=== PATIENT | male | born 1945 | race Hispanic/Latino ===

== ENCOUNTER 2017-04-15 14:02 | Inpatient (IN) | payer MEDICARE, BC, MEDICAID ==
--- NOTE | 2017-04-15 14:10 | C.PDOC ---
History Of Present Illness 71 y/o male brought to ED via EMS due to cardiac and respiratory arrest [employer]. As per EMS patient at Hemodialysis was noted unresponsive and was given CPR by HD personnel for 7 mins. When EMS arrived patient was found apneic, asystole and gurgling sound noted around trachea site. Trachea balloon reinflated by EMS without difference but subsequent improved ventilation. EMS gave patient CPR and Epinephrine x1. At ED patient has NSR and remains unresponsive. Unknown how much Hemodialysis was completed. HPI limited due to patient's clinical condition. LIMITED DUE TO CLIN COND HX PER EMS +CARDIAC/RESP ARREST [employer]. PT @ HD, NOTED TO BECOME UNRESPONSE. CPR BY HD PERSONNEL X 7 MINS, PT FOUND APNEIC +ASYSTOLE. NOTED TO HEAR GURGLING AROUND TRACH SITE. TRACH BALLOON REINFLATED BY EMS W/O DIFF, SUBSEQUENT IMPROVED VENT. +CPR BY EMS S/P EPI X 1. NOW NSR. PT REMAINS UNRESPONSIVE SINCE. UNK HOW MUCH HD COMPLETED ROS UTO EXAM MOD DIST HEENT LUNGS CTA B/L W VENT THROUGH TRACH. CV RRR ABD NEG EXT +L IO. ATRAUM NEURO UNRESPONSIVE NO SPONT MVMT Time Seen by Provider: 04/15/17 14:06 History Per: Patient Reason For Code Blue: Respiratory Arrest Circumstances: Brought To ED By EMS Medications Given Prior To MD Arrival: Yes: Epinephrine Past Medical History Reviewed: Historical Data, Nursing Documentation, Vital Signs Vital Signs: Last Vital Signs Temp 96.5 F L 04/15/17 14:49 Pulse 69 04/15/17 16:05 Resp 12 04/15/17 16:05 BP 117/30 L 04/15/17 16:05 Pulse Ox 100 04/15/17 16:05 Family History: States: No Known Family Hx Review Of Systems Review Of Systems: ROS cannot be obtained secondary to pt's inabilty to answer questions. Physical Exam - Physical Exam Appears: In Acute Distress Skin: Normal Color, Warm Head: Atraumatic, Normacephalic Eye(s): bilateral: Normal Inspection Ear(s): Bilateral: Normal Cardiovascular: Rhythm Regular Respiratory: Other (CTA Bilateral w/vent through Trachea) Gastrointestinal/Abdominal: Soft, No Tenderness, No Guarding, No Rebound Extremity: Normal ROM Extremity: Bilateral: Atraumatic Neurological/Psych: No Response To Commands, Other (No S\pontaneous Movement) ED Course And Treatment - Laboratory Results Result Diagrams: 04/15/17 14:24 04/15/17 14:24 ECG Interpretation: Abnormal Interpretation Of ECG: Sinu Rhythm 1st degree AV block with occasional premature ventricular complexes. Left axis deviation. RBBB. Left ventricular hypertrophy with repolarization abnormality Rate From EC (bpm) - Radiology CXR: Interpreted by Me CXR Interpretation: Yes: Other (INFIL VS CHF) Progress - Re-Evaluation Re-evaluation Note: 04/15/17 14:43 PT DESAT TO 88% ON 50%. NOW 95% ON 100%. EXAM UNCH 04/15/17 15:44 D/W DR ARCHULETA MED SHEET METAL JOURNEYMAN WILL ADMIT 04/15/17 16:18 DR CHAIDEZ ACCEPTS FOR ICU - Data Reviewed Data Reviewed: Lab, Diagnostic imaging, EKG, Old records - Critical Care Citical Care: Excluding Proc Time Critical Care Time: 90 minutes - Continuity of Care Discussed patient case with:: On-call PMD-pt unassigned Disposition Counseled Patient/Family Regarding: Studies Performed, Diagnosis - Disposition Disposition: HOSPITALIZED Disposition Time: 15:58 Condition: SERIOUS - POA Present On Arrival: Poor Glycemic Control - Clinical Impression Clinical Impression: Respiratory arrest, Cardiac arrest, Pneumonia, ESRD (end stage renal disease) Decision To Admit - Pt Status Changed To: Hospital Disposition Of: Inpatient - Admit Certification Admit to Inpatient:: After my assessment, the patient will require hospitalization for at least two midnights. This is because of the severity of symptoms shown, intensity of services needed, and/or the medical risk in this patient being treated as an outpatient. - InPatient: Physician Admission Certification:: SEE NOTE - . Bed Request Type: ICU Admitting Physician: Dale Archuleta Patient Diagnosis: Respiratory arrest, Cardiac arrest, Pneumonia, ESRD (end stage renal disease)
[2017-04-15 14:39] LABS: BASO # 0.2 K/uL (0.0-0.2); BASO % 0.6 % (0.0-2.0); EOS # 0.1 K/uL (0.0-0.7); EOS % 0.2 % (0.0-4.0); HEMATOCRIT 25.5 % (35.0-51.0); LYMPH # 2.2 K/uL (1.0-4.3); LYMPH % 6.8 % (20.0-40.0); MEAN CELL VOLUME 93.5 fL (80.0-94.0); MEAN CORPUSCULAR HEMOGLOBIN 29.3 pg (27.0-31.0); MEAN CORPUSCULAR HGB CONC 31.3 g/dL (33.0-37.0); MEAN PLATELET VOLUME 7.2 fL (7.2-11.7); MONO % 6.4 % (0.0-10.0); PLATELET COUNT 547 K/uL (130-400); RED CELL DISTRIBUTION WIDTH 15.5 % (11.5-14.5)
[2017-04-15 14:40] LABS: INR 1.2
[2017-04-15 14:44] LABS: WHITE BLOOD COUNT 31.8 K/uL (4.8-10.8)
[2017-04-15 14:51] LABS: POTASSIUM 3.5 mmol/L (3.6-5.2)
[2017-04-15 15:08] LABS: TROPONIN I 0.043 ng/mL (0.00-0.120)
[2017-04-15 15:18] LABS: NEUTROPHIL 87 % (50-75); TOTAL CELLS COUNTED 100
[2017-04-15] MEDS ORDERED: cefTRIAXone IV 1 gm in Dextros 50 ML IV STA (15:37)
[2017-04-15] MEDS ORDERED: Azithromycin 500 MG in Sodium Chloride 0.9% 250 ML IV STA (15:37)
[2017-04-15 15:44] LABS: ABG ALLEN TEST POS; ABG MECHANICAL RATE 12; ATERIAL BLOOD GAS PEEP 5; DRAW SITE RBA
--- NOTE | 2017-04-15 15:53 | RAD ---
HISTORY: SP CARDIAC ARREST. TRACH COMPARISON: None available. TECHNIQUE: Chest, one view. FINDINGS: Tracheostomy tube. Left-sided central venous catheter extends expected location of the cavoatrial junction. LUNGS: Interstitial prominence may reflect infection or edema, [id number]. Small left pleural effusion. Bibasilar atelectasis. No definite pneumothorax. Please note that chest x-ray has limited sensitivity for the detection of pulmonary masses. CARDIOVASCULAR: Borderline cardiomegaly. OSSEOUS STRUCTURES: Osseous demineralization. Degenerative changes. VISUALIZED UPPER ABDOMEN: Unremarkable. OTHER FINDINGS: None. IMPRESSION: Tracheostomy tube. Left-sided central venous catheter extends expected location of the cavoatrial junction. Interstitial prominence may reflect infection or edema, [id number]-right. Small left pleural effusion. Bibasilar atelectasis. Borderline cardiomegaly.
[2017-04-15] MEDS ORDERED: Azithromycin 500mg/250ML NS 500 MG/250 ML BAG IVPB ONE (15:59)
[2017-04-15] MEDS ORDERED: cefTRIAXone IV 1 gm in Dextros 50 ML IVPB ONE (15:59)
--- NOTE | 2017-04-15 16:10 | CT ---
PROCEDURE: CT HEAD WITHOUT CONTRAST. HISTORY: R/O Bleed COMPARISON: None available. TECHNIQUE: Axial computed tomography images were obtained through the head/brain without intravenous contrast. Radiation dose: Total exam DLP = 1122.61 mGy-cm. This CT exam was performed using one or more of the following dose reduction techniques: Automated exposure control, adjustment of the mA and/or kV according to patient size, and/or use of iterative reconstruction technique. FINDINGS: HEMORRHAGE: No intracranial hemorrhage. BRAIN: Diffuse atrophy with prominence of the ventricles and sulci noted. No mass effect or edema. Bilateral basal ganglia calcifications. Extensive dense intracranial atherosclerotic calcifications. Evidence of right cerebellar encephalomalacia. Scattered periventricular and subcortical white matter hypodensities, which are nonspecific, but often seen with chronic microvascular ischemic disease. Please note that MRI with diffusion imaging is more sensitive in the detection of acute ischemic event. VENTRICLES: No hydrocephalus. CALVARIUM: Unremarkable. PARANASAL SINUSES: Unremarkable as visualized. No significant inflammatory changes. MASTOID AIR CELLS: Opacification/fluid throughout bilateral visualized mastoid air cells. OTHER FINDINGS: Vascular calcifications involving bilateral orbits. IMPRESSION: Evidence of right cerebellar encephalomalacia. Nonspecific white matter changes. Please note that MRI with diffusion imaging is more sensitive in the detection of acute ischemic event. Opacification/fluid throughout bilateral visualized mastoid air cells. Correlate clinically for mastoiditis. Dense intracranial vascular calcifications. Additionally, vascular calcifications are noted involving bilateral orbits.
--- NOTE | 2017-04-15 16:53 | CP.PCM.CON ---
<Mendel Cedeno - Last Filed: 04/15/17 19:22> History of Present Illness - History of Present Illness History of Present Illness: Critical Care Consultation Note Dr. Bunch CC: Cardiac Arrest At Dialysis HPI: This is a 71 year old male patient with a PMH significant for ESRD presenting for critical care evaluation following cardiac arrest while at hemodialysis. The patient was receiving HD and was noted to be unresponsive by the nursing staff of the unit. BLS was initiated by the HD staff. EMS was called and the patient was found to be apneic and asystolic. EMS continued and began ACLS for 7 minutes with 1amp epinephrine being given. The patient was transferred to the ED with NSR. The patient remained unresponsive. History is difficult to obtain. Patient is a [place] [facility] resident who has previously had a tracheostomy. While at the [place] [facility], the patient was noted to have bleeding from his right AV fistula. The patient was admitted, and the fistula was ligated. During that admission, the patient had a cardiac arrest. The patient was coded for an unknown about of time, but sustained an anoxic brain injury. FOllowing that event, the patient was noted to be baseline unresponsive to verbal stimuli. PMH: ESRD Social: Unknown Surgical: Unknown Family: Unknown Allergy: Nuts, sulfonamides, tetanus toxoid Review of Systems - Review of Systems Systems not reviewed;Unavailable: Acuity of Condition Past Patient History - Past Social History Smoking Status: Smoker Currrent Status Unknown - PSYCHIATRIC Hx Substance Use: No Meds Allergies/Adverse Reactions: Allergies Allergy/AdvReac Type Severity Reaction Status Date / Time nut - unspecified Allergy Verified 04/15/17 15:52 Sulfa (Sulfonamide Allergy Verified 04/15/17 15:52 Antibiotics) tetanus toxoid, adsorbed Allergy Verified 04/15/17 15:52 Physical Exam - Constitutional Appears: Chronically Ill - Head Exam Head Exam: NORMOCEPHALIC - ENT Exam ENT Exam: Mucous Membranes Moist - Neck Exam Neck exam: Negative for: Lymphadenopathy - Respiratory Exam Respiratory Exam: Rhonchi, NORMAL BREATHING PATTERN. absent: Respiratory Distress - Cardiovascular Exam Cardiovascular Exam: REGULAR RHYTHM. absent: Tachycardia - GI/Abdominal Exam GI & Abdominal Exam: Normal Bowel Sounds, Soft - Extremities Exam Extremities exam: Positive for: normal inspection. Negative for: pedal edema Additional comments: left leg IO line Left single lumen PICC line (+) Muscle wasting - Skin Skin Exam: Dry, Pallor, Warm Results - Vital Signs Recent Vital Signs: Last Vital Signs Temp 96.5 F L 04/15/17 14:49 Pulse 77 04/15/17 16:31 Resp 18 04/15/17 16:31 BP 120/48 L 04/15/17 16:31 Pulse Ox 100 04/15/17 16:31 - Labs Result Diagrams: 04/15/17 14:24 04/15/17 14:24 Assessment & Plan (1) Anoxic brain injury Status: Acute (2) Cardiac arrest Status: Acute (3) ESRD (end stage renal disease) Status: Acute - Assessment and Plan (Free Text) Plan: Patient status: -critical -Admission to ICU Neuro: -Non responsive to verbal stimuli at baseline -will assess for code freeze possibility -04/15/17 CT Head- Evidence of right cerebellar encephalomalacia. Nonspecific white matter changes. Please note that MRI with diffusion imaging is more sensitive in the detection of acute ischemic event. Opacification/fluid throughout bilateral visualized mastoid air cells. Correlate clinically for mastoiditis. Dense intracranial vascular calcifications. Additionally, vascular calcifications are noted involving bilateral orbits Cardiovascular: -s/p BLS for unknown amount of time -s/p ACLS for 7 minutes -ROSC s/p BLS and ACLS + 1amp epinephrine -Will obtain central line access -EKG -Fan Blade Aligner -Serial Troponins and EKG -04/15/17 Right Femoral Central Line placed Pulmonary: -Trach -PRVC -04/15/17 CXR- Tracheostomy tube. Left-sided central venous catheter extends expected location of the cavoatrial junction. Interstitial prominence may reflect infection or edema, [id number]-ygez-right. Small left pleural effusion. Bibasilar atelectasis. Borderline cardiomegaly. Gastrointestinal: -NPO Hematology: -No acute issues Endocrine: -No acute issues Renal: -ESRD- unknown completion status of HD today -IVF Musculoskeletal: -No acute issues Genitourinary: -No acute issues Infectious disease: -Vancomycin 1g x 1 -Zosyn 3.375g Q6 -logan culture -procalcitonin GI prophylaxis: Protonix 40mg IV daily DVT prophylaxis: Heparin 5000u SC q12 Case discussed with Dr. Alivia Cedeno PGY1 - Date & Time Date: 04/15/17 Time: 16:54 Proc: Central Venous Access - Time Performed Time Performed: 19:20 - Time Out Time Out: Side verified, Site verified, Patient ID confirmed, Sterile procedures obs. - Procedure Procedure: Central Line placement: Right Technique:: Femoral vein - Consent obtained Consent obtained: Emergent consent implied - Performed by Performed by: Attending Physician - Indications Indication(s):: Mult.intravenous meds, Rapid fluid infusion Tube type:: Triple lumen Tube size Uzbek:: 7 - Local Anesthetic Local Anesthetic: Lidocaine: 1% - Number of Attempts Attempts: 1 - Depth of Skin Depth at skin cm:: 2 - Line sutured in place Line sutured in place:: Yes - Post-procedural O2 Sat % Post-procedural O2 sat %:: 100 - Complications Complications: None - Patient tolerated procedure Patient Tolerated Procedure:: Well <Benjamin Bunch - Last Filed: 04/15/17 19:26> Meds - Medications Medications: Current Medications Piperacillin Sod/Tazobactam Sod (Zosyn 3.375 Gm Iv Premix) 3.375 gm in 50 mls @ 100 mls/hr IVPB Q6H JUVE Sodium Chloride (Sodium Chloride 0.9%) 1,000 mls @ 1,000 mls/hr IV .Q1H ONE Stop: 04/15/17 17:59 Sodium Chloride (Sodium Chloride 0.9%) 1,000 mls @ 100 mls/hr IV .Q10H JUVE Vancomycin/Sodium Chloride (Vancocin) 1 gm in 200 mls @ 133 mls/hr IVPB STAT STA Stop: 04/15/17 18:29 Results - Vital Signs Recent Vital Signs: Last Vital Signs Temp 96.8 F L 04/15/17 17:13 Pulse 78 04/15/17 17:38 Resp 18 04/15/17 17:38 BP 138/36 L 04/15/17 17:38 Pulse Ox 99 04/15/17 17:38 - Labs Result Diagrams: 04/15/17 14:24 04/15/17 14:24 Labs: Laboratory Results - last 24 hr 04/15/17 17:49 pO2 27 L VBG pH 7.33 VBG pCO2 54 VBG HCO3 24.7 VBG Total CO2 30.2 H VBG O2 Sat (Calc) 58.6 VBG Base Excess 1.5 VBG Potassium 3.4 L Sodium 136.0 Chloride 103.0 Glucose 272 H Lactate 2.6 H Venous Blood Potassium 3.4 L Attending/Attestation - Attestation I have personally seen and examined this patient.: Yes I have fully participated in the care of the patient.: Yes I have reviewed all pertinent clinical information: Yes Notes (Text): 04/15/17 17:54 I have seen and examined the patient. Medical records, lab studies, and imaging were reviewed by me and a management plan was formulated on multidisciplinary rounds with resident Dr. Cedeno. I agree with their above documented assessment and plan. Will start therapeutic hypothermia protocol s/p cardiac arrest. Will place central line for access. Patient is critically ill, with poor prognosis given extended CPR >10 minutes. Critical Care Time 35 minutes. Multi-disciplinary rounds were performed with house staff, nursing, speech therapy, respiratory therapy, pharmacy and nutrition with integrated input from the primary team/attending and other consulting services. The documented time is cumulative and includes review of patient data/exams/labs/chart review and examination of the patient on rounds and throughout the day; time is exclusive of any procedures or teaching time.
[2017-04-15] MEDS ORDERED: Vancomycin 1 gm/NS 200 ml 1 GM/200 ML BAG IVPB STA (16:59)
[2017-04-15] MEDS ORDERED: Sodium Chloride 0.9% 1,000 ML IV ONE (17:00)
[2017-04-15] MEDS ORDERED: Piperacillin/Tazobact 3.375 gm 100 ML IVPB ONE (17:22)
[2017-04-15 17:52] LABS: VENOUS BLOOD GAS BASE EXCESS 1.5 mmol/L (0.0-2.0); VENOUS BLOOD GAS PCO2 54 mmHg (40-60); VENOUS BLOOD PH 7.33 (7.32-7.43)
[2017-04-15] MEDS: Sodium Chloride 0.9% 1,000 ML IV SCH (18:09)
[2017-04-15] MEDS: Piperacill/Tazo 3.375gm in Dex 3.375 GM/50 ML BAG IVPB SCH ×2 (18:12→23:00)
--- NOTE | 2017-04-15 19:29 | PCM.PROC ---
Procedures Attestation:: I certify that I have explained the specified Operation(s) or Procedure(s), risks, benefits and reasonable alternatives to the Patient and/or other person responsible. The opportunity was given to ask questions and all questions answered - Central Line Placement Right Femoral Aseptic technique was employed throughout the procedure: Hand Hygiene done prior to procedure, Full sterile barriers (mask, hair cover, sterile gown, sterile gloves), Full body sterile drape, Chloraprep Antiseptic: 2 minute prep for Femoral CVP Time Out Performed: Yes Pt. Placed on Pulse Ox Monitor: Yes Central Line Prep: Chlorhexidine-Alcohol Combination Local Anesthesia Used: Lidocaine 1% Ultrasound Used for Placement: Yes Central Line Lumen Inserted: triple Central Line Length: 20 cm Post Procedure: Sutured in Place, Good Blood Return, All Ports Aspirated, Flushed, Capped, Sterile Dressing Applied Secured by: Suture Post procedure dressing: Clear vapor permeable, Chlorhexidine disc (Biopatch) Post Procedure X-Ray: No Patient Tolerated Procedure: No Complications Immediate Complications: None Additional Comments: Procedure was performed with Dr. Wiseman and medical authorization specialist. I supervised and participated in this procedure.
[2017-04-15 22:29] LABS: HEMATOCRIT 28.1 % (35.0-51.0); MEAN CORPUSCULAR HEMOGLOBIN 29.1 pg (27.0-31.0); MEAN PLATELET VOLUME 6.9 fL (7.2-11.7); RED CELL DISTRIBUTION WIDTH 14.7 % (11.5-14.5); WHITE BLOOD COUNT 29.8 K/uL (4.8-10.8)
[2017-04-15 22:31] LABS: MEAN CELL VOLUME 90.8 fL (80.0-94.0)
[2017-04-15 22:33] LABS: POTASSIUM 3.8 mmol/L (3.6-5.2)
[2017-04-15 22:36] LABS: CALCIUM 8.6 mg/dl (8.6-10.4)
[2017-04-15 22:37] LABS: MAGNESIUM 2.3 mg/dL (1.6-2.3)
[2017-04-15] MEDS ORDERED: Enalaprilat 2.5 MG/2 ML IV ONE (22:42)
[2017-04-15 22:46] LABS: INR 1.2
[2017-04-15] MEDS: (Novolin R) Insulin Human Regular 100 units/ml vial SC SCH (23:06)
[2017-04-16] MEDS: Sodium Chloride 0.9% 1,000 ML IV SCH ×2 (03:00→05:00)
[2017-04-16 04:24] LABS: BASO % 0.2 % (0.0-2.0); HEMATOCRIT 27.9 % (35.0-51.0); LYMPH # 0.8 K/uL (1.0-4.3); LYMPH % 2.7 % (20.0-40.0); MEAN CELL VOLUME 90.2 fL (80.0-94.0); MEAN CORPUSCULAR HEMOGLOBIN 29.3 pg (27.0-31.0); MEAN CORPUSCULAR HGB CONC 32.4 g/dL (33.0-37.0); MEAN PLATELET VOLUME 7.1 fL (7.2-11.7); MONO # 0.8 K/uL (0.0-0.8); MONO % 2.7 % (0.0-10.0); PLATELET COUNT 396 K/uL (130-400); RED CELL DISTRIBUTION WIDTH 14.7 % (11.5-14.5); WHITE BLOOD COUNT 28.2 K/uL (4.8-10.8)
[2017-04-16 04:31] LABS: POTASSIUM 3.5 mmol/L (3.6-5.2)
[2017-04-16 04:32] LABS: INR 1.2
[2017-04-16 04:33] LABS: BILIRUBIN,TOTAL 0.5 mg/dL (0.2-1.3)
[2017-04-16 04:34] LABS: ALB/GLOB RATIO 0.6 (1.0-2.1); CALCIUM 8.4 mg/dl (8.6-10.4); PHOSPHOROUS 3.9 mg/dL (2.5-4.5); TOTAL PROTEIN 6.3 g/dL (6.3-8.3)
[2017-04-16] MEDS: (Novolin R) Insulin Human Regular 100 units/ml vial SC SCH ×3 (05:00→18:00)
[2017-04-16] MEDS: Piperacill/Tazo 3.375gm in Dex 3.375 GM/50 ML BAG IVPB SCH (05:00)
[2017-04-16 05:11] LABS: NEUTROPHIL 92 % (50-75); TOTAL CELLS COUNTED 100
[2017-04-16 05:38] LABS: ABG ALLEN TEST POS; ABG MECHANICAL RATE 12; ATERIAL BLOOD GAS PEEP 5; DRAW SITE LR
[2017-04-16] MEDS ORDERED: Enalaprilat 2.5 MG/2 ML IV ONE ×2 (06:19→06:30)
--- NOTE | 2017-04-16 06:32 | CP.CCUPN ---
<Wilian,Mendel - Last Filed: 04/16/17 12:59> CCU Subjective - Physician Review Subjective (Free Text): 04/16/17 06:30 Patient seen and examined at the bedside. No acute distress. No acute events overnight. Nursing staff reports no issues. The patient remains intubated. No sedation currently. The patient remains minimally responsive to noxious stimuli only. Code freeze active. Today on rounds, the patient's potassium was replaced. The patient's dose of zosyn was also decreased to 2.25g q6. The patients IVF were DC. The patient will be under code freeze until 20:15 tonight. Critical Care Time Spent (in minutes): 90 CCU Objective - Vital Signs / Intake & Output Vital Signs (Last 4 hours): Vital Signs Temp Pulse Resp BP Pulse Ox 04/16/17 05:30 62 17 100 04/16/17 05:09 72 30 H 176/91 H 100 04/16/17 05:00 33.8 F L 69 35 H 149/91 H 100 04/16/17 04:30 70 34 H 100 04/16/17 04:08 70 17 149/91 H 100 04/16/17 04:00 33.2 F L 64 21 139/91 H 99 04/16/17 03:30 61 14 100 04/16/17 03:08 56 L 25 H 139/91 H 100 04/16/17 03:00 32.6 F L 54 L 18 156/91 H 100 Intake and Output (Last 8hrs): Intake & Output 04/15/17 04/15/17 04/16/17 14:59 22:59 06:59 Intake Total 300 700 Output Total 0 0 Balance 300 700 Intake: Intake, IV Amount 300 700 Right Proximal Port 300 700 Femoral Output: Urine 0 0 Urethral (Willis) 0 0 Other: # Bowel Movements 0 - Physical Exam Head: Positive for: Normocephalic. Negative for: Contusion Extroacular Muscles: Positive for: Gaze Palsy (up-gaze) Mouth: Positive for: Moist Mucous Membranes Nose (External): Positive for: Atraumatic Neck: Positive for: Other (trach). Negative for: JVD, Lymphadenopathy Respiratory/Chest: Positive for: Good Air Exchange, Decreased Breath Sounds (B/L ), Rhonchi. Negative for: Clear to Auscultation, Respiratory Distress, Accessory Muscle Use, Rales Cardiovascular: Positive for: Regular Rate and Rhythm, Normal S1, S2, Peripheal Pulses Present. Negative for: Murmurs Abdomen: Positive for: Normal Bowel Sounds. Negative for: Distention Upper Extremity: Positive for: Normal Inspection, NORMAL PULSES, Other (L PICC) . Negative for: Cyanosis, Edema Lower Extremity: Positive for: Normal Inspection, NORMAL PULSES, Other (R Fem TLC). Negative for: Edema Neurological: Negative for: GCS=15 Skin: Positive for: Warm, Dry, Pale. Negative for: Rashes, Normal Color - Medications Active Medications: Active Medications Generic Name Dose Route Start Last Admin Trade Name Freq PRN Reason Stop Dose Admin Enalaprilat 1.25 mg 04/16/17 06:30 Vasotec IV 04/16/17 06:31 ONCE ONE Piperacillin Sod/Tazobactam Sod 3.375 gm in 50 mls @ 100 mls/hr 04/15/17 17: 00 04/16/17 05:00 Zosyn 3.375 Gm Iv Premix IVPB 100 mls/hr Q6H JUVE Administration Sodium Chloride 1,000 mls @ 100 mls/hr 04/15/17 17:00 04/16/17 05:00 Sodium Chloride 0.9% IV 100 mls/hr .Q10H JUVE Administration Potassium Chloride 20 meq in 100 mls @ 50 mls/hr 04/16/17 06:19 Potassium Chloride 20 Meq/100 Ml IVPB 04/16/17 08:18 ONCE ONE Insulin Human Regular 0 unit 04/15/17 22:45 04/15/17 23:06 Novolin R SC 2 unit Q6H JUVE Administration Protocol Pantoprazole Sodium 40 mg 04/16/17 10:00 Protonix Inj IVP DAILY JUVE - Patient Studies Lab Studies: Lab Studies 04/16/17 04/16/17 04/16/17 Range/Units 05:26 04:21 04:21 WBC 28.2 H (4.8-10.8) K/uL RBC 3.09 L (4.40-5.90) Mil/uL Hgb 9.0 L (12.0-18.0) g/dL Hct 27.9 L (35.0-51.0) % MCV 90.2 (80.0-94.0) fL MCH 29.3 (27.0-31.0) pg MCHC 32.4 L (33.0-37.0) g/dL RDW 14.7 H (11.5-14.5) % Plt Count 396 (130-400) K/uL MPV 7.1 L (7.2-11.7) fL Neut % (Auto) 94.4 H (50.0-75.0) % Lymph % (Auto) 2.7 L (20.0-40.0) % [place] % (Auto) 2.7 (0.0-10.0) % Eos % (Auto) 0.0 (0.0-4.0) % Baso % (Auto) 0.2 (0.0-2.0) % Neut # 26.6 H (1.8-7.0) K/uL Lymph # 0.8 L (1.0-4.3) K/uL [place] # 0.8 (0.0-0.8) K/uL Eos # 0.0 (0.0-0.7) K/uL Baso # 0.0 (0.0-0.2) K/uL Neutrophils % (Manual) 92 H (50-75) % Band Neutrophils % 2 (0-2) % Lymphocytes % (Manual) 3 L (20-40) % Monocytes % (Manual) 3 (0-10) % Platelet Estimate Normal (NORMAL) Poikilocytosis (manual Slight Anisocytosis (manual) Moderate PT 13.5 H (9.7-12.2) SECONDS INR 1.2 APTT 35 H (21-34) SECONDS Puncture Site Lr pCO2 32 L (35-45) mm/Hg pO2 136 H (30-55) mm/Hg HCO3 25.7 (21-28) mmol/L ABG pH 7.48 H (7.35-7.45) ABG Total CO2 24.8 (22-28) mmol/L ABG O2 Saturation 99.7 H (95-98) % ABG Base Excess 0.9 (-2.0-3.0) mmol/L Edin Test Pos ABG Potassium 3.4 L (3.6-5.2) mmol/L VBG pH (7.32-7.43) VBG pCO2 (40-60) mmHg VBG HCO3 mmol/L VBG Total CO2 (22-28) mmol/L VBG O2 Sat (Calc) (40-65) % VBG Base Excess (0.0-2.0) mmol/L VBG Potassium (3.6-5.2) mmol/L A-a O2 Difference 181.0 mm/Hg Respiratory Index 1.3 Sodium 139.0 (132-148) mmol/l Chloride 106.0 (98-107) mmol/L Glucose 205 H (75-110) mg/dl Lactate 1.4 (0.7-2.1) mmol/L Mechanical Rate 12 FiO2 50.0 % Tidal Volume 500 PEEP 5 Potassium (3.6-5.2) mmol/L Carbon Dioxide (22-30) mmol/L Anion Gap (10-20) BUN (9-20) mg/dL Creatinine (0.8-1.5) MG/DL Est GFR ( Amer) Est GFR (Non-Af Amer) POC Glucose (mg/dL) (65-110) mg/dL Random Glucose (75-110) mg/dL Calcium (8.6-10.4) mg/dl Phosphorus (2.5-4.5) mg/dL Magnesium (1.6-2.3) mg/dL Total Bilirubin (0.2-1.3) mg/dL AST (17-59) U/L ALT (21-72) U/L Alkaline Phosphatase (38-126) U/L Total Creatine Kinase (55-170) U/L CK-MB (Mass) (0.0-3.38) ng/mL Troponin I, Quant (0.00-0.120) ng/mL Total Protein (6.3-8.3) g/dL Albumin (3.5-5.0) g/dL Globulin (2.2-3.9) gm/dL Albumin/Globulin Ratio (1.0-2.1) Procalcitonin (0.19-0.49) NG/ML Arterial Blood Potassium 3.4 L (3.6-5.2) mmol/L Venous Blood Potassium (3.6-5.2) mmol/L 04/16/17 04/16/17 04/15/17 Range/Units 04:21 04:17 23:59 WBC (4.8-10.8) K/uL RBC (4.40-5.90) Mil/uL Hgb (12.0-18.0) g/dL Hct (35.0-51.0) % MCV (80.0-94.0) fL MCH (27.0-31.0) pg MCHC (33.0-37.0) g/dL RDW (11.5-14.5) % Plt Count (130-400) K/uL MPV (7.2-11.7) fL Neut % (Auto) (50.0-75.0) % Lymph % (Auto) (20.0-40.0) % [place] % (Auto) (0.0-10.0) % Eos % (Auto) (0.0-4.0) % Baso % (Auto) (0.0-2.0) % Neut # (1.8-7.0) K/uL Lymph # (1.0-4.3) K/uL [place] # (0.0-0.8) K/uL Eos # (0.0-0.7) K/uL Baso # (0.0-0.2) K/uL Neutrophils % (Manual) (50-75) % Band Neutrophils % (0-2) % Lymphocytes % (Manual) (20-40) % Monocytes % (Manual) (0-10) % Platelet Estimate (NORMAL) Poikilocytosis (manual Anisocytosis (manual) PT (9.7-12.2) SECONDS INR APTT (21-34) SECONDS Puncture Site pCO2 (35-45) mm/Hg pO2 (30-55) mm/Hg HCO3 (21-28) mmol/L ABG pH (7.35-7.45) ABG Total CO2 (22-28) mmol/L ABG O2 Saturation (95-98) % ABG Base Excess (-2.0-3.0) mmol/L Edin Test ABG Potassium (3.6-5.2) mmol/L VBG pH (7.32-7.43) VBG pCO2 (40-60) mmHg VBG HCO3 mmol/L VBG Total CO2 (22-28) mmol/L VBG O2 Sat (Calc) (40-65) % VBG Base Excess (0.0-2.0) mmol/L VBG Potassium (3.6-5.2) mmol/L A-a O2 Difference mm/Hg Respiratory Index Sodium 136 (132-148) mmol/l Chloride 98 (98-107) mmol/L Glucose (75-110) mg/dl Lactate (0.7-2.1) mmol/L Mechanical Rate FiO2 % Tidal Volume PEEP Potassium 3.5 L (3.6-5.2) mmol/L Carbon Dioxide 23 (22-30) mmol/L Anion Gap 19 (10-20) BUN 52 H (9-20) mg/dL Creatinine 2.1 H (0.8-1.5) MG/DL Est GFR ( Amer) 38 Est GFR (Non-Af Amer) 31 POC Glucose (mg/dL) 253 H 272 H (65-110) mg/dL Random Glucose 222 H (75-110) mg/dL Calcium 8.4 L (8.6-10.4) mg/dl Phosphorus 3.9 (2.5-4.5) mg/dL Magnesium 2.0 (1.6-2.3) mg/dL Total Bilirubin 0.5 (0.2-1.3) mg/dL AST 26 (17-59) U/L ALT 35 (21-72) U/L Alkaline Phosphatase 282 H (38-126) U/L Total Creatine Kinase 44 L (55-170) U/L CK-MB (Mass) 6.90 H (0.0-3.38) ng/mL Troponin I, Quant 0.0440 (0.00-0.120) ng/mL Total Protein 6.3 (6.3-8.3) g/dL Albumin 2.3 L (3.5-5.0) g/dL Globulin 4.0 H (2.2-3.9) gm/dL Albumin/Globulin Ratio 0.6 L (1.0-2.1) Procalcitonin (0.19-0.49) NG/ML Arterial Blood Potassium (3.6-5.2) mmol/L Venous Blood Potassium (3.6-5.2) mmol/L 04/15/17 04/15/17 04/15/17 Range/Units 22:52 22:21 22:21 WBC 29.8 H (4.8-10.8) K/uL RBC 3.09 L (4.40-5.90) Mil/uL Hgb 9.0 L (12.0-18.0) g/dL Hct 28.1 L (35.0-51.0) % MCV 90.8 D (80.0-94.0) fL MCH 29.1 (27.0-31.0) pg MCHC 32.0 L (33.0-37.0) g/dL RDW 14.7 H (11.5-14.5) % Plt Count 435 H D (130-400) K/uL MPV 6.9 L (7.2-11.7) fL Neut % (Auto) (50.0-75.0) % Lymph % (Auto) (20.0-40.0) % [place] % (Auto) (0.0-10.0) % Eos % (Auto) (0.0-4.0) % Baso % (Auto) (0.0-2.0) % Neut # (1.8-7.0) K/uL Lymph # (1.0-4.3) K/uL [place] # (0.0-0.8) K/uL Eos # (0.0-0.7) K/uL Baso # (0.0-0.2) K/uL Neutrophils % (Manual) (50-75) % Band Neutrophils % (0-2) % Lymphocytes % (Manual) (20-40) % Monocytes % (Manual) (0-10) % Platelet Estimate (NORMAL) Poikilocytosis (manual Anisocytosis (manual) PT 13.0 H (9.7-12.2) SECONDS INR 1.2 APTT 35 H D (21-34) SECONDS Puncture Site pCO2 (35-45) mm/Hg pO2 (30-55) mm/Hg HCO3 (21-28) mmol/L ABG pH (7.35-7.45) ABG Total CO2 (22-28) mmol/L ABG O2 Saturation (95-98) % ABG Base Excess (-2.0-3.0) mmol/L Edin Test ABG Potassium (3.6-5.2) mmol/L VBG pH (7.32-7.43) VBG pCO2 (40-60) mmHg VBG HCO3 mmol/L VBG Total CO2 (22-28) mmol/L VBG O2 Sat (Calc) (40-65) % VBG Base Excess (0.0-2.0) mmol/L VBG Potassium (3.6-5.2) mmol/L A-a O2 Difference mm/Hg Respiratory Index Sodium (132-148) mmol/l Chloride (98-107) mmol/L Glucose (75-110) mg/dl Lactate (0.7-2.1) mmol/L Mechanical Rate FiO2 % Tidal Volume PEEP Potassium (3.6-5.2) mmol/L Carbon Dioxide (22-30) mmol/L Anion Gap (10-20) BUN (9-20) mg/dL Creatinine (0.8-1.5) MG/DL Est GFR ( Amer) Est GFR (Non-Af Amer) POC Glucose (mg/dL) 247 H (65-110) mg/dL Random Glucose (75-110) mg/dL Calcium (8.6-10.4) mg/dl Phosphorus (2.5-4.5) mg/dL Magnesium (1.6-2.3) mg/dL Total Bilirubin (0.2-1.3) mg/dL AST (17-59) U/L ALT (21-72) U/L Alkaline Phosphatase (38-126) U/L Total Creatine Kinase (55-170) U/L CK-MB (Mass) (0.0-3.38) ng/mL Troponin I, Quant (0.00-0.120) ng/mL Total Protein (6.3-8.3) g/dL Albumin (3.5-5.0) g/dL Globulin (2.2-3.9) gm/dL Albumin/Globulin Ratio (1.0-2.1) Procalcitonin (0.19-0.49) NG/ML Arterial Blood Potassium (3.6-5.2) mmol/L Venous Blood Potassium (3.6-5.2) mmol/L 04/15/17 04/15/17 04/15/17 Range/Units 22:21 17:49 17:36 WBC (4.8-10.8) K/uL RBC (4.40-5.90) Mil/uL Hgb (12.0-18.0) g/dL Hct (35.0-51.0) % MCV (80.0-94.0) fL MCH (27.0-31.0) pg MCHC (33.0-37.0) g/dL RDW (11.5-14.5) % Plt Count (130-400) K/uL MPV (7.2-11.7) fL Neut % (Auto) (50.0-75.0) % Lymph % (Auto) (20.0-40.0) % [place] % (Auto) (0.0-10.0) % Eos % (Auto) (0.0-4.0) % Baso % (Auto) (0.0-2.0) % Neut # (1.8-7.0) K/uL Lymph # (1.0-4.3) K/uL [place] # (0.0-0.8) K/uL Eos # (0.0-0.7) K/uL Baso # (0.0-0.2) K/uL Neutrophils % (Manual) (50-75) % Band Neutrophils % (0-2) % Lymphocytes % (Manual) (20-40) % Monocytes % (Manual) (0-10) % Platelet Estimate (NORMAL) Poikilocytosis (manual Anisocytosis (manual) PT (9.7-12.2) SECONDS INR APTT (21-34) SECONDS Puncture Site pCO2 (35-45) mm/Hg pO2 27 L (30-55) mm/Hg HCO3 (21-28) mmol/L ABG pH (7.35-7.45) ABG Total CO2 (22-28) mmol/L ABG O2 Saturation (95-98) % ABG Base Excess (-2.0-3.0) mmol/L Edin Test ABG Potassium (3.6-5.2) mmol/L VBG pH 7.33 (7.32-7.43) VBG pCO2 54 (40-60) mmHg VBG HCO3 24.7 mmol/L VBG Total CO2 30.2 H (22-28) mmol/L VBG O2 Sat (Calc) 58.6 (40-65) % VBG Base Excess 1.5 (0.0-2.0) mmol/L VBG Potassium 3.4 L (3.6-5.2) mmol/L A-a O2 Difference mm/Hg Respiratory Index Sodium 135 136.0 (132-148) mmol/l Chloride 97 L 103.0 (98-107) mmol/L Glucose 272 H (75-110) mg/dl Lactate 2.6 H (0.7-2.1) mmol/L Mechanical Rate FiO2 % Tidal Volume PEEP Potassium 3.8 (3.6-5.2) mmol/L Carbon Dioxide 23 (22-30) mmol/L Anion Gap 19 (10-20) BUN 48 H (9-20) mg/dL Creatinine 2.1 H (0.8-1.5) MG/DL Est GFR ( Amer) 38 Est GFR (Non-Af Amer) 31 POC Glucose (mg/dL) (65-110) mg/dL Random Glucose 269 H (75-110) mg/dL Calcium 8.6 (8.6-10.4) mg/dl Phosphorus (2.5-4.5) mg/dL Magnesium 2.3 (1.6-2.3) mg/dL Total Bilirubin (0.2-1.3) mg/dL AST (17-59) U/L ALT (21-72) U/L Alkaline Phosphatase (38-126) U/L Total Creatine Kinase 46 L (55-170) U/L CK-MB (Mass) 6.66 H (0.0-3.38) ng/mL Troponin I, Quant 0.0620 (0.00-0.120) ng/mL Total Protein (6.3-8.3) g/dL Albumin (3.5-5.0) g/dL Globulin (2.2-3.9) gm/dL Albumin/Globulin Ratio (1.0-2.1) Procalcitonin 1.63 H (0.19-0.49) NG/ML Arterial Blood Potassium (3.6-5.2) mmol/L Venous Blood Potassium 3.4 L (3.6-5.2) mmol/L Laboratory Results - last 24 hr 04/15/17 04/15/17 04/15/17 17:36 17:49 22:21 WBC RBC Hgb Hct MCV MCH MCHC RDW Plt Count MPV Neut % (Auto) Lymph % (Auto) [place] % (Auto) Eos % (Auto) Baso % (Auto) Neut # Lymph # [place] # Eos # Baso # Neutrophils % (Manual) Band Neutrophils % Lymphocytes % (Manual) Monocytes % (Manual) Platelet Estimate Poikilocytosis (manual Anisocytosis (manual) PT INR APTT Puncture Site pCO2 pO2 27 L HCO3 ABG pH ABG Total CO2 ABG O2 Saturation ABG Base Excess Edin Test ABG Potassium VBG pH 7.33 VBG pCO2 54 VBG HCO3 24.7 VBG Total CO2 30.2 H VBG O2 Sat (Calc) 58.6 VBG Base Excess 1.5 VBG Potassium 3.4 L A-a O2 Difference Respiratory Index Sodium 136.0 135 Chloride 103.0 97 L Glucose 272 H Lactate 2.6 H Mechanical Rate FiO2 Tidal Volume PEEP Potassium 3.8 Carbon Dioxide 23 Anion Gap 19 BUN 48 H Creatinine 2.1 H Est GFR ( Amer) 38 Est GFR (Non-Af Amer) 31 POC Glucose (mg/dL) Random Glucose 269 H Calcium 8.6 Phosphorus Magnesium 2.3 Total Bilirubin AST ALT Alkaline Phosphatase Total Creatine Kinase 46 L CK-MB (Mass) 6.66 H Troponin I, Quant 0.0620 Total Protein Albumin Globulin Albumin/Globulin Ratio Procalcitonin 1.63 H Arterial Blood Potassium Venous Blood Potassium 3.4 L 04/15/17 04/15/17 04/15/17 22:21 22:21 22:52 WBC 29.8 H RBC 3.09 L Hgb 9.0 L Hct 28.1 L MCV 90.8 D MCH 29.1 MCHC 32.0 L RDW 14.7 H Plt Count 435 H D MPV 6.9 L Neut % (Auto) Lymph % (Auto) [place] % (Auto) Eos % (Auto) Baso % (Auto) Neut # Lymph # [place] # Eos # Baso # Neutrophils % (Manual) Band Neutrophils % Lymphocytes % (Manual) Monocytes % (Manual) Platelet Estimate Poikilocytosis (manual Anisocytosis (manual) PT 13.0 H INR 1.2 APTT 35 H D Puncture Site pCO2 pO2 HCO3 ABG pH ABG Total CO2 ABG O2 Saturation ABG Base Excess Edin Test ABG Potassium VBG pH VBG pCO2 VBG HCO3 VBG Total CO2 VBG O2 Sat (Calc) VBG Base Excess VBG Potassium A-a O2 Difference Respiratory Index Sodium Chloride Glucose Lactate Mechanical Rate FiO2 Tidal Volume PEEP Potassium Carbon Dioxide Anion Gap BUN Creatinine Est GFR ( Amer) Est GFR (Non-Af Amer) POC Glucose (mg/dL) 247 H Random Glucose Calcium Phosphorus Magnesium Total Bilirubin AST ALT Alkaline Phosphatase Total Creatine Kinase CK-MB (Mass) Troponin I, Quant Total Protein Albumin Globulin Albumin/Globulin Ratio Procalcitonin Arterial Blood Potassium Venous Blood Potassium 04/15/17 04/16/17 04/16/17 23:59 04:17 04:21 WBC RBC Hgb Hct MCV MCH MCHC RDW Plt Count MPV Neut % (Auto) Lymph % (Auto) [place] % (Auto) Eos % (Auto) Baso % (Auto) Neut # Lymph # [place] # Eos # Baso # Neutrophils % (Manual) Band Neutrophils % Lymphocytes % (Manual) Monocytes % (Manual) Platelet Estimate Poikilocytosis (manual Anisocytosis (manual) PT INR APTT Puncture Site pCO2 pO2 HCO3 ABG pH ABG Total CO2 ABG O2 Saturation ABG Base Excess Edin Test ABG Potassium VBG pH VBG pCO2 VBG HCO3 VBG Total CO2 VBG O2 Sat (Calc) VBG Base Excess VBG Potassium A-a O2 Difference Respiratory Index Sodium 136 Chloride 98 Glucose Lactate Mechanical Rate FiO2 Tidal Volume PEEP Potassium 3.5 L Carbon Dioxide 23 Anion Gap 19 BUN 52 H Creatinine 2.1 H Est GFR ( Amer) 38 Est GFR (Non-Af Amer) 31 POC Glucose (mg/dL) 272 H 253 H Random Glucose 222 H Calcium 8.4 L Phosphorus 3.9 Magnesium 2.0 Total Bilirubin 0.5 AST 26 ALT 35 Alkaline Phosphatase 282 H Total Creatine Kinase 44 L CK-MB (Mass) 6.90 H Troponin I, Quant 0.0440 Total Protein 6.3 Albumin 2.3 L Globulin 4.0 H Albumin/Globulin Ratio 0.6 L Procalcitonin Arterial Blood Potassium Venous Blood Potassium 04/16/17 04/16/17 04/16/17 04:21 04:21 05:26 WBC 28.2 H RBC 3.09 L Hgb 9.0 L Hct 27.9 L MCV 90.2 MCH 29.3 MCHC 32.4 L RDW 14.7 H Plt Count 396 MPV 7.1 L Neut % (Auto) 94.4 H Lymph % (Auto) 2.7 L [place] % (Auto) 2.7 Eos % (Auto) 0.0 Baso % (Auto) 0.2 Neut # 26.6 H Lymph # 0.8 L [place] # 0.8 Eos # 0.0 Baso # 0.0 Neutrophils % (Manual) 92 H Band Neutrophils % 2 Lymphocytes % (Manual) 3 L Monocytes % (Manual) 3 Platelet Estimate Normal Poikilocytosis (manual Slight Anisocytosis (manual) Moderate PT 13.5 H INR 1.2 APTT 35 H Puncture Site Lr pCO2 32 L pO2 136 H HCO3 25.7 ABG pH 7.48 H ABG Total CO2 24.8 ABG O2 Saturation 99.7 H ABG Base Excess 0.9 Edin Test Pos ABG Potassium 3.4 L VBG pH VBG pCO2 VBG HCO3 VBG Total CO2 VBG O2 Sat (Calc) VBG Base Excess VBG Potassium A-a O2 Difference 181.0 Respiratory Index 1.3 Sodium 139.0 Chloride 106.0 Glucose 205 H Lactate 1.4 Mechanical Rate 12 FiO2 50.0 Tidal Volume 500 PEEP 5 Potassium Carbon Dioxide Anion Gap BUN Creatinine Est GFR ( Amer) Est GFR (Non-Af Amer) POC Glucose (mg/dL) Random Glucose Calcium Phosphorus Magnesium Total Bilirubin AST ALT Alkaline Phosphatase Total Creatine Kinase CK-MB (Mass) Troponin I, Quant Total Protein Albumin Globulin Albumin/Globulin Ratio Procalcitonin Arterial Blood Potassium 3.4 L Venous Blood Potassium EKG/Cardiology Studies: Cardiology / EKG Studies 04/15/17 22:00 EKG [ELECTROCARDIOGRAM] Routine Comment: Mode Of Transportation: Reason For Exam: s/p cardiac arrest 04/16/17 06:00 EKG [ELECTROCARDIOGRAM] Routine Comment: Mode Of Transportation: Reason For Exam: s/p cardiac arrest Fingerstick Blood Sugar Results: 247 Review of Systems - Review of Systems Systems not reviewed;Unavailable: Intubated Critical Care Progress Note - Ventilator Checklist Head of Bed 30 Degrees: Yes Daily Sedation Vacation: Yes Daily Assessment of Readiness to Wean: Yes PUD Prophalyxis: Yes DVT Prophylaxis: Yes - Vent Settings MODE:: PRVC TIDAL VOLUME:: 500 RESP RATE:: 12 FIO2:: 50 PEEP:: 5 - Extremities/Vascular Does the Patient have a Central Venous Catheter?: Yes Insertion Site: L Single Lume PICC Does the Patient need a Central Venous Catheter?: Yes Does the Patient have a Willis Catheter?: Yes Does the Patient need a Willis Catheter?: Yes Catheter Insertion Criteria: Patient requires prolonged immobilization - Prophylaxis GI Prophylaxis GI: PPI - Prophylaxis DVT Prophylaxis DVT: Heparin SQ Assessment/Plan (1) Anoxic brain injury Current Visit: Yes Status: Acute (2) Cardiac arrest Current Visit: Yes Status: Acute (3) ESRD (end stage renal disease) Current Visit: Yes Status: Acute - Assessment and Plan (Free Text) Plan: Patient status: -critical, code Freeze -[place] II- 30 Neuro: -Non responsive to verbal stimuli at baseline, responds minimally to noxious stimuli -code freeze -04/15/17 CT Head- Evidence of right cerebellar encephalomalacia. Nonspecific white matter changes. Please note that MRI with diffusion imaging is more sensitive in the detection of acute ischemic event. Opacification/fluid throughout bilateral visualized mastoid air cells. Correlate clinically for mastoiditis. Dense intracranial vascular calcifications. Additionally, vascular calcifications are noted involving bilateral orbits Cardiovascular: -Hemodynamically stable -HTN- enalapril x 1 used overnight -Troponins negative x3 -04/15/17 Right Femoral Central Line placed Pulmonary: -Trach -PRVC (500 / 12 / 50% / 5) -Imaging -04/16/17 CXR- -04/15/17 CXR- Tracheostomy tube. Left-sided central venous catheter extends expected location of the cavoatrial junction. Interstitial prominence may reflect infection or edema, [id number]. Small left pleural effusion. Bibasilar atelectasis. Borderline cardiomegaly. _ABG -04/16/17- CO2 32 / O2 136 / HCO3 25.7 / pH 7.48 -04/15/17- CO2 46 / O2 160 / HCO3 24.0 / pH 7.34 Gastrointestinal: -NPO Hematology: -No acute issues Endocrine: -No acute issues Renal: -Respiratory Alkalosis- will adjust ventilator settings -ESRD -DC IVF Musculoskeletal: -No acute issues Genitourinary: -Continue Willis Infectious disease: -Zosyn 2.25g Q6 -logan culture -procalcitonin GI prophylaxis: Protonix 40mg IV daily DVT prophylaxis: Heparin 5000u SC q12 Case discussed with Dr[address] Jaime Cedeno PGY1 - Date & Time Date: 04/16/17 Time: 06:36 <Manuel Sandoval - Last Filed: 04/20/17 17:43> CCU Objective - Vital Signs / Intake & Output Intake and Output (Last 8hrs): Intake & Output 04/20/17 04/20/17 04/20/17 06:59 14:59 22:59 Intake Total 370 430 Output Total 0 0 Balance 370 430 Weight 132 lb Intake: Intake, IV Amount 50 150 Left PICC 50 150 Tube Feeding 320 280 Output: Urine 0 0 Urethral ([facility]) 0 0 - Medications Active Medications: Active Medications Generic Name Dose Route Start Last Admin Trade Name Freq PRN Reason Stop Dose Admin Ferrous Sulfate 300 mg 04/19/17 11:45 04/20/17 17:17 Feosol Liq PEG 300 mg BID JUVE Administration Heparin Sodium (Porcine) 5,000 units 04/16/17 10:00 04/20/17 09:51 Heparin SC 5,000 units Q12 JUVE Administration Piperacillin Sod/Tazobactam Sod 2.25 gm in 50 mls @ 100 mls/hr 04/17/17 06:00 04/20/17 15:31 Zosyn 2.25 Gm Iv Premix IVPB 100 mls/hr Q8H JUVE Administration Gentamicin Sulfate 80 mg/ 102 mls @ 100 mls/hr 04/21/17 09:00 Sodium Chloride IVPB MWF JUVE Insulin Human Regular 0 unit 04/16/17 12:00 04/20/17 12:25 Novolin R SC 1 unit Q6H JUVE Administration Protocol Levetiracetam 500 mg 04/19/17 10:00 04/20/17 17:17 Keppra PO 500 mg BID JUVE Administration Nystatin 1 applic 04/17/17 10:00 04/20/17 17:17 Nystop Topical Powder TOP 1 applic BID JUVE Administration Pantoprazole Sodium 40 mg 04/19/17 11:00 04/20/17 09:52 Protonix Susp PEG 40 mg DAILY JUVE Administration - Patient Studies Lab Studies: Microbiology Studies 04/17/17 19:00 Blood Culture - Final Blood-During Dialysis Pseudomonas Aeruginosa Gram Stain - Final 04/17/17 19:00 Blood Culture - Final Blood-During Dialysis Pseudomonas Aeruginosa Gram Stain - Final Lab Studies 04/20/17 04/20/17 04/20/17 Range/Units 11:54 06:29 06:29 WBC (4.8-10.8) K/uL RBC (4.40-5.90) Mil/uL Hgb (12.0-18.0) g/dL Hct (35.0-51.0) % MCV (80.0-94.0) fL MCH (27.0-31.0) pg MCHC (33.0-37.0) g/dL RDW (11.5-14.5) % Plt Count (130-400) K/uL MPV (7.2-11.7) fL Neut % (Auto) (50.0-75.0) % Lymph % (Auto) (20.0-40.0) % [place] % (Auto) (0.0-10.0) % Eos % (Auto) (0.0-4.0) % Baso % (Auto) (0.0-2.0) % Neut # (1.8-7.0) K/uL Lymph # (1.0-4.3) K/uL [place] # (0.0-0.8) K/uL Eos # (0.0-0.7) K/uL Baso # (0.0-0.2) K/uL Neutrophils % (Manual) (50-75) % Lymphocytes % (Manual) (20-40) % Monocytes % (Manual) (0-10) % Platelet Estimate (NORMAL) Hypochromasia (manual) Anisocytosis (manual) PT 11.2 (9.7-12.2) SECONDS INR 1.0 APTT 36 H (21-34) SECONDS pO2 (30-55) mm/Hg VBG pH (7.32-7.43) VBG pCO2 (40-60) mmHg VBG HCO3 mmol/L VBG Total CO2 (22-28) mmol/L VBG O2 Sat (Calc) (40-65) % VBG Base Excess (0.0-2.0) mmol/L VBG Potassium (3.6-5.2) mmol/L Sodium 134 (132-148) mmol/l Chloride 99 (98-107) mmol/L Glucose (75-110) mg/dl Lactate (0.7-2.1) mmol/L FiO2 % PEEP Potassium 3.5 L (3.6-5.2) mmol/L Carbon Dioxide 22 (22-30) mmol/L Anion Gap 17 (10-20) BUN 62 H (9-20) mg/dL Creatinine 2.7 H (0.8-1.5) MG/DL Est GFR ( Amer) 28 Est GFR (Non-Af Amer) 24 POC Glucose (mg/dL) 196 H (65-110) mg/dL Random Glucose 230 H (75-110) mg/dL Calcium 8.3 L (8.6-10.4) mg/dl Phosphorus 2.9 (2.5-4.5) mg/dL Magnesium 2.1 (1.6-2.3) mg/dL Total Bilirubin 0.4 (0.2-1.3) mg/dL AST 21 (17-59) U/L ALT 22 (21-72) U/L Alkaline Phosphatase 288 H D (38-126) U/L Total Protein 5.2 L (6.3-8.3) g/dL Albumin 2.2 L (3.5-5.0) g/dL Globulin 3.0 (2.2-3.9) gm/dL Albumin/Globulin Ratio 0.7 L (1.0-2.1) Venous Blood Potassium (3.6-5.2) mmol/L C. difficile Ag & Toxin (NEGATIVE) 04/20/17 04/20/17 04/20/17 Range/Units 06:29 06:06 05:17 WBC 14.0 H (4.8-10.8) K/uL RBC 2.74 L (4.40-5.90) Mil/uL Hgb 8.4 L (12.0-18.0) g/dL Hct 24.9 L (35.0-51.0) % MCV 90.8 (80.0-94.0) fL MCH 30.6 (27.0-31.0) pg MCHC 33.7 (33.0-37.0) g/dL RDW 15.2 H (11.5-14.5) % Plt Count 386 (130-400) K/uL MPV 7.2 (7.2-11.7) fL Neut % (Auto) 85.6 H (50.0-75.0) % Lymph % (Auto) 7.7 L (20.0-40.0) % [place] % (Auto) 6.0 (0.0-10.0) % Eos % (Auto) 0.5 (0.0-4.0) % Baso % (Auto) 0.2 (0.0-2.0) % Neut # 12.0 H (1.8-7.0) K/uL Lymph # 1.1 (1.0-4.3) K/uL [place] # 0.8 (0.0-0.8) K/uL Eos # 0.1 (0.0-0.7) K/uL Baso # 0.0 (0.0-0.2) K/uL Neutrophils % (Manual) 90 H (50-75) % Lymphocytes % (Manual) 5 L (20-40) % Monocytes % (Manual) 5 (0-10) % Platelet Estimate Normal (NORMAL) Hypochromasia (manual) Slight Anisocytosis (manual) Slight PT (9.7-12.2) SECONDS INR APTT (21-34) SECONDS pO2 37 (30-55) mm/Hg VBG pH 7.43 (7.32-7.43) VBG pCO2 38 L (40-60) mmHg VBG HCO3 25.0 mmol/L VBG Total CO2 26.4 (22-28) mmol/L VBG O2 Sat (Calc) 83.5 H (40-65) % VBG Base Excess 1.0 (0.0-2.0) mmol/L VBG Potassium 3.6 (3.6-5.2) mmol/L Sodium 138.0 (132-148) mmol/l Chloride 107.0 (98-107) mmol/L Glucose 252 H (75-110) mg/dl Lactate 1.3 (0.7-2.1) mmol/L FiO2 50.0 % PEEP 6 Potassium (3.6-5.2) mmol/L Carbon Dioxide (22-30) mmol/L Anion Gap (10-20) BUN (9-20) mg/dL Creatinine (0.8-1.5) MG/DL Est GFR ( Amer) Est GFR (Non-Af Amer) POC Glucose (mg/dL) 283 H (65-110) mg/dL Random Glucose (75-110) mg/dL Calcium (8.6-10.4) mg/dl Phosphorus (2.5-4.5) mg/dL Magnesium (1.6-2.3) mg/dL Total Bilirubin (0.2-1.3) mg/dL AST (17-59) U/L ALT (21-72) U/L Alkaline Phosphatase (38-126) U/L Total Protein (6.3-8.3) g/dL Albumin (3.5-5.0) g/dL Globulin (2.2-3.9) gm/dL Albumin/Globulin Ratio (1.0-2.1) Venous Blood Potassium 3.6 (3.6-5.2) mmol/L C. difficile Ag & Toxin (NEGATIVE) 04/19/17 04/19/17 04/19/17 Range/Units Unknown 23:41 18:36 WBC (4.8-10.8) K/uL RBC (4.40-5.90) Mil/uL Hgb (12.0-18.0) g/dL Hct (35.0-51.0) % MCV (80.0-94.0) fL MCH (27.0-31.0) pg MCHC (33.0-37.0) g/dL RDW (11.5-14.5) % Plt Count (130-400) K/uL MPV (7.2-11.7) fL Neut % (Auto) (50.0-75.0) % Lymph % (Auto) (20.0-40.0) % [place] % (Auto) (0.0-10.0) % Eos % (Auto) (0.0-4.0) % Baso % (Auto) (0.0-2.0) % Neut # (1.8-7.0) K/uL Lymph # (1.0-4.3) K/uL [place] # (0.0-0.8) K/uL Eos # (0.0-0.7) K/uL Baso # (0.0-0.2) K/uL Neutrophils % (Manual) (50-75) % Lymphocytes % (Manual) (20-40) % Monocytes % (Manual) (0-10) % Platelet Estimate (NORMAL) Hypochromasia (manual) Anisocytosis (manual) PT (9.7-12.2) SECONDS INR APTT (21-34) SECONDS pO2 (30-55) mm/Hg VBG pH (7.32-7.43) VBG pCO2 (40-60) mmHg VBG HCO3 mmol/L VBG Total CO2 (22-28) mmol/L VBG O2 Sat (Calc) (40-65) % VBG Base Excess (0.0-2.0) mmol/L VBG Potassium (3.6-5.2) mmol/L Sodium (132-148) mmol/l Chloride (98-107) mmol/L Glucose (75-110) mg/dl Lactate (0.7-2.1) mmol/L FiO2 % PEEP Potassium (3.6-5.2) mmol/L Carbon Dioxide (22-30) mmol/L Anion Gap (10-20) BUN (9-20) mg/dL Creatinine (0.8-1.5) MG/DL Est GFR ( Amer) Est GFR (Non-Af Amer) POC Glucose (mg/dL) 279 H 233 H (65-110) mg/dL Random Glucose (75-110) mg/dL Calcium (8.6-10.4) mg/dl Phosphorus (2.5-4.5) mg/dL Magnesium (1.6-2.3) mg/dL Total Bilirubin (0.2-1.3) mg/dL AST (17-59) U/L ALT (21-72) U/L Alkaline Phosphatase (38-126) U/L Total Protein (6.3-8.3) g/dL Albumin (3.5-5.0) g/dL Globulin (2.2-3.9) gm/dL Albumin/Globulin Ratio (1.0-2.1) Venous Blood Potassium (3.6-5.2) mmol/L C. difficile Ag & Toxin Negative (NEGATIVE) Laboratory Results - last 24 hr 04/19/17 04/19/17 04/19/17 18:36 23:41 Unknown WBC RBC Hgb Hct MCV MCH MCHC RDW Plt Count MPV Neut % (Auto) Lymph % (Auto) [place] % (Auto) Eos % (Auto) Baso % (Auto) Neut # Lymph # [place] # Eos # Baso # Neutrophils % (Manual) Lymphocytes % (Manual) Monocytes % (Manual) Platelet Estimate Hypochromasia (manual) Anisocytosis (manual) PT INR APTT pO2 VBG pH VBG pCO2 VBG HCO3 VBG Total CO2 VBG O2 Sat (Calc) VBG Base Excess VBG Potassium Sodium Chloride Glucose Lactate FiO2 PEEP Potassium Carbon Dioxide Anion Gap BUN Creatinine Est GFR ( Amer) Est GFR (Non-Af Amer) POC Glucose (mg/dL) 233 H 279 H Random Glucose Calcium Phosphorus Magnesium Total Bilirubin AST ALT Alkaline Phosphatase Total Protein Albumin Globulin Albumin/Globulin Ratio Venous Blood Potassium C. difficile Ag & Toxin Negative 04/20/17 04/20/17 04/20/17 05:17 06:06 06:29 WBC 14.0 H RBC 2.74 L Hgb 8.4 L Hct 24.9 L MCV 90.8 MCH 30.6 MCHC 33.7 RDW 15.2 H Plt Count 386 MPV 7.2 Neut % (Auto) 85.6 H Lymph % (Auto) 7.7 L [place] % (Auto) 6.0 Eos % (Auto) 0.5 Baso % (Auto) 0.2 Neut # 12.0 H Lymph # 1.1 [place] # 0.8 Eos # 0.1 Baso # 0.0 Neutrophils % (Manual) 90 H Lymphocytes % (Manual) 5 L Monocytes % (Manual) 5 Platelet Estimate Normal Hypochromasia (manual) Slight Anisocytosis (manual) Slight PT INR APTT pO2 37 VBG pH 7.43 VBG pCO2 38 L VBG HCO3 25.0 VBG Total CO2 26.4 VBG O2 Sat (Calc) 83.5 H VBG Base Excess 1.0 VBG Potassium 3.6 Sodium 138.0 Chloride 107.0 Glucose 252 H Lactate 1.3 FiO2 50.0 PEEP 6 Potassium Carbon Dioxide Anion Gap BUN Creatinine Est GFR ( Amer) Est GFR (Non-Af Amer) POC Glucose (mg/dL) 283 H Random Glucose Calcium Phosphorus Magnesium Total Bilirubin AST ALT Alkaline Phosphatase Total Protein Albumin Globulin Albumin/Globulin Ratio Venous Blood Potassium 3.6 C. difficile Ag & Toxin 04/20/17 04/20/17 04/20/17 06:29 06:29 11:54 WBC RBC Hgb Hct MCV MCH MCHC RDW Plt Count MPV Neut % (Auto) Lymph % (Auto) [place] % (Auto) Eos % (Auto) Baso % (Auto) Neut # Lymph # [place] # Eos # Baso # Neutrophils % (Manual) Lymphocytes % (Manual) Monocytes % (Manual) Platelet Estimate Hypochromasia (manual) Anisocytosis (manual) PT 11.2 INR 1.0 APTT 36 H pO2 VBG pH VBG pCO2 VBG HCO3 VBG Total CO2 VBG O2 Sat (Calc) VBG Base Excess VBG Potassium Sodium 134 Chloride 99 Glucose Lactate FiO2 PEEP Potassium 3.5 L Carbon Dioxide 22 Anion Gap 17 BUN 62 H Creatinine 2.7 H Est GFR ( Amer) 28 Est GFR (Non-Af Amer) 24 POC Glucose (mg/dL) 196 H Random Glucose 230 H Calcium 8.3 L Phosphorus 2.9 Magnesium 2.1 Total Bilirubin 0.4 AST 21 ALT 22 Alkaline Phosphatase 288 H D Total Protein 5.2 L Albumin 2.2 L Globulin 3.0 Albumin/Globulin Ratio 0.7 L Venous Blood Potassium C. difficile Ag & Toxin EKG/Cardiology Studies: Cardiology / EKG Studies 04/20/17 17:29 EKG [ELECTROCARDIOGRAM] Stat Comment: Mode Of Transportation: Reason For Exam: bradycardia Attending/Attestation - Attestation I have personally seen and examined this patient.: Yes I have fully participated in the care of the patient.: Yes I have reviewed all pertinent clinical information: Yes Notes (Text): 04/20/17 17:43 Today: Sunday, April 16, 2017 The Patient was seen and examined at the bedside, Medical records reviewed, all clinical/lab/hemodynamic/radiographic data were reviewed and management issues were discussed and formulated, Pain issues, skin care, head of the bed elevation, GI/DVT prophylaxis, glycemic control were addressed. I discussed the plan of care with the resident and agree with the above history and physical and assessment/plans as transcribed in Dr. Cedeno note
[2017-04-16] MEDS: Piperacill/Tazo 2.25gm in Dex 2.25 GM/50 ML BAG IVPB SCH ×4 (08:41→21:44)
[2017-04-16 11:29] LABS: BASO # 0.1 K/uL (0.0-0.2); BASO % 0.5 % (0.0-2.0); HEMATOCRIT 28.7 % (35.0-51.0); LYMPH # 0.8 K/uL (1.0-4.3); LYMPH % 3.2 % (20.0-40.0); MEAN CORPUSCULAR HEMOGLOBIN 29.6 pg (27.0-31.0); MEAN CORPUSCULAR HGB CONC 32.9 g/dL (33.0-37.0); MEAN PLATELET VOLUME 7.1 fL (7.2-11.7); MONO # 1.1 K/uL (0.0-0.8); MONO % 4.5 % (0.0-10.0); PLATELET COUNT 391 K/uL (130-400); RED CELL DISTRIBUTION WIDTH 14.9 % (11.5-14.5); WHITE BLOOD COUNT 25.4 K/uL (4.8-10.8)
[2017-04-16 11:39] LABS: INR 1.2
[2017-04-16 11:46] LABS: POTASSIUM 4.2 mmol/L (3.6-5.2)
[2017-04-16 11:48] LABS: BILIRUBIN,TOTAL 0.6 mg/dL (0.2-1.3)
[2017-04-16 11:49] LABS: ALB/GLOB RATIO 0.6 (1.0-2.1); CALCIUM 8.8 mg/dl (8.6-10.4); MAGNESIUM 2.2 mg/dL (1.6-2.3); PHOSPHOROUS 3.8 mg/dL (2.5-4.5); TOTAL PROTEIN 6.2 g/dL (6.3-8.3)
[2017-04-16 12:09] LABS: NEUTROPHIL 81 % (50-75); TOTAL CELLS COUNTED 100
--- NOTE | 2017-04-16 14:04 | RAD ---
HISTORY: s/p cardiac arrest COMPARISON: Comparison made with prior study 04/15/2017. FINDINGS: LUNGS: Than . PLEURA: No significant pleural effusion identified, no pneumothorax apparent. CARDIOVASCULAR: Normal. OSSEOUS STRUCTURES: No significant abnormalities. VISUALIZED UPPER ABDOMEN: Normal. OTHER FINDINGS: None. IMPRESSION: Suspect mild bibasilar atelectasis left greater than right. Ced There may also be small left-sided effusion.
[2017-04-16 16:24] LABS: BASO # 0.1 K/uL (0.0-0.2); BASO % 0.2 % (0.0-2.0); HEMATOCRIT 27.8 % (35.0-51.0); LYMPH # 0.9 K/uL (1.0-4.3); LYMPH % 3.4 % (20.0-40.0); MEAN CELL VOLUME 89.5 fL (80.0-94.0); MEAN CORPUSCULAR HEMOGLOBIN 29.7 pg (27.0-31.0); MEAN CORPUSCULAR HGB CONC 33.2 g/dL (33.0-37.0); MEAN PLATELET VOLUME 7.2 fL (7.2-11.7); MONO # 1.2 K/uL (0.0-0.8); MONO % 4.7 % (0.0-10.0); PLATELET COUNT 434 K/uL (130-400); RED CELL DISTRIBUTION WIDTH 14.5 % (11.5-14.5)
[2017-04-16 16:30] LABS: INR 1.2
[2017-04-16 16:31] LABS: POTASSIUM 4.2 mmol/L (3.6-5.2)
[2017-04-16 16:35] LABS: ALB/GLOB RATIO 0.6 (1.0-2.1); BILIRUBIN,TOTAL 0.5 mg/dL (0.2-1.3); CALCIUM 8.7 mg/dl (8.6-10.4); MAGNESIUM 2.2 mg/dL (1.6-2.3); TOTAL PROTEIN 6.1 g/dL (6.3-8.3)
--- NOTE | 2017-04-16 17:43 | CARD ---
APPROVED REPORT EKG Measurement Heart [id number] <Conclusion> Sinus rhythm with 1st degree AV block with occasional premature ventricular complexes Left axis deviation Right bundle branch block Left ventricular hypertrophy with repolarization abnormality Abnormal ECG
[2017-04-16 18:10] LABS: NEUTROPHIL 90 % (50-75); TOTAL CELLS COUNTED 100
[2017-04-17] MEDS: (Novolin R) Insulin Human Regular 100 units/ml vial SC SCH ×4 (00:33→18:16)
[2017-04-17 04:31] LABS: ABG MECHANICAL RATE 12; ARTERIAL BLOOD HGB O2 SAT 97.2 % (95.0-98.0); ATERIAL BLOOD GAS PEEP 5; CARBOXYHEMOGLOBIN 1.5 % (0.5-1.5); DRAW SITE RB; HHB 0.5 % (0.0-5.0); METHEMOGLOBIN 0.8 % (0.0-3.0)
--- NOTE | 2017-04-17 05:59 | CON ---
DATE: 04/16/2017 NEPHROLOGY CONSULTATION HISTORY OF PRESENT ILLNESS: A 71-year-old male with past medical history of hypertension, diabetes, CAD, recent admission, status post right AV fistula bleeding requiring ligation with hospital course complicated ESRD on hemodialysis, brought to ED after suffering a cardiac arrest while at outpatient dialysis. Nephrology being consulted for hemodialysis care. The patient at baseline is not responsive to verbal stimuli. He is status post recent tracheostomy a nd PEG placement following prolonged hospital course. Was receiving his second hemodialysis session since being discharged and about midway through the session noted to be hypotensive and unresponsive, found to be pulseless and CPR initiated. ACLS protocol lasted about 7 minutes with 1 amp of epinephr ine being given. AD advised no shock to be given, able to achieve return of spontaneous circulation. Further history limited. PAST MEDICAL HISTORY: As above. SOCIAL HISTORY: Unknown. FAMILY HISTORY: Unknown. REVIEW OF SYSTEMS: Unable to obtain as patient is on ventilator currently. PHYSICAL EXAMINATION: VITAL SIGNS: Today, blood pressure 143/77, heart rate 68, respirations 18, temperature 93.7, O2 sat 100% on 50% FiO2 via mechanical ventilation. GENERAL: Not responsive to verbal or tactile stimuli. Eyes open. HEENT: Eyes open. Moist mucous membranes. RESPIRATORY: Lungs are clear to auscultation bilaterally. No rales, no rhonchi, no wheezes. HEART: S1, S2 normal, no murmurs, no gallops, no rubs. GASTROINTESTINAL: Abdomen soft, nontender, nondistended. GENITOURINARY: No bladder distention. EXTREMITIES: Minimal edema in dependent areas. SKIN: Warm, no cyanosis. Brisk capillary refill. NEURO: Corneal reflexes intact bilaterally. Triggering event. LABS: Today, WBC 26.0, hemoglobin 9.3, hematocrit 27.8, platelets 434. Chemistry panel: Sodium 137 , potassium 4.2, chloride 102, bicarbonate 24, BUN 59, creatinine 2.3, glucose 112, calcium 8.7, phos phorus 4.0. Albumin 2.4. ABG done this morning, pH 7.48, pCO2 of 32, pO2 of 136 on 50% FiO2 via mec hanical ventilation. Chest x-ray directly observed questionable pulmonary edema. ASSESSMENT: 1. Status post cardiac arrest. Etiology unclear. Electrolytes showing mild hypokalemia on presenta tion, but otherwise unremarkable. The patient undergoing hypothermia protocol. Currently in rewarmi ng phase. Will avoid sudden electrolyte changes on hemodialysis 2. End-stage renal disease on hemodialysis. The patient receiving routine dialysis care 3 days a we ek via left IJ tunneled catheter. No issues had been reported at outpatient dialysis. Plan to dialy ze tomorrow on 3K, 2.5 calcium, 34 bicarb dialysate over 3 hours with UF goal of net 500 mL. 3. Hypertension. The patient had been receiving amlodipine 10 mg daily and hydralazine 25 mg q. 8 h ours, at [facility]. Currently off standing meds with blood pressure in acceptable range. Continu e to monitor. 4. Anemia. Hemoglobin below goal for dialysis patient. We will check iron studies. 5. Hypoalbuminemia, severe. Patient had been on tube feeds, should restart with renal Novasource to avoid Hyperphosphatemia. 6. Serous/sepsis, marked leukocytosis, unclear etiology. We will obtain cultures from dialysis cath eter tomorrow on hemodialysis, currently on Zosyn 2.25 grams q. 6 hours. Should change to q. 8 hours for hemodialysis dosing. Received 1 dose of vancomycin yesterday. Should redose after dialysis [place]. Phoenix Kaur MD cc: [id number] TT: 04/17/2017 05:59:08 Confirmation # [id number] Dictation # [id number]
[2017-04-17] MEDS: Piperacill/Tazo 2.25gm in Dex 2.25 GM/50 ML BAG IVPB SCH ×3 (06:15→22:00)
[2017-04-17 06:35] LABS: BASO # 0.1 K/uL (0.0-0.2); BASO % 0.2 % (0.0-2.0); HEMATOCRIT 26.6 % (35.0-51.0); LYMPH # 0.9 K/uL (1.0-4.3); LYMPH % 3.7 % (20.0-40.0); MEAN CORPUSCULAR HEMOGLOBIN 29.9 pg (27.0-31.0); MEAN CORPUSCULAR HGB CONC 33.2 g/dL (33.0-37.0); MEAN PLATELET VOLUME 7.5 fL (7.2-11.7); MONO # 1.1 K/uL (0.0-0.8); MONO % 4.3 % (0.0-10.0); PLATELET COUNT 457 K/uL (130-400); WHITE BLOOD COUNT 25.6 K/uL (4.8-10.8)
[2017-04-17 06:39] LABS: INR 1.2
[2017-04-17 06:47] LABS: IRON 45 ug/dL (49-181); POTASSIUM 4.1 mmol/L (3.6-5.2)
[2017-04-17 06:49] LABS: ALB/GLOB RATIO 0.6 (1.0-2.1); BILIRUBIN,TOTAL 0.5 mg/dL (0.2-1.3); TOTAL PROTEIN 6.1 g/dL (6.3-8.3)
[2017-04-17 06:50] LABS: CALCIUM 8.8 mg/dl (8.6-10.4); MAGNESIUM 2.1 mg/dL (1.6-2.3); PHOSPHOROUS 4.5 mg/dL (2.5-4.5)
[2017-04-17 08:43] LABS: NEUTROPHIL 93 % (50-75); TOTAL CELLS COUNTED 100
[2017-04-17 08:44] LABS: LARGE PLATELETS PRESENT
--- NOTE | 2017-04-17 13:46 | CP.CCUPN ---
CCU Subjective - Physician Review Events Since Last Encounter (Free Text): 04/17/17 13:42 Patient seen and examined in the intensive care unit. Case discussed with house staff during the morning rounds. 71-year-old male admitted to ICU postcardiac arrest during hemodialysis. Patient was resuscitated with return of spontaneous circulation. Status post "freeze. Patient had cardiac arrest with anoxic brain injury in the past status post tracheostomy. The patient on ventilatory support with myoclonic jerk noted. CCU Objective - Vital Signs / Intake & Output Vital Signs (Last 4 hours): Vital Signs Temp Pulse Resp BP Pulse Ox 04/17/17 11:00 99.2 F 91 H 22 100 04/17/17 10:58 88 19 143/42 L 100 04/17/17 10:28 86 16 155/38 H 100 04/17/17 10:00 98.2 F 04/17/17 09:58 86 23 154/36 H 100 Intake and Output (Last 8hrs): Intake & Output 04/16/17 04/17/17 04/17/17 22:59 06:59 14:59 Intake Total 50 50 0 Output Total 0 1 0 Balance 50 49 0 Weight 124 lb Intake: Intake, IV Amount 50 50 0 Right Proximal Port 50 50 0 Femoral Oral 0 0 Output: Urine 0 0 0 Urethral (Willis) 0 0 0 Stool 1 0 Other: # Bowel Movements 1 - Physical Exam Head: Positive for: Normocephalic. Negative for: Contusion Extroacular Muscles: Positive for: Gaze Palsy (up-gaze) Mouth: Positive for: Moist Mucous Membranes Nose (External): Positive for: Atraumatic Neck: Positive for: Other (trach). Negative for: JVD, Lymphadenopathy Respiratory/Chest: Positive for: Good Air Exchange, Decreased Breath Sounds (B/L ), Rhonchi. Negative for: Clear to Auscultation, Respiratory Distress, Accessory Muscle Use, Rales Cardiovascular: Positive for: Regular Rate and Rhythm, Normal S1, S2, Peripheal Pulses Present. Negative for: Murmurs Abdomen: Positive for: Normal Bowel Sounds. Negative for: Distention Upper Extremity: Positive for: Normal Inspection, NORMAL PULSES, Other (L PICC) . Negative for: Cyanosis, Edema Lower Extremity: Positive for: Normal Inspection, NORMAL PULSES, Other (R Fem TLC). Negative for: Edema Neurological: Negative for: GCS=15 Skin: Positive for: Warm, Dry, Pale. Negative for: Rashes, Normal Color - Medications Active Medications: Active Medications Generic Name Dose Route Start Last Admin Trade Name Marcelle PRN Reason Stop Dose Admin Heparin Sodium (Porcine) 5,000 units 04/16/17 10:00 04/17/17 10:11 Heparin SC 5,000 units Q12 JUVE Administration Piperacillin Sod/Tazobactam Sod 2.25 gm in 50 mls @ 100 mls/hr 04/17/17 06:00 04/17/17 13:09 Zosyn 2.25 Gm Iv Premix IVPB 100 mls/hr Q8H JUVE Administration Insulin Human Regular 0 unit 04/16/17 12:00 04/17/17 12:36 Novolin R SC Not Given Q6H [facility] Protocol Nystatin 1 applic 04/17/17 10:00 04/17/17 10:12 Nystop Topical Powder TOP 1 applic BID JUVE Administration Pantoprazole Sodium 40 mg 04/16/17 10:00 04/17/17 10:11 Protonix Inj IVP 40 mg DAILY JUVE Administration - Patient Studies Lab Studies: Microbiology Studies 04/16/17 Unknown Gram Stain - Final Trachasp Sputum Culture - Preliminary Gram Negative Gume 04/15/17 Unknown MRSA Culture (Admit) - Final Naris MRSA NOT DETECTED Lab Studies 04/17/17 04/17/17 04/17/17 Range/Units 12:16 06:26 06:26 WBC 25.6 H (4.8-10.8) K/uL RBC 2.96 L (4.40-5.90) Mil/uL Hgb 8.8 L (12.0-18.0) g/dL Hct 26.6 L (35.0-51.0) % MCV 90.0 (80.0-94.0) fL MCH 29.9 (27.0-31.0) pg MCHC 33.2 (33.0-37.0) g/dL RDW 15.0 H (11.5-14.5) % Plt Count 457 H (130-400) K/uL MPV 7.5 (7.2-11.7) fL Neut % (Auto) 91.8 H (50.0-75.0) % Lymph % (Auto) 3.7 L (20.0-40.0) % [place] % (Auto) 4.3 (0.0-10.0) % Eos % (Auto) 0.0 (0.0-4.0) % Baso % (Auto) 0.2 (0.0-2.0) % Neut # 23.5 H (1.8-7.0) K/uL Lymph # 0.9 L (1.0-4.3) K/uL [place] # 1.1 H (0.0-0.8) K/uL Eos # 0.0 (0.0-0.7) K/uL Baso # 0.1 (0.0-0.2) K/uL Neutrophils % (Manual) 93 H (50-75) % Band Neutrophils % (0-2) % Lymphocytes % (Manual) 4 L (20-40) % Monocytes % (Manual) 3 (0-10) % Toxic Granulation Present Platelet Estimate Increased H (NORMAL) Large Platelets Present Polychromasia Slight Hypochromasia (manual) Slight Poikilocytosis (manual Slight Anisocytosis (manual) Slight [place] Cells Slight PT 13.8 H (9.7-12.2) SECONDS INR 1.2 APTT 36 H (21-34) SECONDS Puncture Site pCO2 (35-45) mm/Hg pO2 (80-100) mm/Hg HCO3 (21-28) mmol/L ABG pH (7.35-7.45) ABG Total CO2 (22-28) mmol/L ABG O2 Saturation (95-98) % ABG Base Excess (-2.0-3.0) mmol/L ABG Hemoglobin (11.7-17.4) g/dL ABG Carboxyhemoglobin (0.5-1.5) % POC ABG HHb (Measured) (0.0-5.0) % ABG Methemoglobin (0.0-3.0) % Edin Test A-a O2 Difference mm/Hg Respiratory Index Hgb O2 Saturation (95.0-98.0) % Mechanical Rate FiO2 % Tidal Volume PEEP Sodium (132-148) mmol/L Potassium (3.6-5.2) mmol/L Chloride (98-107) mmol/L Carbon Dioxide (22-30) mmol/L Anion Gap (10-20) BUN (9-20) mg/dL Creatinine (0.8-1.5) MG/DL Est GFR ( Amer) Est GFR (Non-Af Amer) POC Glucose (mg/dL) 89 (65-110) mg/dL Random Glucose (75-110) mg/dL Calcium (8.6-10.4) mg/dl Phosphorus (2.5-4.5) mg/dL Magnesium (1.6-2.3) mg/dL Iron (49-181) ug/dL TIBC (250-450) ug/dL % Saturation (20-55) Ferritin ng/mL Total Bilirubin (0.2-1.3) mg/dL AST (17-59) U/L ALT (21-72) U/L Alkaline Phosphatase (38-126) U/L Total Creatine Kinase (55-170) U/L CK-MB (Mass) (0.0-3.38) ng/mL Troponin I, Quant (0.00-0.120) ng/mL Total Protein (6.3-8.3) g/dL Albumin (3.5-5.0) g/dL Globulin (2.2-3.9) gm/dL Albumin/Globulin Ratio (1.0-2.1) 04/17/17 04/17/17 04/17/17 Range/Units 06:24 06:24 06:12 WBC (4.8-10.8) K/uL RBC (4.40-5.90) Mil/uL Hgb (12.0-18.0) g/dL Hct (35.0-51.0) % MCV (80.0-94.0) fL MCH (27.0-31.0) pg MCHC (33.0-37.0) g/dL RDW (11.5-14.5) % Plt Count (130-400) K/uL MPV (7.2-11.7) fL Neut % (Auto) (50.0-75.0) % Lymph % (Auto) (20.0-40.0) % [place] % (Auto) (0.0-10.0) % Eos % (Auto) (0.0-4.0) % Baso % (Auto) (0.0-2.0) % Neut # (1.8-7.0) K/uL Lymph # (1.0-4.3) K/uL [place] # (0.0-0.8) K/uL Eos # (0.0-0.7) K/uL Baso # (0.0-0.2) K/uL Neutrophils % (Manual) (50-75) % Band Neutrophils % (0-2) % Lymphocytes % (Manual) (20-40) % Monocytes % (Manual) (0-10) % Toxic Granulation Platelet Estimate (NORMAL) Large Platelets Polychromasia Hypochromasia (manual) Poikilocytosis (manual Anisocytosis (manual) [place] Cells PT (9.7-12.2) SECONDS INR APTT (21-34) SECONDS Puncture Site pCO2 (35-45) mm/Hg pO2 (80-100) mm/Hg HCO3 (21-28) mmol/L ABG pH (7.35-7.45) ABG Total CO2 (22-28) mmol/L ABG O2 Saturation (95-98) % ABG Base Excess (-2.0-3.0) mmol/L ABG Hemoglobin (11.7-17.4) g/dL ABG Carboxyhemoglobin (0.5-1.5) % POC ABG HHb (Measured) (0.0-5.0) % ABG Methemoglobin (0.0-3.0) % Edin Test A-a O2 Difference mm/Hg Respiratory Index Hgb O2 Saturation (95.0-98.0) % Mechanical Rate FiO2 % Tidal Volume PEEP Sodium 135 (132-148) mmol/L Potassium 4.1 (3.6-5.2) mmol/L Chloride 100 (98-107) mmol/L Carbon Dioxide 21 L (22-30) mmol/L Anion Gap 18 (10-20) BUN 63 H (9-20) mg/dL Creatinine 2.5 H (0.8-1.5) MG/DL Est GFR ( Amer) 31 Est GFR (Non-Af Amer) 26 POC Glucose (mg/dL) 98 (65-110) mg/dL Random Glucose 94 (75-110) mg/dL Calcium 8.8 (8.6-10.4) mg/dl Phosphorus 4.5 (2.5-4.5) mg/dL Magnesium 2.1 (1.6-2.3) mg/dL Iron 45 L (49-181) ug/dL TIBC 139 L (250-450) ug/dL % Saturation 32 (20-55) Ferritin 2400.0 ng/mL Total Bilirubin 0.5 (0.2-1.3) mg/dL AST 33 (17-59) U/L ALT 36 (21-72) U/L Alkaline Phosphatase 235 H (38-126) U/L Total Creatine Kinase (55-170) U/L CK-MB (Mass) (0.0-3.38) ng/mL Troponin I, Quant (0.00-0.120) ng/mL Total Protein 6.1 L (6.3-8.3) g/dL Albumin 2.2 L (3.5-5.0) g/dL Globulin 3.9 (2.2-3.9) gm/dL Albumin/Globulin Ratio 0.6 L (1.0-2.1) 04/17/17 04/17/17 04/16/17 Range/Units 04:20 00:01 16:28 WBC (4.8-10.8) K/uL RBC (4.40-5.90) Mil/uL Hgb (12.0-18.0) g/dL Hct (35.0-51.0) % MCV (80.0-94.0) fL MCH (27.0-31.0) pg MCHC (33.0-37.0) g/dL RDW (11.5-14.5) % Plt Count (130-400) K/uL MPV (7.2-11.7) fL Neut % (Auto) (50.0-75.0) % Lymph % (Auto) (20.0-40.0) % [place] % (Auto) (0.0-10.0) % Eos % (Auto) (0.0-4.0) % Baso % (Auto) (0.0-2.0) % Neut # (1.8-7.0) K/uL Lymph # (1.0-4.3) K/uL [place] # (0.0-0.8) K/uL Eos # (0.0-0.7) K/uL Baso # (0.0-0.2) K/uL Neutrophils % (Manual) (50-75) % Band Neutrophils % (0-2) % Lymphocytes % (Manual) (20-40) % Monocytes % (Manual) (0-10) % Toxic Granulation Platelet Estimate (NORMAL) Large Platelets Polychromasia Hypochromasia (manual) Poikilocytosis (manual Anisocytosis (manual) Norma Cells PT (9.7-12.2) SECONDS INR APTT (21-34) SECONDS Puncture Site Rb pCO2 32 L (35-45) mm/Hg pO2 131 H (80-100) mm/Hg HCO3 24.1 (21-28) mmol/L ABG pH 7.45 (7.35-7.45) ABG Total CO2 23.2 (22-28) mmol/L ABG O2 Saturation 99.5 H (95-98) % ABG Base Excess -1.1 (-2.0-3.0) mmol/L ABG Hemoglobin 12.2 (11.7-17.4) g/dL ABG Carboxyhemoglobin 1.5 (0.5-1.5) % POC ABG HHb (Measured) 0.5 (0.0-5.0) % ABG Methemoglobin 0.8 (0.0-3.0) % Edin Test Na A-a O2 Difference 186.0 mm/Hg Respiratory Index 1.4 Hgb O2 Saturation 97.2 (95.0-98.0) % Mechanical Rate 12 FiO2 50.0 % Tidal Volume 500 PEEP 5 Sodium (132-148) mmol/L Potassium (3.6-5.2) mmol/L Chloride (98-107) mmol/L Carbon Dioxide (22-30) mmol/L Anion Gap (10-20) BUN (9-20) mg/dL Creatinine (0.8-1.5) MG/DL Est GFR ( Amer) Est GFR (Non-Af Amer) POC Glucose (mg/dL) 156 H 135 H (65-110) mg/dL Random Glucose (75-110) mg/dL Calcium (8.6-10.4) mg/dl Phosphorus (2.5-4.5) mg/dL Magnesium (1.6-2.3) mg/dL Iron (49-181) ug/dL TIBC (250-450) ug/dL % Saturation (20-55) Ferritin ng/mL Total Bilirubin (0.2-1.3) mg/dL AST (17-59) U/L ALT (21-72) U/L Alkaline Phosphatase (38-126) U/L Total Creatine Kinase (55-170) U/L CK-MB (Mass) (0.0-3.38) ng/mL Troponin I, Quant (0.00-0.120) ng/mL Total Protein (6.3-8.3) g/dL Albumin (3.5-5.0) g/dL Globulin (2.2-3.9) gm/dL Albumin/Globulin Ratio (1.0-2.1) 04/16/17 04/16/17 04/16/17 Range/Units 16:17 16:17 16:17 WBC 26.0 H (4.8-10.8) K/uL RBC 3.11 L (4.40-5.90) Mil/uL Hgb 9.2 L (12.0-18.0) g/dL Hct 27.8 L (35.0-51.0) % MCV 89.5 (80.0-94.0) fL MCH 29.7 (27.0-31.0) pg MCHC 33.2 (33.0-37.0) g/dL RDW 14.5 (11.5-14.5) % Plt Count 434 H (130-400) K/uL MPV 7.2 (7.2-11.7) fL Neut % (Auto) 91.7 H (50.0-75.0) % Lymph % (Auto) 3.4 L (20.0-40.0) % [place] % (Auto) 4.7 (0.0-10.0) % Eos % (Auto) 0.0 (0.0-4.0) % Baso % (Auto) 0.2 (0.0-2.0) % Neut # 23.8 H (1.8-7.0) K/uL Lymph # 0.9 L (1.0-4.3) K/uL [place] # 1.2 H (0.0-0.8) K/uL Eos # 0.0 (0.0-0.7) K/uL Baso # 0.1 (0.0-0.2) K/uL Neutrophils % (Manual) 90 H (50-75) % Band Neutrophils % 2 (0-2) % Lymphocytes % (Manual) 3 L (20-40) % Monocytes % (Manual) 5 (0-10) % Toxic Granulation Platelet Estimate Slightly increased H (NORMAL) Large Platelets Polychromasia Hypochromasia (manual) Poikilocytosis (manual Anisocytosis (manual) Norma Cells PT 14.0 H (9.7-12.2) SECONDS INR 1.2 APTT (21-34) SECONDS Puncture Site pCO2 (35-45) mm/Hg pO2 (80-100) mm/Hg HCO3 (21-28) mmol/L ABG pH (7.35-7.45) ABG Total CO2 (22-28) mmol/L ABG O2 Saturation (95-98) % ABG Base Excess (-2.0-3.0) mmol/L ABG Hemoglobin (11.7-17.4) g/dL ABG Carboxyhemoglobin (0.5-1.5) % POC ABG HHb (Measured) (0.0-5.0) % ABG Methemoglobin (0.0-3.0) % Edin Test A-a O2 Difference mm/Hg Respiratory Index Hgb O2 Saturation (95.0-98.0) % Mechanical Rate FiO2 % Tidal Volume PEEP Sodium 137 (132-148) mmol/L Potassium 4.2 (3.6-5.2) mmol/L Chloride 102 (98-107) mmol/L Carbon Dioxide 24 (22-30) mmol/L Anion Gap 15 (10-20) BUN 59 H (9-20) mg/dL Creatinine 2.3 H (0.8-1.5) MG/DL Est GFR ( Amer) 34 Est GFR (Non-Af Amer) 28 POC Glucose (mg/dL) (65-110) mg/dL Random Glucose 112 H (75-110) mg/dL Calcium 8.7 (8.6-10.4) mg/dl Phosphorus 4.0 (2.5-4.5) mg/dL Magnesium 2.2 (1.6-2.3) mg/dL Iron (49-181) ug/dL TIBC (250-450) ug/dL % Saturation (20-55) Ferritin ng/mL Total Bilirubin 0.5 (0.2-1.3) mg/dL AST 25 (17-59) U/L ALT 30 (21-72) U/L Alkaline Phosphatase 241 H (38-126) U/L Total Creatine Kinase 45 L (55-170) U/L CK-MB (Mass) 8.85 H (0.0-3.38) ng/mL Troponin I, Quant 0.0250 (0.00-0.120) ng/mL Total Protein 6.1 L (6.3-8.3) g/dL Albumin 2.4 L (3.5-5.0) g/dL Globulin 3.7 (2.2-3.9) gm/dL Albumin/Globulin Ratio 0.6 L (1.0-2.1) Laboratory Results - last 24 hr 04/16/17 04/16/17 04/16/17 16:17 16:17 16:17 WBC 26.0 H RBC 3.11 L Hgb 9.2 L Hct 27.8 L MCV 89.5 MCH 29.7 MCHC 33.2 RDW 14.5 Plt Count 434 H MPV 7.2 Neut % (Auto) 91.7 H Lymph % (Auto) 3.4 L [place] % (Auto) 4.7 Eos % (Auto) 0.0 Baso % (Auto) 0.2 Neut # 23.8 H Lymph # 0.9 L [place] # 1.2 H Eos # 0.0 Baso # 0.1 Neutrophils % (Manual) 90 H Band Neutrophils % 2 Lymphocytes % (Manual) 3 L Monocytes % (Manual) 5 Toxic Granulation Platelet Estimate Slightly increased H Large Platelets Polychromasia Hypochromasia (manual) Poikilocytosis (manual Anisocytosis (manual) [place] Cells PT 14.0 H INR 1.2 APTT Puncture Site pCO2 pO2 HCO3 ABG pH ABG Total CO2 ABG O2 Saturation ABG Base Excess ABG Hemoglobin ABG Carboxyhemoglobin POC ABG HHb (Measured) ABG Methemoglobin Edin Test A-a O2 Difference Respiratory Index Hgb O2 Saturation Mechanical Rate FiO2 Tidal Volume PEEP Sodium 137 Potassium 4.2 Chloride 102 Carbon Dioxide 24 Anion Gap 15 BUN 59 H Creatinine 2.3 H Est GFR ( Amer) 34 Est GFR (Non-Af Amer) 28 POC Glucose (mg/dL) Random Glucose 112 H Calcium 8.7 Phosphorus 4.0 Magnesium 2.2 Iron TIBC % Saturation Ferritin Total Bilirubin 0.5 AST 25 ALT 30 Alkaline Phosphatase 241 H Total Creatine Kinase 45 L CK-MB (Mass) 8.85 H Troponin I, Quant 0.0250 Total Protein 6.1 L Albumin 2.4 L Globulin 3.7 Albumin/Globulin Ratio 0.6 L 04/16/17 04/17/17 04/17/17 16:28 00:01 04:20 WBC RBC Hgb Hct MCV MCH MCHC RDW Plt Count MPV Neut % (Auto) Lymph % (Auto) [place] % (Auto) Eos % (Auto) Baso % (Auto) Neut # Lymph # [place] # Eos # Baso # Neutrophils % (Manual) Band Neutrophils % Lymphocytes % (Manual) Monocytes % (Manual) Toxic Granulation Platelet Estimate Large Platelets Polychromasia Hypochromasia (manual) Poikilocytosis (manual Anisocytosis (manual) [place] Cells PT INR APTT Puncture Site Rb pCO2 32 L pO2 131 H HCO3 24.1 ABG pH 7.45 ABG Total CO2 23.2 ABG O2 Saturation 99.5 H ABG Base Excess -1.1 ABG Hemoglobin 12.2 ABG Carboxyhemoglobin 1.5 POC ABG HHb (Measured) 0.5 ABG Methemoglobin 0.8 Edin Test Na A-a O2 Difference 186.0 Respiratory Index 1.4 Hgb O2 Saturation 97.2 Mechanical Rate 12 FiO2 50.0 Tidal Volume 500 PEEP 5 Sodium Potassium Chloride Carbon Dioxide Anion Gap BUN Creatinine Est GFR ( Amer) Est GFR (Non-Af Amer) POC Glucose (mg/dL) 135 H 156 H Random Glucose Calcium Phosphorus Magnesium Iron TIBC % Saturation Ferritin Total Bilirubin AST ALT Alkaline Phosphatase Total Creatine Kinase CK-MB (Mass) Troponin I, Quant Total Protein Albumin Globulin Albumin/Globulin Ratio 04/17/17 04/17/17 04/17/17 06:12 06:24 06:24 WBC RBC Hgb Hct MCV MCH MCHC RDW Plt Count MPV Neut % (Auto) Lymph % (Auto) [place] % (Auto) Eos % (Auto) Baso % (Auto) Neut # Lymph # [place] # Eos # Baso # Neutrophils % (Manual) Band Neutrophils % Lymphocytes % (Manual) Monocytes % (Manual) Toxic Granulation Platelet Estimate Large Platelets Polychromasia Hypochromasia (manual) Poikilocytosis (manual Anisocytosis (manual) [place] Cells PT INR APTT Puncture Site pCO2 pO2 HCO3 ABG pH ABG Total CO2 ABG O2 Saturation ABG Base Excess ABG Hemoglobin ABG Carboxyhemoglobin POC ABG HHb (Measured) ABG Methemoglobin Edin Test A-a O2 Difference Respiratory Index Hgb O2 Saturation Mechanical Rate FiO2 Tidal Volume PEEP Sodium 135 Potassium 4.1 Chloride 100 Carbon Dioxide 21 L Anion Gap 18 BUN 63 H Creatinine 2.5 H Est GFR ( Amer) 31 Est GFR (Non-Af Amer) 26 POC Glucose (mg/dL) 98 Random Glucose 94 Calcium 8.8 Phosphorus 4.5 Magnesium 2.1 Iron 45 L TIBC 139 L % Saturation 32 Ferritin 2400.0 Total Bilirubin 0.5 AST 33 ALT 36 Alkaline Phosphatase 235 H Total Creatine Kinase CK-MB (Mass) Troponin I, Quant Total Protein 6.1 L Albumin 2.2 L Globulin 3.9 Albumin/Globulin Ratio 0.6 L 04/17/17 04/17/17 04/17/17 06:26 06:26 12:16 WBC 25.6 H RBC 2.96 L Hgb 8.8 L Hct 26.6 L MCV 90.0 MCH 29.9 MCHC 33.2 RDW 15.0 H Plt Count 457 H MPV 7.5 Neut % (Auto) 91.8 H Lymph % (Auto) 3.7 L [place] % (Auto) 4.3 Eos % (Auto) 0.0 Baso % (Auto) 0.2 Neut # 23.5 H Lymph # 0.9 L [place] # 1.1 H Eos # 0.0 Baso # 0.1 Neutrophils % (Manual) 93 H Band Neutrophils % Lymphocytes % (Manual) 4 L Monocytes % (Manual) 3 Toxic Granulation Present Platelet Estimate Increased H Large Platelets Present Polychromasia Slight Hypochromasia (manual) Slight Poikilocytosis (manual Slight Anisocytosis (manual) Slight Norma Cells Slight PT 13.8 H INR 1.2 APTT 36 H Puncture Site pCO2 pO2 HCO3 ABG pH ABG Total CO2 ABG O2 Saturation ABG Base Excess ABG Hemoglobin ABG Carboxyhemoglobin POC ABG HHb (Measured) ABG Methemoglobin Edin Test A-a O2 Difference Respiratory Index Hgb O2 Saturation Mechanical Rate FiO2 Tidal Volume PEEP Sodium Potassium Chloride Carbon Dioxide Anion Gap BUN Creatinine Est GFR ( Amer) Est GFR (Non-Af Amer) POC Glucose (mg/dL) 89 Random Glucose Calcium Phosphorus Magnesium Iron TIBC % Saturation Ferritin Total Bilirubin AST ALT Alkaline Phosphatase Total Creatine Kinase CK-MB (Mass) Troponin I, Quant Total Protein Albumin Globulin Albumin/Globulin Ratio Fingerstick Blood Sugar Results: 98 Review of Systems - Review of Systems Systems not reviewed;Unavailable: Other (Status post tracheostomy on ventilator support with myoclonic twitching) Critical Care Progress Note - Ventilator Checklist Head of Bed 30 Degrees: Yes PUD Prophalyxis: Yes DVT Prophylaxis: Yes Assessment/Plan (1) Cardiac arrest Current Visit: Yes Status: Acute Comment: Patient status post cardiac arrest during hemodialysis, post code freeze Myoclonic twitching of the body noted with no response to tactile stimuli Plan ventilatory support status post tracheostomy Continue antibiotics for pneumonia Follow up culture and sensitivity Continue hemodialysis (2) Anoxic brain injury Current Visit: Yes Status: Acute (3) ESRD (end stage renal disease) Current Visit: Yes Status: Acute (4) Pneumonia Current Visit: Yes Status: Acute
[2017-04-17] MEDS: SODIUM CHLORIDE IVPB SCH (18:20)
[2017-04-17] MEDS: LEVETIRACETAM IVPB SCH (18:20)
--- NOTE | 2017-04-17 19:39 | CP.PCM.PN ---
Subjective - Date & Time of Evaluation Date of Evaluation: 04/17/17 Time of Evaluation: 19:00 - Subjective Subjective: Patient s/p cardiac arrest, now s/p rewarming that began yesterday; per sister, patient was responding to verbal stimuli before last cardiac arrest; Objective - Vital Signs/Intake and Output Vital Signs (last 24 hours): Temp Pulse Resp BP Pulse Ox 98.3 F 84 25 H 168/45 H 100 04/17/17 19:00 04/17/17 17:30 04/17/17 17:30 04/17/17 17:30 04/17/17 17:30 Intake and Output: 04/17/17 04/18/17 18:59 06:59 Intake Total 235 30 Output Total 0 0 Balance 235 30 - Medications Medications: Current Medications Heparin Sodium (Porcine) (Heparin) 5,000 units SC Q12 [facility] Last Admin: 04/17/17 10:11 Dose: 5,000 units Piperacillin Sod/Tazobactam Sod (Zosyn 2.25 Gm Iv Premix) 2.25 gm in 50 mls @ 100 mls/hr IVPB Q8H [facility] Last Admin: 04/17/17 13:09 Dose: 100 mls/hr Levetiracetam 500 mg/ Sodium (Chloride) 105 mls @ 420 mls/hr IVPB Q12H [facility] Last Admin: 04/17/17 18:20 Dose: 420 mls/hr Insulin Human Regular (Novolin R) 0 unit SC Q6H JUVE PRN Reason: Protocol Last Admin: 04/17/17 18:16 Dose: Not Given Nystatin (Nystop Topical Powder) 1 applic TOP BID [facility] Last Admin: 04/17/17 18:17 Dose: 1 applic Pantoprazole Sodium (Protonix Inj) 40 mg IVP DAILY [facility] Last Admin: 04/17/17 10:11 Dose: 40 mg - Labs Labs: 04/17/17 06:26 04/17/17 06:24 PT 13.8 SECONDS (9.7-12.2) H 04/17/17 06:26 INR 1.2 04/17/17 06:26 APTT 36 SECONDS (21-34) H 04/17/17 06:26 - Constitutional Appears: Non-toxic, No Acute Distress - Head Exam Head Exam: NORMOCEPHALIC - Eye Exam Eye Exam: Normal appearance. absent: Scleral icterus - ENT Exam ENT Exam: Mucous Membranes Moist - Neck Exam Additional comments: tracheostomy; - Respiratory Exam Respiratory Exam: Clear to Ausculation Bilateral, Wheezes. absent: Rales, Rhonchi - Cardiovascular Exam Cardiovascular Exam: RRR, +S1, +S2 - GI/Abdominal Exam GI & Abdominal Exam: Soft. absent: Distended - Exam Exam: absent: Bladder Distension - Extremities Exam Extremities Exam: Normal Capillary Refill Additional comments: mild edema of proximal thighs; - Neurological Exam Additional comments: Not responding to verbal stimuli; sporadic twitches; - Skin Skin Exam: Normal Color, Warm. absent: Cyanosis Assessment and Plan (1) ESRD (end stage renal disease) Assessment & Plan: Dialyzed today over 2.5 hrs on 3K/2.5Ca bath; UF goal of only 1L to avoid hypotension; may need extra UF only session Wednesday as patient is hypertensive, although stable FIO2 requirement at 50%; Status: Acute (2) Anoxic brain injury Assessment & Plan: Agree with neuro consult to assess degree of anoxic injury following cardiac arrest, especially with baseline unclear; should not have any uremic component to encephalopathy as he has been having regular HD, will continue with TTS HD; dose keppra at q24hrs for ESRD on HD; Status: Acute (3) Cardiac arrest Status: Acute (4) Pneumonia Assessment & Plan: On zosyn 2.25 g q8h, correctly dosed for ESRD on HD; Status: Acute
[2017-04-18] MEDS: (Novolin R) Insulin Human Regular 100 units/ml vial SC SCH ×4 (00:26→18:29)
[2017-04-18 06:00] LABS: ABG ALLEN TEST POS; ABG MECHANICAL RATE 12; ARTERIAL BLOOD HGB O2 SAT 96.9 % (95.0-98.0); ATERIAL BLOOD GAS PEEP 5; CARBOXYHEMOGLOBIN 1.6 % (0.5-1.5); DRAW SITE LR; HHB 0.2 % (0.0-5.0); METHEMOGLOBIN 1.3 % (0.0-3.0)
[2017-04-18] MEDS: SODIUM CHLORIDE IVPB SCH ×2 (06:30→18:29)
[2017-04-18] MEDS: LEVETIRACETAM IVPB SCH ×2 (06:30→18:29)
[2017-04-18] MEDS: Piperacill/Tazo 2.25gm in Dex 2.25 GM/50 ML BAG IVPB SCH ×3 (06:31→23:00)
[2017-04-18 06:43] LABS: BASO # 0.1 K/uL (0.0-0.2); BASO % 0.4 % (0.0-2.0); HEMATOCRIT 22.5 % (35.0-51.0); LYMPH # 0.9 K/uL (1.0-4.3); LYMPH % 4.4 % (20.0-40.0); MEAN CELL VOLUME 90.5 fL (80.0-94.0); MEAN CORPUSCULAR HEMOGLOBIN 29.7 pg (27.0-31.0); MEAN CORPUSCULAR HGB CONC 32.8 g/dL (33.0-37.0); MEAN PLATELET VOLUME 7.5 fL (7.2-11.7); MONO # 1.2 K/uL (0.0-0.8); MONO % 6.1 % (0.0-10.0); PLATELET COUNT 417 K/uL (130-400); RED CELL DISTRIBUTION WIDTH 15.3 % (11.5-14.5); WHITE BLOOD COUNT 19.5 K/uL (4.8-10.8)
[2017-04-18 06:48] LABS: POTASSIUM 3.5 mmol/L (3.6-5.2)
[2017-04-18 06:50] LABS: ALB/GLOB RATIO 0.7 (1.0-2.1); BILIRUBIN,TOTAL 0.4 mg/dL (0.2-1.3); TOTAL PROTEIN 5.7 g/dL (6.3-8.3)
[2017-04-18 06:51] LABS: CALCIUM 8.1 mg/dl (8.6-10.4); MAGNESIUM 2.1 mg/dL (1.6-2.3); PHOSPHOROUS 2.8 mg/dL (2.5-4.5)
[2017-04-18 09:22] LABS: NEUTROPHIL 93 % (50-75); TOTAL CELLS COUNTED 100
[2017-04-18 09:25] LABS: LARGE PLATELETS PRESENT
--- NOTE | 2017-04-18 11:30 | CP.CCUPN ---
CCU Subjective - Physician Review Events Since Last Encounter (Free Text): 04/18/17 11:28 Patient seen and examined in the intensive care unit. Remains on ventilatory support status post tracheostomy No change in mental status but no further myoclonic twitching noted Started on KEPPRA No active bleeding noted but drop in hemoglobin noted Status post hemodialysis yesterday Afebrile CCU Objective - Vital Signs / Intake & Output Vital Signs (Last 4 hours): Vital Signs Temp Pulse Resp BP Pulse Ox 04/18/17 10:00 100.3 F H 84 16 04/18/17 09:49 87 20 171/36 H 04/18/17 09:30 88 22 04/18/17 09:00 91 H 20 04/18/17 08:49 91 H 20 171/19 H 04/18/17 08:30 93 H 20 04/18/17 08:00 84 14 95 04/18/17 07:49 90 19 172/64 H 04/18/17 07:30 89 20 Intake and Output (Last 8hrs): Intake & Output 04/17/17 04/18/17 04/18/17 22:59 06:59 14:59 Intake Total 355 390 120 Output Total 0 0 0 Balance 355 390 120 Weight 124 lb 4.04 oz 128 lb Intake: Intake, IV Amount 150 150 Right Proximal Port 150 150 Femoral Oral 0 Tube Feeding 205 240 120 Output: Urine 0 0 0 Urethral (Willis) 0 0 0 Other: # Bowel Movements 0 1 1 - Physical Exam Head: Positive for: Normocephalic. Negative for: Contusion Extroacular Muscles: Positive for: Gaze Palsy (up-gaze) Mouth: Positive for: Moist Mucous Membranes Nose (External): Positive for: Atraumatic Neck: Positive for: Other (trach). Negative for: JVD, Lymphadenopathy Respiratory/Chest: Positive for: Good Air Exchange, Decreased Breath Sounds (B/L ), Rhonchi. Negative for: Clear to Auscultation, Respiratory Distress, Accessory Muscle Use, Rales Cardiovascular: Positive for: Regular Rate and Rhythm, Normal S1, S2, Peripheal Pulses Present. Negative for: Murmurs Abdomen: Positive for: Normal Bowel Sounds. Negative for: Distention Upper Extremity: Positive for: Normal Inspection, NORMAL PULSES, Other (L PICC) . Negative for: Cyanosis, Edema Lower Extremity: Positive for: Normal Inspection, NORMAL PULSES, Other (R Fem TLC). Negative for: Edema Neurological: Negative for: GCS=15 Skin: Positive for: Warm, Dry, Pale. Negative for: Rashes, Normal Color - Medications Active Medications: Active Medications Generic Name Dose Route Start Last Admin Trade Name Freq PRN Reason Stop Dose Admin Heparin Sodium (Porcine) 5,000 units 04/16/17 10:00 04/18/17 10:28 Heparin SC 5,000 units Q12 JUEV Administration Piperacillin Sod/Tazobactam Sod 2.25 gm in 50 mls @ 100 mls/hr 04/17/17 06:00 04/18/17 06:31 Zosyn 2.25 Gm Iv Premix IVPB 100 mls/hr Q8H JUVE Administration Levetiracetam 500 mg/ Sodium 105 mls @ 420 mls/hr 04/17/17 18:00 04/18/17 06: 30 Chloride IVPB 420 mls/hr Q12H JUVE Administration Insulin Human Regular 0 unit 04/16/17 12:00 04/18/17 06:51 Novolin R SC 2 unit Q6H JUVE Administration Protocol Nystatin 1 applic 04/17/17 10:00 04/18/17 10:28 Nystop Topical Powder TOP 1 applic BID JUVE Administration Pantoprazole Sodium 40 mg 04/16/17 10:00 04/18/17 10:28 Protonix Inj IVP 40 mg DAILY JUVE Administration - Patient Studies Lab Studies: Microbiology Studies 04/16/17 Unknown Gram Stain - Final Trachasp Sputum Culture - Final Pseudomonas Aeruginosa Lab Studies 04/18/17 04/18/17 04/18/17 Range/Units 11:12 06:47 06:34 WBC (4.8-10.8) K/uL RBC (4.40-5.90) Mil/uL Hgb (12.0-18.0) g/dL Hct (35.0-51.0) % MCV (80.0-94.0) fL MCH (27.0-31.0) pg MCHC (33.0-37.0) g/dL RDW (11.5-14.5) % Plt Count (130-400) K/uL MPV (7.2-11.7) fL Neut % (Auto) (50.0-75.0) % Lymph % (Auto) (20.0-40.0) % Cottle % (Auto) (0.0-10.0) % Eos % (Auto) (0.0-4.0) % Baso % (Auto) (0.0-2.0) % Neut # (1.8-7.0) K/uL Lymph # (1.0-4.3) K/uL Cottle # (0.0-0.8) K/uL Eos # (0.0-0.7) K/uL Baso # (0.0-0.2) K/uL Neutrophils % (Manual) (50-75) % Lymphocytes % (Manual) (20-40) % Monocytes % (Manual) (0-10) % Toxic Granulation Platelet Estimate (NORMAL) Large Platelets Polychromasia Hypochromasia (manual) Basophilic Stippling Anisocytosis (manual) Puncture Site pCO2 (35-45) mm/Hg pO2 (80-100) mm/Hg HCO3 (21-28) mmol/L ABG pH (7.35-7.45) ABG Total CO2 (22-28) mmol/L ABG O2 Saturation (95-98) % ABG Base Excess (-2.0-3.0) mmol/L ABG Hemoglobin (11.7-17.4) g/dL ABG Carboxyhemoglobin (0.5-1.5) % POC ABG HHb (Measured) (0.0-5.0) % ABG Methemoglobin (0.0-3.0) % Edin Test A-a O2 Difference mm/Hg Respiratory Index Hgb O2 Saturation (95.0-98.0) % Mechanical Rate FiO2 % Tidal Volume PEEP Sodium 138 (132-148) mmol/L Potassium 3.5 L (3.6-5.2) mmol/L Chloride 102 (98-107) mmol/L Carbon Dioxide 24 (22-30) mmol/L Anion Gap 16 (10-20) BUN 41 H (9-20) mg/dL Creatinine 2.0 H (0.8-1.5) MG/DL Est GFR ( Amer) 40 Est GFR (Non-Af Amer) 33 POC Glucose (mg/dL) 243 H (65-110) mg/dL Random Glucose 210 H (75-110) mg/dL Calcium 8.1 L (8.6-10.4) mg/dl Phosphorus 2.8 (2.5-4.5) mg/dL Magnesium 2.1 (1.6-2.3) mg/dL Total Bilirubin 0.4 (0.2-1.3) mg/dL AST 24 (17-59) U/L ALT 25 (21-72) U/L Alkaline Phosphatase 208 H (38-126) U/L Total Protein 5.7 L (6.3-8.3) g/dL Albumin 2.3 L (3.5-5.0) g/dL Globulin 3.5 (2.2-3.9) gm/dL Albumin/Globulin Ratio 0.7 L (1.0-2.1) Stool Occult Blood Negative (NEGATIVE) 04/18/17 04/18/17 04/17/17 Range/Units 06:34 05:43 23:19 WBC 19.5 H (4.8-10.8) K/uL RBC 2.48 L (4.40-5.90) Mil/uL Hgb 7.4 L (12.0-18.0) g/dL Hct 22.5 L (35.0-51.0) % MCV 90.5 (80.0-94.0) fL MCH 29.7 (27.0-31.0) pg MCHC 32.8 L (33.0-37.0) g/dL RDW 15.3 H (11.5-14.5) % Plt Count 417 H (130-400) K/uL MPV 7.5 (7.2-11.7) fL Neut % (Auto) 89.1 H (50.0-75.0) % Lymph % (Auto) 4.4 L (20.0-40.0) % Cottle % (Auto) 6.1 (0.0-10.0) % Eos % (Auto) 0.0 (0.0-4.0) % Baso % (Auto) 0.4 (0.0-2.0) % Neut # 17.4 H (1.8-7.0) K/uL Lymph # 0.9 L (1.0-4.3) K/uL Cottle # 1.2 H (0.0-0.8) K/uL Eos # 0.0 (0.0-0.7) K/uL Baso # 0.1 (0.0-0.2) K/uL Neutrophils % (Manual) 93 H (50-75) % Lymphocytes % (Manual) 2 L (20-40) % Monocytes % (Manual) 5 (0-10) % Toxic Granulation Present Platelet Estimate Slightly increased H (NORMAL) Large Platelets Present Polychromasia Slight Hypochromasia (manual) Slight Basophilic Stippling Slight Anisocytosis (manual) Slight Puncture Site Lr pCO2 34 L (35-45) mm/Hg pO2 122 H (80-100) mm/Hg HCO3 27.4 (21-28) mmol/L ABG pH 7.50 H (7.35-7.45) ABG Total CO2 27.5 (22-28) mmol/L ABG O2 Saturation 99.8 H (95-98) % ABG Base Excess 3.2 H (-2.0-3.0) mmol/L ABG Hemoglobin 7.5 L (11.7-17.4) g/dL ABG Carboxyhemoglobin 1.6 H (0.5-1.5) % POC ABG HHb (Measured) 0.2 (0.0-5.0) % ABG Methemoglobin 1.3 (0.0-3.0) % Edin Test Pos A-a O2 Difference 192.0 mm/Hg Respiratory Index 1.6 Hgb O2 Saturation 96.9 (95.0-98.0) % Mechanical Rate 12 FiO2 50.0 % Tidal Volume 500 PEEP 5 Sodium (132-148) mmol/L Potassium (3.6-5.2) mmol/L Chloride (98-107) mmol/L Carbon Dioxide (22-30) mmol/L Anion Gap (10-20) BUN (9-20) mg/dL Creatinine (0.8-1.5) MG/DL Est GFR ( Amer) Est GFR (Non-Af Amer) POC Glucose (mg/dL) 149 H (65-110) mg/dL Random Glucose (75-110) mg/dL Calcium (8.6-10.4) mg/dl Phosphorus (2.5-4.5) mg/dL Magnesium (1.6-2.3) mg/dL Total Bilirubin (0.2-1.3) mg/dL AST (17-59) U/L ALT (21-72) U/L Alkaline Phosphatase (38-126) U/L Total Protein (6.3-8.3) g/dL Albumin (3.5-5.0) g/dL Globulin (2.2-3.9) gm/dL Albumin/Globulin Ratio (1.0-2.1) Stool Occult Blood (NEGATIVE) 04/17/17 04/17/17 Range/Units 17:45 12:16 WBC (4.8-10.8) K/uL RBC (4.40-5.90) Mil/uL Hgb (12.0-18.0) g/dL Hct (35.0-51.0) % MCV (80.0-94.0) fL MCH (27.0-31.0) pg MCHC (33.0-37.0) g/dL RDW (11.5-14.5) % Plt Count (130-400) K/uL MPV (7.2-11.7) fL Neut % (Auto) (50.0-75.0) % Lymph % (Auto) (20.0-40.0) % Cottle % (Auto) (0.0-10.0) % Eos % (Auto) (0.0-4.0) % Baso % (Auto) (0.0-2.0) % Neut # (1.8-7.0) K/uL Lymph # (1.0-4.3) K/uL Cottle # (0.0-0.8) K/uL Eos # (0.0-0.7) K/uL Baso # (0.0-0.2) K/uL Neutrophils % (Manual) (50-75) % Lymphocytes % (Manual) (20-40) % Monocytes % (Manual) (0-10) % Toxic Granulation Platelet Estimate (NORMAL) Large Platelets Polychromasia Hypochromasia (manual) Basophilic Stippling Anisocytosis (manual) Puncture Site pCO2 (35-45) mm/Hg pO2 (80-100) mm/Hg HCO3 (21-28) mmol/L ABG pH (7.35-7.45) ABG Total CO2 (22-28) mmol/L ABG O2 Saturation (95-98) % ABG Base Excess (-2.0-3.0) mmol/L ABG Hemoglobin (11.7-17.4) g/dL ABG Carboxyhemoglobin (0.5-1.5) % POC ABG HHb (Measured) (0.0-5.0) % ABG Methemoglobin (0.0-3.0) % Edin Test A-a O2 Difference mm/Hg Respiratory Index Hgb O2 Saturation (95.0-98.0) % Mechanical Rate FiO2 % Tidal Volume PEEP Sodium (132-148) mmol/L Potassium (3.6-5.2) mmol/L Chloride (98-107) mmol/L Carbon Dioxide (22-30) mmol/L Anion Gap (10-20) BUN (9-20) mg/dL Creatinine (0.8-1.5) MG/DL Est GFR ( Amer) Est GFR (Non-Af Amer) POC Glucose (mg/dL) 119 H 89 (65-110) mg/dL Random Glucose (75-110) mg/dL Calcium (8.6-10.4) mg/dl Phosphorus (2.5-4.5) mg/dL Magnesium (1.6-2.3) mg/dL Total Bilirubin (0.2-1.3) mg/dL AST (17-59) U/L ALT (21-72) U/L Alkaline Phosphatase (38-126) U/L Total Protein (6.3-8.3) g/dL Albumin (3.5-5.0) g/dL Globulin (2.2-3.9) gm/dL Albumin/Globulin Ratio (1.0-2.1) Stool Occult Blood (NEGATIVE) Laboratory Results - last 24 hr 04/17/17 04/17/17 04/17/17 12:16 17:45 23:19 WBC RBC Hgb Hct MCV MCH MCHC RDW Plt Count MPV Neut % (Auto) Lymph % (Auto) Cottle % (Auto) Eos % (Auto) Baso % (Auto) Neut # Lymph # Cottle # Eos # Baso # Neutrophils % (Manual) Lymphocytes % (Manual) Monocytes % (Manual) Toxic Granulation Platelet Estimate Large Platelets Polychromasia Hypochromasia (manual) Basophilic Stippling Anisocytosis (manual) Puncture Site pCO2 pO2 HCO3 ABG pH ABG Total CO2 ABG O2 Saturation ABG Base Excess ABG Hemoglobin ABG Carboxyhemoglobin POC ABG HHb (Measured) ABG Methemoglobin Edin Test A-a O2 Difference Respiratory Index Hgb O2 Saturation Mechanical Rate FiO2 Tidal Volume PEEP Sodium Potassium Chloride Carbon Dioxide Anion Gap BUN Creatinine Est GFR ( Amer) Est GFR (Non-Af Amer) POC Glucose (mg/dL) 89 119 H 149 H Random Glucose Calcium Phosphorus Magnesium Total Bilirubin AST ALT Alkaline Phosphatase Total Protein Albumin Globulin Albumin/Globulin Ratio Stool Occult Blood 04/18/17 04/18/17 04/18/17 05:43 06:34 06:34 WBC 19.5 H RBC 2.48 L Hgb 7.4 L Hct 22.5 L MCV 90.5 MCH 29.7 MCHC 32.8 L RDW 15.3 H Plt Count 417 H MPV 7.5 Neut % (Auto) 89.1 H Lymph % (Auto) 4.4 L Cottle % (Auto) 6.1 Eos % (Auto) 0.0 Baso % (Auto) 0.4 Neut # 17.4 H Lymph # 0.9 L Cottle # 1.2 H Eos # 0.0 Baso # 0.1 Neutrophils % (Manual) 93 H Lymphocytes % (Manual) 2 L Monocytes % (Manual) 5 Toxic Granulation Present Platelet Estimate Slightly increased H Large Platelets Present Polychromasia Slight Hypochromasia (manual) Slight Basophilic Stippling Slight Anisocytosis (manual) Slight Puncture Site Lr pCO2 34 L pO2 122 H HCO3 27.4 ABG pH 7.50 H ABG Total CO2 27.5 ABG O2 Saturation 99.8 H ABG Base Excess 3.2 H ABG Hemoglobin 7.5 L ABG Carboxyhemoglobin 1.6 H POC ABG HHb (Measured) 0.2 ABG Methemoglobin 1.3 Edin Test Pos A-a O2 Difference 192.0 Respiratory Index 1.6 Hgb O2 Saturation 96.9 Mechanical Rate 12 FiO2 50.0 Tidal Volume 500 PEEP 5 Sodium 138 Potassium 3.5 L Chloride 102 Carbon Dioxide 24 Anion Gap 16 BUN 41 H Creatinine 2.0 H Est GFR ( Amer) 40 Est GFR (Non-Af Amer) 33 POC Glucose (mg/dL) Random Glucose 210 H Calcium 8.1 L Phosphorus 2.8 Magnesium 2.1 Total Bilirubin 0.4 AST 24 ALT 25 Alkaline Phosphatase 208 H Total Protein 5.7 L Albumin 2.3 L Globulin 3.5 Albumin/Globulin Ratio 0.7 L Stool Occult Blood 04/18/17 04/18/17 06:47 11:12 WBC RBC Hgb Hct MCV MCH MCHC RDW Plt Count MPV Neut % (Auto) Lymph % (Auto) Cottle % (Auto) Eos % (Auto) Baso % (Auto) Neut # Lymph # Cottle # Eos # Baso # Neutrophils % (Manual) Lymphocytes % (Manual) Monocytes % (Manual) Toxic Granulation Platelet Estimate Large Platelets Polychromasia Hypochromasia (manual) Basophilic Stippling Anisocytosis (manual) Puncture Site pCO2 pO2 HCO3 ABG pH ABG Total CO2 ABG O2 Saturation ABG Base Excess ABG Hemoglobin ABG Carboxyhemoglobin POC ABG HHb (Measured) ABG Methemoglobin Edin Test A-a O2 Difference Respiratory Index Hgb O2 Saturation Mechanical Rate FiO2 Tidal Volume PEEP Sodium Potassium Chloride Carbon Dioxide Anion Gap BUN Creatinine Est GFR ( Amer) Est GFR (Non-Af Amer) POC Glucose (mg/dL) 243 H Random Glucose Calcium Phosphorus Magnesium Total Bilirubin AST ALT Alkaline Phosphatase Total Protein Albumin Globulin Albumin/Globulin Ratio Stool Occult Blood Negative Fingerstick Blood Sugar Results: 98 Critical Care Progress Note - Ventilator Checklist Head of Bed 30 Degrees: Yes PUD Prophalyxis: Yes DVT Prophylaxis: Yes - Vent Settings MODE:: PRVC Assessment/Plan (1) Cardiac arrest Current Visit: Yes Status: Acute Comment: Patient status post cardiac arrest during hemodialysis, post code freeze ventilatory support status post tracheostomy Continue antibiotics for pneumonia Follow up culture and sensitivity Continue hemodialysis Continue Keppra for myoclonic twitching For repeat CAT scan of the head and neurology evaluation Follow-up CBC and transfuse using hemodialysis Stool guaic (2) Anoxic brain injury Current Visit: Yes Status: Acute (3) ESRD (end stage renal disease) Current Visit: Yes Status: Acute (4) Pneumonia Current Visit: Yes Status: Acute
--- NOTE | 2017-04-18 11:50 | CT ---
PROCEDURE: CT HEAD WITHOUT CONTRAST. HISTORY: Anoxic encephalopathy COMPARISON: 04/15/2017 TECHNIQUE: Axial computed tomography images were obtained through the head/brain without intravenous contrast. Radiation dose: Total exam DLP = 1153 mGy-cm. This CT exam was performed using one or more of the following dose reduction techniques: Automated exposure control, adjustment of the mA and/or kV according to patient size, and/or use of iterative reconstruction technique. FINDINGS: HEMORRHAGE: No intracranial hemorrhage. BRAIN: Scattered focal lucencies in the subcortical and periventricular white matter suggestive for chronic microvascular ischemic change. Prominent cerebellar atrophy. Again identified is prominent encephalomalacia from probable prominent infarction in the inferior right cerebellum. This is similar appearance to the prior study. Bilateral basal ganglia calcifications. Generalized atrophy. VENTRICLES: Prominent ventricles. CALVARIUM: Unremarkable. PARANASAL SINUSES: Mild mucosal thickening of the bilateral maxillary sinuses. Moderate mucosal thickening and opacification of the ethmoid air cells. MASTOID AIR CELLS: Near complete opacification of the bilateral mastoid air cells. OTHER FINDINGS: Nasal septal deviation. Intracranial arterial calcifications. IMPRESSION: Scattered focal lucencies in the subcortical and periventricular white matter suggestive for chronic microvascular ischemic change. Prominent cerebellar atrophy. Again identified is prominent encephalomalacia from probable prominent infarction in the inferior right cerebellum. This is similar appearance to the prior study. Bilateral basal ganglia calcifications. Generalized atrophy. Near complete opacification of the bilateral mastoid air cells. Mild mucosal thickening of the bilateral maxillary sinuses. Moderate mucosal thickening and opacification of the ethmoid air cells. If there is persistent concern for acute ischemic change, correlation with MRI may be helpful.
--- NOTE | 2017-04-18 13:24 | CON ---
DATE: 04/18/2017 ATTENDING PHYSICIAN: Dr. Villa Collins REASON FOR CONSULTATION: Myoclonic seizures. CHIEF COMPLAINT: The patient was admitted with a history of status post cardiac arrest, probably due to the mucus plug obstruction, been cleaned and resuscitated, back to the ICU. In the ICU, patient was found to have myoclonic seizures. From neurological point of view, I was called in to evaluate h im for further management. HISTORY OF PRESENT ILLNESS: The patient is a 71-year-old, right-handed, male from group home, presenting with a cardiac arrest during hemodialysis. The patient found to have some mucus plu g, which was removed in the Emergency Room and he was resuscitated back to the ICU. He is on tracheo stomy as well as in PEG placement. The patient did have a myoclonic jerk of the body as well as faci al jerking movements been observed by the avionics repair technician and patient was given Keppra 500 mg twice a day through IV. The patient's condition has been discussed with me by Dr. Luisito Alaniz. PAST MEDICAL HISTORY: Significant for hypertension, end-stage renal disease on dialysis, status post respiratory failure, on tracheostomy and PEG. ALLERGIES: NUTS AND SULFA. MEDICATIONS: Acetaminophen, multivitamin, amlodipine. PHYSICAL EXAMINATION: VITAL SIGNS: Blood pressure 182/56, respiratory rate 16-18, temperature afebrile and pulse rate was 102. NEUROLOGIC: The patient is comatose. Eyes are closed. On opening his eyelid, pupil very sluggishly reactive to light, with 3.5 mm to 3.25 mm. Some horizontal nystagmus versus some conjugate gaze not ed. No oculocephalic was elicited. Gag is impaired. MOTOR: Increased tone in all 4 extremities without any spontaneous movement. DEEP TENDON REFLEXES: Absent. Plantars are upgoing majestically on the right side; left side was eq uivocal response. SENSORY: The patient is not responding to any noxious stimuli. COORDINATION AND GAIT: Deferred at this time. CONCLUSION: Upon reviewing his history and neurological examination, the patient presenting with morgan bal cerebral dysfunction with patchy brainstem dysfunction secondary to his anoxic insult. However, other possible causes of nonconvulsive seizures should be ruled out. WORKUP: CT of the head reviewed by me showed no acute pathology, which was done twice today. BLOOD WORKUP: WBC 19.5, hemoglobin 7.4, hematocrit 22.5, platelets 417. Sodium 138, potassium 3.5, chloride 102, bicarbonate 24, BUN 41, creatinine 2.0, glucose 243, alkaline phosphatase 208, total pr otein 5.7, albumin 2.3, globulin 3.5. Stool for occult blood negative. ABG was done around 4:00, sh ows pH of 7.5, pO2 122, pCO2 34, bicarbonate 27.4 with oxygen saturation of 99.8. RECOMMENDATIONS: 1. Continue the supportive care and keep the mean arterial pressure around 100. 2. Keep the head in elevation. 3. Continue hemodialysis. 4. Continue the Keppra as he has been getting it, 500 mg twice a day. The micro seizures have all b een stopped clinically. 5. EEG to be done to rule out any nonconvulsive seizures. 6. The patient also requested to have a carotid Doppler including transcranial Doppler to assess the cerebral blood flow. Overall condition, the patient did have irreversible RETAIL INTERIOR DESIGNER insult from anoxia due to cardiopulmonary ar rest. Considering his hypothermia with status post myoclonic seizures which are all carrying a very poor prognosis. 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 The patient will be followed while he is in the hospital. The patient will be followed closely with you. Joe Duncan MD cc: [id number] TT: 04/18/2017 13:24:14 Confirmation # [id number] Dictation # [id number] en
[2017-04-18] MEDS ORDERED: Epoetin Alfa 10,000 unit/ml Dialysis SC ONE ×2 (14:52→18:00)
--- NOTE | 2017-04-18 16:09 | PN ---
DATE: 04/18/2017 A 71-year-old male with a past medical history of hypertension, diabetes, CAD, recent admission for b leeding right arm AV fistula that required ligation with hospital course complicated by aspiration pn eumonia and vent dependent respiratory failure, end-stage renal disease on hemodialysis. Nephrology following for ESRD care. The patient is now 24 plus hours post-rewarming phase of hypothermia protocol. No longer having twit roxanna per nursing staff after being started on Keppra. Underwent routine dialysis session yesterday. No purposeful movements per nursing staff. OBJECTIVE: VITAL SIGNS: This afternoon, blood pressure 148/64, heart rate 64, respirations 12, temperature 100. 5 this morning, O2 sat 100% on 50% FiO2 via mechanical ventilation. GENERAL: Sluggishly opens eyes to noxious stimuli. No other spontaneous movement. HEENT: Moist mucous membranes. Nonicteric RESPIRATORY: Rhonchus sounds heard bilaterally. HEART: S1, S2 normal, no murmurs, no gallops, no rubs. ABDOMEN: Soft, nondistended. GENITOURINARY: No bladder distention. EXTREMITIES: Mild proximal leg edema of upper extremities. NEUROLOGIC: No more spontaneous twitching. SKIN: Warm, no cyanosis. Good capillary refill. LABORATORY DATA: This morning, WBC 19.5, hemoglobin 7.4, hematocrit 22.5, platelets 417. Chemistry panel: Sodium 138, potassium 3.5, chloride 102, bicarb 24, BUN 41, creatinine 2.0, glucose 210, calc ium 8.1, phosphorus 2.8, albumin 2.3. Iron stores from yesterday: Iron saturation 32%, iron 45, TIB C 139. ABG from this morning: pH 750, pCO2 of 34, pO2 of 122 on 50% FIO2. Cultures: Blood culture s on admission growing coag negative staph in 1 bottle and preliminary gram-positive cocci in cluster s in other bottle. Trach aspirate growing Pseudomonas aeruginosa, sensitive to cefepime and Cipro an d blood cultures drawn during dialysis from dialysis catheter growing gram-negative rods in both susan les. ASSESSMENT: 1. End-stage renal disease on hemodialysis. Relatively stable electrolytes and volume status. No i ndication for dialysis today. Will plan for next session on Wednesday. Will assess the need for an ex tra ultrafiltration session tomorrow. 2. Sepsis. The patient with multiple positive blood cultures and trach culture, currently on Zosyn 2.25 grams q.8 hours correctly dosed for end-stage renal disease on hemodialysis. Concern for hemodi alysis catheter infection. White count is improving; therefore, agree with continuing Zosyn and not adding anymore Gram-negative coverage. Will give dose of vancomycin 1 gram today for coagulase-negat ernestine staphylococci. As the patient is hemodynamically stable, no need to pull dialysis catheter yet. 3. Anemia secondary to chronic disease/acute illness. Hemoglobin dropping significantly. Giving a dose of Epogen 10,000 units today. Transfuse packed red blood cells as needed. 4. Chronic kidney disease, mineral bone disease, currently with phosphorus on the lower end, particu larly for end-stage renal disease patient. Getting tube feeds with renal Novasource source at 40 mL per hour, continue; no need for binders at this point. 5. Hypertension. Blood pressure significantly elevated yesterday. Better control today after only about 1 liter of ultrafiltration on hemodialysis yesterday. No need to add antihypertensive meds at this point. Continue to monitor. 6. Anoxic brain injury status post cardiac arrest. Neurology consult appreciated. Feels that overa ll prognosis is very poor. Will continue to monitor and discuss with family who had wanted all thera peutic measures taken. Phoenix Kaur MD cc: [id number] TT: 04/18/2017 16:08:21 Confirmation # [id number] Dictation # [id number] ale
[2017-04-18] MEDS ORDERED: Meropenem 500 MG in Sodium Chloride 0.9% 100 ML IVPB PRN (19:48)
[2017-04-18] MEDS ORDERED: Vancomycin 1 gm/NS 200 ml 1 GM/200 ML BAG IVPB STA (20:11)
[2017-04-19] MEDS: (Novolin R) Insulin Human Regular 100 units/ml vial SC SCH ×4 (00:39→18:50)
[2017-04-19] MEDS: LEVETIRACETAM IVPB SCH (05:00)
[2017-04-19] MEDS: SODIUM CHLORIDE IVPB SCH (05:00)
[2017-04-19] MEDS: Piperacill/Tazo 2.25gm in Dex 2.25 GM/50 ML BAG IVPB SCH ×3 (05:30→22:00)
[2017-04-19 05:48] LABS: ABG ALLEN TEST POD; ABG MECHANICAL RATE 12; ARTERIAL BLOOD HGB O2 SAT 96.9 % (95.0-98.0); ATERIAL BLOOD GAS PEEP 5; CARBOXYHEMOGLOBIN 1.3 % (0.5-1.5); DRAW SITE LR; HHB 0.3 % (0.0-5.0); METHEMOGLOBIN 1.5 % (0.0-3.0)
[2017-04-19 06:28] LABS: BASO % 0.4 % (0.0-2.0); EOS % 0.2 % (0.0-4.0); HEMATOCRIT 22.4 % (35.0-51.0); LYMPH % 8.6 % (20.0-40.0); MEAN CELL VOLUME 90.2 fL (80.0-94.0); MEAN CORPUSCULAR HEMOGLOBIN 29.5 pg (27.0-31.0); MEAN CORPUSCULAR HGB CONC 32.7 g/dL (33.0-37.0); MEAN PLATELET VOLUME 7.5 fL (7.2-11.7); MONO # 0.8 K/uL (0.0-0.8); MONO % 7.3 % (0.0-10.0); PLATELET COUNT 358 K/uL (130-400); RED CELL DISTRIBUTION WIDTH 15.1 % (11.5-14.5); WHITE BLOOD COUNT 11.4 K/uL (4.8-10.8)
[2017-04-19 06:43] LABS: POTASSIUM 3.1 mmol/L (3.6-5.2)
[2017-04-19 06:46] LABS: ALB/GLOB RATIO 0.6 (1.0-2.1); BILIRUBIN,TOTAL 0.5 mg/dL (0.2-1.3); PHOSPHOROUS 3.1 mg/dL (2.5-4.5); TOTAL PROTEIN 5.3 g/dL (6.3-8.3)
--- NOTE | 2017-04-19 07:21 | HP ---
A 71-year-old man who is brought in with right renal failure, ____ admitted to the hospital with janice f complaint of weakness, fatigue, tiredness, shortness of breath. The patient had a cardiac arrest, that patient is sedated, is on a ventilator. PHYSICAL EXAMINATION: GENERAL: The patient is comatose. VITAL SIGNS: Temperature 96, pulse is 90. HEENT: Within normal limits. NECK: Supple. CHEST: Symmetrical. HEART: Regular. ABDOMEN: Soft. EXTREMITIES: No edema. The patient suffers from cardiac arrest, right renal failure, status post cardiac arrest. The patien t will get supportive care, ____. Dale Collins MD cc: [id number] TT: 04/16/2017 12:08:25 ct
--- NOTE | 2017-04-19 07:53 | PN ---
DATE: 04/17/2017 The patient is on ventilator, supportive care. Continue vent care. . Dale Collins MD cc: [id number] TT: 04/17/2017 20:14:54 Confirmation # [id number] Dictation # [id number] dn 04/19/2017 06:52:09
[2017-04-19 08:28] LABS: NEUTROPHIL 89 % (50-75); TOTAL CELLS COUNTED 100
[2017-04-19] MEDS ORDERED: Pantoprazole 40 mg EC Tab PO SCH (10:00)
--- NOTE | 2017-04-19 10:16 | PN ---
DATE: 04/19/2017 NEUROLOGICAL PROBLEM: Anoxic encephalopathy. PHYSICAL EXAMINATION: VITAL SIGNS: Blood pressure 129/62, mean arterial pressure of 84, respiratory rate 18 pulse rate 77. NEUROLOGIC: The patient's eyes are open. Upgaze preference. At times, patient has right lateral gaze nystagmus with fast beat towards the right. Quadriparesis remains the same. Pupils sluggishly reactive to light. Deep tendon reflexes absent. Some spontaneous movement noted on the right side without any purpose. Deep tendon reflexes are absent. Plantars are upgoing on the left side, right side was equivocal response. His examination consistent with left lower brainstem ischemic process because of anoxic insult. It could be a downward herniation from increased ICP. This is more than a 72-hour period. His symptoms are not showing any positive physiological response and reflexes suggestive of irreversible damage to the cerebrum as well as brainstem. RECOMMENDATIONS: 1. Continue antibiotics for possible pneumonia. 2. Continue hemodialysis. 3. Continue supportive care. 4. 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 EEG is scheduled to have any further localizing electrographic seizures in order to adjust his medication. Overall, prognosis is poor. Joe Duncan MD cc: [id number] TT: 04/19/2017 10:16:04 Confirmation # [id number] Dictation # [id number] en MTDD
--- NOTE | 2017-04-19 10:18 | CP.PCM.CON ---
History of Present Illness - History of Present Illness History of Present Illness: ID CONSULTED FOR GRAM NEG SEPSIS- ADMITTED 04/15 AFTER CARDIAC ARREST ON HD AND SEPTIC WORK UP ON ADMISSION + FOR GRAM NEG RODS IN BLOOD NEW ACCESS DEVICES PLACED ON DAY OF ADMISSION INCLUDING ( LEFT SIDED TESIO CATH ) BUT PICC IS STILL IN PLACE AND WILL NEED TO BE REPLACED 71 year old male patient with a PMH significant for ESRD presenting following cardiac arrest while at hemodialysis. The patient was receiving HD and was noted to be unresponsive by the nursing staff of the unit. BLS was initiated by the HD staff. EMS was called and the patient was found to be apneic and asystolic. EMS continued and began ACLS for 7 minutes . While at the correction, the patient was noted to have bleeding from his right AV fistula. The patient was admitted, and the fistula was ligated. During that admission, the patient had a cardiac arrest. The patient was coded for an unknown about of time, but sustained an anoxic brain injury. FOllowing that event, the patient was noted to be baseline unresponsive to verbal stimuli. PMH: ESRD Social: Unknown Surgical: Unknown Family: Unknown Allergy: Nuts, sulfonamides, tetanus toxoid Review of Systems - Review of Systems Systems not reviewed;Unavailable: Altered Mental Status - Constitutional Constitutional: absent: As Per HPI, Anorexia, Chills, Daytime Sleepiness, Excessive Sweating, Fatigue, Fever, Frequent Falls, Headache, Increased Appetite , Lethargy, Malaise, Night Sweats, Snoring, Sleep Apnea, Weight Gain, Weight Loss, Weakness, Other - EENT Eyes: absent: As Per HPI, Blind Spots, Blurred Vision, Change in Vision, Decreased Night Vision, Diplopia, Discharge, Dry Eye, Exophthalmos, Floaters, Irritation, Itchy Eyes, Loss of Peripheral Vision, Pain, Photophobia, Requires Corrective Lenses, Sees Flashes, Spots in Vision, Tunnel Vision, Other Visual Disturbances, Loss of Vision, Other Ears: absent: As Per HPI, Decreased Hearing, Ear Discharge, Ear Pain, Tinnitus, Abnormal Hearing, Disequilibrium, Dizziness, Other Nose/Mouth/Throat: absent: As Per HPI, Epistaxis, Nasal Congestion, Nasal Discharge, Nasal Obstruction, Nasal Trauma, Nose Pain, Post Nasal Drip, Sinus Pain, Sinus Pressure, Bleeding Gums, Change in Voice, Dental Pain, Dry Mouth, Dysphagia, Halitosis, Hoarsness, Lip Swelling, Mouth Lesions, Mouth Pain, Odynophagia, Sore Throat, Throat Swelling, Tongue Swelling, Facial Pain, Neck Pain, Neck Mass, Other - Cardiovascular Cardiovascular: As Per HPI - Respiratory Respiratory: As Per HPI - Gastrointestinal Gastrointestinal: absent: As Per HPI, Abdominal Pain, Belching, Bloating, Change in Bowel Habits, Change in Stool Character, Coffee Ground Emesis, Constipation, Cramping, Diarrhea, Dyspepsia, Dysphagia, Early Satiety, Excessive Flatus, Fecal Incontinence, Heartburn, Hematemesis, Hematochezia, Loose Stools, Melena, Nausea, Odynophagia, Temesmus, Vomiting, Other - Genitourinary Genitourinary: absent: As Per HPI, Change in Urinary Stream, Difficulty Urinating, Dysuria, Flank Pain, Hematuria, Pyuria, Nocturia, Urinary Incontinence, Urinary Frequency, Urinary Hesitance, Urinary Urgency, Voiding Freq/Small Amts, Freq UTI, Hx Renal/Bladder Calculi, Hx /Renal Surgery, Bladder Distension, Other - Musculoskeletal Musculoskeletal: absent: As Per HPI, Abnormal Gait, Arthralgias, Atrophy, Back Pain, Deformity, Joint Swelling, Limited Range of Motion, Loss of Height, Muscle Cramps, Muscle Weakness, Myalgias, Neck Pain, Numbness, Radiating Pain into Limb, Stiffness, Tingling, Other - Integumentary Integumentary: absent: As Per HPI, Acne, Alopecia, Bleeding Lesions, Change in Hair, Change in Nails, Change in Pigmentation, Changing Lesions, Dry Skin, Erythema, Furuncle, Hirsutism, Lesions, New Lesions, Non-Healing Lesions, Photosensitivity, Pruritus, Rash, Skin Pain, Skin Ulcer, Sores, Striae, Swelling , Unusual Bruising, Wounds, Jaundice, Other - Neurological Neurological: As Per HPI - Psychiatric Psychiatric: absent: As Per HPI, Abnormal Sleep Pattern, Anhedonia, Anxiety, Auditory Hallucinations, Behavioral Changes, Change in Appetite, Change in Libido, Confusion, Depression, Difficulty Concentrating, Hallucinations, Homicidal Ideation, Hopelessness, Irritability, Memory Loss, Mood Swings, Panic Attacks, Paranoia, Suicidal Ideation, Visual Hallucinations, Tactile Hallucinations, Other - Endocrine Endocrine: absent: As Per HPI, Change in Body Appearance, Change in Libido, Cold Intolorance, Deepening of Voice, Excessive Sweating, Fatigue, Flushing, Heat Intolorance, Increase in Ring/Shoe/Hat Size, Palpitations, Polydipsia, Polyphagia, Polyuria, Other - Hematologic/Lymphatic Hematologic: absent: As Per HPI, Easy Bleeding, Easy Bruising, Lymphadenopathy, Other Past Patient History - Past Medical History & Family History Past Medical History?: Yes - Past Social History Smoking Status: Never Smoked - CARDIAC Hx Congestive Heart Failure: Yes Hx Hypertension: Yes Hx Peripheral Edema: Yes - PULMONARY Hx Respiratory Disorders: Yes Hx Asthma: Yes Hx Bronchitis: Yes Hx Pneumonia: Yes Hx Pulmonary Edema: Yes Hx Respiratory Tract Infection: Yes - NEUROLOGICAL Hx Transient Ischemic Attacks (TIA): Yes Other/Comment: 2 instances of tumors on his - 4 years old, 70 years old - HEENT Hx Blind: Yes Hx Cataracts: Yes (Removed) Hx Glaucoma: Yes Hx Macular Degeneration: No - RENAL Date of Last Dialysis Treatment: 04/15/17 - ENDOCRINE/METABOLIC Hx Diabetes Mellitus Type 2: Yes Other/Comment: Half thyroid removed, 1975, no medication for it - HEMATOLOGICAL/ONCOLOGICAL Hx Anemia: Yes Hx Blood Transfusions: Yes Hx Cancer: Yes Hx Shingles: Yes - INTEGUMENTARY Hx Melanoma: Yes Other/Comment: Skin breakdown on saccral area, and heels - MUSCULOSKELETAL/RHEUMATOLOGICAL Hx Arthritis: Yes (Hands) Hx Falls: Yes Hx Osteoarthritis: Yes - GASTROINTESTINAL Hx Constipation: Yes Hx Gastritis: Yes Hx Pancreatitis: Yes HX Swallowing Problems: Yes Hx Ulcer: Yes - GENITOURINARY/GYNECOLOGICAL Hx Incontinence: Yes - PSYCHIATRIC Hx Substance Use: No - SURGICAL HISTORY Hx Cataract Extraction: Yes (1999) Hx Herniorrhaphy: Yes (2009) Hx Pulmonary Surgery: Yes (2010 - pleuralcentesis) Hx Thyroidectomy: Yes (1975) Hx Tonsillectomy: Yes - ANESTHESIA Hx Anesthesia Reactions: Yes Meds Allergies/Adverse Reactions: Allergies Allergy/AdvReac Type Severity Reaction Status Date / Time nut - unspecified Allergy Verified 04/15/17 15:52 Sulfa (Sulfonamide Allergy Verified 04/15/17 15:52 Antibiotics) tetanus toxoid, adsorbed Allergy Verified 04/15/17 15:52 - Medications Medications: Current Medications Ferrous Sulfate (Feosol) 325 mg PO BID [facility] Heparin Sodium (Porcine) (Heparin) 5,000 units SC Q12 JUVE Last Admin: 04/19/17 09:40 Dose: 5,000 units Piperacillin Sod/Tazobactam Sod (Zosyn 2.25 Gm Iv Premix) 2.25 gm in 50 mls @ 100 mls/hr IVPB Q8H [facility] Last Admin: 04/19/17 05:30 Dose: 100 mls/hr Potassium Chloride (Potassium Chloride 20 Meq/100 Ml) 20 meq in 100 mls @ 50 mls/hr IVPB ONCE ONE Stop: 04/19/17 10:59 Last Admin: 04/19/17 09:04 Dose: 50 mls/hr Potassium Chloride (Potassium Chloride 20 Meq/100 Ml) 20 meq in 100 mls @ 50 mls/hr IVPB ONCE ONE Stop: 04/19/17 12:59 Insulin Human Regular (Novolin R) 0 unit SC Q6H [facility] PRN Reason: Protocol Last Admin: 04/19/17 05:41 Dose: 1 unit Levetiracetam (Keppra) 500 mg PO BID [facility] Nystatin (Nystop Topical Powder) 1 applic TOP BID [facility] Last Admin: 04/19/17 09:42 Dose: 1 applic Pantoprazole Sodium (Protonix Ec Tab) 40 mg PO DAILY [facility] Physical Exam - Constitutional Appears: Chronically Ill Additional comments: UNRESPONSIVE ON VENT VIA TRACH - Head Exam Head Exam: ATRAUMATIC, NORMOCEPHALIC - Eye Exam Eye Exam: absent: Scleral icterus - ENT Exam ENT Exam: Mucous Membranes Dry - Neck Exam Neck exam: Negative for: Lymphadenopathy - Respiratory Exam Respiratory Exam: Decreased Breath Sounds, Rhonchi - Cardiovascular Exam Cardiovascular Exam: REGULAR RHYTHM, +S1, +S2 - GI/Abdominal Exam GI & Abdominal Exam: Diminished Bowel Sounds, Soft. absent: Tenderness - Rectal Exam Rectal Exam: Deferred - Extremities Exam Extremities exam: Positive for: pedal pulses present. Negative for: calf tenderness, pedal edema, tenderness - Back Exam Back exam: absent: CVA tenderness (L), CVA tenderness (R), paraspinal tenderness - Neurological Exam Neurological exam: Altered - Skin Skin Exam: Dry Results - Vital Signs Recent Vital Signs: Last Vital Signs Temp 98.3 F 04/19/17 04:00 Pulse 77 04/19/17 07:00 Resp 15 04/19/17 07:00 BP 129/62 04/19/17 06:49 Pulse Ox 100 04/19/17 07:00 - Labs Result Diagrams: 04/19/17 06:24 04/19/17 06:24 Labs: Laboratory Results - last 24 hr 04/18/17 04/18/17 04/18/17 10:39 11:12 12:30 WBC RBC Hgb Hct MCV MCH MCHC RDW Plt Count MPV Neut % (Auto) Lymph % (Auto) [place] % (Auto) Eos % (Auto) Baso % (Auto) Neut # Lymph # [place] # Eos # Baso # Neutrophils % (Manual) Lymphocytes % (Manual) Monocytes % (Manual) Platelet Estimate Hypochromasia (manual) Anisocytosis (manual) Puncture Site pCO2 pO2 HCO3 ABG pH ABG Total CO2 ABG O2 Saturation ABG Base Excess ABG Hemoglobin ABG Carboxyhemoglobin POC ABG HHb (Measured) ABG Methemoglobin Edin Test A-a O2 Difference Respiratory Index Hgb O2 Saturation Mechanical Rate FiO2 Tidal Volume PEEP Sodium Potassium Chloride Carbon Dioxide Anion Gap BUN Creatinine Est GFR ( Amer) Est GFR (Non-Af Amer) POC Glucose (mg/dL) 213 H Random Glucose Calcium Phosphorus Magnesium Total Bilirubin AST ALT Alkaline Phosphatase Total Protein Albumin Globulin Albumin/Globulin Ratio Stool Occult Blood Negative C. difficile Ag & Toxin Negative 04/18/17 04/19/17 04/19/17 18:00 00:14 02:56 WBC RBC Hgb Hct MCV MCH MCHC RDW Plt Count MPV Neut % (Auto) Lymph % (Auto) [place] % (Auto) Eos % (Auto) Baso % (Auto) Neut # Lymph # [place] # Eos # Baso # Neutrophils % (Manual) Lymphocytes % (Manual) Monocytes % (Manual) Platelet Estimate Hypochromasia (manual) Anisocytosis (manual) Puncture Site pCO2 pO2 HCO3 ABG pH ABG Total CO2 ABG O2 Saturation ABG Base Excess ABG Hemoglobin ABG Carboxyhemoglobin POC ABG HHb (Measured) ABG Methemoglobin Edin Test A-a O2 Difference Respiratory Index Hgb O2 Saturation Mechanical Rate FiO2 Tidal Volume PEEP Sodium Potassium Chloride Carbon Dioxide Anion Gap BUN Creatinine Est GFR ( Amer) Est GFR (Non-Af Amer) POC Glucose (mg/dL) 234 H 78 106 Random Glucose Calcium Phosphorus Magnesium Total Bilirubin AST ALT Alkaline Phosphatase Total Protein Albumin Globulin Albumin/Globulin Ratio Stool Occult Blood C. difficile Ag & Toxin 04/19/17 04/19/17 04/19/17 05:31 05:36 06:24 WBC 11.4 H RBC 2.48 L Hgb 7.3 L Hct 22.4 L MCV 90.2 MCH 29.5 MCHC 32.7 L RDW 15.1 H Plt Count 358 MPV 7.5 Neut % (Auto) 83.5 H Lymph % (Auto) 8.6 L [place] % (Auto) 7.3 Eos % (Auto) 0.2 Baso % (Auto) 0.4 Neut # 9.5 H Lymph # 1.0 [place] # 0.8 Eos # 0.0 Baso # 0.0 Neutrophils % (Manual) 89 H Lymphocytes % (Manual) 5 L Monocytes % (Manual) 6 Platelet Estimate Normal Hypochromasia (manual) Slight Anisocytosis (manual) Slight Puncture Site Lr pCO2 32 L pO2 167 H HCO3 26.9 ABG pH 7.51 H ABG Total CO2 26.5 ABG O2 Saturation 99.7 H ABG Base Excess 2.5 ABG Hemoglobin 8.2 L ABG Carboxyhemoglobin 1.3 POC ABG HHb (Measured) 0.3 ABG Methemoglobin 1.5 Edin Test Pod A-a O2 Difference 150.0 Respiratory Index 0.9 Hgb O2 Saturation 96.9 Mechanical Rate 12 FiO2 50.0 Tidal Volume 500 PEEP 5 Sodium Potassium Chloride Carbon Dioxide Anion Gap BUN Creatinine Est GFR ( Amer) Est GFR (Non-Af Amer) POC Glucose (mg/dL) 170 H Random Glucose Calcium Phosphorus Magnesium Total Bilirubin AST ALT Alkaline Phosphatase Total Protein Albumin Globulin Albumin/Globulin Ratio Stool Occult Blood C. difficile Ag & Toxin 04/19/17 06:24 WBC RBC Hgb Hct MCV MCH MCHC RDW Plt Count MPV Neut % (Auto) Lymph % (Auto) [place] % (Auto) Eos % (Auto) Baso % (Auto) Neut # Lymph # [place] # Eos # Baso # Neutrophils % (Manual) Lymphocytes % (Manual) Monocytes % (Manual) Platelet Estimate Hypochromasia (manual) Anisocytosis (manual) Puncture Site pCO2 pO2 HCO3 ABG pH ABG Total CO2 ABG O2 Saturation ABG Base Excess ABG Hemoglobin ABG Carboxyhemoglobin POC ABG HHb (Measured) ABG Methemoglobin Edin Test A-a O2 Difference Respiratory Index Hgb O2 Saturation Mechanical Rate FiO2 Tidal Volume PEEP Sodium 134 Potassium 3.1 L Chloride 99 Carbon Dioxide 25 Anion Gap 13 BUN 53 H Creatinine 2.4 H Est GFR ( Amer) 33 Est GFR (Non-Af Amer) 27 POC Glucose (mg/dL) Random Glucose 138 H Calcium 8.0 L Phosphorus 3.1 Magnesium 2.0 Total Bilirubin 0.5 AST 29 ALT 25 Alkaline Phosphatase 190 H Total Protein 5.3 L Albumin 2.1 L Globulin 3.3 Albumin/Globulin Ratio 0.6 L Stool Occult Blood C. difficile Ag & Toxin Assessment & Plan (1) Sepsis Status: Acute (2) Sepsis Status: Acute (3) Anoxic brain injury Status: Acute (4) Cardiac arrest Status: Acute (5) ESRD (end stage renal disease) Status: Acute (6) Pneumonia Status: Acute (7) Respiratory arrest Status: Acute - Assessment and Plan (Free Text) Assessment: GRAM NEG SEPSIS COMA ANOXIC ENCEPHALOPATHY ESRD ON HD GRAVE PROGNOSIS NEEDS NEW PICC ADD GENTA TO BLANKN
[2017-04-19] MEDS: Pantoprazole 40 mg Susp UD PEG SCH (11:12)
[2017-04-19] MEDS: Ferrous Sulfate 300 mg/5 mL Liq UD PEG SCH ×2 (12:11→17:45)
--- NOTE | 2017-04-19 12:17 | CP.PCM.CON ---
History of Present Illness - History of Present Illness History of Present Illness: Palliative consult Requested by Wilian BAUTISTA Reason: Goals of care discussion Patient is a 71 yo admitted from HD where he was found unresponsive. The CPR was performed for about 7 min as per record, rhythm was resumed, but the patient remained unconscious. The CT head upon admission here was significant for prominent cerebral atrophy and MRI brain was suggested. Patient was seen by Doctor Dakota Diaz, EEG pending. Bcs +, Zosyn and Gentamycin IV on board. BUN 53, Test Fixture Assembler 2.4, K 3.1, Albumin 2.1. K is being replaced. PMH: PEG, trach, ESRD with HD Soc. Hx: [facility] resident, sister Siria Elizabeth is a contact lens manufacturer, no other family members Fam. hx: Unknown Review of Systems - Review of Systems Systems not reviewed;Unavailable: Intubated Past Patient History - Past Medical History & Family History Past Medical History?: Yes - Past Social History Smoking Status: Never Smoked - CARDIAC Hx Congestive Heart Failure: Yes Hx Hypertension: Yes Hx Peripheral Edema: Yes - PULMONARY Hx Respiratory Disorders: Yes Hx Asthma: Yes Hx Bronchitis: Yes Hx Pneumonia: Yes Hx Pulmonary Edema: Yes Hx Respiratory Tract Infection: Yes - NEUROLOGICAL Hx Transient Ischemic Attacks (TIA): Yes Other/Comment: 2 instances of tumors on his - 2 years old, 70 years old - HEENT Hx Blind: Yes Hx Cataracts: Yes (Removed) Hx Glaucoma: Yes Hx Macular Degeneration: No - RENAL Date of Last Dialysis Treatment: 04/15/17 - ENDOCRINE/METABOLIC Hx Diabetes Mellitus Type 2: Yes Other/Comment: Half thyroid removed, 1975, no medication for it - HEMATOLOGICAL/ONCOLOGICAL Hx Anemia: Yes Hx Blood Transfusions: Yes Hx Cancer: Yes Hx Shingles: Yes - INTEGUMENTARY Hx Melanoma: Yes Other/Comment: Skin breakdown on saccral area, and heels - MUSCULOSKELETAL/RHEUMATOLOGICAL Hx Arthritis: Yes (Hands) Hx Falls: Yes Hx Osteoarthritis: Yes - GASTROINTESTINAL Hx Constipation: Yes Hx Gastritis: Yes Hx Pancreatitis: Yes HX Swallowing Problems: Yes Hx Ulcer: Yes - GENITOURINARY/GYNECOLOGICAL Hx Incontinence: Yes - PSYCHIATRIC Hx Substance Use: No - SURGICAL HISTORY Hx Cataract Extraction: Yes (1999) Hx Herniorrhaphy: Yes (2009) Hx Pulmonary Surgery: Yes (2010 - pleuralcentesis) Hx Thyroidectomy: Yes (1975) Hx Tonsillectomy: Yes - ANESTHESIA Hx Anesthesia Reactions: Yes Meds Allergies/Adverse Reactions: Allergies Allergy/AdvReac Type Severity Reaction Status Date / Time nut - unspecified Allergy Verified 04/15/17 15:52 Sulfa (Sulfonamide Allergy Verified 04/15/17 15:52 Antibiotics) tetanus toxoid, adsorbed Allergy Verified 04/15/17 15:52 - Medications Medications: Current Medications Ferrous Sulfate (Feosol Liq) 300 mg PEG BID [facility] Last Admin: 04/19/17 12:11 Dose: 300 mg Heparin Sodium (Porcine) (Heparin) 5,000 units SC Q12 [facility] Last Admin: 04/19/17 09:40 Dose: 5,000 units Piperacillin Sod/Tazobactam Sod (Zosyn 2.25 Gm Iv Premix) 2.25 gm in 50 mls @ 100 mls/hr IVPB Q8H [facility] Last Admin: 04/19/17 05:30 Dose: 100 mls/hr Potassium Chloride (Potassium Chloride 20 Meq/100 Ml) 20 meq in 100 mls @ 50 mls/hr IVPB ONCE ONE Stop: 04/19/17 12:59 Last Admin: 04/19/17 11:09 Dose: 50 mls/hr Gentamicin Sulfate 80 mg/ (Sodium Chloride) 102 mls @ 100 mls/hr IVPB MWF [facility] Insulin Human Regular (Novolin R) 0 unit SC Q6H [facility] PRN Reason: Protocol Last Admin: 04/19/17 12:11 Dose: 2 unit Levetiracetam (Keppra) 500 mg PO BID [facility] Last Admin: 04/19/17 11:10 Dose: 500 mg Nystatin (Nystop Topical Powder) 1 applic TOP BID [facility] Last Admin: 04/19/17 09:42 Dose: 1 applic Pantoprazole Sodium (Protonix Susp) 40 mg PEG DAILY [facility] Last Admin: 04/19/17 11:12 Dose: 40 mg Physical Exam - Constitutional Appears: Chronically Ill - Head Exam Head Exam: ATRAUMATIC, NORMAL INSPECTION, NORMOCEPHALIC - Eye Exam Additional comments: Upward gaze, very sluggish reaction to light - ENT Exam ENT Exam: Mucous Membranes Moist, Normal Exam - Neck Exam Additional comments: Trach - Respiratory Exam Additional comments: On MV - Cardiovascular Exam Cardiovascular Exam: Tachycardia - GI/Abdominal Exam GI & Abdominal Exam: Normal Bowel Sounds Additional comments: PEG - Rectal Exam Rectal Exam: Deferred - Exam Additional comments: Willis cath - Extremities Exam Extremities exam: Positive for: normal inspection - Back Exam Back exam: NORMAL INSPECTION - Neurological Exam Neurological exam: Motor Sensory Deficit - Psychiatric Exam Psychiatric exam: Flat Affect - Skin Skin Exam: Pallor Results - Vital Signs Recent Vital Signs: Last Vital Signs Temp 98.3 F 04/19/17 04:00 Pulse 67 04/19/17 10:49 Resp 16 04/19/17 10:49 BP 157/30 H 04/19/17 10:49 Pulse Ox 100 04/19/17 10:49 - Labs Result Diagrams: 04/19/17 06:24 04/19/17 06:24 Labs: Laboratory Results - last 24 hr 04/18/17 04/18/17 04/18/17 10:39 12:30 18:00 WBC RBC Hgb Hct MCV MCH MCHC RDW Plt Count MPV Neut % (Auto) Lymph % (Auto) [place] % (Auto) Eos % (Auto) Baso % (Auto) Neut # Lymph # [place] # Eos # Baso # Neutrophils % (Manual) Lymphocytes % (Manual) Monocytes % (Manual) Platelet Estimate Hypochromasia (manual) Anisocytosis (manual) Puncture Site pCO2 pO2 HCO3 ABG pH ABG Total CO2 ABG O2 Saturation ABG Base Excess ABG Hemoglobin ABG Carboxyhemoglobin POC ABG HHb (Measured) ABG Methemoglobin Edin Test A-a O2 Difference Respiratory Index Hgb O2 Saturation Mechanical Rate FiO2 Tidal Volume PEEP Sodium Potassium Chloride Carbon Dioxide Anion Gap BUN Creatinine Est GFR ( Amer) Est GFR (Non-Af Amer) POC Glucose (mg/dL) 213 H 234 H Random Glucose Calcium Phosphorus Magnesium Total Bilirubin AST ALT Alkaline Phosphatase Total Protein Albumin Globulin Albumin/Globulin Ratio C. difficile Ag & Toxin Negative 04/19/17 04/19/17 04/19/17 00:14 02:56 05:31 WBC RBC Hgb Hct MCV MCH MCHC RDW Plt Count MPV Neut % (Auto) Lymph % (Auto) [place] % (Auto) Eos % (Auto) Baso % (Auto) Neut # Lymph # [place] # Eos # Baso # Neutrophils % (Manual) Lymphocytes % (Manual) Monocytes % (Manual) Platelet Estimate Hypochromasia (manual) Anisocytosis (manual) Puncture Site pCO2 pO2 HCO3 ABG pH ABG Total CO2 ABG O2 Saturation ABG Base Excess ABG Hemoglobin ABG Carboxyhemoglobin POC ABG HHb (Measured) ABG Methemoglobin Edin Test A-a O2 Difference Respiratory Index Hgb O2 Saturation Mechanical Rate FiO2 Tidal Volume PEEP Sodium Potassium Chloride Carbon Dioxide Anion Gap BUN Creatinine Est GFR ( Amer) Est GFR (Non-Af Amer) POC Glucose (mg/dL) 78 106 170 H Random Glucose Calcium Phosphorus Magnesium Total Bilirubin AST ALT Alkaline Phosphatase Total Protein Albumin Globulin Albumin/Globulin Ratio C. difficile Ag & Toxin 04/19/17 04/19/17 04/19/17 05:36 06:24 06:24 WBC 11.4 H RBC 2.48 L Hgb 7.3 L Hct 22.4 L MCV 90.2 MCH 29.5 MCHC 32.7 L RDW 15.1 H Plt Count 358 MPV 7.5 Neut % (Auto) 83.5 H Lymph % (Auto) 8.[address] [place] % (Auto) 7.3 Eos % (Auto) 0.2 Baso % (Auto) 0.4 Neut # 9.5 H Lymph # 1.0 [place] # 0.8 Eos # 0.0 Baso # 0.0 Neutrophils % (Manual) 89 H Lymphocytes % (Manual) 5 L Monocytes % (Manual) 6 Platelet Estimate Normal Hypochromasia (manual) Slight Anisocytosis (manual) Slight Puncture Site Lr pCO2 32 L pO2 167 H HCO3 26.9 ABG pH 7.51 H ABG Total CO2 26.5 ABG O2 Saturation 99.7 H ABG Base Excess 2.5 ABG Hemoglobin 8.2 L ABG Carboxyhemoglobin 1.3 POC ABG HHb (Measured) 0.3 ABG Methemoglobin 1.5 Edin Test Pod A-a O2 Difference 150.0 Respiratory Index 0.9 Hgb O2 Saturation 96.9 Mechanical Rate 12 FiO2 50.0 Tidal Volume 500 PEEP 5 Sodium 134 Potassium 3.1 L Chloride 99 Carbon Dioxide 25 Anion Gap 13 BUN 53 H Creatinine 2.4 H Est GFR ( Amer) 33 Est GFR (Non-Af Amer) 27 POC Glucose (mg/dL) Random Glucose 138 H Calcium 8.0 L Phosphorus 3.1 Magnesium 2.0 Total Bilirubin 0.5 AST 29 ALT 25 Alkaline Phosphatase 190 H Total Protein 5.3 L Albumin 2.1 L Globulin 3.3 Albumin/Globulin Ratio 0.6 L C. difficile Ag & Toxin 06/12/17 11:46 WBC RBC Hgb Hct MCV MCH MCHC RDW Plt Count MPV Neut % (Auto) Lymph % (Auto) [place] % (Auto) Eos % (Auto) Baso % (Auto) Neut # Lymph # [place] # Eos # Baso # Neutrophils % (Manual) Lymphocytes % (Manual) Monocytes % (Manual) Platelet Estimate Hypochromasia (manual) Anisocytosis (manual) Puncture Site pCO2 pO2 HCO3 ABG pH ABG Total CO2 ABG O2 Saturation ABG Base Excess ABG Hemoglobin ABG Carboxyhemoglobin POC ABG HHb (Measured) ABG Methemoglobin Edin Test A-a O2 Difference Respiratory Index Hgb O2 Saturation Mechanical Rate FiO2 Tidal Volume PEEP Sodium Potassium Chloride Carbon Dioxide Anion Gap BUN Creatinine Est GFR ( Amer) Est GFR (Non-Af Amer) POC Glucose (mg/dL) 214 H Random Glucose Calcium Phosphorus Magnesium Total Bilirubin AST ALT Alkaline Phosphatase Total Protein Albumin Globulin Albumin/Globulin Ratio C. difficile Ag & Toxin Assessment & Plan - Assessment and Plan (Free Text) Assessment: Palliative consult Code status Full Code, no advance directive on chart, PPS 10 %, ROS unobtainable due to acuity of status I reviewed medical records, all diagnostic studies, examined patient in the bed , discussed his presentation with medical technologist chemistry and spoke over the phone to patient's sister Clara [phone]. ROS obtained from nursing. Patient is with sensory motor deficit, GCS of 3. Patient looks much older than stated age. Skin is pale, Hb 7.3. There is some purposeless movement on the right side. Generally patient remains with quadraplegia. I called patient's sister Sherri on the phone to discuss some of quality of life issues. I elicited her knowledge regarding her brother's condition and she seemed surprised when I suggested family meeting for further goals of care discussion. Per her statement, the patient asked for " everything to be done to save his life". I expressed my concerns regarding quality of life issues and provided her with my contact info to call me back with time of family meeting, at her convenience. Impression * This is a very seek patient whose condition even worsened after found unconsciousness in HD * Patient's wishes for end of life care are not known and there is no Advance directive on chart * Patient's sister has poor insight in patient's very complex condition * Family meeting suggested and is pending based on the sister's availability Suggestion * This patient could either proceed with all interventions, that will not improve his quality of life , or could be allowed natural * Family meeting to allow patient's sister to get insight in patient's condition and assist her in decision making process * The primary goal in care of this patient should be his comfort Once I meet with the sister, I will update the note. Thank you very much for allowing me to assist you with care of this patient.
--- NOTE | 2017-04-19 12:24 | CP.CCUPN ---
CCU Subjective - Physician Review Subjective (Free Text): 04/16/17 06:30 Patient seen and examined at the bedside. No acute distress. No acute events overnight. Nursing staff reports no issues. The patient remains intubated. No sedation currently. The patient remains minimally responsive to noxious stimuli only. Code freeze active. Today on rounds, the patient's potassium was replaced. The patient's dose of zosyn was also decreased to 2.25g q6. The patients IVF were DC. The patient will be under code freeze until 20:15 tonight. 04/19/17 12:22 Patient seen and examined at the bedside. No acute distress. No acute events overnight. Nursing staff reports no issues. The patient remains intubated. No sedation currently. Patient has been placed on keppra. No myoclonic jerks. Today on rounds, palliative care was consulted. LTAC evaluation was ordered. The patient's keppra, protonix, and iron were changed to PO via PEG tube. Critical Care Time Spent (in minutes): 60 CCU Objective - Vital Signs / Intake & Output Vital Signs (Last 4 hours): Vital Signs Pulse Resp BP Pulse Ox 04/19/17 10:49 67 16 157/30 H 100 04/19/17 09:49 67 17 152/32 H 100 04/19/17 08:49 68 19 155/35 H 98 Intake and Output (Last 8hrs): Intake & Output 04/18/17 04/19/17 04/19/17 22:59 06:59 14:59 Intake Total 450 670 140 Output Total 50 0 0 Balance 400 670 140 Weight 60.781 kg Intake: Intake, IV Amount 250 350 100 Left PICC 150 350 100 Right Proximal Port 100 Femoral Tube Feeding 200 320 40 Output: Urine 0 0 0 Urethral (Willis) 0 0 0 Stool 50 Other: # Bowel Movements 1 - Physical Exam Head: Positive for: Normocephalic. Negative for: Contusion Extroacular Muscles: Positive for: Gaze Palsy (up-gaze) Mouth: Positive for: Moist Mucous Membranes Nose (External): Positive for: Atraumatic Neck: Positive for: Other (trach). Negative for: JVD, Lymphadenopathy Respiratory/Chest: Positive for: Good Air Exchange, Decreased Breath Sounds (B/L ), Rhonchi. Negative for: Clear to Auscultation, Respiratory Distress, Accessory Muscle Use, Rales Cardiovascular: Positive for: Regular Rate and Rhythm, Normal S1, S2, Peripheal Pulses Present. Negative for: Murmurs Abdomen: Positive for: Normal Bowel Sounds. Negative for: Distention Upper Extremity: Positive for: Normal Inspection, NORMAL PULSES, Other (L PICC) . Negative for: Cyanosis, Edema Lower Extremity: Positive for: Normal Inspection, NORMAL PULSES. Negative for: Edema Neurological: Negative for: GCS=15 Skin: Positive for: Warm, Dry, Pale. Negative for: Rashes, Normal Color - Medications Active Medications: Active Medications Generic Name Dose Route Start Last Admin Trade Name Freq PRN Reason Stop Dose Admin Ferrous Sulfate 300 mg 04/19/17 11:45 04/19/17 12:11 Feosol Liq PEG 300 mg BID JUVE Administration Heparin Sodium (Porcine) 5,000 units 04/16/17 10:00 04/19/17 09:40 Heparin SC 5,000 units Q12 JUVE Administration Piperacillin Sod/Tazobactam Sod 2.25 gm in 50 mls @ 100 mls/hr 04/17/17 06:00 04/19/17 05:30 Zosyn 2.25 Gm Iv Premix IVPB 100 mls/hr Q8H JUVE Administration Potassium Chloride 20 meq in 100 mls @ 50 mls/hr 04/19/17 11:00 04/19/17 11: 09 Potassium Chloride 20 Meq/100 Ml IVPB 04/19/17 12:59 50 mls/hr ONCE ONE Administration Gentamicin Sulfate 80 mg/ 102 mls @ 100 mls/hr 04/21/17 09:00 Sodium Chloride IVPB MWF [facility] Insulin Human Regular 0 unit 04/16/17 12:00 04/19/17 12:11 Novolin R SC 2 unit Q6H JUVE Administration Protocol Levetiracetam 500 mg 04/19/17 10:00 04/19/17 11:10 Keppra PO 500 mg BID JUVE Administration Nystatin 1 applic 04/17/17 10:00 04/19/17 09:42 Nystop Topical Powder TOP 1 applic BID JUVE Administration Pantoprazole Sodium 40 mg 04/19/17 11:00 04/19/17 11:12 Protonix Susp PEG 40 mg DAILY JUVE Administration - Patient Studies Lab Studies: Microbiology Studies 04/17/17 19:00 Blood Culture - Preliminary Blood-During Dialysis Gram Negative Gume Gram Stain - Final 04/17/17 19:00 Blood Culture - Preliminary Blood-During Dialysis Gram Negative Gume Gram Stain - Final 04/16/17 Unknown Gram Stain - Final Trachasp Sputum Culture - Final Pseudomonas Aeruginosa Lab Studies 04/19/17 04/19/17 04/19/17 Range/Units 11:46 06:24 06:24 WBC 11.4 H (4.8-10.8) K/uL RBC 2.48 L (4.40-5.90) Mil/uL Hgb 7.3 L (12.0-18.0) g/dL Hct 22.4 L (35.0-51.0) % MCV 90.2 (80.0-94.0) fL MCH 29.5 (27.0-31.0) pg MCHC 32.7 L (33.0-37.0) g/dL RDW 15.1 H (11.5-14.5) % Plt Count 358 (130-400) K/uL MPV 7.5 (7.2-11.7) fL Neut % (Auto) 83.5 H (50.0-75.0) % Lymph % (Auto) 8.6 L (20.0-40.0) % [place] % (Auto) 7.3 (0.0-10.0) % Eos % (Auto) 0.2 (0.0-4.0) % Baso % (Auto) 0.4 (0.0-2.0) % Neut # 9.5 H (1.8-7.0) K/uL Lymph # 1.0 (1.0-4.3) K/uL [place] # 0.8 (0.0-0.8) K/uL Eos # 0.0 (0.0-0.7) K/uL Baso # 0.0 (0.0-0.2) K/uL Neutrophils % (Manual) 89 H (50-75) % Lymphocytes % (Manual) 5 L (20-40) % Monocytes % (Manual) 6 (0-10) % Platelet Estimate Normal (NORMAL) Hypochromasia (manual) Slight Anisocytosis (manual) Slight Puncture Site pCO2 (35-45) mm/Hg pO2 (80-100) mm/Hg HCO3 (21-28) mmol/L ABG pH (7.35-7.45) ABG Total CO2 (22-28) mmol/L ABG O2 Saturation (95-98) % ABG Base Excess (-2.0-3.0) mmol/L ABG Hemoglobin (11.7-17.4) g/dL ABG Carboxyhemoglobin (0.5-1.5) % POC ABG HHb (Measured) (0.0-5.0) % ABG Methemoglobin (0.0-3.0) % Edin Test A-a O2 Difference mm/Hg Respiratory Index Hgb O2 Saturation (95.0-98.0) % Mechanical Rate FiO2 % Tidal Volume PEEP Sodium 134 (132-148) mmol/L Potassium 3.1 L (3.6-5.2) mmol/L Chloride 99 (98-107) mmol/L Carbon Dioxide 25 (22-30) mmol/L Anion Gap 13 (10-20) BUN 53 H (9-20) mg/dL Creatinine 2.4 H (0.8-1.5) MG/DL Est GFR ( Amer) 33 Est GFR (Non-Af Amer) 27 POC Glucose (mg/dL) 214 H (65-110) mg/dL Random Glucose 138 H (75-110) mg/dL Calcium 8.0 L (8.6-10.4) mg/dl Phosphorus 3.1 (2.5-4.5) mg/dL Magnesium 2.0 (1.6-2.3) mg/dL Total Bilirubin 0.5 (0.2-1.3) mg/dL AST 29 (17-59) U/L ALT 25 (21-72) U/L Alkaline Phosphatase 190 H (38-126) U/L Total Protein 5.3 L (6.3-8.3) g/dL Albumin 2.1 L (3.5-5.0) g/dL Globulin 3.3 (2.2-3.9) gm/dL Albumin/Globulin Ratio 0.6 L (1.0-2.1) C. difficile Ag & Toxin (NEGATIVE) 04/19/17 04/19/17 04/19/17 Range/Units 05:36 05:31 02:56 WBC (4.8-10.8) K/uL RBC (4.40-5.90) Mil/uL Hgb (12.0-18.0) g/dL Hct (35.0-51.0) % MCV (80.0-94.0) fL MCH (27.0-31.0) pg MCHC (33.0-37.0) g/dL RDW (11.5-14.5) % Plt Count (130-400) K/uL MPV (7.2-11.7) fL Neut % (Auto) (50.0-75.0) % Lymph % (Auto) (20.0-40.0) % [place] % (Auto) (0.0-10.0) % Eos % (Auto) (0.0-4.0) % Baso % (Auto) (0.0-2.0) % Neut # (1.8-7.0) K/uL Lymph # (1.0-4.3) K/uL [place] # (0.0-0.8) K/uL Eos # (0.0-0.7) K/uL Baso # (0.0-0.2) K/uL Neutrophils % (Manual) (50-75) % Lymphocytes % (Manual) (20-40) % Monocytes % (Manual) (0-10) % Platelet Estimate (NORMAL) Hypochromasia (manual) Anisocytosis (manual) Puncture Site Lr pCO2 32 L (35-45) mm/Hg pO2 167 H (80-100) mm/Hg HCO3 26.9 (21-28) mmol/L ABG pH 7.51 H (7.35-7.45) ABG Total CO2 26.5 (22-28) mmol/L ABG O2 Saturation 99.7 H (95-98) % ABG Base Excess 2.5 (-2.0-3.0) mmol/L ABG Hemoglobin 8.2 L (11.7-17.4) g/dL ABG Carboxyhemoglobin 1.3 (0.5-1.5) % POC ABG HHb (Measured) 0.3 (0.0-5.0) % ABG Methemoglobin 1.5 (0.0-3.0) % Edin Test Pod A-a O2 Difference 150.0 mm/Hg Respiratory Index 0.9 Hgb O2 Saturation 96.9 (95.0-98.0) % Mechanical Rate 12 FiO2 50.0 % Tidal Volume 500 PEEP 5 Sodium (132-148) mmol/L Potassium (3.6-5.2) mmol/L Chloride (98-107) mmol/L Carbon Dioxide (22-30) mmol/L Anion Gap (10-20) BUN (9-20) mg/dL Creatinine (0.8-1.5) MG/DL Est GFR ( Amer) Est GFR (Non-Af Amer) POC Glucose (mg/dL) 170 H 106 (65-110) mg/dL Random Glucose (75-110) mg/dL Calcium (8.6-10.4) mg/dl Phosphorus (2.5-4.5) mg/dL Magnesium (1.6-2.3) mg/dL Total Bilirubin (0.2-1.3) mg/dL AST (17-59) U/L ALT (21-72) U/L Alkaline Phosphatase (38-126) U/L Total Protein (6.3-8.3) g/dL Albumin (3.5-5.0) g/dL Globulin (2.2-3.9) gm/dL Albumin/Globulin Ratio (1.0-2.1) C. difficile Ag & Toxin (NEGATIVE) 04/19/17 04/18/17 04/18/17 Range/Units 00:14 18:00 12:30 WBC (4.8-10.8) K/uL RBC (4.40-5.90) Mil/uL Hgb (12.0-18.0) g/dL Hct (35.0-51.0) % MCV (80.0-94.0) fL MCH (27.0-31.0) pg MCHC (33.0-37.0) g/dL RDW (11.5-14.5) % Plt Count (130-400) K/uL MPV (7.2-11.7) fL Neut % (Auto) (50.0-75.0) % Lymph % (Auto) (20.0-40.0) % [place] % (Auto) (0.0-10.0) % Eos % (Auto) (0.0-4.0) % Baso % (Auto) (0.0-2.0) % Neut # (1.8-7.0) K/uL Lymph # (1.0-4.3) K/uL [place] # (0.0-0.8) K/uL Eos # (0.0-0.7) K/uL Baso # (0.0-0.2) K/uL Neutrophils % (Manual) (50-75) % Lymphocytes % (Manual) (20-40) % Monocytes % (Manual) (0-10) % Platelet Estimate (NORMAL) Hypochromasia (manual) Anisocytosis (manual) Puncture Site pCO2 (35-45) mm/Hg pO2 (80-100) mm/Hg HCO3 (21-28) mmol/L ABG pH (7.35-7.45) ABG Total CO2 (22-28) mmol/L ABG O2 Saturation (95-98) % ABG Base Excess (-2.0-3.0) mmol/L ABG Hemoglobin (11.7-17.4) g/dL ABG Carboxyhemoglobin (0.5-1.5) % POC ABG HHb (Measured) (0.0-5.0) % ABG Methemoglobin (0.0-3.0) % Edin Test A-a O2 Difference mm/Hg Respiratory Index Hgb O2 Saturation (95.0-98.0) % Mechanical Rate FiO2 % Tidal Volume PEEP Sodium (132-148) mmol/L Potassium (3.6-5.2) mmol/L Chloride (98-107) mmol/L Carbon Dioxide (22-30) mmol/L Anion Gap (10-20) BUN (9-20) mg/dL Creatinine (0.8-1.5) MG/DL Est GFR ( Amer) Est GFR (Non-Af Amer) POC Glucose (mg/dL) 78 234 H 213 H (65-110) mg/dL Random Glucose (75-110) mg/dL Calcium (8.6-10.4) mg/dl Phosphorus (2.5-4.5) mg/dL Magnesium (1.6-2.3) mg/dL Total Bilirubin (0.2-1.3) mg/dL AST (17-59) U/L ALT (21-72) U/L Alkaline Phosphatase (38-126) U/L Total Protein (6.3-8.3) g/dL Albumin (3.5-5.0) g/dL Globulin (2.2-3.9) gm/dL Albumin/Globulin Ratio (1.0-2.1) C. difficile Ag & Toxin (NEGATIVE) 04/18/17 Range/Units 10:39 WBC (4.8-10.8) K/uL RBC (4.40-5.90) Mil/uL Hgb (12.0-18.0) g/dL Hct (35.0-51.0) % MCV (80.0-94.0) fL MCH (27.0-31.0) pg MCHC (33.0-37.0) g/dL RDW (11.5-14.5) % Plt Count (130-400) K/uL MPV (7.2-11.7) fL Neut % (Auto) (50.0-75.0) % Lymph % (Auto) (20.0-40.0) % [place] % (Auto) (0.0-10.0) % Eos % (Auto) (0.0-4.0) % Baso % (Auto) (0.0-2.0) % Neut # (1.8-7.0) K/uL Lymph # (1.0-4.3) K/uL [place] # (0.0-0.8) K/uL Eos # (0.0-0.7) K/uL Baso # (0.0-0.2) K/uL Neutrophils % (Manual) (50-75) % Lymphocytes % (Manual) (20-40) % Monocytes % (Manual) (0-10) % Platelet Estimate (NORMAL) Hypochromasia (manual) Anisocytosis (manual) Puncture Site pCO2 (35-45) mm/Hg pO2 (80-100) mm/Hg HCO3 (21-28) mmol/L ABG pH (7.35-7.45) ABG Total CO2 (22-28) mmol/L ABG O2 Saturation (95-98) % ABG Base Excess (-2.0-3.0) mmol/L ABG Hemoglobin (11.7-17.4) g/dL ABG Carboxyhemoglobin (0.5-1.5) % POC ABG HHb (Measured) (0.0-5.0) % ABG Methemoglobin (0.0-3.0) % Edin Test A-a O2 Difference mm/Hg Respiratory Index Hgb O2 Saturation (95.0-98.0) % Mechanical Rate FiO2 % Tidal Volume PEEP Sodium (132-148) mmol/L Potassium (3.6-5.2) mmol/L Chloride (98-107) mmol/L Carbon Dioxide (22-30) mmol/L Anion Gap (10-20) BUN (9-20) mg/dL Creatinine (0.8-1.5) MG/DL Est GFR ( Amer) Est GFR (Non-Af Amer) POC Glucose (mg/dL) (65-110) mg/dL Random Glucose (75-110) mg/dL Calcium (8.6-10.4) mg/dl Phosphorus (2.5-4.5) mg/dL Magnesium (1.6-2.3) mg/dL Total Bilirubin (0.2-1.3) mg/dL AST (17-59) U/L ALT (21-72) U/L Alkaline Phosphatase (38-126) U/L Total Protein (6.3-8.3) g/dL Albumin (3.5-5.0) g/dL Globulin (2.2-3.9) gm/dL Albumin/Globulin Ratio (1.0-2.1) C. difficile Ag & Toxin Negative (NEGATIVE) Laboratory Results - last 24 hr 04/18/17 04/18/17 04/18/17 10:39 12:30 18:00 WBC RBC Hgb Hct MCV MCH MCHC RDW Plt Count MPV Neut % (Auto) Lymph % (Auto) [place] % (Auto) Eos % (Auto) Baso % (Auto) Neut # Lymph # [place] # Eos # Baso # Neutrophils % (Manual) Lymphocytes % (Manual) Monocytes % (Manual) Platelet Estimate Hypochromasia (manual) Anisocytosis (manual) Puncture Site pCO2 pO2 HCO3 ABG pH ABG Total CO2 ABG O2 Saturation ABG Base Excess ABG Hemoglobin ABG Carboxyhemoglobin POC ABG HHb (Measured) ABG Methemoglobin Edin Test A-a O2 Difference Respiratory Index Hgb O2 Saturation Mechanical Rate FiO2 Tidal Volume PEEP Sodium Potassium Chloride Carbon Dioxide Anion Gap BUN Creatinine Est GFR ( Amer) Est GFR (Non-Af Amer) POC Glucose (mg/dL) 213 H 234 H Random Glucose Calcium Phosphorus Magnesium Total Bilirubin AST ALT Alkaline Phosphatase Total Protein Albumin Globulin Albumin/Globulin Ratio C. difficile Ag & Toxin Negative 04/19/17 04/19/17 04/19/17 00:14 02:56 05:31 WBC RBC Hgb Hct MCV MCH MCHC RDW Plt Count MPV Neut % (Auto) Lymph % (Auto) [place] % (Auto) Eos % (Auto) Baso % (Auto) Neut # Lymph # [place] # Eos # Baso # Neutrophils % (Manual) Lymphocytes % (Manual) Monocytes % (Manual) Platelet Estimate Hypochromasia (manual) Anisocytosis (manual) Puncture Site pCO2 pO2 HCO3 ABG pH ABG Total CO2 ABG O2 Saturation ABG Base Excess ABG Hemoglobin ABG Carboxyhemoglobin POC ABG HHb (Measured) ABG Methemoglobin Edin Test A-a O2 Difference Respiratory Index Hgb O2 Saturation Mechanical Rate FiO2 Tidal Volume PEEP Sodium Potassium Chloride Carbon Dioxide Anion Gap BUN Creatinine Est GFR ( Amer) Est GFR (Non-Af Amer) POC Glucose (mg/dL) 78 106 170 H Random Glucose Calcium Phosphorus Magnesium Total Bilirubin AST ALT Alkaline Phosphatase Total Protein Albumin Globulin Albumin/Globulin Ratio C. difficile Ag & Toxin 04/19/17 04/19/17 04/19/17 05:36 06:24 06:24 WBC 11.4 H RBC 2.48 L Hgb 7.3 L Hct 22.4 L MCV 90.2 MCH 29.5 MCHC 32.7 L RDW 15.1 H Plt Count 358 MPV 7.5 Neut % (Auto) 83.5 H Lymph % (Auto) 8.6 L [place] % (Auto) 7.3 Eos % (Auto) 0.2 Baso % (Auto) 0.4 Neut # 9.5 H Lymph # 1.0 [place] # 0.8 Eos # 0.0 Baso # 0.0 Neutrophils % (Manual) 89 H Lymphocytes % (Manual) 5 L Monocytes % (Manual) 6 Platelet Estimate Normal Hypochromasia (manual) Slight Anisocytosis (manual) Slight Puncture Site Lr pCO2 32 L pO2 167 H HCO3 26.9 ABG pH 7.51 H ABG Total CO2 26.5 ABG O2 Saturation 99.7 H ABG Base Excess 2.5 ABG Hemoglobin 8.2 L ABG Carboxyhemoglobin 1.3 POC ABG HHb (Measured) 0.3 ABG Methemoglobin 1.5 Edin Test Pod A-a O2 Difference 150.0 Respiratory Index 0.9 Hgb O2 Saturation 96.9 Mechanical Rate 12 FiO2 50.0 Tidal Volume 500 PEEP 5 Sodium 134 Potassium 3.1 L Chloride 99 Carbon Dioxide 25 Anion Gap 13 BUN 53 H Creatinine 2.4 H Est GFR ( Amer) 33 Est GFR (Non-Af Amer) 27 POC Glucose (mg/dL) Random Glucose 138 H Calcium 8.0 L Phosphorus 3.1 Magnesium 2.0 Total Bilirubin 0.5 AST 29 ALT 25 Alkaline Phosphatase 190 H Total Protein 5.3 L Albumin 2.1 L Globulin 3.3 Albumin/Globulin Ratio 0.6 L C. difficile Ag & Toxin 04/19/17 11:46 WBC RBC Hgb Hct MCV MCH MCHC RDW Plt Count MPV Neut % (Auto) Lymph % (Auto) [place] % (Auto) Eos % (Auto) Baso % (Auto) Neut # Lymph # [place] # Eos # Baso # Neutrophils % (Manual) Lymphocytes % (Manual) Monocytes % (Manual) Platelet Estimate Hypochromasia (manual) Anisocytosis (manual) Puncture Site pCO2 pO2 HCO3 ABG pH ABG Total CO2 ABG O2 Saturation ABG Base Excess ABG Hemoglobin ABG Carboxyhemoglobin POC ABG HHb (Measured) ABG Methemoglobin Edin Test A-a O2 Difference Respiratory Index Hgb O2 Saturation Mechanical Rate FiO2 Tidal Volume PEEP Sodium Potassium Chloride Carbon Dioxide Anion Gap BUN Creatinine Est GFR ( Amer) Est GFR (Non-Af Amer) POC Glucose (mg/dL) 214 H Random Glucose Calcium Phosphorus Magnesium Total Bilirubin AST ALT Alkaline Phosphatase Total Protein Albumin Globulin Albumin/Globulin Ratio C. difficile Ag & Toxin Fingerstick Blood Sugar Results: 214 Review of Systems - Review of Systems Systems not reviewed;Unavailable: Intubated Critical Care Progress Note - Ventilator Checklist Head of Bed 30 Degrees: Yes PUD Prophalyxis: Yes DVT Prophylaxis: Yes - Vent Settings MODE:: CPAP FIO2:: 50 PEEP:: 5 PRESSURE SUPPORT:: 15 - Extremities/Vascular Does the Patient have a Central Venous Catheter?: Yes Insertion Site: L PICC Does the Patient need a Central Venous Catheter?: Yes Does the Patient have a Willis Catheter?: No Does the Patient need a Willis Catheter?: No - Prophylaxis GI Prophylaxis GI: PPI - Prophylaxis DVT Prophylaxis DVT: Heparin SQ Assessment/Plan (1) Anoxic brain injury Current Visit: Yes Status: Acute (2) Cardiac arrest Current Visit: Yes Status: Acute Comment: Patient status post cardiac arrest during hemodialysis, post code freeze ventilatory support status post tracheostomy Continue antibiotics for pneumonia Follow up culture and sensitivity Continue hemodialysis Continue Keppra for myoclonic twitching For repeat CAT scan of the head and neurology evaluation Follow-up CBC and transfuse using hemodialysis Stool guaic (3) ESRD (end stage renal disease) Current Visit: Yes Status: Acute - Assessment and Plan (Free Text) Plan: Patient status: -critical -EEK II- 33 (78.6% predicted rate) Neuro: -Quadraplegia -Global cerebral dysfunction -04/18/17 CT Head- Scattered focal lucencies in the subcortical and periventricular white matter suggestive for chronic microvascular ischemic change. Prominent cerebellar atrophy. Again identified is prominent encephalomalacia from probable prominent infarction in the inferior right cerebellum. This is similar appearance to the prior study. Bilateral basal ganglia calcifications. Generalized atrophy. Near complete opacification of the bilateral mastoid air cells. Mild mucosal thickening of the bilateral maxillary sinuses. Moderate mucosal thickening and opacification of the ethmoid air cells. If there is persistent concern for acute ischemic change, correlation with MRI may be helpful. -04/15/17 CT Head- Evidence of right cerebellar encephalomalacia. Nonspecific white matter changes. Please note that MRI with diffusion imaging is more sensitive in the detection of acute ischemic event. Opacification/fluid throughout bilateral visualized mastoid air cells. Correlate clinically for mastoiditis. Dense intracranial vascular calcifications. Additionally, vascular calcifications are noted involving bilateral orbits Cardiovascular: -HTN -holding antihypertensive medications and managing with HD -PICC line to be removed today 2/2 to sepsis -R Fem TLC removed -IR consult for PICC placement tomorrow Pulmonary: -Trach -CPAP (15/5 50%) -Imaging -04/16/17 CXR- Suspect mild bibasilar atelectasis left greater than right. Ced There may also be small left-sided effusion. -04/15/17 CXR- Tracheostomy tube. Left-sided central venous catheter extends expected location of the cavoatrial junction. Interstitial prominence may reflect infection or edema, [id number]. Small left pleural effusion. Bibasilar atelectasis. Borderline cardiomegaly. _ABG -04/19/17- CO2 32 / O2 167 / HCO3 26.9 / pH 7.51 -04/18/17- CO2 34 / O2 122 / HCO3 27.4 / pH 7.50 -04/17/17- CO2 32 / O2 131 / HCO3 24.1 / pH 7.45 -04/16/17- CO2 32 / O2 136 / HCO3 25.7 / pH 7.48 -04/15/17- CO2 46 / O2 160 / HCO3 24.0 / pH 7.34 Gastrointestinal: -Tube feeds 40ml/hr Hematology: -Falling H&H. -No transfusion at this point -Will continue to monitor Endocrine: -No acute issues Renal: -Respiratory Alkalosis- will adjust ventilator settings -ESRD -DC IVF Musculoskeletal: -No acute issues Genitourinary: -Continue Willis Infectious disease: -Gram Negative Sepsis -Gentamycin 80mg IV MWF- Day 1 -Zosyn 2.25g Q6- day 3 -04/17/17 Blood Cx- gram neg gume (sensitivity pending) -04/16/17 Tracheal Aspiration- P.aeruginosa -04/15/17 Blood Cultures- coag neg staph -04/15/17 Nares- MRSA neg GI prophylaxis: Protonix 40mg IV daily DVT prophylaxis: Heparin 5000u SC q12 Palliative Care: -palliative care consult placed Case discussed with Dr. Piyush Cedeno PGY1 - Date & Time Date: 04/19/17 Time: 12:27
--- NOTE | 2017-04-19 22:25 | CP.PCM.PN ---
Subjective - Date & Time of Evaluation Date of Evaluation: 04/19/17 Time of Evaluation: 22:30 - Subjective Subjective: Patient afebrile per nursing staff; Objective - Vital Signs/Intake and Output Vital Signs (last 24 hours): Temp Pulse Resp BP Pulse Ox 97.3 F L 70 14 104/50 L 100 04/19/17 20:00 04/19/17 22:00 04/19/17 22:00 04/19/17 21:50 04/19/17 22:00 Intake and Output: 04/19/17 04/20/17 18:59 06:59 Intake Total 690 210 Output Total 0 0 Balance 690 210 - Medications Medications: Current Medications Ferrous Sulfate (Feosol Liq) 300 mg PEG BID [facility] Last Admin: 04/19/17 17:45 Dose: 300 mg Heparin Sodium (Porcine) (Heparin) 5,000 units SC Q12 [facility] Last Admin: 04/19/17 09:40 Dose: 5,000 units Piperacillin Sod/Tazobactam Sod (Zosyn 2.25 Gm Iv Premix) 2.25 gm in 50 mls @ 100 mls/hr IVPB Q8H [facility] Last Admin: 04/19/17 13:16 Dose: 100 mls/hr Gentamicin Sulfate 80 mg/ (Sodium Chloride) 102 mls @ 100 mls/hr IVPB MWF [facility] Insulin Human Regular (Novolin R) 0 unit SC Q6H [facility] PRN Reason: Protocol Last Admin: 04/19/17 18:50 Dose: 2 unit Levetiracetam (Keppra) 500 mg PO BID [facility] Last Admin: 04/19/17 17:45 Dose: 500 mg Nystatin (Nystop Topical Powder) 1 applic TOP BID [facility] Last Admin: 04/19/17 17:45 Dose: 1 applic Pantoprazole Sodium (Protonix Susp) 40 mg PEG DAILY [facility] Last Admin: 04/19/17 11:12 Dose: 40 mg - Labs Labs: 04/19/17 06:24 04/19/17 06:24 PT 13.8 SECONDS (9.7-12.2) H 04/17/17 06:26 INR 1.2 04/17/17 06:26 APTT 36 SECONDS (21-34) H 04/17/17 06:26 - Constitutional Appears: No Acute Distress - Head Exam Head Exam: NORMAL INSPECTION - Eye Exam Eye Exam: Normal appearance. absent: Scleral icterus - ENT Exam ENT Exam: Mucous Membranes Moist - Neck Exam Additional comments: s/p tracheostomy - Respiratory Exam Respiratory Exam: Clear to Ausculation Bilateral. absent: Rales, Rhonchi, Wheezes - Cardiovascular Exam Cardiovascular Exam: RRR, +S1, +S2 - GI/Abdominal Exam GI & Abdominal Exam: Soft. absent: Distended - Extremities Exam Extremities Exam: Normal Capillary Refill Additional comments: Mild proximal leg edema; edematous bilateral upper ext; - Neurological Exam Additional comments: Not responding to noxious stimuli; - Skin Skin Exam: Normal Color, Warm. absent: Cyanosis Assessment and Plan (1) ESRD (end stage renal disease) Assessment & Plan: Stable electrolyte and volume status, actually with mild hypokalemia in setting of diarrhea; plan for routine HD session tomorrow; Status: Acute (2) Anoxic brain injury Assessment & Plan: s/p cardiac arrest as well as recent vent dependent respiratory failure; no uremic component to poor mental status as patient receiving regular HD; Status: Acute (3) Sepsis Assessment & Plan: Appears to have multiple source of sepsis with coag neg staph in peripheral cultures (unclear if this was taken from PICC line), gram neg glo from HD catheter and pseudomonas in trach; on vanco, zosyn 2.25 g q8h (correctly dosed for HD) and ID adding genta today; vanco and genta need redosing after HD tomorrow; Patient is clinically improving but question is whether PICC and HD catheters need to be removed; will discuss with primary team; can d/c HD cath after dialysis tomorrow and give line holiday for 2 days; Status: Acute (4) Respiratory failure Assessment & Plan: Stable FIO2 requirement despite having been on IVF and patient anuric; lungs relatively clear; no indication for urgent UF; will monitor; Status: Acute (5) HTN (hypertension) Assessment & Plan: BP elevated; not currently on anti-htn meds; will likely benefit from UF on HD tomorrow; Status: Acute (6) Anemia Assessment & Plan: Iron replete; given dose of EPO yesterday, hgb stable but below goal for ESRD, monitor; Status: Acute
[2017-04-20 05:42] LABS: VENOUS BLOOD GAS PCO2 38 mmHg (40-60); VENOUS BLOOD PH 7.43 (7.32-7.43)
[2017-04-20] MEDS: Piperacill/Tazo 2.25gm in Dex 2.25 GM/50 ML BAG IVPB SCH ×3 (06:00→22:00)
[2017-04-20] MEDS: (Novolin R) Insulin Human Regular 100 units/ml vial SC SCH ×4 (06:00→18:03)
[2017-04-20 06:39] LABS: BASO % 0.2 % (0.0-2.0); EOS # 0.1 K/uL (0.0-0.7); EOS % 0.5 % (0.0-4.0); HEMATOCRIT 24.9 % (35.0-51.0); LYMPH # 1.1 K/uL (1.0-4.3); LYMPH % 7.7 % (20.0-40.0); MEAN CELL VOLUME 90.8 fL (80.0-94.0); MEAN CORPUSCULAR HEMOGLOBIN 30.6 pg (27.0-31.0); MEAN CORPUSCULAR HGB CONC 33.7 g/dL (33.0-37.0); MEAN PLATELET VOLUME 7.2 fL (7.2-11.7); MONO # 0.8 K/uL (0.0-0.8); NRBC % 0.1 % (0.0-2.0); PLATELET COUNT 386 K/uL (130-400); RED CELL DISTRIBUTION WIDTH 15.2 % (11.5-14.5)
[2017-04-20 06:49] LABS: POTASSIUM 3.5 mmol/L (3.6-5.2)
[2017-04-20 06:51] LABS: ALB/GLOB RATIO 0.7 (1.0-2.1); BILIRUBIN,TOTAL 0.4 mg/dL (0.2-1.3); TOTAL PROTEIN 5.2 g/dL (6.3-8.3)
[2017-04-20 06:52] LABS: CALCIUM 8.3 mg/dl (8.6-10.4); MAGNESIUM 2.1 mg/dL (1.6-2.3); PHOSPHOROUS 2.9 mg/dL (2.5-4.5)
--- NOTE | 2017-04-20 08:55 | PN ---
DATE: 04/19/2017 The patient is on CPAP, ventilator, IV antibiotic, supportive care. Start weaning. Dale Collins MD cc: [id number] TT: 04/19/2017 11:32:24 Confirmation # [id number] Dictation # [id number]
[2017-04-20 09:43] LABS: NEUTROPHIL 90 % (50-75); TOTAL CELLS COUNTED 100
[2017-04-20] MEDS: Pantoprazole 40 mg Susp UD PEG SCH (09:52)
[2017-04-20] MEDS: Ferrous Sulfate 300 mg/5 mL Liq UD PEG SCH ×2 (09:52→17:17)
--- NOTE | 2017-04-20 09:58 | PN ---
DATE: 04/20/2017 NEUROLOGICAL PROBLEM: Anoxic encephalopathy. PHYSICAL EXAMINATION: VITAL SIGNS: Blood pressure 155/82 mean arterial pressure of 72, respiratory rate 16, temperature 97.2 with a pulse rate 56. NEUROLOGIC: The patient is comatose with predominant upgaze. At times, the patient does show right lateral nystagmus. Quadriplegic increased tone. Plantars are upgoing. The current examination is unchanged to compare with his previous examination suggestive of possible brainstem dysfunction in addition to global cerebral dysfunction. This is all probably secondary to his anoxic insult. However, his current examination is not favoring any higher prognostic value. His overall prognosis is poor. Continue the present management. The patient should have a followup CT of the head and electroencephalogram will be reviewed. Joe Duncan MD cc: [id number] TT: 04/20/2017 09:57:17 Confirmation # [id number] Dictation # [id number] tn MTDD
--- NOTE | 2017-04-20 10:32 | CP.PCM.PN ---
Subjective - Date & Time of Evaluation Date of Evaluation: 04/20/17 Time of Evaluation: 09:00 - Subjective Subjective: cultures noted discussed on rounds may need change/ removal of all lines Objective - Vital Signs/Intake and Output Vital Signs (last 24 hours): Temp Pulse Resp BP Pulse Ox 96.7 F L 63 18 127/26 L 100 04/20/17 08:47 04/20/17 10:02 04/20/17 10:02 04/20/17 10:02 04/20/17 10:02 Intake and Output: 04/20/17 04/20/17 06:59 18:59 Intake Total 630 310 Output Total 0 0 Balance 630 310 - Medications Medications: Current Medications Ferrous Sulfate (Feosol Liq) 300 mg PEG BID [facility] Last Admin: 04/20/17 09:52 Dose: 300 mg Heparin Sodium (Porcine) (Heparin) 5,000 units SC Q12 [facility] Last Admin: 04/20/17 09:51 Dose: 5,000 units Piperacillin Sod/Tazobactam Sod (Zosyn 2.25 Gm Iv Premix) 2.25 gm in 50 mls @ 100 mls/hr IVPB Q8H [facility] Last Admin: 04/20/17 06:00 Dose: 100 mls/hr Gentamicin Sulfate 80 mg/ (Sodium Chloride) 102 mls @ 100 mls/hr IVPB MWF [facility] Vancomycin HCl 1 gm/ Sodium (Chloride) 250 mls @ 166.7 mls/hr IVPB STAT STA Stop: 04/20/17 11:59 Insulin Human Regular (Novolin R) 0 unit SC Q6H [facility] PRN Reason: Protocol Last Admin: 04/20/17 06:00 Dose: 3 unit Levetiracetam (Keppra) 500 mg PO BID [facility] Last Admin: 04/20/17 09:51 Dose: 500 mg Nystatin (Nystop Topical Powder) 1 applic TOP BID [facility] Last Admin: 04/20/17 09:52 Dose: 1 applic Pantoprazole Sodium (Protonix Susp) 40 mg PEG DAILY [facility] Last Admin: 04/20/17 09:52 Dose: 40 mg - Labs Labs: 04/20/17 06:29 04/20/17 06:29 PT 11.2 SECONDS (9.7-12.2) 04/20/17 06:29 INR 1.0 04/20/17 06:29 APTT 36 SECONDS (21-34) H 04/20/17 06:29 - Constitutional Appears: Cachectic - Head Exam Head Exam: NORMOCEPHALIC - Eye Exam Eye Exam: absent: Scleral icterus - ENT Exam ENT Exam: Mucous Membranes Dry - Neck Exam Neck Exam: absent: Lymphadenopathy - Respiratory Exam Respiratory Exam: Decreased Breath Sounds - Cardiovascular Exam Cardiovascular Exam: REGULAR RHYTHM Assessment and Plan (1) Sepsis Status: Acute (2) Sepsis Status: Acute (3) Anoxic brain injury Status: Acute (4) Cardiac arrest Status: Acute (5) ESRD (end stage renal disease) Status: Acute (6) Pneumonia Status: Acute (7) Respiratory arrest Status: Acute
--- NOTE | 2017-04-20 10:45 | CP.CCUPN ---
<WilianMendel - Last Filed: 04/20/17 18:20> CCU Subjective - Physician Review Subjective (Free Text): 04/16/17 06:30 Patient seen and examined at the bedside. No acute distress. No acute events overnight. Nursing staff reports no issues. The patient remains intubated. No sedation currently. The patient remains minimally responsive to noxious stimuli only. Code freeze active. Today on rounds, the patient's potassium was replaced. The patient's dose of zosyn was also decreased to 2.25g q6. The patients IVF were DC. The patient will be under code freeze until 20:15 tonight. 04/19/17 12:22 Patient seen and examined at the bedside. No acute distress. No acute events overnight. Nursing staff reports no issues. The patient remains intubated. No sedation currently. Patient has been placed on keppra. No myoclonic jerks. Today on rounds, palliative care was consulted. LTAC evaluation was ordered. The patient's keppra, protonix, and iron were changed to PO via PEG tube. 04/20/17 10:42 Patient seen and examined at the bedside. No acute distress. No acute events overnight. Nursing staff reports no issues. The patient remains intubated. No sedation currently. Patient has been placed on keppra. No myoclonic jerks. Patient will receive dialysis today. Patient remains only minimally responsive. Today on rounds, the patient was examined with Dr. Duncan (neurology). CT head was ordered and the patient's potassium was replaced. The patient will have his left midline removed and a TLC placed today. Critical Care Time Spent (in minutes): 60 CCU Objective - Vital Signs / Intake & Output Vital Signs (Last 4 hours): Vital Signs Temp Pulse Pulse Resp BP BP Pulse Ox 04/20/17 10:02 63 18 127/26 L 100 04/20/17 09:32 60 17 138/36 L 138/56 L 100 04/20/17 09:30 62 18 100 04/20/17 09:17 58 L 18 144/26 L 100 04/20/17 09:02 59 L 16 141/44 L 141/44 L 100 04/20/17 08:47 96.7 F L 57 L 20 166/24 H 100 04/20/17 08:45 97.7 F 57 L 16 155/31 H 04/20/17 08:07 56 L 14 155/31 H 100 04/20/17 08:00 97.2 F L 58 L 14 155/31 H 100 04/20/17 07:30 69 31 H 100 04/20/17 07:00 61 15 100 Intake and Output (Last 8hrs): Intake & Output 04/19/17 04/20/17 04/20/17 22:59 06:59 14:59 Intake Total 420 370 310 Output Total 0 0 0 Balance 420 370 310 Weight 59.874 kg Intake: Intake, IV Amount 50 50 150 Left PICC 50 50 150 Tube Feeding 320 320 160 Other 50 Output: Urine 0 0 0 Urethral (Willis) 0 0 0 - Physical Exam Head: Positive for: Normocephalic. Negative for: Contusion Extroacular Muscles: Positive for: Gaze Palsy (up-gaze), Other (Horizontal Nystagmus) Mouth: Positive for: Moist Mucous Membranes Nose (External): Positive for: Atraumatic Neck: Positive for: Other (trach). Negative for: JVD, Lymphadenopathy Respiratory/Chest: Positive for: Good Air Exchange, Decreased Breath Sounds (B/L ), Rhonchi. Negative for: Clear to Auscultation, Respiratory Distress, Accessory Muscle Use, Rales Cardiovascular: Positive for: Regular Rate and Rhythm, Normal S1, S2, Peripheal Pulses Present. Negative for: Murmurs Abdomen: Positive for: Normal Bowel Sounds. Negative for: Distention Upper Extremity: Positive for: Normal Inspection, NORMAL PULSES, Other (L PICC) . Negative for: Cyanosis, Edema Lower Extremity: Positive for: Normal Inspection, NORMAL PULSES. Negative for: Edema Neurological: Positive for: Other (weak brainstem reflexes). Negative for: GCS= 15 Skin: Positive for: Warm, Dry, Pale. Negative for: Rashes, Normal Color - Medications Active Medications: Active Medications Generic Name Dose Route Start Last Admin Trade Name Freq PRN Reason Stop Dose Admin Ferrous Sulfate 300 mg 04/19/17 11:45 04/20/17 09:52 Feosol Liq PEG 300 mg BID JUVE Administration Heparin Sodium (Porcine) 5,000 units 04/16/17 10:00 04/20/17 09:51 Heparin SC 5,000 units Q12 JUVE Administration Piperacillin Sod/Tazobactam Sod 2.25 gm in 50 mls @ 100 mls/hr 04/17/17 06:00 04/20/17 06:00 Zosyn 2.25 Gm Iv Premix IVPB 100 mls/hr Q8H JUVE Administration Gentamicin Sulfate 80 mg/ 102 mls @ 100 mls/hr 04/21/17 09:00 Sodium Chloride IVPB MWF JUVE Vancomycin HCl 1 gm/ Sodium 250 mls @ 166.7 mls/hr 04/20/17 10:30 Chloride IVPB 04/20/17 11:59 STAT STA Insulin Human Regular 0 unit 04/16/17 12:00 04/20/17 06:00 Novolin R SC 3 unit Q6H JUVE Administration Protocol Levetiracetam 500 mg 04/19/17 10:00 04/20/17 09:51 Keppra PO 500 mg BID JUVE Administration Nystatin 1 applic 04/17/17 10:00 04/20/17 09:52 Nystop Topical Powder TOP 1 applic BID JUVE Administration Pantoprazole Sodium 40 mg 04/19/17 11:00 04/20/17 09:52 Protonix Susp PEG 40 mg DAILY JUVE Administration - Patient Studies Lab Studies: Microbiology Studies 04/17/17 19:00 Blood Culture - Final Blood-During Dialysis Pseudomonas Aeruginosa Gram Stain - Final 04/17/17 19:00 Blood Culture - Final Blood-During Dialysis Pseudomonas Aeruginosa Gram Stain - Final Lab Studies 04/20/17 04/20/17 04/20/17 Range/Units 06:29 06:29 06:29 WBC 14.0 H (4.8-10.8) K/uL RBC 2.74 L (4.40-5.90) Mil/uL Hgb 8.4 L (12.0-18.0) g/dL Hct 24.9 L (35.0-51.0) % MCV 90.8 (80.0-94.0) fL MCH 30.6 (27.0-31.0) pg MCHC 33.7 (33.0-37.0) g/dL RDW 15.2 H (11.5-14.5) % Plt Count 386 (130-400) K/uL MPV 7.2 (7.2-11.7) fL Neut % (Auto) 85.6 H (50.0-75.0) % Lymph % (Auto) 7.7 L (20.0-40.0) % [place] % (Auto) 6.0 (0.0-10.0) % Eos % (Auto) 0.5 (0.0-4.0) % Baso % (Auto) 0.2 (0.0-2.0) % Neut # 12.0 H (1.8-7.0) K/uL Lymph # 1.1 (1.0-4.3) K/uL [place] # 0.8 (0.0-0.8) K/uL Eos # 0.1 (0.0-0.7) K/uL Baso # 0.0 (0.0-0.2) K/uL Neutrophils % (Manual) 90 H (50-75) % Lymphocytes % (Manual) 5 L (20-40) % Monocytes % (Manual) 5 (0-10) % Platelet Estimate Normal (NORMAL) Hypochromasia (manual) Slight Anisocytosis (manual) Slight PT 11.2 (9.7-12.2) SECONDS INR 1.0 APTT 36 H (21-34) SECONDS pO2 (30-55) mm/Hg VBG pH (7.32-7.43) VBG pCO2 (40-60) mmHg VBG HCO3 mmol/L VBG Total CO2 (22-28) mmol/L VBG O2 Sat (Calc) (40-65) % VBG Base Excess (0.0-2.0) mmol/L VBG Potassium (3.6-5.2) mmol/L Sodium 134 (132-148) mmol/l Chloride 99 (98-107) mmol/L Glucose (75-110) mg/dl Lactate (0.7-2.1) mmol/L FiO2 % PEEP Potassium 3.5 L (3.6-5.2) mmol/L Carbon Dioxide 22 (22-30) mmol/L Anion Gap 17 (10-20) BUN 62 H (9-20) mg/dL Creatinine 2.7 H (0.8-1.5) MG/DL Est GFR ( Amer) 28 Est GFR (Non-Af Amer) 24 POC Glucose (mg/dL) (65-110) mg/dL Random Glucose 230 H (75-110) mg/dL Calcium 8.3 L (8.6-10.4) mg/dl Phosphorus 2.9 (2.5-4.5) mg/dL Magnesium 2.1 (1.6-2.3) mg/dL Total Bilirubin 0.4 (0.2-1.3) mg/dL AST 21 (17-59) U/L ALT 22 (21-72) U/L Alkaline Phosphatase 288 H D (38-126) U/L Total Protein 5.2 L (6.3-8.3) g/dL Albumin 2.2 L (3.5-5.0) g/dL Globulin 3.0 (2.2-3.9) gm/dL Albumin/Globulin Ratio 0.7 L (1.0-2.1) Venous Blood Potassium (3.6-5.2) mmol/L C. difficile Ag & Toxin (NEGATIVE) Hep Bs Antigen (NEGATIVE) Hep Bs Antibody (NEGATIVE) Hep B Core IgM Ab (NEGATIVE) 04/20/17 04/20/17 04/19/17 Range/Units 06:06 05:17 Unknown WBC (4.8-10.8) K/uL RBC (4.40-5.90) Mil/uL Hgb (12.0-18.0) g/dL Hct (35.0-51.0) % MCV (80.0-94.0) fL MCH (27.0-31.0) pg MCHC (33.0-37.0) g/dL RDW (11.5-14.5) % Plt Count (130-400) K/uL MPV (7.2-11.7) fL Neut % (Auto) (50.0-75.0) % Lymph % (Auto) (20.0-40.0) % [place] % (Auto) (0.0-10.0) % Eos % (Auto) (0.0-4.0) % Baso % (Auto) (0.0-2.0) % Neut # (1.8-7.0) K/uL Lymph # (1.0-4.3) K/uL [place] # (0.0-0.8) K/uL Eos # (0.0-0.7) K/uL Baso # (0.0-0.2) K/uL Neutrophils % (Manual) (50-75) % Lymphocytes % (Manual) (20-40) % Monocytes % (Manual) (0-10) % Platelet Estimate (NORMAL) Hypochromasia (manual) Anisocytosis (manual) PT (9.7-12.2) SECONDS INR APTT (21-34) SECONDS pO2 37 (30-55) mm/Hg VBG pH 7.43 (7.32-7.43) VBG pCO2 38 L (40-60) mmHg VBG HCO3 25.0 mmol/L VBG Total CO2 26.4 (22-28) mmol/L VBG O2 Sat (Calc) 83.5 H (40-65) % VBG Base Excess 1.0 (0.0-2.0) mmol/L VBG Potassium 3.6 (3.6-5.2) mmol/L Sodium 138.0 (132-148) mmol/l Chloride 107.0 (98-107) mmol/L Glucose 252 H (75-110) mg/dl Lactate 1.3 (0.7-2.1) mmol/L FiO2 50.0 % PEEP 6 Potassium (3.6-5.2) mmol/L Carbon Dioxide (22-30) mmol/L Anion Gap (10-20) BUN (9-20) mg/dL Creatinine (0.8-1.5) MG/DL Est GFR ( Amer) Est GFR (Non-Af Amer) POC Glucose (mg/dL) 283 H (65-110) mg/dL Random Glucose (75-110) mg/dL Calcium (8.6-10.4) mg/dl Phosphorus (2.5-4.5) mg/dL Magnesium (1.6-2.3) mg/dL Total Bilirubin (0.2-1.3) mg/dL AST (17-59) U/L ALT (21-72) U/L Alkaline Phosphatase (38-126) U/L Total Protein (6.3-8.3) g/dL Albumin (3.5-5.0) g/dL Globulin (2.2-3.9) gm/dL Albumin/Globulin Ratio (1.0-2.1) Venous Blood Potassium 3.6 (3.6-5.2) mmol/L C. difficile Ag & Toxin Negative (NEGATIVE) Hep Bs Antigen (NEGATIVE) Hep Bs Antibody (NEGATIVE) Hep B Core IgM Ab (NEGATIVE) 04/19/17 04/19/17 04/19/17 Range/Units 23:41 18:36 11:46 WBC (4.8-10.8) K/uL RBC (4.40-5.90) Mil/uL Hgb (12.0-18.0) g/dL Hct (35.0-51.0) % MCV (80.0-94.0) fL MCH (27.0-31.0) pg MCHC (33.0-37.0) g/dL RDW (11.5-14.5) % Plt Count (130-400) K/uL MPV (7.2-11.7) fL Neut % (Auto) (50.0-75.0) % Lymph % (Auto) (20.0-40.0) % [place] % (Auto) (0.0-10.0) % Eos % (Auto) (0.0-4.0) % Baso % (Auto) (0.0-2.0) % Neut # (1.8-7.0) K/uL Lymph # (1.0-4.3) K/uL [place] # (0.0-0.8) K/uL Eos # (0.0-0.7) K/uL Baso # (0.0-0.2) K/uL Neutrophils % (Manual) (50-75) % Lymphocytes % (Manual) (20-40) % Monocytes % (Manual) (0-10) % Platelet Estimate (NORMAL) Hypochromasia (manual) Anisocytosis (manual) PT (9.7-12.2) SECONDS INR APTT (21-34) SECONDS pO2 (30-55) mm/Hg VBG pH (7.32-7.43) VBG pCO2 (40-60) mmHg VBG HCO3 mmol/L VBG Total CO2 (22-28) mmol/L VBG O2 Sat (Calc) (40-65) % VBG Base Excess (0.0-2.0) mmol/L VBG Potassium (3.6-5.2) mmol/L Sodium (132-148) mmol/l Chloride (98-107) mmol/L Glucose (75-110) mg/dl Lactate (0.7-2.1) mmol/L FiO2 % PEEP Potassium (3.6-5.2) mmol/L Carbon Dioxide (22-30) mmol/L Anion Gap (10-20) BUN (9-20) mg/dL Creatinine (0.8-1.5) MG/DL Est GFR ( Amer) Est GFR (Non-Af Amer) POC Glucose (mg/dL) 279 H 233 H 214 H (65-110) mg/dL Random Glucose (75-110) mg/dL Calcium (8.6-10.4) mg/dl Phosphorus (2.5-4.5) mg/dL Magnesium (1.6-2.3) mg/dL Total Bilirubin (0.2-1.3) mg/dL AST (17-59) U/L ALT (21-72) U/L Alkaline Phosphatase (38-126) U/L Total Protein (6.3-8.3) g/dL Albumin (3.5-5.0) g/dL Globulin (2.2-3.9) gm/dL Albumin/Globulin Ratio (1.0-2.1) Venous Blood Potassium (3.6-5.2) mmol/L C. difficile Ag & Toxin (NEGATIVE) Hep Bs Antigen (NEGATIVE) Hep Bs Antibody (NEGATIVE) Hep B Core IgM Ab (NEGATIVE) 04/17/17 04/17/17 04/17/17 Range/Units 16:13 16:13 16:13 WBC (4.8-10.8) K/uL RBC (4.40-5.90) Mil/uL Hgb (12.0-18.0) g/dL Hct (35.0-51.0) % MCV (80.0-94.0) fL MCH (27.0-31.0) pg MCHC (33.0-37.0) g/dL RDW (11.5-14.5) % Plt Count (130-400) K/uL MPV (7.2-11.7) fL Neut % (Auto) (50.0-75.0) % Lymph % (Auto) (20.0-40.0) % [place] % (Auto) (0.0-10.0) % Eos % (Auto) (0.0-4.0) % Baso % (Auto) (0.0-2.0) % Neut # (1.8-7.0) K/uL Lymph # (1.0-4.3) K/uL [place] # (0.0-0.8) K/uL Eos # (0.0-0.7) K/uL Baso # (0.0-0.2) K/uL Neutrophils % (Manual) (50-75) % Lymphocytes % (Manual) (20-40) % Monocytes % (Manual) (0-10) % Platelet Estimate (NORMAL) Hypochromasia (manual) Anisocytosis (manual) PT (9.7-12.2) SECONDS INR APTT (21-34) SECONDS pO2 (30-55) mm/Hg VBG pH (7.32-7.43) VBG pCO2 (40-60) mmHg VBG HCO3 mmol/L VBG Total CO2 (22-28) mmol/L VBG O2 Sat (Calc) (40-65) % VBG Base Excess (0.0-2.0) mmol/L VBG Potassium (3.6-5.2) mmol/L Sodium (132-148) mmol/l Chloride (98-107) mmol/L Glucose (75-110) mg/dl Lactate (0.7-2.1) mmol/L FiO2 % PEEP Potassium (3.6-5.2) mmol/L Carbon Dioxide (22-30) mmol/L Anion Gap (10-20) BUN (9-20) mg/dL Creatinine (0.8-1.5) MG/DL Est GFR ( Amer) Est GFR (Non-Af Amer) POC Glucose (mg/dL) (65-110) mg/dL Random Glucose (75-110) mg/dL Calcium (8.6-10.4) mg/dl Phosphorus (2.5-4.5) mg/dL Magnesium (1.6-2.3) mg/dL Total Bilirubin (0.2-1.3) mg/dL AST (17-59) U/L ALT (21-72) U/L Alkaline Phosphatase (38-126) U/L Total Protein (6.3-8.3) g/dL Albumin (3.5-5.0) g/dL Globulin (2.2-3.9) gm/dL Albumin/Globulin Ratio (1.0-2.1) Venous Blood Potassium (3.6-5.2) mmol/L C. difficile Ag & Toxin (NEGATIVE) Hep Bs Antigen Negative (NEGATIVE) Hep Bs Antibody Positive (NEGATIVE) Hep B Core IgM Ab Negative (NEGATIVE) Laboratory Results - last 24 hr 04/17/17 04/17/17 04/17/17 16:13 16:13 16:13 WBC RBC Hgb Hct MCV MCH MCHC RDW Plt Count MPV Neut % (Auto) Lymph % (Auto) [place] % (Auto) Eos % (Auto) Baso % (Auto) Neut # Lymph # [place] # Eos # Baso # Neutrophils % (Manual) Lymphocytes % (Manual) Monocytes % (Manual) Platelet Estimate Hypochromasia (manual) Anisocytosis (manual) PT INR APTT pO2 VBG pH VBG pCO2 VBG HCO3 VBG Total CO2 VBG O2 Sat (Calc) VBG Base Excess VBG Potassium Sodium Chloride Glucose Lactate FiO2 PEEP Potassium Carbon Dioxide Anion Gap BUN Creatinine Est GFR ( Amer) Est GFR (Non-Af Amer) POC Glucose (mg/dL) Random Glucose Calcium Phosphorus Magnesium Total Bilirubin AST ALT Alkaline Phosphatase Total Protein Albumin Globulin Albumin/Globulin Ratio Venous Blood Potassium C. difficile Ag & Toxin Hep Bs Antigen Negative Hep Bs Antibody Positive Hep B Core IgM Ab Negative 04/19/17 04/19/17 04/19/17 11:46 18:36 23:41 WBC RBC Hgb Hct MCV MCH MCHC RDW Plt Count MPV Neut % (Auto) Lymph % (Auto) [place] % (Auto) Eos % (Auto) Baso % (Auto) Neut # Lymph # [place] # Eos # Baso # Neutrophils % (Manual) Lymphocytes % (Manual) Monocytes % (Manual) Platelet Estimate Hypochromasia (manual) Anisocytosis (manual) PT INR APTT pO2 VBG pH VBG pCO2 VBG HCO3 VBG Total CO2 VBG O2 Sat (Calc) VBG Base Excess VBG Potassium Sodium Chloride Glucose Lactate FiO2 PEEP Potassium Carbon Dioxide Anion Gap BUN Creatinine Est GFR ( Amer) Est GFR (Non-Af Amer) POC Glucose (mg/dL) 214 H 233 H 279 H Random Glucose Calcium Phosphorus Magnesium Total Bilirubin AST ALT Alkaline Phosphatase Total Protein Albumin Globulin Albumin/Globulin Ratio Venous Blood Potassium C. difficile Ag & Toxin Hep Bs Antigen Hep Bs Antibody Hep B Core IgM Ab 04/19/17 04/20/17 04/20/17 Unknown 05:17 06:06 WBC RBC Hgb Hct MCV MCH MCHC RDW Plt Count MPV Neut % (Auto) Lymph % (Auto) [place] % (Auto) Eos % (Auto) Baso % (Auto) Neut # Lymph # [place] # Eos # Baso # Neutrophils % (Manual) Lymphocytes % (Manual) Monocytes % (Manual) Platelet Estimate Hypochromasia (manual) Anisocytosis (manual) PT INR APTT pO2 37 VBG pH 7.43 VBG pCO2 38 L VBG HCO3 25.0 VBG Total CO2 26.4 VBG O2 Sat (Calc) 83.5 H VBG Base Excess 1.0 VBG Potassium 3.6 Sodium 138.0 Chloride 107.0 Glucose 252 H Lactate 1.3 FiO2 50.0 PEEP 6 Potassium Carbon Dioxide Anion Gap BUN Creatinine Est GFR ( Amer) Est GFR (Non-Af Amer) POC Glucose (mg/dL) 283 H Random Glucose Calcium Phosphorus Magnesium Total Bilirubin AST ALT Alkaline Phosphatase Total Protein Albumin Globulin Albumin/Globulin Ratio Venous Blood Potassium 3.6 C. difficile Ag & Toxin Negative Hep Bs Antigen Hep Bs Antibody Hep B Core IgM Ab 04/20/17 04/20/17 04/20/17 06:29 06:29 06:29 WBC 14.0 H RBC 2.74 L Hgb 8.4 L Hct 24.9 L MCV 90.8 MCH 30.6 MCHC 33.7 RDW 15.2 H Plt Count 386 MPV 7.2 Neut % (Auto) 85.6 H Lymph % (Auto) 7.7 L [place] % (Auto) 6.0 Eos % (Auto) 0.5 Baso % (Auto) 0.2 Neut # 12.0 H Lymph # 1.1 [place] # 0.8 Eos # 0.1 Baso # 0.0 Neutrophils % (Manual) 90 H Lymphocytes % (Manual) 5 L Monocytes % (Manual) 5 Platelet Estimate Normal Hypochromasia (manual) Slight Anisocytosis (manual) Slight PT 11.2 INR 1.0 APTT 36 H pO2 VBG pH VBG pCO2 VBG HCO3 VBG Total CO2 VBG O2 Sat (Calc) VBG Base Excess VBG Potassium Sodium 134 Chloride 99 Glucose Lactate FiO2 PEEP Potassium 3.5 L Carbon Dioxide 22 Anion Gap 17 BUN 62 H Creatinine 2.7 H Est GFR ( Amer) 28 Est GFR (Non-Af Amer) 24 POC Glucose (mg/dL) Random Glucose 230 H Calcium 8.3 L Phosphorus 2.9 Magnesium 2.1 Total Bilirubin 0.4 AST 21 ALT 22 Alkaline Phosphatase 288 H D Total Protein 5.2 L Albumin 2.2 L Globulin 3.0 Albumin/Globulin Ratio 0.7 L Venous Blood Potassium C. difficile Ag & Toxin Hep Bs Antigen Hep Bs Antibody Hep B Core IgM Ab Fingerstick Blood Sugar Results: 283 Review of Systems - Review of Systems Systems not reviewed;Unavailable: Intubated Critical Care Progress Note - Ventilator Checklist Head of Bed 30 Degrees: Yes - Vent Settings MODE:: PRVC TIDAL VOLUME:: 500 RESP RATE:: 12 FIO2:: 50 PEEP:: 6 - Extremities/Vascular Does the Patient have a Central Venous Catheter?: Yes Insertion Site: Left Midline Does the Patient need a Central Venous Catheter?: Yes Does the Patient have a Willis Catheter?: Yes Does the Patient need a Willis Catheter?: Yes Catheter Insertion Criteria: Patient requires prolonged immobilization - Prophylaxis GI Prophylaxis GI: PPI - Prophylaxis DVT Prophylaxis DVT: Heparin SQ Assessment/Plan (1) Anoxic brain injury Current Visit: Yes Status: Acute (2) Cardiac arrest Current Visit: Yes Status: Acute Comment: Patient status post cardiac arrest during hemodialysis, post code freeze ventilatory support status post tracheostomy Continue antibiotics for pneumonia Follow up culture and sensitivity Continue hemodialysis Continue Keppra for myoclonic twitching For repeat CAT scan of the head and neurology evaluation Follow-up CBC and transfuse using hemodialysis Stool guaic (3) ESRD (end stage renal disease) Current Visit: Yes Status: Acute - Assessment and Plan (Free Text) Plan: Patient status: -critical -ST. CROIX II- 33 (78.6% predicted rate) Neuro: -Quadraplegia -Global cerebral dysfunction -Repeat CT Head today- pending -04/18/17 CT Head- Scattered focal lucencies in the subcortical and periventricular white matter suggestive for chronic microvascular ischemic change. Prominent cerebellar atrophy. Again identified is prominent encephalomalacia from probable prominent infarction in the inferior right cerebellum. This is similar appearance to the prior study. Bilateral basal ganglia calcifications. Generalized atrophy. Near complete opacification of the bilateral mastoid air cells. Mild mucosal thickening of the bilateral maxillary sinuses. Moderate mucosal thickening and opacification of the ethmoid air cells. If there is persistent concern for acute ischemic change, correlation with MRI may be helpful. -04/15/17 CT Head- Evidence of right cerebellar encephalomalacia. Nonspecific white matter changes. Please note that MRI with diffusion imaging is more sensitive in the detection of acute ischemic event. Opacification/fluid throughout bilateral visualized mastoid air cells. Correlate clinically for mastoiditis. Dense intracranial vascular calcifications. Additionally, vascular calcifications are noted involving bilateral orbits Cardiovascular: -HTN- managing with HD -TLC Placement Pending- unable to reach family for consent. 2 telephone messages left with ICU extension as call back number Pulmonary: -Trach- (PRVC 500 / 12 / 50% / ) -Stable VBG -Imaging -04/16/17 CXR- Suspect mild bibasilar atelectasis left greater than right. Ced There may also be small left-sided effusion. -04/15/17 CXR- Tracheostomy tube. Left-sided central venous catheter extends expected location of the cavoatrial junction. Interstitial prominence may reflect infection or edema, [id number]. Small left pleural effusion. Bibasilar atelectasis. Borderline cardiomegaly. -ABG -04/19/17- CO2 32 / O2 167 / HCO3 26.9 / pH 7.51 -04/18/17- CO2 34 / O2 122 / HCO3 27.4 / pH 7.50 -04/17/17- CO2 32 / O2 131 / HCO3 24.1 / pH 7.45 -04/16/17- CO2 32 / O2 136 / HCO3 25.7 / pH 7.48 -04/15/17- CO2 46 / O2 160 / HCO3 24.0 / pH 7.34 Gastrointestinal: -Tube feeds 40ml/hr Hematology: -Falling H&H. -No transfusion at this point -Will continue to monitor Endocrine: -No acute issues Renal: -ESRD- HD today -DC IVF Musculoskeletal: -No acute issues Genitourinary: -No acute issues Infectious disease: -Gram Negative Sepsis -Gentamycin 80mg IV MWF -Zosyn 2.25g Q6- day 4 -Vancomycin 1g x one today -04/17/17 Blood Cx- gram neg glo (sensitivity pending) -04/16/17 Tracheal Aspiration- P.aeruginosa -04/15/17 Blood Cultures- coag neg staph -04/15/17 Nares- MRSA neg GI prophylaxis: Protonix 40mg IV daily DVT prophylaxis: Heparin 5000u SC q12 Palliative Care: -palliative care consult placed Case discussed with Dr. Corbin Cedeno PGY1 - Date & Time Date: 04/20/17 Time: 10:48 <Luisito Alaniz - Last Filed: 04/20/17 19:02> CCU Subjective - Physician Review Critical Care Time Spent (in minutes): 35 CCU Objective - Vital Signs / Intake & Output Vital Signs (Last 4 hours): Vital Signs Pulse Resp BP Pulse Ox 04/20/17 18:08 56 L 11 L 127/64 04/20/17 17:31 53 L 12 124/61 100 04/20/17 17:00 63 14 150/66 100 04/20/17 16:39 65 17 125/69 100 04/20/17 15:30 63 13 100 Intake and Output (Last 8hrs): Intake & Output 04/20/17 04/20/17 04/20/17 06:59 14:59 22:59 Intake Total 370 430 504 Output Total 0 0 350 Balance 370 430 154 Weight 132 lb Intake: Intake, IV Amount 50 150 384 Left PICC 50 150 384 Tube Feeding 320 280 120 Output: Urine 0 0 Urethral (Willis) 0 0 Stool 350 - Medications Active Medications: Active Medications Generic Name Dose Route Start Last Admin Trade Name Freq PRN Reason Stop Dose Admin Ferrous Sulfate 300 mg 04/19/17 11:45 04/20/17 17:17 Feosol Liq PEG 300 mg BID JUVE Administration Heparin Sodium (Porcine) 5,000 units 04/16/17 10:00 04/20/17 09:51 Heparin SC 5,000 units Q12 JUVE Administration Piperacillin Sod/Tazobactam Sod 2.25 gm in 50 mls @ 100 mls/hr 04/17/17 06:00 04/20/17 15:31 Zosyn 2.25 Gm Iv Premix IVPB 100 mls/hr Q8H JUVE Administration Gentamicin Sulfate 80 mg/ 102 mls @ 100 mls/hr 04/21/17 09:00 Sodium Chloride IVPB MWF JUVE Insulin Human Regular 0 unit 04/16/17 12:00 04/20/17 18:03 Novolin R SC 2 unit Q6H JUVE Administration Protocol Levetiracetam 500 mg 04/19/17 10:00 04/20/17 17:17 Keppra PO 500 mg BID JUVE Administration Nystatin 1 applic 04/17/17 10:00 04/20/17 17:17 Nystop Topical Powder TOP 1 applic BID JUVE Administration Pantoprazole Sodium 40 mg 04/19/17 11:00 04/20/17 09:52 Protonix Susp PEG 40 mg DAILY JUVE Administration - Patient Studies Lab Studies: Microbiology Studies 04/17/17 19:00 Blood Culture - Final Blood-During Dialysis Pseudomonas Aeruginosa Gram Stain - Final 04/17/17 19:00 Blood Culture - Final Blood-During Dialysis Pseudomonas Aeruginosa Gram Stain - Final Lab Studies 04/20/17 04/20/17 04/20/17 Range/Units 17:54 11:54 06:29 WBC (4.8-10.8) K/uL RBC (4.40-5.90) Mil/uL Hgb (12.0-18.0) g/dL Hct (35.0-51.0) % MCV (80.0-94.0) fL MCH (27.0-31.0) pg MCHC (33.0-37.0) g/dL RDW (11.5-14.5) % Plt Count (130-400) K/uL MPV (7.2-11.7) fL Neut % (Auto) (50.0-75.0) % Lymph % (Auto) (20.0-40.0) % [place] % (Auto) (0.0-10.0) % Eos % (Auto) (0.0-4.0) % Baso % (Auto) (0.0-2.0) % Neut # (1.8-7.0) K/uL Lymph # (1.0-4.3) K/uL [place] # (0.0-0.8) K/uL Eos # (0.0-0.7) K/uL Baso # (0.0-0.2) K/uL Neutrophils % (Manual) (50-75) % Lymphocytes % (Manual) (20-40) % Monocytes % (Manual) (0-10) % Platelet Estimate (NORMAL) Hypochromasia (manual) Anisocytosis (manual) PT (9.7-12.2) SECONDS INR APTT (21-34) SECONDS pO2 (30-55) mm/Hg VBG pH (7.32-7.43) VBG pCO2 (40-60) mmHg VBG HCO3 mmol/L VBG Total CO2 (22-28) mmol/L VBG O2 Sat (Calc) (40-65) % VBG Base Excess (0.0-2.0) mmol/L VBG Potassium (3.6-5.2) mmol/L Sodium 134 (132-148) mmol/l Chloride 99 (98-107) mmol/L Glucose (75-110) mg/dl Lactate (0.7-2.1) mmol/L FiO2 % PEEP Potassium 3.5 L (3.6-5.2) mmol/L Carbon Dioxide 22 (22-30) mmol/L Anion Gap 17 (10-20) BUN 62 H (9-20) mg/dL Creatinine 2.7 H (0.8-1.5) MG/DL Est GFR ( Amer) 28 Est GFR (Non-Af Amer) 24 POC Glucose (mg/dL) 239 H 196 H (65-110) mg/dL Random Glucose 230 H (75-110) mg/dL Calcium 8.3 L (8.6-10.4) mg/dl Phosphorus 2.9 (2.5-4.5) mg/dL Magnesium 2.1 (1.6-2.3) mg/dL Total Bilirubin 0.4 (0.2-1.3) mg/dL AST 21 (17-59) U/L ALT 22 (21-72) U/L Alkaline Phosphatase 288 H D (38-126) U/L Total Protein 5.2 L (6.3-8.3) g/dL Albumin 2.2 L (3.5-5.0) g/dL Globulin 3.0 (2.2-3.9) gm/dL Albumin/Globulin Ratio 0.7 L (1.0-2.1) Venous Blood Potassium (3.6-5.2) mmol/L 04/20/17 04/20/17 04/20/17 Range/Units 06:29 06:29 06:06 WBC 14.0 H (4.8-10.8) K/uL RBC 2.74 L (4.40-5.90) Mil/uL Hgb 8.4 L (12.0-18.0) g/dL Hct 24.9 L (35.0-51.0) % MCV 90.8 (80.0-94.0) fL MCH 30.6 (27.0-31.0) pg MCHC 33.7 (33.0-37.0) g/dL RDW 15.2 H (11.5-14.5) % Plt Count 386 (130-400) K/uL MPV 7.2 (7.2-11.7) fL Neut % (Auto) 85.6 H (50.0-75.0) % Lymph % (Auto) 7.7 L (20.0-40.0) % [place] % (Auto) 6.0 (0.0-10.0) % Eos % (Auto) 0.5 (0.0-4.0) % Baso % (Auto) 0.2 (0.0-2.0) % Neut # 12.0 H (1.8-7.0) K/uL Lymph # 1.1 (1.0-4.3) K/uL [place] # 0.8 (0.0-0.8) K/uL Eos # 0.1 (0.0-0.7) K/uL Baso # 0.0 (0.0-0.2) K/uL Neutrophils % (Manual) 90 H (50-75) % Lymphocytes % (Manual) 5 L (20-40) % Monocytes % (Manual) 5 (0-10) % Platelet Estimate Normal (NORMAL) Hypochromasia (manual) Slight Anisocytosis (manual) Slight PT 11.2 (9.7-12.2) SECONDS INR 1.0 APTT 36 H (21-34) SECONDS pO2 (30-55) mm/Hg VBG pH (7.32-7.43) VBG pCO2 (40-60) mmHg VBG HCO3 mmol/L VBG Total CO2 (22-28) mmol/L VBG O2 Sat (Calc) (40-65) % VBG Base Excess (0.0-2.0) mmol/L VBG Potassium (3.6-5.2) mmol/L Sodium (132-148) mmol/l Chloride (98-107) mmol/L Glucose (75-110) mg/dl Lactate (0.7-2.1) mmol/L FiO2 % PEEP Potassium (3.6-5.2) mmol/L Carbon Dioxide (22-30) mmol/L Anion Gap (10-20) BUN (9-20) mg/dL Creatinine (0.8-1.5) MG/DL Est GFR ( Amer) Est GFR (Non-Af Amer) POC Glucose (mg/dL) 283 H (65-110) mg/dL Random Glucose (75-110) mg/dL Calcium (8.6-10.4) mg/dl Phosphorus (2.5-4.5) mg/dL Magnesium (1.6-2.3) mg/dL Total Bilirubin (0.2-1.3) mg/dL AST (17-59) U/L ALT (21-72) U/L Alkaline Phosphatase (38-126) U/L Total Protein (6.3-8.3) g/dL Albumin (3.5-5.0) g/dL Globulin (2.2-3.9) gm/dL Albumin/Globulin Ratio (1.0-2.1) Venous Blood Potassium (3.6-5.2) mmol/L 04/20/17 04/19/17 Range/Units 05:17 23:41 WBC (4.8-10.8) K/uL RBC (4.40-5.90) Mil/uL Hgb (12.0-18.0) g/dL Hct (35.0-51.0) % MCV (80.0-94.0) fL MCH (27.0-31.0) pg MCHC (33.0-37.0) g/dL RDW (11.5-14.5) % Plt Count (130-400) K/uL MPV (7.2-11.7) fL Neut % (Auto) (50.0-75.0) % Lymph % (Auto) (20.0-40.0) % [place] % (Auto) (0.0-10.0) % Eos % (Auto) (0.0-4.0) % Baso % (Auto) (0.0-2.0) % Neut # (1.8-7.0) K/uL Lymph # (1.0-4.3) K/uL [place] # (0.0-0.8) K/uL Eos # (0.0-0.7) K/uL Baso # (0.0-0.2) K/uL Neutrophils % (Manual) (50-75) % Lymphocytes % (Manual) (20-40) % Monocytes % (Manual) (0-10) % Platelet Estimate (NORMAL) Hypochromasia (manual) Anisocytosis (manual) PT (9.7-12.2) SECONDS INR APTT (21-34) SECONDS pO2 37 (30-55) mm/Hg VBG pH 7.43 (7.32-7.43) VBG pCO2 38 L (40-60) mmHg VBG HCO3 25.0 mmol/L VBG Total CO2 26.4 (22-28) mmol/L VBG O2 Sat (Calc) 83.5 H (40-65) % VBG Base Excess 1.0 (0.0-2.0) mmol/L VBG Potassium 3.6 (3.6-5.2) mmol/L Sodium 138.0 (132-148) mmol/l Chloride 107.0 (98-107) mmol/L Glucose 252 H (75-110) mg/dl Lactate 1.3 (0.7-2.1) mmol/L FiO2 50.0 % PEEP 6 Potassium (3.6-5.2) mmol/L Carbon Dioxide (22-30) mmol/L Anion Gap (10-20) BUN (9-20) mg/dL Creatinine (0.8-1.5) MG/DL Est GFR ( Amer) Est GFR (Non-Af Amer) POC Glucose (mg/dL) 279 H (65-110) mg/dL Random Glucose (75-110) mg/dL Calcium (8.6-10.4) mg/dl Phosphorus (2.5-4.5) mg/dL Magnesium (1.6-2.3) mg/dL Total Bilirubin (0.2-1.3) mg/dL AST (17-59) U/L ALT (21-72) U/L Alkaline Phosphatase (38-126) U/L Total Protein (6.3-8.3) g/dL Albumin (3.5-5.0) g/dL Globulin (2.2-3.9) gm/dL Albumin/Globulin Ratio (1.0-2.1) Venous Blood Potassium 3.6 (3.6-5.2) mmol/L Laboratory Results - last 24 hr 04/19/17 04/20/17 04/20/17 23:41 05:17 06:06 WBC RBC Hgb Hct MCV MCH MCHC RDW Plt Count MPV Neut % (Auto) Lymph % (Auto) [place] % (Auto) Eos % (Auto) Baso % (Auto) Neut # Lymph # [place] # Eos # Baso # Neutrophils % (Manual) Lymphocytes % (Manual) Monocytes % (Manual) Platelet Estimate Hypochromasia (manual) Anisocytosis (manual) PT INR APTT pO2 37 VBG pH 7.43 VBG pCO2 38 L VBG HCO3 25.0 VBG Total CO2 26.4 VBG O2 Sat (Calc) 83.5 H VBG Base Excess 1.0 VBG Potassium 3.6 Sodium 138.0 Chloride 107.0 Glucose 252 H Lactate 1.3 FiO2 50.0 PEEP 6 Potassium Carbon Dioxide Anion Gap BUN Creatinine Est GFR ( Amer) Est GFR (Non-Af Amer) POC Glucose (mg/dL) 279 H 283 H Random Glucose Calcium Phosphorus Magnesium Total Bilirubin AST ALT Alkaline Phosphatase Total Protein Albumin Globulin Albumin/Globulin Ratio Venous Blood Potassium 3.6 04/20/17 04/20/17 04/20/17 06:29 06:29 06:29 WBC 14.0 H RBC 2.74 L Hgb 8.4 L Hct 24.9 L MCV 90.8 MCH 30.6 MCHC 33.7 RDW 15.2 H Plt Count 386 MPV 7.2 Neut % (Auto) 85.6 H Lymph % (Auto) 7.7 L [place] % (Auto) 6.0 Eos % (Auto) 0.5 Baso % (Auto) 0.2 Neut # 12.0 H Lymph # 1.1 [place] # 0.8 Eos # 0.1 Baso # 0.0 Neutrophils % (Manual) 90 H Lymphocytes % (Manual) 5 L Monocytes % (Manual) 5 Platelet Estimate Normal Hypochromasia (manual) Slight Anisocytosis (manual) Slight PT 11.2 INR 1.0 APTT 36 H pO2 VBG pH VBG pCO2 VBG HCO3 VBG Total CO2 VBG O2 Sat (Calc) VBG Base Excess VBG Potassium Sodium 134 Chloride 99 Glucose Lactate FiO2 PEEP Potassium 3.5 L Carbon Dioxide 22 Anion Gap 17 BUN 62 H Creatinine 2.7 H Est GFR ( Amer) 28 Est GFR (Non-Af Amer) 24 POC Glucose (mg/dL) Random Glucose 230 H Calcium 8.3 L Phosphorus 2.9 Magnesium 2.1 Total Bilirubin 0.4 AST 21 ALT 22 Alkaline Phosphatase 288 H D Total Protein 5.2 L Albumin 2.2 L Globulin 3.0 Albumin/Globulin Ratio 0.7 L Venous Blood Potassium 04/20/17 04/20/17 11:54 17:54 WBC RBC Hgb Hct MCV MCH MCHC RDW Plt Count MPV Neut % (Auto) Lymph % (Auto) [place] % (Auto) Eos % (Auto) Baso % (Auto) Neut # Lymph # [place] # Eos # Baso # Neutrophils % (Manual) Lymphocytes % (Manual) Monocytes % (Manual) Platelet Estimate Hypochromasia (manual) Anisocytosis (manual) PT INR APTT pO2 VBG pH VBG pCO2 VBG HCO3 VBG Total CO2 VBG O2 Sat (Calc) VBG Base Excess VBG Potassium Sodium Chloride Glucose Lactate FiO2 PEEP Potassium Carbon Dioxide Anion Gap BUN Creatinine Est GFR ( Amer) Est GFR (Non-Af Amer) POC Glucose (mg/dL) 196 H 239 H Random Glucose Calcium Phosphorus Magnesium Total Bilirubin AST ALT Alkaline Phosphatase Total Protein Albumin Globulin Albumin/Globulin Ratio Venous Blood Potassium EKG/Cardiology Studies: Cardiology / EKG Studies 04/20/17 17:29 EKG [ELECTROCARDIOGRAM] Stat Comment: Mode Of Transportation: Reason For Exam: bradycardia Assessment/Plan (1) Cardiac arrest Current Visit: Yes Status: Acute Comment: Patient status post cardiac arrest during hemodialysis, post code freeze ventilatory support status post tracheostomy Continue antibiotics for pneumonia Follow up culture and sensitivity Continue hemodialysis Continue Keppra for myoclonic twitching For repeat CAT scan of the head and neurology evaluation Follow-up CBC and transfuse using hemodialysis Stool guaic (2) Anoxic brain injury Current Visit: Yes Status: Acute (3) ESRD (end stage renal disease) Current Visit: Yes Status: Acute (4) Pneumonia Current Visit: Yes Status: Acute Attending/Attestation - Attestation I have personally seen and examined this patient.: Yes I have fully participated in the care of the patient.: Yes I have reviewed all pertinent clinical information: Yes Notes (Text): 04/20/17 19:01 Patient seen and examined in the intensive care unit. Case discussed with house staff in the morning rounds. Status post tracheostomy on ventilatory support No response to painful stimuli No further seizure activity noted Patient is being treated for Pseudomonas bacteremia Status post hemodialysis and the plan is to remove dialysis catheter and midline
--- NOTE | 2017-04-20 14:53 | VASCLAB ---
PROCEDURE: HISTORY: assess cerebral blood flow COMPARISON: None available. TECHNIQUE: Grayscale and duplex Doppler evaluation of the cervical carotid and vertebral arteries were performed. The common carotid, carotid bifurcations and cervical Internal Carotid Artery (ICA) and proximal External Carotid Artery (ECA) were evaluated. The vertebral arteries were evaluated for gross patency and flow direction. Report prepared by Jay Jon, BS, RVT FINDINGS: RIGHT CAROTID ARTERIES: 1. Common Carotid Artery: No significant focal plaque formation of the right common carotid artery. Maximum Peak Systolic velocity: 61 cm/sec: End-diastolic velocity 7 cm/sec. 2. Carotid Bifurcation: plaque formation. Maximum Peak Systolic velocity: 54 cm/sec: End-diastolic velocity 4 cm/sec. 3. Internal Carotid Artery: Plaque description: 3.1. Proximal Segment: Peak systolic velocity 53 cm/sec: End-diastolic velocity 8 cm/sec - % stenosis 0-15% 3.2. Middle Segment: Peak systolic velocity 63 cm/sec: End-diastolic velocity 6 cm/sec - % stenosis 0-15% 3.3. Distal Segment: Peak systolic velocity 74 cm/sec: End-diastolic velocity 13 cm/sec - % stenosis 0-15% 4. External Carotid Artery: No significant focal plaque formation. Peak systolic velocity 62 cm/sec 5. ICA/CCA Ratio: 1.2 LEFT CAROTID ARTERIES: 1. Common Carotid Artery: No significant focal plaque formation of the left common carotid artery. Maximum Peak Systolic velocity: 68 cm/sec: End-diastolic velocity 8 cm/sec. 2. Carotid Bifurcation: plaque formation. Maximum Peak Systolic velocity: 62 cm/sec: End-diastolic velocity 11 cm/sec. 3. Internal Carotid Artery: Plaque description: 3.1. Proximal Segment: Peak systolic velocity 61 cm/sec: End-diastolic velocity 11 cm/sec - % stenosis 0-15% 3.2. Middle Segment: Peak systolic velocity 78 cm/sec: End-diastolic velocity 15 cm/sec - % stenosis 0-15% 3.3. Distal Segment: Peak systolic velocity 66 cm/sec: End-diastolic velocity 12 cm/sec - % stenosis 0-15% 4. External Carotid Artery: No significant focal plaque formation. Peak systolic velocity 62 cm/sec 5. ICA/CCA Ratio: 1.2 VERTEBRAL ARTERIES: 1. Right Vertebral Artery: The right vertebral artery flow direction is antegrade. 2. Left Vertebral Artery: The left vertebral artery flow direction is antegrade. OTHER FINDINGS: 1. Right Brachial Blood pressure: 167 mmHg. 2. Left Brachial Blood pressure: mmHg. IMPRESSION: RIGHT: Duplex scan does not suggest hemodynamically significant stenosis of the right extracranial carotid arteries. LEFT: Duplex scan does not suggest hemodynamically significant stenosis of the left extracranial carotid arteries.
--- NOTE | 2017-04-20 16:52 | CT ---
PROCEDURE: CT HEAD WITHOUT CONTRAST. HISTORY: brainstem lesion r/o COMPARISON: Comparison made with CT scan brain 04/18/2017 TECHNIQUE: Axial computed tomography images were obtained through the head/brain without intravenous contrast. Radiation dose: Total exam DLP = 1211.11 mGy-cm. This CT exam was performed using one or more of the following dose reduction techniques: Automated exposure control, adjustment of the mA and/or kV according to patient size, and/or use of iterative reconstruction technique. FINDINGS: HEMORRHAGE: No acute parenchymal, subarachnoid or extra-axial hemorrhage. BRAIN: Mild chronic periventricular white matter ischemic changes. . A additionally, there also appear to be a few tiny age-indeterminate brainstem lacunar type infarcts. 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 Moderate central volume loss with disproportionate enlargement of the ventricles compared sulci There are vascular calcifications. VENTRICLES: Prominent ventricles felt to be on ex vacuo basis. CALVARIUM: There are no acute calvarial fractures. . PARANASAL SINUSES: Mild mucosal thickening within the sphenoid sinus MASTOID AIR CELLS: Complete opacification both mastoid air complexes OTHER FINDINGS: Changes of bilateral cataract surgery. IMPRESSION: No acute intracranial hemorrhage. 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 Small suspected brainstem lacunar type infarcts also felt present. Moderate central volume loss. Note the possibility of a acute infarct cannot be completely excluded based on this exam.
--- NOTE | 2017-04-21 00:24 | EEG ---
DATE: 04/19/2017 This is a 16-channel electroencephalogram of a comatose adult. This study was performed at the [facility] in the unit. The patient was intubated. The resting electroencephalogram shows a diffuse low amplitude delta activities seen in the bilateral cortical leads. There is an abrupt polyspike and wave activities, which lasted for about 4 seconds followed with high amplitude delta activities seen, which is consistent with electrographic seizures. This followed with generalized delta activity seen. This study was started. The photic stimulatio n did not evoke driving response noted at 2-20 Hz. IMPRESSION: This is an abnormal electroencephalogram because of persistent slowing throughout the re cord suggestive of bilateral cerebral dysfunction, which is superimposed with a brief episode of poly spike and wave activities that lasted for about 3-4 seconds, consistent with electrographic seizure a ctivities. Please correlate the finding with the neurological and radiological studies. Joe Duncan MD cc: [id number] TT: 04/21/2017 00:23:26 Confirmation # [id number] Dictation # [id number] drea
[2017-04-21] MEDS: Piperacill/Tazo 2.25gm in Dex 2.25 GM/50 ML BAG IVPB SCH ×3 (06:00→22:35)
[2017-04-21 06:16] LABS: VENOUS BLOOD GAS BASE EXCESS 5.1 mmol/L (0.0-2.0); VENOUS BLOOD GAS PCO2 34 mmHg (40-60); VENOUS BLOOD PH 7.52 (7.32-7.43)
[2017-04-21 06:56] LABS: BASO % 0.3 % (0.0-2.0); EOS # 0.2 K/uL (0.0-0.7); EOS % 1.7 % (0.0-4.0); HEMATOCRIT 24.6 % (35.0-51.0); LYMPH % 10.6 % (20.0-40.0); MEAN CELL VOLUME 90.5 fL (80.0-94.0); MEAN CORPUSCULAR HEMOGLOBIN 29.8 pg (27.0-31.0); MEAN CORPUSCULAR HGB CONC 32.9 g/dL (33.0-37.0); MEAN PLATELET VOLUME 7.7 fL (7.2-11.7); MONO # 0.6 K/uL (0.0-0.8); MONO % 6.5 % (0.0-10.0); RED CELL DISTRIBUTION WIDTH 15.1 % (11.5-14.5); WHITE BLOOD COUNT 9.3 K/uL (4.8-10.8)
[2017-04-21 06:59] LABS: POTASSIUM 3.2 mmol/L (3.6-5.2)
[2017-04-21 07:01] LABS: ALB/GLOB RATIO 0.7 (1.0-2.1); BILIRUBIN,TOTAL 0.5 mg/dL (0.2-1.3); PHOSPHOROUS 1.9 mg/dL (2.5-4.5); TOTAL PROTEIN 5.5 g/dL (6.3-8.3)
[2017-04-21] MEDS: (Novolin R) Insulin Human Regular 100 units/ml vial SC SCH ×4 (07:30→18:37)
--- NOTE | 2017-04-21 08:08 | PN ---
DATE: 04/20/2017 NEPHROLOGY FOLLOWUP NOTE A 71-year-old male with past medical history of hypertension, diabetes, CAD, recent admission for ble eding right arm AV fistula that required ligation with hospital course complicated by aspiration pneu monia and vent dependent respiratory failure, subsequently status post trach and PEG and longstanding ESRD on hemodialysis, admitted status post cardiac arrest. Nephrology following for ESRD care. The patient underwent hemodialysis today toward the end of the session as ultrafiltration was increas ed. The patient became hypotensive and bradycardic, had to be given volume back, stabilized toward t he end of the session. PHYSICAL EXAMINATION: VITAL SIGNS: This evening blood pressure 127/64, heart rate 56, respirations 11, O2 sat 100% on 50% FiO2 via mechanical ventilation. GENERAL: Minimal responsiveness to noxious stimuli. HEENT: Moist mucous membranes. Nonicteric. RESPIRATORY: Lungs are clear to auscultation bilaterally. No rales, no rhonchi, no wheezes. HEART: S1, S2 normal, no murmurs, no gallops, no rubs. ABDOMEN: Soft, nondistended. GENITOURINARY: No bladder distention. EXTREMITIES: Mild leg edema proximally more pronounced upper extremity edema. SKIN: Warm. No cyanosis. Good capillary refill. NEUROLOGIC: Triggers , spontaneously opens eyes sluggishly. LABORATORY DATA: This morning, CBC: WBC 14.0, hemoglobin 8.4, hematocrit 24.9, platelets 386. Chem istry panel: Sodium 134, potassium 3.5, chloride 99, bicarbonate 22, BUN 62, creatinine 2.7, glucose 230, calcium 8.3, phosphorus 2.9, albumin 2.2. Blood cultures, dialysis catheter culture growing ps eudomonas, tracheal aspirate growing pseudomonas, other blood culture growing coag negative staph. ASSESSMENT AND PLAN: 1. End-stage renal disease on hemodialysis. Relatively stable electrolyte status. May have some de gree of intravascular volume depletion as the patient became hypotensive when UF was increased, altho ugh overall did not have more than 1 liter ultrafiltration. Planning for next dialysis session likel y on Wednesday, planning to give line a holiday until done. 2. Sepsis. Dialysis catheter blood culture growing pseudomonas, as is tracheal aspirate. The patie nt needs all catheters removed. Midline was removed today; however, dialysis catheter not removed be cause the patient has no other peripheral access, as he has very poor veins. The patient currently o n Zosyn 2.25 grams q. 8 hours and started on gentamicin by ID 80 mg after dialysis. Also, getting va ncomycin for coag negative staph will be dosed vancomycin 500 mg and check level random level i n a.m., to be dosed this evening. Zosyn correctly dosed. Nursing staff is instructed to attem pt peripheral vein access on right arm despite previously ligated AV fistula on that side. 3. Anoxic brain injury status post cardiac arrest several months ago and recent vent dependent respi ratory failure. Any uremic component of encephalopathy is being corrected with hemodialysis. Will f ollow up with neurology. 4. Respiratory failure, stable FiO2 requirement, lungs relatively clear. No indication for extra UF at this point. 5. Hypertension, currently normotensive, not on any antihypertensive meds. May actually be intravas cularly volume depleted in the setting of diarrhea. Continue to monitor and give volume repletion as needed. 6. Anemia, iron replete. Given dose of Epo 2 days ago. Continue to monitor. Total time spent assessing the patient discussing with critical care team over 35 minutes. Phoenix Kaur MD cc: [id number] TT: 04/20/2017 21:40:43 Confirmation # [id number] Dictation # [id number] drea
[2017-04-21] MEDS ORDERED: Sodium Phosphate 15 MMOLE in Sodium Chloride 0.9% 250 ML IVPB ONE (09:00)
[2017-04-21] MEDS: Potassium Chloride 20 mEq/15 ml LIQ UD PEG SCH ×2 (09:58→18:37)
[2017-04-21] MEDS: Ferrous Sulfate 300 mg/5 mL Liq UD PEG SCH ×2 (09:58→18:37)
[2017-04-21] MEDS: Pantoprazole 40 mg Susp UD PEG SCH (09:58)
--- NOTE | 2017-04-21 14:26 | PCM.PROC ---
Procedures Attestation:: I certify that I have explained the specified Operation(s) or Procedure(s), risks, benefits and reasonable alternatives to the Patient and/or other person responsible. The opportunity was given to ask questions and all questions answered - Arterial Line Left Femoral Aseptic technique was employed throughout the procedure: Hand Hygiene done prior to procedure, Full sterile barriers (mask, hair cover, sterile gown, sterile gloves), Full body sterile drape, Chloraprep Antiseptic: 2 minute prep for Femoral Time Out Performed: Yes Pt. placed on Pulse Ox Monitor: Yes Central Line Prep: Chlorhexidine-Alcohol Combination Local Anesthesia Used: Lidocaine 1% Amount of Anesthesia Used (mls): 5 Ultrasound Used for Placement: Yes Technique Used: Guide Wire Technique Secured by: Suture Post procedure dressing: Clear vapor permeable, Chlorhexidine disc (Biopatch) Patient Tolerated Procedure: well Immediate Complications: none
--- NOTE | 2017-04-21 14:33 | PCM.PROC ---
Procedures Attestation:: I certify that I have explained the specified Operation(s) or Procedure(s), risks, benefits and reasonable alternatives to the Patient and/or other person responsible. The opportunity was given to ask questions and all questions answered - Central Line Placement Left Femoral Triple Lumen Catheter Aseptic technique was employed throughout the procedure: Hand Hygiene done prior to procedure, Full sterile barriers (mask, hair cover, sterile gown, sterile gloves), Full body sterile drape, Chloraprep Antiseptic: 2 minute prep for Femoral CVP Time Out Performed: Yes Pt. Placed on Pulse Ox Monitor: Yes Central Line Prep: Chlorhexidine-Alcohol Combination Local Anesthesia Used: Lidocaine 1% Amount of Anesthesia Used (mls): 5 Ultrasound Used for Placement: Yes Central Line Lumen Inserted: triple Central Line Length: 20 cm Post Procedure: Sutured in Place, Good Blood Return, All Ports Aspirated, Flushed, Capped, Sterile Dressing Applied Secured by: Suture Post procedure dressing: Chlorhexidine disc (Biopatch) Post Procedure X-Ray: No Patient Tolerated Procedure: Well, No Complications Immediate Complications: None
--- NOTE | 2017-04-21 14:53 | CP.CCUPN ---
CCU Subjective - Physician Review Subjective (Free Text): 04/16/17 06:30 Patient seen and examined at the bedside. No acute distress. No acute events overnight. Nursing staff reports no issues. The patient remains intubated. No sedation currently. The patient remains minimally responsive to noxious stimuli only. Code freeze active. Today on rounds, the patient's potassium was replaced. The patient's dose of zosyn was also decreased to 2.25g q6. The patients IVF were DC. The patient will be under code freeze until 20:15 tonight. 04/19/17 12:22 Patient seen and examined at the bedside. No acute distress. No acute events overnight. Nursing staff reports no issues. The patient remains intubated. No sedation currently. Patient has been placed on keppra. No myoclonic jerks. Today on rounds, palliative care was consulted. LTAC evaluation was ordered. The patient's keppra, protonix, and iron were changed to PO via PEG tube. 04/20/17 10:42 Patient seen and examined at the bedside. No acute distress. No acute events overnight. Nursing staff reports no issues. The patient remains intubated. No sedation currently. Patient has been placed on keppra. No myoclonic jerks. Patient will receive dialysis today. Patient remains only minimally responsive. Today on rounds, the patient was examined with Dr. Duncan (neurology). CT head was ordered and the patient's potassium was replaced. The patient will have his left midline removed and a TLC placed today. CCU Objective - Vital Signs / Intake & Output Vital Signs (Last 4 hours): Vital Signs Temp Pulse Resp BP Pulse Ox 04/21/17 14:30 52 L 15 100 04/21/17 13:51 154/72 H 04/21/17 12:47 56 L 12 100 04/21/17 12:00 94 F L 59 L 15 146/69 100 04/21/17 11:47 54 L 14 146/69 100 Intake and Output (Last 8hrs): Intake & Output 04/20/17 04/21/17 04/21/17 22:59 06:59 14:59 Intake Total 714 210 750 Output Total 350 150 Balance 364 210 600 Weight 60.328 kg Intake: Intake, IV Amount 434 50 260 Left PICC 434 50 0 Left Proximal Port 50 Femoral Right Forearm 210 Tube Feeding 280 160 320 Other 170 Output: Stool 350 150 - Physical Exam Head: Positive for: Normocephalic. Negative for: Contusion Extroacular Muscles: Positive for: Gaze Palsy (up-gaze), Other (Horizontal Nystagmus) Mouth: Positive for: Moist Mucous Membranes Nose (External): Positive for: Atraumatic Neck: Positive for: Other (trach). Negative for: JVD, Lymphadenopathy Respiratory/Chest: Positive for: Good Air Exchange, Decreased Breath Sounds (B/L ), Rhonchi. Negative for: Clear to Auscultation, Respiratory Distress, Accessory Muscle Use, Rales Cardiovascular: Positive for: Regular Rate and Rhythm, Normal S1, S2, Peripheal Pulses Present. Negative for: Murmurs Abdomen: Positive for: Normal Bowel Sounds. Negative for: Distention Upper Extremity: Positive for: Normal Inspection, NORMAL PULSES, Other (L PICC) . Negative for: Cyanosis, Edema Lower Extremity: Positive for: Normal Inspection, NORMAL PULSES. Negative for: Edema Neurological: Positive for: Other (weak brainstem reflexes). Negative for: GCS= 15 Skin: Positive for: Warm, Dry, Pale. Negative for: Rashes, Normal Color - Medications Active Medications: Active Medications Generic Name Dose Route Start Last Admin Trade Name Freq PRN Reason Stop Dose Admin Ferrous Sulfate 300 mg 04/19/17 11:45 04/21/17 09:58 Feosol Liq PEG 300 mg BID JUVE Administration Heparin Sodium (Porcine) 5,000 units 04/16/17 10:00 04/21/17 09:59 Heparin SC 5,000 units Q12 JUVE Administration Piperacillin Sod/Tazobactam Sod 2.25 gm in 50 mls @ 100 mls/hr 04/17/17 06:00 04/21/17 14:31 Zosyn 2.25 Gm Iv Premix IVPB 100 mls/hr Q8H JUVE Administration Gentamicin Sulfate 80 mg/ 102 mls @ 100 mls/hr 04/20/17 19:13 Sodium Chloride IVPB TTS JUVE Sodium Phosphate 15 mmole/ 255 mls @ 42.5 mls/hr 04/21/17 09:00 04/21/17 09: 59 Sodium Chloride IVPB 04/21/17 14:59 42.5 mls/hr .Q6H ONE Administration Insulin Human Regular 0 unit 04/16/17 12:00 04/21/17 12:35 Novolin R SC 2 unit Q6H JUVE Administration Protocol Levetiracetam 500 mg 04/19/17 10:00 04/21/17 09:59 Keppra PO 500 mg BID JUVE Administration Nystatin 1 applic 04/17/17 10:00 04/21/17 10:33 Nystop Topical Powder TOP 1 applic BID JUVE Administration Pantoprazole Sodium 40 mg 04/19/17 11:00 04/21/17 09:58 Protonix Susp PEG 40 mg DAILY JUVE Administration Potassium Chloride 40 meq 04/21/17 10:00 04/21/17 09:58 Potassium Chloride Oral Soln PEG 04/21/17 18:01 40 meq BID JUVE Administration - Patient Studies Lab Studies: Lab Studies 04/21/17 04/21/17 04/21/17 Range/Units 12:28 07:21 06:46 WBC (4.8-10.8) K/uL RBC (4.40-5.90) Mil/uL Hgb (12.0-18.0) g/dL Hct (35.0-51.0) % MCV (80.0-94.0) fL MCH (27.0-31.0) pg MCHC (33.0-37.0) g/dL RDW (11.5-14.5) % Plt Count (130-400) K/uL MPV (7.2-11.7) fL Neut % (Auto) (50.0-75.0) % Lymph % (Auto) (20.0-40.0) % [place] % (Auto) (0.0-10.0) % Eos % (Auto) (0.0-4.0) % Baso % (Auto) (0.0-2.0) % Neut # (1.8-7.0) K/uL Lymph # (1.0-4.3) K/uL [place] # (0.0-0.8) K/uL Eos # (0.0-0.7) K/uL Baso # (0.0-0.2) K/uL Puncture Site pO2 (30-55) mm/Hg Edin Test VBG pH (7.32-7.43) VBG pCO2 (40-60) mmHg VBG HCO3 mmol/L VBG O2 Sat (Calc) (40-65) % VBG Base Excess (0.0-2.0) mmol/L Sodium (132-148) mmol/L Potassium (3.6-5.2) mmol/L Chloride (98-107) mmol/L Carbon Dioxide (22-30) mmol/L Anion Gap (10-20) BUN (9-20) mg/dL Creatinine (0.8-1.5) MG/DL Est GFR ( Amer) Est GFR (Non-Af Amer) POC Glucose (mg/dL) 219 H 257 H 269 H (65-110) mg/dL Random Glucose (75-110) mg/dL Calcium (8.6-10.4) mg/dl Phosphorus (2.5-4.5) mg/dL Magnesium (1.6-2.3) mg/dL Total Bilirubin (0.2-1.3) mg/dL AST (17-59) U/L ALT (21-72) U/L Alkaline Phosphatase (38-126) U/L Total Protein (6.3-8.3) g/dL Albumin (3.5-5.0) g/dL Globulin (2.2-3.9) gm/dL Albumin/Globulin Ratio (1.0-2.1) 04/21/17 04/21/17 04/21/17 Range/Units 06:43 06:43 04:20 WBC 9.3 (4.8-10.8) K/uL RBC 2.72 L (4.40-5.90) Mil/uL Hgb 8.1 L (12.0-18.0) g/dL Hct 24.6 L (35.0-51.0) % MCV 90.5 (80.0-94.0) fL MCH 29.8 (27.0-31.0) pg MCHC 32.9 L (33.0-37.0) g/dL RDW 15.1 H (11.5-14.5) % Plt Count 358 (130-400) K/uL MPV 7.7 (7.2-11.7) fL Neut % (Auto) 80.9 H (50.0-75.0) % Lymph % (Auto) 10.6 L (20.0-40.0) % [place] % (Auto) 6.5 (0.0-10.0) % Eos % (Auto) 1.7 (0.0-4.0) % Baso % (Auto) 0.3 (0.0-2.0) % Neut # 7.5 H (1.8-7.0) K/uL Lymph # 1.0 (1.0-4.3) K/uL [place] # 0.6 (0.0-0.8) K/uL Eos # 0.2 (0.0-0.7) K/uL Baso # 0.0 (0.0-0.2) K/uL Puncture Site Na pO2 75 H (30-55) mm/Hg Edin Test Na VBG pH 7.52 H (7.32-7.43) VBG pCO2 34 L (40-60) mmHg VBG HCO3 28.9 mmol/L VBG O2 Sat (Calc) 97.9 H (40-65) % VBG Base Excess 5.1 H (0.0-2.0) mmol/L Sodium 133 (132-148) mmol/L Potassium 3.2 L (3.6-5.2) mmol/L Chloride 99 (98-107) mmol/L Carbon Dioxide 24 (22-30) mmol/L Anion Gap 13 (10-20) BUN 36 H (9-20) mg/dL Creatinine 1.8 H (0.8-1.5) MG/DL Est GFR ( Amer) 45 Est GFR (Non-Af Amer) 38 POC Glucose (mg/dL) (65-110) mg/dL Random Glucose 242 H (75-110) mg/dL Calcium 8.0 L (8.6-10.4) mg/dl Phosphorus 1.9 L (2.5-4.5) mg/dL Magnesium 2.0 (1.6-2.3) mg/dL Total Bilirubin 0.5 (0.2-1.3) mg/dL AST 32 (17-59) U/L ALT 22 (21-72) U/L Alkaline Phosphatase 271 H (38-126) U/L Total Protein 5.5 L (6.3-8.3) g/dL Albumin 2.2 L (3.5-5.0) g/dL Globulin 3.3 (2.2-3.9) gm/dL Albumin/Globulin Ratio 0.7 L (1.0-2.1) 04/21/17 04/20/17 Range/Units 00:02 17:54 WBC (4.8-10.8) K/uL RBC (4.40-5.90) Mil/uL Hgb (12.0-18.0) g/dL Hct (35.0-51.0) % MCV (80.0-94.0) fL MCH (27.0-31.0) pg MCHC (33.0-37.0) g/dL RDW (11.5-14.5) % Plt Count (130-400) K/uL MPV (7.2-11.7) fL Neut % (Auto) (50.0-75.0) % Lymph % (Auto) (20.0-40.0) % [place] % (Auto) (0.0-10.0) % Eos % (Auto) (0.0-4.0) % Baso % (Auto) (0.0-2.0) % Neut # (1.8-7.0) K/uL Lymph # (1.0-4.3) K/uL [place] # (0.0-0.8) K/uL Eos # (0.0-0.7) K/uL Baso # (0.0-0.2) K/uL Puncture Site pO2 (30-55) mm/Hg Edin Test VBG pH (7.32-7.43) VBG pCO2 (40-60) mmHg VBG HCO3 mmol/L VBG O2 Sat (Calc) (40-65) % VBG Base Excess (0.0-2.0) mmol/L Sodium (132-148) mmol/L Potassium (3.6-5.2) mmol/L Chloride (98-107) mmol/L Carbon Dioxide (22-30) mmol/L Anion Gap (10-20) BUN (9-20) mg/dL Creatinine (0.8-1.5) MG/DL Est GFR ( Amer) Est GFR (Non-Af Amer) POC Glucose (mg/dL) 314 H 239 H (65-110) mg/dL Random Glucose (75-110) mg/dL Calcium (8.6-10.4) mg/dl Phosphorus (2.5-4.5) mg/dL Magnesium (1.6-2.3) mg/dL Total Bilirubin (0.2-1.3) mg/dL AST (17-59) U/L ALT (21-72) U/L Alkaline Phosphatase (38-126) U/L Total Protein (6.3-8.3) g/dL Albumin (3.5-5.0) g/dL Globulin (2.2-3.9) gm/dL Albumin/Globulin Ratio (1.0-2.1) Laboratory Results - last 24 hr 04/20/17 04/21/17 04/21/17 17:54 00:02 04:20 WBC RBC Hgb Hct MCV MCH MCHC RDW Plt Count MPV Neut % (Auto) Lymph % (Auto) [place] % (Auto) Eos % (Auto) Baso % (Auto) Neut # Lymph # [place] # Eos # Baso # Puncture Site Na pO2 75 H Edin Test Na VBG pH 7.52 H VBG pCO2 34 L VBG HCO3 28.9 VBG O2 Sat (Calc) 97.9 H VBG Base Excess 5.1 H Sodium Potassium Chloride Carbon Dioxide Anion Gap BUN Creatinine Est GFR ( Amer) Est GFR (Non-Af Amer) POC Glucose (mg/dL) 239 H 314 H Random Glucose Calcium Phosphorus Magnesium Total Bilirubin AST ALT Alkaline Phosphatase Total Protein Albumin Globulin Albumin/Globulin Ratio 04/21/17 04/21/17 04/21/17 06:43 06:43 06:46 WBC 9.3 RBC 2.72 L Hgb 8.1 L Hct 24.6 L MCV 90.5 MCH 29.8 MCHC 32.9 L RDW 15.1 H Plt Count 358 MPV 7.7 Neut % (Auto) 80.9 H Lymph % (Auto) 10.6 L [place] % (Auto) 6.5 Eos % (Auto) 1.7 Baso % (Auto) 0.3 Neut # 7.5 H Lymph # 1.0 [place] # 0.6 Eos # 0.2 Baso # 0.0 Puncture Site pO2 Edin Test VBG pH VBG pCO2 VBG HCO3 VBG O2 Sat (Calc) VBG Base Excess Sodium 133 Potassium 3.2 L Chloride 99 Carbon Dioxide 24 Anion Gap 13 BUN 36 H Creatinine 1.8 H Est GFR ( Amer) 45 Est GFR (Non-Af Amer) 38 POC Glucose (mg/dL) 269 H Random Glucose 242 H Calcium 8.0 L Phosphorus 1.9 L Magnesium 2.0 Total Bilirubin 0.5 AST 32 ALT 22 Alkaline Phosphatase 271 H Total Protein 5.5 L Albumin 2.2 L Globulin 3.3 Albumin/Globulin Ratio 0.7 L 04/21/17 04/21/17 07:21 12:28 WBC RBC Hgb Hct MCV MCH MCHC RDW Plt Count MPV Neut % (Auto) Lymph % (Auto) [place] % (Auto) Eos % (Auto) Baso % (Auto) Neut # Lymph # [place] # Eos # Baso # Puncture Site pO2 Edin Test VBG pH VBG pCO2 VBG HCO3 VBG O2 Sat (Calc) VBG Base Excess Sodium Potassium Chloride Carbon Dioxide Anion Gap BUN Creatinine Est GFR ( Amer) Est GFR (Non-Af Amer) POC Glucose (mg/dL) 257 H 219 H Random Glucose Calcium Phosphorus Magnesium Total Bilirubin AST ALT Alkaline Phosphatase Total Protein Albumin Globulin Albumin/Globulin Ratio EKG/Cardiology Studies: Cardiology / EKG Studies 04/20/17 17:29 EKG [ELECTROCARDIOGRAM] Stat Comment: Mode Of Transportation: Reason For Exam: bradycardia Fingerstick Blood Sugar Results: 219 Assessment/Plan (1) Anoxic brain injury Current Visit: Yes Status: Acute (2) Cardiac arrest Current Visit: Yes Status: Acute Comment: Patient status post cardiac arrest during hemodialysis, post code freeze ventilatory support status post tracheostomy Continue antibiotics for pneumonia Follow up culture and sensitivity Continue hemodialysis Continue Keppra for myoclonic twitching For repeat CAT scan of the head and neurology evaluation Follow-up CBC and transfuse using hemodialysis Stool guaic (3) ESRD (end stage renal disease) Current Visit: Yes Status: Acute
--- NOTE | 2017-04-21 16:06 | CP.PCM.PN ---
Subjective - Date & Time of Evaluation Date of Evaluation: 04/21/17 Time of Evaluation: 15:55 - Subjective Subjective: Patient remains clinically the same. Patient's sister Clara is not coming forward for goals of care discussion. Objective - Vital Signs/Intake and Output Vital Signs (last 24 hours): Temp Pulse Resp BP Pulse Ox 94 F L 54 L 10 L 160/75 H 100 04/21/17 12:00 04/21/17 14:47 04/21/17 14:47 04/21/17 14:47 04/21/17 14:47 Intake and Output: 04/21/17 04/21/17 06:59 18:59 Intake Total 420 832 Output Total 150 Balance 420 682 - Medications Medications: Current Medications Ferrous Sulfate (Feosol Liq) 300 mg PEG BID [facility] Last Admin: 04/21/17 09:58 Dose: 300 mg Heparin Sodium (Porcine) (Heparin) 5,000 units SC Q12 [facility] Last Admin: 04/21/17 09:59 Dose: 5,000 units Piperacillin Sod/Tazobactam Sod (Zosyn 2.25 Gm Iv Premix) 2.25 gm in 50 mls @ 100 mls/hr IVPB Q8H JUVE Last Admin: 04/21/17 14:31 Dose: 100 mls/hr Gentamicin Sulfate 80 mg/ (Sodium Chloride) 102 mls @ 100 mls/hr IVPB TTS [facility] Insulin Human Regular (Novolin R) 0 unit SC Q6H JUVE PRN Reason: Protocol Last Admin: 04/21/17 12:35 Dose: 2 unit Levetiracetam (Keppra) 500 mg PO BID [facility] Last Admin: 04/21/17 09:59 Dose: 500 mg Nystatin (Nystop Topical Powder) 1 applic TOP BID [facility] Last Admin: 04/21/17 10:33 Dose: 1 applic Pantoprazole Sodium (Protonix Susp) 40 mg PEG DAILY [facility] Last Admin: 04/21/17 09:58 Dose: 40 mg Potassium Chloride (Potassium Chloride Oral Soln) 40 meq PEG BID [facility] Stop: 04/21/17 18:01 Last Admin: 04/21/17 09:58 Dose: 40 meq - Labs Labs: 04/21/17 06:43 04/21/17 06:43 PT 11.2 SECONDS (9.7-12.2) 04/20/17 06:29 INR 1.0 04/20/17 06:29 APTT 36 SECONDS (21-34) H 04/20/17 06:29 - Constitutional Appears: Chronically Ill - Head Exam Head Exam: ATRAUMATIC, NORMAL INSPECTION, NORMOCEPHALIC - Eye Exam Pupil Exam: Fixed - ENT Exam ENT Exam: Mucous Membranes Dry - Neck Exam Additional comments: Trach - Respiratory Exam Additional comments: On MV - Cardiovascular Exam Cardiovascular Exam: REGULAR RHYTHM - GI/Abdominal Exam GI & Abdominal Exam: Hypoactive Bowel Sounds Additional comments: PEG - Rectal Exam Rectal Exam: Deferred - Extremities Exam Extremities Exam: Pedal Edema - Back Exam Back Exam: NORMAL INSPECTION - Neurological Exam Neurological Exam: Motor Sensory Deficit Neuro motor strength exam: Left Upper Extremity: 0, Right Upper Extremity: 0, Left Lower Extremity: 0, Right Lower Extremity: 0 - Skin Skin Exam: Pallor Assessment and Plan - Assessment and Plan (Free Text) Assessment: Patient remains unresponsive to stimuli, with upward glaze and fixed pupils. The EEG abnormal, showing B/L cerebral dysfunction. Patient unablr to advocate for him self. Patient's wishes for the end of life care are not documented. Patient's sister Clara , listed as a personal protection specialist is not answering the phone, thus goals of care discussion can not take place. Impression * This is a very sick patient with complex clinical findings requireing complex decision making * The quality of life is severly impacted by the current respiratory faillure and anoxix brain injury * Patient is with complete motor sensory deficit unable o participate in goals of care discussion * Patient's sister is not participating in care planing for this patient * Suggestion * My impression is that Medical team and Bioethics Committee should decide what would be of best interest for this patient , who unfortunately can not advocate for him self * Poor quality of life and not expected meaningful recovery should dominate in decision making process * Further aggressive interventions will unlikely improve quality of life for this patient.
--- NOTE | 2017-04-21 16:39 | CP.CCUPN ---
<Bess Cedenos - Last Filed: 04/21/17 16:35> CCU Subjective - Physician Review Subjective (Free Text): 04/16/17 06:30 Patient seen and examined at the bedside. No acute distress. No acute events overnight. Nursing staff reports no issues. The patient remains intubated. No sedation currently. The patient remains minimally responsive to noxious stimuli only. Code freeze active. Today on rounds, the patient's potassium was replaced. The patient's dose of zosyn was also decreased to 2.25g q6. The patients IVF were DC. The patient will be under code freeze until 20:15 tonight. 04/19/17 12:22 Patient seen and examined at the bedside. No acute distress. No acute events overnight. Nursing staff reports no issues. The patient remains intubated. No sedation currently. Patient has been placed on keppra. No myoclonic jerks. Today on rounds, palliative care was consulted. LTAC evaluation was ordered. The patient's keppra, protonix, and iron were changed to PO via PEG tube. 04/20/17 10:42 Patient seen and examined at the bedside. No acute distress. No acute events overnight. Nursing staff reports no issues. The patient remains intubated. No sedation currently. Patient has been placed on keppra. No myoclonic jerks. Patient will receive dialysis today. Patient remains only minimally responsive. Today on rounds, the patient was examined with Dr. Duncan (neurology). CT head was ordered and the patient's potassium was replaced. The patient will have his left midline removed and a TLC placed today. 04/21/17 16:35 Patient seen and examined at bedside. No acute distress. No acute events overnight. Nursing staff reports no issues. The patient remains intubated. The patient remains only minimally responsive. TLC will be placed today. No interval change from prior examination. Today, potassium was replenished. A left femoral TLC was also placed today with no complications. CCU Objective - Vital Signs / Intake & Output Vital Signs (Last 4 hours): Vital Signs Pulse Resp BP Pulse Ox 04/21/17 14:47 54 L 10 L 160/75 H 100 04/21/17 14:30 52 L 15 100 04/21/17 13:51 154/72 H 04/21/17 12:47 56 L 12 100 Intake and Output (Last 8hrs): Intake & Output 04/21/17 04/21/17 04/21/17 06:59 14:59 22:59 Intake Total 210 750 82 Output Total 150 Balance 210 600 82 Weight 60.328 kg Intake: Intake, IV Amount 50 260 42 Left PICC 50 0 Left Proximal Port 50 Femoral Right Forearm 210 42 Tube Feeding 160 320 40 Other 170 Output: Stool 150 - Physical Exam Head: Positive for: Normocephalic. Negative for: Contusion Extroacular Muscles: Positive for: Gaze Palsy (up-gaze), Other (Horizontal Nystagmus) Mouth: Positive for: Moist Mucous Membranes Nose (External): Positive for: Atraumatic Neck: Positive for: Other (trach). Negative for: JVD, Lymphadenopathy Respiratory/Chest: Positive for: Good Air Exchange, Decreased Breath Sounds (B/L ), Rhonchi. Negative for: Clear to Auscultation, Respiratory Distress, Accessory Muscle Use, Rales Cardiovascular: Positive for: Regular Rate and Rhythm, Normal S1, S2, Peripheal Pulses Present. Negative for: Murmurs Abdomen: Positive for: Normal Bowel Sounds. Negative for: Distention Upper Extremity: Positive for: Normal Inspection, NORMAL PULSES, Other (L PICC) . Negative for: Cyanosis, Edema Lower Extremity: Positive for: Normal Inspection, NORMAL PULSES. Negative for: Edema Neurological: Positive for: Other (weak brainstem reflexes). Negative for: GCS= 15 Skin: Positive for: Warm, Dry, Pale. Negative for: Rashes, Normal Color - Medications Active Medications: Active Medications Generic Name Dose Route Start Last Admin Trade Name Marcelle PRN Reason Stop Dose Admin Ferrous Sulfate 300 mg 04/19/17 11:45 04/21/17 09:58 Feosol Liq PEG 300 mg BID JUVE Administration Heparin Sodium (Porcine) 5,000 units 04/16/17 10:00 04/21/17 09:59 Heparin SC 5,000 units Q12 JUVE Administration Piperacillin Sod/Tazobactam Sod 2.25 gm in 50 mls @ 100 mls/hr 04/17/17 06:00 04/21/17 14:31 Zosyn 2.25 Gm Iv Premix IVPB 100 mls/hr Q8H JUVE Administration Gentamicin Sulfate 80 mg/ 102 mls @ 100 mls/hr 04/20/17 19:13 Sodium Chloride IVPB TTS JUVE Insulin Human Regular 0 unit 04/16/17 12:00 04/21/17 12:35 Novolin R SC 2 unit Q6H JUVE Administration Protocol Levetiracetam 500 mg 04/19/17 10:00 04/21/17 09:59 Keppra PO 500 mg BID JUVE Administration Nystatin 1 applic 04/17/17 10:00 04/21/17 10:33 Nystop Topical Powder TOP 1 applic BID JUVE Administration Pantoprazole Sodium 40 mg 04/19/17 11:00 04/21/17 09:58 Protonix Susp PEG 40 mg DAILY JUVE Administration Potassium Chloride 40 meq 04/21/17 10:00 04/21/17 09:58 Potassium Chloride Oral Soln PEG 04/21/17 18:01 40 meq BID JUVE Administration - Patient Studies Lab Studies: Microbiology Studies 04/20/17 10:00 Blood Culture - Preliminary Blood-During Dialysis NO GROWTH AFTER 24 HOURS 04/20/17 10:32 Blood Culture - Preliminary Blood-During Dialysis NO GROWTH AFTER 24 HOURS Lab Studies 04/21/17 04/21/17 04/21/17 Range/Units 12:28 07:21 06:46 WBC (4.8-10.8) K/uL RBC (4.40-5.90) Mil/uL Hgb (12.0-18.0) g/dL Hct (35.0-51.0) % MCV (80.0-94.0) fL MCH (27.0-31.0) pg MCHC (33.0-37.0) g/dL RDW (11.5-14.5) % Plt Count (130-400) K/uL MPV (7.2-11.7) fL Neut % (Auto) (50.0-75.0) % Lymph % (Auto) (20.0-40.0) % [place] % (Auto) (0.0-10.0) % Eos % (Auto) (0.0-4.0) % Baso % (Auto) (0.0-2.0) % Neut # (1.8-7.0) K/uL Lymph # (1.0-4.3) K/uL [place] # (0.0-0.8) K/uL Eos # (0.0-0.7) K/uL Baso # (0.0-0.2) K/uL Puncture Site pO2 (30-55) mm/Hg Edin Test VBG pH (7.32-7.43) VBG pCO2 (40-60) mmHg VBG HCO3 mmol/L VBG O2 Sat (Calc) (40-65) % VBG Base Excess (0.0-2.0) mmol/L Sodium (132-148) mmol/L Potassium (3.6-5.2) mmol/L Chloride (98-107) mmol/L Carbon Dioxide (22-30) mmol/L Anion Gap (10-20) BUN (9-20) mg/dL Creatinine (0.8-1.5) MG/DL Est GFR ( Amer) Est GFR (Non-Af Amer) POC Glucose (mg/dL) 219 H 257 H 269 H (65-110) mg/dL Random Glucose (75-110) mg/dL Calcium (8.6-10.4) mg/dl Phosphorus (2.5-4.5) mg/dL Magnesium (1.6-2.3) mg/dL Total Bilirubin (0.2-1.3) mg/dL AST (17-59) U/L ALT (21-72) U/L Alkaline Phosphatase (38-126) U/L Total Protein (6.3-8.3) g/dL Albumin (3.5-5.0) g/dL Globulin (2.2-3.9) gm/dL Albumin/Globulin Ratio (1.0-2.1) 04/21/17 04/21/17 04/21/17 Range/Units 06:43 06:43 04:20 WBC 9.3 (4.8-10.8) K/uL RBC 2.72 L (4.40-5.90) Mil/uL Hgb 8.1 L (12.0-18.0) g/dL Hct 24.6 L (35.0-51.0) % MCV 90.5 (80.0-94.0) fL MCH 29.8 (27.0-31.0) pg MCHC 32.9 L (33.0-37.0) g/dL RDW 15.1 H (11.5-14.5) % Plt Count 358 (130-400) K/uL MPV 7.7 (7.2-11.7) fL Neut % (Auto) 80.9 H (50.0-75.0) % Lymph % (Auto) 10.6 L (20.0-40.0) % [place] % (Auto) 6.5 (0.0-10.0) % Eos % (Auto) 1.7 (0.0-4.0) % Baso % (Auto) 0.3 (0.0-2.0) % Neut # 7.5 H (1.8-7.0) K/uL Lymph # 1.0 (1.0-4.3) K/uL [place] # 0.6 (0.0-0.8) K/uL Eos # 0.2 (0.0-0.7) K/uL Baso # 0.0 (0.0-0.2) K/uL Puncture Site Na pO2 75 H (30-55) mm/Hg Edin Test Na VBG pH 7.52 H (7.32-7.43) VBG pCO2 34 L (40-60) mmHg VBG HCO3 28.9 mmol/L VBG O2 Sat (Calc) 97.9 H (40-65) % VBG Base Excess 5.1 H (0.0-2.0) mmol/L Sodium 133 (132-148) mmol/L Potassium 3.2 L (3.6-5.2) mmol/L Chloride 99 (98-107) mmol/L Carbon Dioxide 24 (22-30) mmol/L Anion Gap 13 (10-20) BUN 36 H (9-20) mg/dL Creatinine 1.8 H (0.8-1.5) MG/DL Est GFR ( Amer) 45 Est GFR (Non-Af Amer) 38 POC Glucose (mg/dL) (65-110) mg/dL Random Glucose 242 H (75-110) mg/dL Calcium 8.0 L (8.6-10.4) mg/dl Phosphorus 1.9 L (2.5-4.5) mg/dL Magnesium 2.0 (1.6-2.3) mg/dL Total Bilirubin 0.5 (0.2-1.3) mg/dL AST 32 (17-59) U/L ALT 22 (21-72) U/L Alkaline Phosphatase 271 H (38-126) U/L Total Protein 5.5 L (6.3-8.3) g/dL Albumin 2.2 L (3.5-5.0) g/dL Globulin 3.3 (2.2-3.9) gm/dL Albumin/Globulin Ratio 0.7 L (1.0-2.1) 04/21/17 04/20/17 Range/Units 00:02 17:54 WBC (4.8-10.8) K/uL RBC (4.40-5.90) Mil/uL Hgb (12.0-18.0) g/dL Hct (35.0-51.0) % MCV (80.0-94.0) fL MCH (27.0-31.0) pg MCHC (33.0-37.0) g/dL RDW (11.5-14.5) % Plt Count (130-400) K/uL MPV (7.2-11.7) fL Neut % (Auto) (50.0-75.0) % Lymph % (Auto) (20.0-40.0) % [place] % (Auto) (0.0-10.0) % Eos % (Auto) (0.0-4.0) % Baso % (Auto) (0.0-2.0) % Neut # (1.8-7.0) K/uL Lymph # (1.0-4.3) K/uL [place] # (0.0-0.8) K/uL Eos # (0.0-0.7) K/uL Baso # (0.0-0.2) K/uL Puncture Site pO2 (30-55) mm/Hg Edin Test VBG pH (7.32-7.43) VBG pCO2 (40-60) mmHg VBG HCO3 mmol/L VBG O2 Sat (Calc) (40-65) % VBG Base Excess (0.0-2.0) mmol/L Sodium (132-148) mmol/L Potassium (3.6-5.2) mmol/L Chloride (98-107) mmol/L Carbon Dioxide (22-30) mmol/L Anion Gap (10-20) BUN (9-20) mg/dL Creatinine (0.8-1.5) MG/DL Est GFR ( Amer) Est GFR (Non-Af Amer) POC Glucose (mg/dL) 314 H 239 H (65-110) mg/dL Random Glucose (75-110) mg/dL Calcium (8.6-10.4) mg/dl Phosphorus (2.5-4.5) mg/dL Magnesium (1.6-2.3) mg/dL Total Bilirubin (0.2-1.3) mg/dL AST (17-59) U/L ALT (21-72) U/L Alkaline Phosphatase (38-126) U/L Total Protein (6.3-8.3) g/dL Albumin (3.5-5.0) g/dL Globulin (2.2-3.9) gm/dL Albumin/Globulin Ratio (1.0-2.1) Laboratory Results - last 24 hr 04/20/17 04/21/17 04/21/17 17:54 00:02 04:20 WBC RBC Hgb Hct MCV MCH MCHC RDW Plt Count MPV Neut % (Auto) Lymph % (Auto) [place] % (Auto) Eos % (Auto) Baso % (Auto) Neut # Lymph # [place] # Eos # Baso # Puncture Site Na pO2 75 H Edin Test Na VBG pH 7.52 H VBG pCO2 34 L VBG HCO3 28.9 VBG O2 Sat (Calc) 97.9 H VBG Base Excess 5.1 H Sodium Potassium Chloride Carbon Dioxide Anion Gap BUN Creatinine Est GFR ( Amer) Est GFR (Non-Af Amer) POC Glucose (mg/dL) 239 H 314 H Random Glucose Calcium Phosphorus Magnesium Total Bilirubin AST ALT Alkaline Phosphatase Total Protein Albumin Globulin Albumin/Globulin Ratio 04/21/17 04/21/17 04/21/17 06:43 06:43 06:46 WBC 9.3 RBC 2.72 L Hgb 8.1 L Hct 24.6 L MCV 90.5 MCH 29.8 MCHC 32.9 L RDW 15.1 H Plt Count 358 MPV 7.7 Neut % (Auto) 80.9 H Lymph % (Auto) 10.6 L [place] % (Auto) 6.5 Eos % (Auto) 1.7 Baso % (Auto) 0.3 Neut # 7.5 H Lymph # 1.0 [place] # 0.6 Eos # 0.2 Baso # 0.0 Puncture Site pO2 Edin Test VBG pH VBG pCO2 VBG HCO3 VBG O2 Sat (Calc) VBG Base Excess Sodium 133 Potassium 3.2 L Chloride 99 Carbon Dioxide 24 Anion Gap 13 BUN 36 H Creatinine 1.8 H Est GFR ( Amer) 45 Est GFR (Non-Af Amer) 38 POC Glucose (mg/dL) 269 H Random Glucose 242 H Calcium 8.0 L Phosphorus 1.9 L Magnesium 2.0 Total Bilirubin 0.5 AST 32 ALT 22 Alkaline Phosphatase 271 H Total Protein 5.5 L Albumin 2.2 L Globulin 3.3 Albumin/Globulin Ratio 0.7 L 04/21/17 04/21/17 07:21 12:28 WBC RBC Hgb Hct MCV MCH MCHC RDW Plt Count MPV Neut % (Auto) Lymph % (Auto) [place] % (Auto) Eos % (Auto) Baso % (Auto) Neut # Lymph # [place] # Eos # Baso # Puncture Site pO2 Edin Test VBG pH VBG pCO2 VBG HCO3 VBG O2 Sat (Calc) VBG Base Excess Sodium Potassium Chloride Carbon Dioxide Anion Gap BUN Creatinine Est GFR ( Amer) Est GFR (Non-Af Amer) POC Glucose (mg/dL) 257 H 219 H Random Glucose Calcium Phosphorus Magnesium Total Bilirubin AST ALT Alkaline Phosphatase Total Protein Albumin Globulin Albumin/Globulin Ratio EKG/Cardiology Studies: Cardiology / EKG Studies 04/20/17 17:29 EKG [ELECTROCARDIOGRAM] Stat Comment: Mode Of Transportation: Reason For Exam: bradycardia Fingerstick Blood Sugar Results: 219 Review of Systems - Review of Systems Systems not reviewed;Unavailable: Intubated Critical Care Progress Note - Ventilator Checklist Head of Bed 30 Degrees: Yes PUD Prophalyxis: Yes DVT Prophylaxis: Yes - Vent Settings TIDAL VOLUME:: 500 RESP RATE:: 12 FIO2:: 50 PEEP:: 6 - Extremities/Vascular Does the Patient have a Central Venous Catheter?: Yes Insertion Site: Femoral Vein (Left) Does the Patient need a Central Venous Catheter?: Yes Does the Patient have a Willis Catheter?: Yes Does the Patient need a Willis Catheter?: Yes Catheter Insertion Criteria: Patient requires prolonged immobilization - Prophylaxis GI Prophylaxis GI: PPI - Prophylaxis DVT Prophylaxis DVT: Heparin SQ Assessment/Plan (1) Anoxic brain injury Current Visit: Yes Status: Acute (2) Cardiac arrest Current Visit: Yes Status: Acute Comment: Patient status post cardiac arrest during hemodialysis, post code freeze ventilatory support status post tracheostomy Continue antibiotics for pneumonia Follow up culture and sensitivity Continue hemodialysis Continue Keppra for myoclonic twitching For repeat CAT scan of the head and neurology evaluation Follow-up CBC and transfuse using hemodialysis Stool guaic (3) ESRD (end stage renal disease) Current Visit: Yes Status: Acute - Assessment and Plan (Free Text) Plan: Patient status: -critical -[place] II- 33 (78.6% predicted rate) Neuro: -Quadraplegia -Global cerebral dysfunction -04/20/17 CT Head- No acute intracranial hemorrhage. 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 Small suspected brainstem lacunar type infarcts also felt present. Moderate central volume loss. Note the possibility of a acute infarct cannot be completely excluded based on this exam. -04/18/17 CT Head- Scattered focal lucencies in the subcortical and periventricular white matter suggestive for chronic microvascular ischemic change. Prominent cerebellar atrophy. Again identified is prominent encephalomalacia from probable prominent infarction in the inferior right cerebellum. This is similar appearance to the prior study. Bilateral basal ganglia calcifications. Generalized atrophy. Near complete opacification of the bilateral mastoid air cells. Mild mucosal thickening of the bilateral maxillary sinuses. Moderate mucosal thickening and opacification of the ethmoid air cells. If there is persistent concern for acute ischemic change, correlation with MRI may be helpful. -04/15/17 CT Head- Evidence of right cerebellar encephalomalacia. Nonspecific white matter changes. Please note that MRI with diffusion imaging is more sensitive in the detection of acute ischemic event. Opacification/fluid throughout bilateral visualized mastoid air cells. Correlate clinically for mastoiditis. Dense intracranial vascular calcifications. Additionally, vascular calcifications are noted involving bilateral orbits Cardiovascular: -HTN- managing with HD -New Left Femoral TLC Placed today : Left Femoral Central Line Placed -Technique: A time out was preformed identifying the correct procedure, the correct location with the nursing staff. The left groin was prepped with 2% chlorhexidine and draped with a full length sterile sheet in the usual fashion. 5mL of 1% lidocaine was administered subcutaneously for local anesthesia. The left femoral vein was accessed under ultrasound guidance with an 18 gauge thin wall needle. A 7 [place], triple lumen catheter was inserted via the Seldinger technique. Blood was withdrawn from all lumens and flushed with normal saline. The catheter was sutured in place and a sterile dressing was applied over the site prior to removal of drapes. - The patient tolerated the procedure well and there were no complications. 04/18/17 Carotic Doppler- no significan hemodynamic stenosis b/l Pulmonary: -Trach- (PRVC 500 / 12 / 50% / 6) -Stable VBG -Imaging -04/16/17 CXR- Suspect mild bibasilar atelectasis left greater than right. Ced There may also be small left-sided effusion. -04/15/17 CXR- Tracheostomy tube. Left-sided central venous catheter extends expected location of the cavoatrial junction. Interstitial prominence may reflect infection or edema, [id number]. Small left pleural effusion. Bibasilar atelectasis. Borderline cardiomegaly. -ABG -04/19/17- CO2 32 / O2 167 / HCO3 26.9 / pH 7.51 Gastrointestinal: -Tube feeds 40ml/hr Hematology: -Stable Endocrine: -No acute issues Renal: -ESRD -Permacath removed Musculoskeletal: -No acute issues Genitourinary: -No acute issues Infectious disease: -Gram Negative Sepsis -Gentamycin 80mg IV MWF -Zosyn 2.25g Q6- day 5 -Vancomycin 1g x one today -04/17/17 Blood Cx- gram neg glo (sensitivity pending) -04/16/17 Tracheal Aspiration- P.aeruginosa -04/15/17 Blood Cultures- coag neg staph -04/15/17 Nares- MRSA neg GI prophylaxis: Protonix 40mg IV daily DVT prophylaxis: Heparin 5000u SC q12 Palliative Care: -palliative care consult placed Case discussed with Dr. Corbin Cedeno PGY1 - Date & Time Date: 04/21/17 Time: 16:41 <Luisito Alaniz - Last Filed: 04/21/17 17:06> CCU Objective - Vital Signs / Intake & Output Vital Signs (Last 4 hours): Vital Signs Temp Pulse Resp BP Pulse Ox 04/21/17 16:47 59 L 11 L 149/70 100 04/21/17 16:00 94.1 F L 56 L 14 100 04/21/17 15:47 57 L 15 162/67 H 100 04/21/17 14:47 54 L 10 L 160/75 H 100 04/21/17 14:30 52 L 15 100 04/21/17 13:51 154/72 H Intake and Output (Last 8hrs): Intake & Output 04/21/17 04/21/17 04/21/17 06:59 14:59 22:59 Intake Total 210 750 82 Output Total 150 Balance 210 600 82 Weight 133 lb Intake: Intake, IV Amount 50 260 42 Left PICC 50 0 Left Proximal Port 50 Femoral Right Forearm 210 42 Tube Feeding 160 320 40 Other 170 Output: Stool 150 - Medications Active Medications: Active Medications Generic Name Dose Route Start Last Admin Trade Name Freq PRN Reason Stop Dose Admin Ferrous Sulfate 300 mg 04/19/17 11:45 04/21/17 09:58 Feosol Liq PEG 300 mg BID JUVE Administration Heparin Sodium (Porcine) 5,000 units 04/16/17 10:00 04/21/17 09:59 Heparin SC 5,000 units Q12 JUVE Administration Piperacillin Sod/Tazobactam Sod 2.25 gm in 50 mls @ 100 mls/hr 04/17/17 06:00 04/21/17 14:31 Zosyn 2.25 Gm Iv Premix IVPB 100 mls/hr Q8H JUVE Administration Gentamicin Sulfate 80 mg/ 102 mls @ 100 mls/hr 04/20/17 19:13 Sodium Chloride IVPB TTS JUVE Insulin Human Regular 0 unit 04/16/17 12:00 04/21/17 12:35 Novolin R SC 2 unit Q6H JUVE Administration Protocol Levetiracetam 500 mg 04/19/17 10:00 04/21/17 09:59 Keppra PO 500 mg BID JUVE Administration Nystatin 1 applic 04/17/17 10:00 04/21/17 10:33 Nystop Topical Powder TOP 1 applic BID JUVE Administration Pantoprazole Sodium 40 mg 04/19/17 11:00 04/21/17 09:58 Protonix Susp PEG 40 mg DAILY JUVE Administration Potassium Chloride 40 meq 04/21/17 10:00 04/21/17 09:58 Potassium Chloride Oral Soln PEG 04/21/17 18:01 40 meq BID JUVE Administration - Patient Studies Lab Studies: Microbiology Studies 04/20/17 10:00 Blood Culture - Preliminary Blood-During Dialysis NO GROWTH AFTER 24 HOURS 04/20/17 10:32 Blood Culture - Preliminary Blood-During Dialysis NO GROWTH AFTER 24 HOURS Lab Studies 04/21/17 04/21/17 04/21/17 Range/Units 12:28 07:21 06:46 WBC (4.8-10.8) K/uL RBC (4.40-5.90) Mil/uL Hgb (12.0-18.0) g/dL Hct (35.0-51.0) % MCV (80.0-94.0) fL MCH (27.0-31.0) pg MCHC (33.0-37.0) g/dL RDW (11.5-14.5) % Plt Count (130-400) K/uL MPV (7.2-11.7) fL Neut % (Auto) (50.0-75.0) % Lymph % (Auto) (20.0-40.0) % [place] % (Auto) (0.0-10.0) % Eos % (Auto) (0.0-4.0) % Baso % (Auto) (0.0-2.0) % Neut # (1.8-7.0) K/uL Lymph # (1.0-4.3) K/uL [place] # (0.0-0.8) K/uL Eos # (0.0-0.7) K/uL Baso # (0.0-0.2) K/uL Puncture Site pO2 (30-55) mm/Hg Edin Test VBG pH (7.32-7.43) VBG pCO2 (40-60) mmHg VBG HCO3 mmol/L VBG O2 Sat (Calc) (40-65) % VBG Base Excess (0.0-2.0) mmol/L Sodium (132-148) mmol/L Potassium (3.6-5.2) mmol/L Chloride (98-107) mmol/L Carbon Dioxide (22-30) mmol/L Anion Gap (10-20) BUN (9-20) mg/dL Creatinine (0.8-1.5) MG/DL Est GFR ( Amer) Est GFR (Non-Af Amer) POC Glucose (mg/dL) 219 H 257 H 269 H (65-110) mg/dL Random Glucose (75-110) mg/dL Calcium (8.6-10.4) mg/dl Phosphorus (2.5-4.5) mg/dL Magnesium (1.6-2.3) mg/dL Total Bilirubin (0.2-1.3) mg/dL AST (17-59) U/L ALT (21-72) U/L Alkaline Phosphatase (38-126) U/L Total Protein (6.3-8.3) g/dL Albumin (3.5-5.0) g/dL Globulin (2.2-3.9) gm/dL Albumin/Globulin Ratio (1.0-2.1) 04/21/17 04/21/17 04/21/17 Range/Units 06:43 06:43 04:20 WBC 9.3 (4.8-10.8) K/uL RBC 2.72 L (4.40-5.90) Mil/uL Hgb 8.1 L (12.0-18.0) g/dL Hct 24.6 L (35.0-51.0) % MCV 90.5 (80.0-94.0) fL MCH 29.8 (27.0-31.0) pg MCHC 32.9 L (33.0-37.0) g/dL RDW 15.1 H (11.5-14.5) % Plt Count 358 (130-400) K/uL MPV 7.7 (7.2-11.7) fL Neut % (Auto) 80.9 H (50.0-75.0) % Lymph % (Auto) 10.6 L (20.0-40.0) % [place] % (Auto) 6.5 (0.0-10.0) % Eos % (Auto) 1.7 (0.0-4.0) % Baso % (Auto) 0.3 (0.0-2.0) % Neut # 7.5 H (1.8-7.0) K/uL Lymph # 1.0 (1.0-4.3) K/uL [place] # 0.6 (0.0-0.8) K/uL Eos # 0.2 (0.0-0.7) K/uL Baso # 0.0 (0.0-0.2) K/uL Puncture Site Na pO2 75 H (30-55) mm/Hg Edin Test Na VBG pH 7.52 H (7.32-7.43) VBG pCO2 34 L (40-60) mmHg VBG HCO3 28.9 mmol/L VBG O2 Sat (Calc) 97.9 H (40-65) % VBG Base Excess 5.1 H (0.0-2.0) mmol/L Sodium 133 (132-148) mmol/L Potassium 3.2 L (3.6-5.2) mmol/L Chloride 99 (98-107) mmol/L Carbon Dioxide 24 (22-30) mmol/L Anion Gap 13 (10-20) BUN 36 H (9-20) mg/dL Creatinine 1.8 H (0.8-1.5) MG/DL Est GFR ( Amer) 45 Est GFR (Non-Af Amer) 38 POC Glucose (mg/dL) (65-110) mg/dL Random Glucose 242 H (75-110) mg/dL Calcium 8.0 L (8.6-10.4) mg/dl Phosphorus 1.9 L (2.5-4.5) mg/dL Magnesium 2.0 (1.6-2.3) mg/dL Total Bilirubin 0.5 (0.2-1.3) mg/dL AST 32 (17-59) U/L ALT 22 (21-72) U/L Alkaline Phosphatase 271 H (38-126) U/L Total Protein 5.5 L (6.3-8.3) g/dL Albumin 2.2 L (3.5-5.0) g/dL Globulin 3.3 (2.2-3.9) gm/dL Albumin/Globulin Ratio 0.7 L (1.0-2.1) 04/21/17 04/20/17 Range/Units 00:02 17:54 WBC (4.8-10.8) K/uL RBC (4.40-5.90) Mil/uL Hgb (12.0-18.0) g/dL Hct (35.0-51.0) % MCV (80.0-94.0) fL MCH (27.0-31.0) pg MCHC (33.0-37.0) g/dL RDW (11.5-14.5) % Plt Count (130-400) K/uL MPV (7.2-11.7) fL Neut % (Auto) (50.0-75.0) % Lymph % (Auto) (20.0-40.0) % [place] % (Auto) (0.0-10.0) % Eos % (Auto) (0.0-4.0) % Baso % (Auto) (0.0-2.0) % Neut # (1.8-7.0) K/uL Lymph # (1.0-4.3) K/uL [place] # (0.0-0.8) K/uL Eos # (0.0-0.7) K/uL Baso # (0.0-0.2) K/uL Puncture Site pO2 (30-55) mm/Hg Edin Test VBG pH (7.32-7.43) VBG pCO2 (40-60) mmHg VBG HCO3 mmol/L VBG O2 Sat (Calc) (40-65) % VBG Base Excess (0.0-2.0) mmol/L Sodium (132-148) mmol/L Potassium (3.6-5.2) mmol/L Chloride (98-107) mmol/L Carbon Dioxide (22-30) mmol/L Anion Gap (10-20) BUN (9-20) mg/dL Creatinine (0.8-1.5) MG/DL Est GFR ( Amer) Est GFR (Non-Af Amer) POC Glucose (mg/dL) 314 H 239 H (65-110) mg/dL Random Glucose (75-110) mg/dL Calcium (8.6-10.4) mg/dl Phosphorus (2.5-4.5) mg/dL Magnesium (1.6-2.3) mg/dL Total Bilirubin (0.2-1.3) mg/dL AST (17-59) U/L ALT (21-72) U/L Alkaline Phosphatase (38-126) U/L Total Protein (6.3-8.3) g/dL Albumin (3.5-5.0) g/dL Globulin (2.2-3.9) gm/dL Albumin/Globulin Ratio (1.0-2.1) Laboratory Results - last 24 hr 04/20/17 04/21/17 04/21/17 17:54 00:02 04:20 WBC RBC Hgb Hct MCV MCH MCHC RDW Plt Count MPV Neut % (Auto) Lymph % (Auto) [place] % (Auto) Eos % (Auto) Baso % (Auto) Neut # Lymph # [place] # Eos # Baso # Puncture Site Na pO2 75 H Edin Test Na VBG pH 7.52 H VBG pCO2 34 L VBG HCO3 28.9 VBG O2 Sat (Calc) 97.9 H VBG Base Excess 5.1 H Sodium Potassium Chloride Carbon Dioxide Anion Gap BUN Creatinine Est GFR ( Amer) Est GFR (Non-Af Amer) POC Glucose (mg/dL) 239 H 314 H Random Glucose Calcium Phosphorus Magnesium Total Bilirubin AST ALT Alkaline Phosphatase Total Protein Albumin Globulin Albumin/Globulin Ratio 04/21/17 04/21/17 04/21/17 06:43 06:43 06:46 WBC 9.3 RBC 2.72 L Hgb 8.1 L Hct 24.6 L MCV 90.5 MCH 29.8 MCHC 32.9 L RDW 15.1 H Plt Count 358 MPV 7.7 Neut % (Auto) 80.9 H Lymph % (Auto) 10.6 L [place] % (Auto) 6.5 Eos % (Auto) 1.7 Baso % (Auto) 0.3 Neut # 7.5 H Lymph # 1.0 [place] # 0.6 Eos # 0.2 Baso # 0.0 Puncture Site pO2 Edin Test VBG pH VBG pCO2 VBG HCO3 VBG O2 Sat (Calc) VBG Base Excess Sodium 133 Potassium 3.2 L Chloride 99 Carbon Dioxide 24 Anion Gap 13 BUN 36 H Creatinine 1.8 H Est GFR ( Amer) 45 Est GFR (Non-Af Amer) 38 POC Glucose (mg/dL) 269 H Random Glucose 242 H Calcium 8.0 L Phosphorus 1.9 L Magnesium 2.0 Total Bilirubin 0.5 AST 32 ALT 22 Alkaline Phosphatase 271 H Total Protein 5.5 L Albumin 2.2 L Globulin 3.3 Albumin/Globulin Ratio 0.7 L 04/21/17 04/21/17 07:21 12:28 WBC RBC Hgb Hct MCV MCH MCHC RDW Plt Count MPV Neut % (Auto) Lymph % (Auto) [place] % (Auto) Eos % (Auto) Baso % (Auto) Neut # Lymph # [place] # Eos # Baso # Puncture Site pO2 Edin Test VBG pH VBG pCO2 VBG HCO3 VBG O2 Sat (Calc) VBG Base Excess Sodium Potassium Chloride Carbon Dioxide Anion Gap BUN Creatinine Est GFR ( Amer) Est GFR (Non-Af Amer) POC Glucose (mg/dL) 257 H 219 H Random Glucose Calcium Phosphorus Magnesium Total Bilirubin AST ALT Alkaline Phosphatase Total Protein Albumin Globulin Albumin/Globulin Ratio EKG/Cardiology Studies: Cardiology / EKG Studies 04/20/17 17:29 EKG [ELECTROCARDIOGRAM] Stat Comment: Mode Of Transportation: Reason For Exam: bradycardia Assessment/Plan (1) Cardiac arrest Current Visit: Yes Status: Acute Comment: Patient status post cardiac arrest during hemodialysis, post code freeze ventilatory support status post tracheostomy Continue antibiotics for pneumonia Follow up culture and sensitivity Continue hemodialysis Continue Keppra for myoclonic twitching For repeat CAT scan of the head and neurology evaluation Follow-up CBC and transfuse using hemodialysis Stool guaic (2) Anoxic brain injury Current Visit: Yes Status: Acute (3) ESRD (end stage renal disease) Current Visit: Yes Status: Acute (4) Pneumonia Current Visit: Yes Status: Acute Attending/Attestation - Attestation I have personally seen and examined this patient.: Yes I have fully participated in the care of the patient.: Yes I have reviewed all pertinent clinical information: Yes Notes (Text): 04/21/17 17:05 Patient seen and examined in the intensive care unit. Case discussed with house staff in the morning rounds. Patient being treated for Pseudomonas bacteremia Permacath was removed and triple-lumen catheter inserted in right femoral vein under aseptic condition Continue IV antibiotics no Response to painful stimuli
--- NOTE | 2017-04-21 18:36 | CP.PCM.PN ---
Subjective - Date & Time of Evaluation Date of Evaluation: 04/21/17 Time of Evaluation: 09:00 - Subjective Subjective: all lines changed blood c/s + discussed with ede remains in a vegetative state unfortunately Objective - Vital Signs/Intake and Output Vital Signs (last 24 hours): Temp Pulse Resp BP Pulse Ox 94.1 F L 59 L 11 L 149/70 100 04/21/17 16:00 04/21/17 16:47 04/21/17 16:47 04/21/17 16:47 04/21/17 16:47 Intake and Output: 04/21/17 04/21/17 06:59 18:59 Intake Total 420 872 Output Total 150 Balance 420 722 - Medications Medications: Current Medications Ferrous Sulfate (Feosol Liq) 300 mg PEG BID [facility] Last Admin: 04/21/17 09:58 Dose: 300 mg Heparin Sodium (Porcine) (Heparin) 5,000 units SC Q12 [facility] Last Admin: 04/21/17 09:59 Dose: 5,000 units Piperacillin Sod/Tazobactam Sod (Zosyn 2.25 Gm Iv Premix) 2.25 gm in 50 mls @ 100 mls/hr IVPB Q8H [facility] Last Admin: 04/21/17 14:31 Dose: 100 mls/hr Gentamicin Sulfate 80 mg/ (Sodium Chloride) 102 mls @ 100 mls/hr IVPB TTS [facility] Insulin Human Regular (Novolin R) 0 unit SC Q6H [facility] PRN Reason: Protocol Last Admin: 04/21/17 12:35 Dose: 2 unit Levetiracetam (Keppra) 500 mg PO BID [facility] Last Admin: 04/21/17 09:59 Dose: 500 mg Nystatin (Nystop Topical Powder) 1 applic TOP BID [facility] Last Admin: 04/21/17 10:33 Dose: 1 applic Pantoprazole Sodium (Protonix Susp) 40 mg PEG DAILY [facility] Last Admin: 04/21/17 09:58 Dose: 40 mg - Labs Labs: 04/21/17 06:43 04/21/17 06:43 PT 11.2 SECONDS (9.7-12.2) 04/20/17 06:29 INR 1.0 04/20/17 06:29 APTT 36 SECONDS (21-34) H 04/20/17 06:29 Assessment and Plan (1) Sepsis Status: Acute (2) Sepsis Status: Acute (3) Anoxic brain injury Status: Acute (4) Cardiac arrest Status: Acute (5) ESRD (end stage renal disease) Status: Acute (6) Pneumonia Status: Acute (7) Respiratory arrest Status: Acute
--- NOTE | 2017-04-21 22:44 | PN ---
DATE: 04/21/2017 NEPHROLOGY FOLLOWUP NOTE: HISTORY OF PRESENT ILLNESS: A 71-year-old male with past medical history of hypertension, diabetes, CAD, recent admission for bleeding right arm AV fistula that required ligation with hospital course c omplicated by aspiration pneumonia and vent dependent respiratory failure which subsequently led to t kostas and PEG; longstanding disease on hemodialysis; admitted status post cardiac arrest. Nephrology following for ESRD care. The patient underwent removal of left IJ tunneled dialysis catheter today. Had left femoral triple l umen catheter placed. Per nursing staff, no change in his mental status. PHYSICAL EXAMINATION: VITAL SIGNS: This evening, blood pressure 138/74, heart rate 56, respirations 17, temperature 96.7, O2 sat 100% on 50% FiO2 via mechanical ventilation. GENERAL: Opens eyes sluggishly to verbal stimuli. No distress. HEENT: Moist mucous membranes. Nonicteric. RESPIRATORY: Mildly decreased breath sounds on left. Otherwise, clear to auscultation bilaterally. No rales, no rhonchi, no wheezes. HEART: S1, S2 normal, irregular rate. GASTROINTESTINAL: Abdomen soft, nondistended. Brown, liquidy stool seen in the rectal tube. GENITOURINARY: No blood or distention. EXTREMITIES: Minimal sacral edema. Otherwise, no edema of legs. SKIN: Warm, no cyanosis. NEUROLOGIC: Opens eyes spontaneously, but no purposeful movements. LABORATORY DATA: This morning, WBC 9.3, hemoglobin 8.1, hematocrit 24.6, platelets 358. Chemistry p melva: Sodium 133, potassium 3.2, chloride 99, bicarbonate 24, BUN 36, creatinine 1.8, glucose 242, c alcium 8.0, phosphorus 1.9, magnesium 2.0. Albumin 2.2. Microbiological: Blood culture drawn from dialysis catheter yesterday growing gram-negative glo in 1 set out of 2. ASSESSMENT AND PLAN: 1. End-stage renal disease on hemodialysis. Relatively stable electrolyte status. Mild hypokalemia noted in the setting of loose stool. No volume excess on exam. No indication for urgent hemodialys is today and not expected tomorrow either. Will plan to dialyze on Wednesday. 2. Sepsis. Blood cultures taken from dialysis catheter growing Pseudomonas aeruginosa, same as that from tracheal aspirate. Repeat blood cultures done yesterday again growing gram-negative glo despit e patient being on antibiotics. The patient had dialysis catheter removed today. We will recommend to leave catheter out for 48 hours. Should put back dialysis catheter on Wednesday, that is, 2 days fro m today, so that we can dialyze then. The patient currently on Zosyn 2.25 grams q. 8 hours, correctly dosed for hemodialysis, as well as gentamicin 80 mg after dialysis. We will continue to monitor. 3. Anoxic brain injury status post cardiac arrest several months ago and recent vent dependent respi ratory failure, now with new cardiac arrest. We will continue to dialyze per routine to remove any u remic component of encephalopathy. Follow up with neurology for further assessment. 4. Respiratory failure, stable FiO2 requirement. Lungs relatively clear. No indication for any ext ra ultrafiltration in this anuric patient, especially as patient is having loose stool. 5. Hypertension, currently normotensive, not on any antihypertensive medications, not on IV fluids e ither. Continue to monitor. 6. Anemia. Iron replete. Hemoglobin relatively stable status post dose of erythropoietin given 3 d ays ago. Continue to monitor. Phoenix Kaur MD cc: [id number] TT: 04/21/2017 22:43:57 Confirmation # [id number] Dictation # [id number] ln
[2017-04-22] MEDS: (Novolin R) Insulin Human Regular 100 units/ml vial SC SCH ×4 (00:55→18:01)
[2017-04-22] MEDS: Piperacill/Tazo 2.25gm in Dex 2.25 GM/50 ML BAG IVPB SCH ×3 (05:20→22:49)
[2017-04-22 05:33] LABS: VENOUS BLOOD GAS BASE EXCESS 3.2 mmol/L (0.0-2.0); VENOUS BLOOD GAS PCO2 42 mmHg (40-60); VENOUS BLOOD PH 7.43 (7.32-7.43)
[2017-04-22 06:20] LABS: BASO % 0.3 % (0.0-2.0); EOS # 0.2 K/uL (0.0-0.7); EOS % 2.6 % (0.0-4.0); LYMPH # 1.1 K/uL (1.0-4.3); LYMPH % 12.2 % (20.0-40.0); MEAN CELL VOLUME 91.6 fL (80.0-94.0); MEAN CORPUSCULAR HEMOGLOBIN 29.4 pg (27.0-31.0); MEAN CORPUSCULAR HGB CONC 32.1 g/dL (33.0-37.0); MEAN PLATELET VOLUME 7.7 fL (7.2-11.7); MONO # 0.7 K/uL (0.0-0.8); MONO % 8.1 % (0.0-10.0); RED CELL DISTRIBUTION WIDTH 15.4 % (11.5-14.5); WHITE BLOOD COUNT 9.2 K/uL (4.8-10.8)
[2017-04-22 06:37] LABS: POTASSIUM 3.8 mmol/L (3.6-5.2)
[2017-04-22 06:39] LABS: ALB/GLOB RATIO 0.7 (1.0-2.1); BILIRUBIN,TOTAL 0.4 mg/dL (0.2-1.3); TOTAL PROTEIN 5.5 g/dL (6.3-8.3)
[2017-04-22 06:40] LABS: CALCIUM 8.6 mg/dl (8.6-10.4); MAGNESIUM 2.1 mg/dL (1.6-2.3); PHOSPHOROUS 2.7 mg/dL (2.5-4.5)
--- NOTE | 2017-04-22 08:45 | PN ---
DATE: 04/22/2017 TIME OF EVALUATION: 7:05 a.m. NEUROLOGICAL PROBLEM: Anoxic encephalopathy with brainstem ischemia. PHYSICAL EXAMINATION: VITAL SIGNS: Blood pressure 141/73, mean arterial pressure of 104, respiratory rate 13, pulse rate 6 5 regular. NEUROLOGIC: The patient is comatose. Eyes open with upward gaze preponderance. Pupils sluggishly r eactive to light. Some roving conjugate gaze is noted. Spastic quadriparesis. Plantars are upgoing on both sides. His neurological status is unchanged. His progresses remains the same. Joe Duncan MD cc: [id number] TT: 04/22/2017 08:44:34 Confirmation # [id number] Dictation # [id number] mn
[2017-04-22] MEDS: Ferrous Sulfate 300 mg/5 mL Liq UD PEG SCH ×2 (10:15→17:34)
[2017-04-22] MEDS: Pantoprazole 40 mg Susp UD PEG SCH (10:15)
--- NOTE | 2017-04-22 11:25 | PN ---
DATE: 04/21/2017 The patient was seen this morning around 7:10 a.m. Vital signs 116/61, mean arterial pressure of 90, respiratory rate 16, temperature afebrile with a pulse rate of 57. The patient is comatose. Eyes are open. Upgaze preponderance. Pupils reactive to light. No cornea l reflex. No oculocephalic noted. Increased tone quadriparesis noted. Plantars are upgoing on both sides. The patient did have followup CT of the head that showed multiple strokes, small vessel disease as we ll as a brainstem stroke also seen, which was not seen before. The patient also showed significant a trophy. Carotid Doppler, no significant focal plaque formation or show any significant stenosis. The patient attained irreversible damage insult to his central nervous system at present. The patien t did not show any physiological response for the last few days, that means more than a 72-hour perio d. Continue the supportive management at present. DNR status should be addressed. Continue Keppra for now. Joe Duncan MD cc: [id number] TT: 04/21/2017 18:53:02 Confirmation # [id number] Dictation # [id number] simone
--- NOTE | 2017-04-22 12:07 | CP.PCM.PN ---
Subjective - Date & Time of Evaluation Date of Evaluation: 04/22/17 Time of Evaluation: 11:30 - Subjective Subjective: Unresposive On ventilator support Objective - Vital Signs/Intake and Output Vital Signs (last 24 hours): Temp Pulse Resp BP Pulse Ox 94.8 F L 62 15 152/74 H 100 04/22/17 08:00 04/22/17 11:02 04/22/17 11:02 04/22/17 11:02 04/22/17 11:02 Intake and Output: 04/22/17 04/22/17 06:59 18:59 Intake Total 590 410 Output Total 220 Balance 590 190 - Medications Medications: Current Medications Ferrous Sulfate (Feosol Liq) 300 mg PEG BID [facility] Last Admin: 04/22/17 10:15 Dose: 300 mg Heparin Sodium (Porcine) (Heparin) 5,000 units SC Q12 [facility] Last Admin: 04/22/17 10:16 Dose: 5,000 units Piperacillin Sod/Tazobactam Sod (Zosyn 2.25 Gm Iv Premix) 2.25 gm in 50 mls @ 100 mls/hr IVPB Q8H [facility] Last Admin: 04/22/17 05:20 Dose: 100 mls/hr Gentamicin Sulfate 80 mg/ (Sodium Chloride) 102 mls @ 100 mls/hr IVPB TTS [facility] Last Admin: 04/22/17 10:16 Dose: 100 mls/hr Insulin Human Regular (Novolin R) 0 unit SC Q6H [facility] PRN Reason: Protocol Last Admin: 04/22/17 11:42 Dose: 1 unit Levetiracetam (Keppra) 500 mg PO BID [facility] Last Admin: 04/22/17 10:16 Dose: 500 mg Nystatin (Nystop Topical Powder) 1 applic TOP BID [facility] Last Admin: 04/22/17 10:17 Dose: 1 applic Pantoprazole Sodium (Protonix Susp) 40 mg PEG DAILY [facility] Last Admin: 04/22/17 10:15 Dose: 40 mg - Labs Labs: 04/22/17 06:12 04/22/17 06:09 PT 11.2 SECONDS (9.7-12.2) 04/20/17 06:29 INR 1.0 04/20/17 06:29 APTT 36 SECONDS (21-34) H 04/20/17 06:29 - Neck Exam Additional comments: Trach in place - Respiratory Exam Additional comments: Lungs clear - Cardiovascular Exam Cardiovascular Exam: REGULAR RHYTHM - Extremities Exam Extremities Exam: Pedal Edema Assessment and Plan - Assessment and Plan (Free Text) Assessment: ESRD on [facility] TTS Blood cultures + for G- rods. Dialysis cath was removed Catheter will be replaced tomorrow On Benta & Zosyn S/P cardiac arrest Anoxic encephalopathy Plan: VS are stable Labs reviewed Pt will receive dialysis tomorrow after catheter is replaced
--- NOTE | 2017-04-22 13:54 | CP.CCUPN ---
<Mendel Cedeno - Last Filed: 04/22/17 13:47> CCU Subjective - Physician Review Subjective (Free Text): 04/16/17 06:30 Patient seen and examined at the bedside. No acute distress. No acute events overnight. Nursing staff reports no issues. The patient remains intubated. No sedation currently. The patient remains minimally responsive to noxious stimuli only. Code freeze active. Today on rounds, the patient's potassium was replaced. The patient's dose of zosyn was also decreased to 2.25g q6. The patients IVF were DC. The patient will be under code freeze until 20:15 tonight. 04/19/17 12:22 Patient seen and examined at the bedside. No acute distress. No acute events overnight. Nursing staff reports no issues. The patient remains intubated. No sedation currently. Patient has been placed on keppra. No myoclonic jerks. Today on rounds, palliative care was consulted. LTAC evaluation was ordered. The patient's keppra, protonix, and iron were changed to PO via PEG tube. 04/20/17 10:42 Patient seen and examined at the bedside. No acute distress. No acute events overnight. Nursing staff reports no issues. The patient remains intubated. No sedation currently. Patient has been placed on keppra. No myoclonic jerks. Patient will receive dialysis today. Patient remains only minimally responsive. Today on rounds, the patient was examined with Dr. Duncan (neurology). CT head was ordered and the patient's potassium was replaced. The patient will have his left midline removed and a TLC placed today. 04/21/17 16:35 Patient seen and examined at bedside. No acute distress. No acute events overnight. Nursing staff reports no issues. The patient remains intubated. The patient remains only minimally responsive. TLC will be placed today. No interval change from prior examination. Today, potassium was replenished. A left femoral TLC was also placed today with no complications. 04/22/17 13:47 Patient seen and examined at bedside. No acute distress. No acute events overnight. Nursing staff reports no issues. The patient remains intubated. The patient remains only minimally responsive. No interval change from prior examination. Today, patient was scheduled for permacath placement tomorrow for HD access. Critical Care Time Spent (in minutes): 60 CCU Objective - Vital Signs / Intake & Output Vital Signs (Last 4 hours): Vital Signs Temp Pulse Resp BP Pulse Ox 04/22/17 13:02 67 11 L 128/62 100 04/22/17 13:00 62 15 100 04/22/17 12:02 60 13 103/58 L 100 04/22/17 12:00 96.5 F L 63 14 100 04/22/17 11:02 62 15 152/74 H 100 04/22/17 11:00 68 16 100 04/22/17 10:01 65 13 130/79 100 04/22/17 10:00 62 12 100 Intake and Output (Last 8hrs): Intake & Output 04/21/17 04/22/17 04/22/17 22:59 06:59 14:59 Intake Total 522 320 490 Output Total 80 220 Balance 442 320 270 Weight 57 kg Intake: Intake, IV Amount 92 150 Left Proximal Port 50 150 Femoral Right Forearm 42 Oral 60 60 Tube Feeding 320 320 280 Other 50 Output: Stool 80 220 - Physical Exam Head: Positive for: Normocephalic. Negative for: Contusion Extroacular Muscles: Positive for: Gaze Palsy (up-gaze), Other (Horizontal Nystagmus) Mouth: Positive for: Moist Mucous Membranes Nose (External): Positive for: Atraumatic Neck: Positive for: Other (trach). Negative for: JVD, Lymphadenopathy Respiratory/Chest: Positive for: Good Air Exchange, Decreased Breath Sounds (B/L ), Rhonchi. Negative for: Clear to Auscultation, Respiratory Distress, Accessory Muscle Use, Rales Cardiovascular: Positive for: Regular Rate and Rhythm, Normal S1, S2, Peripheal Pulses Present. Negative for: Murmurs Abdomen: Positive for: Normal Bowel Sounds. Negative for: Distention Upper Extremity: Positive for: Normal Inspection, NORMAL PULSES, Other (L PICC) . Negative for: Cyanosis, Edema Lower Extremity: Positive for: Normal Inspection, NORMAL PULSES. Negative for: Edema Neurological: Positive for: Other (weak brainstem reflexes). Negative for: GCS= 15 Skin: Positive for: Warm, Dry, Pale. Negative for: Rashes, Normal Color - Medications Active Medications: Active Medications Generic Name Dose Route Start Last Admin Trade Name Freq PRN Reason Stop Dose Admin Ferrous Sulfate 300 mg 04/19/17 11:45 04/22/17 10:15 Feosol Liq PEG 300 mg BID JUVE Administration Heparin Sodium (Porcine) 5,000 units 04/16/17 10:00 04/22/17 10:16 Heparin SC 5,000 units Q12 JUVE Administration Piperacillin Sod/Tazobactam Sod 2.25 gm in 50 mls @ 100 mls/hr 04/17/17 06:00 04/22/17 13:28 Zosyn 2.25 Gm Iv Premix IVPB 100 mls/hr Q8H JUVE Administration Gentamicin Sulfate 80 mg/ 102 mls @ 100 mls/hr 04/20/17 19:13 04/22/17 10:16 Sodium Chloride IVPB 100 mls/hr TTS JUVE Administration Insulin Human Regular 0 unit 04/16/17 12:00 04/22/17 11:42 Novolin R SC 1 unit Q6H JUVE Administration Protocol Levetiracetam 500 mg 04/19/17 10:00 04/22/17 10:16 Keppra PO 500 mg BID JUVE Administration Nystatin 1 applic 04/17/17 10:00 04/22/17 10:17 Nystop Topical Powder TOP 1 applic BID JUVE Administration Pantoprazole Sodium 40 mg 04/19/17 11:00 04/22/17 10:15 Protonix Susp PEG 40 mg DAILY JUVE Administration - Patient Studies Lab Studies: Microbiology Studies 04/20/17 10:32 Blood Culture - Preliminary Blood-During Dialysis Gram Negative Gume Gram Stain - Final 04/20/17 10:00 Blood Culture - Preliminary Blood-During Dialysis Gram Negative Gume Gram Stain - Final Lab Studies 04/22/17 04/22/17 04/22/17 Range/Units 11:26 06:12 06:09 WBC 9.2 (4.8-10.8) K/uL RBC 2.83 L (4.40-5.90) Mil/uL Hgb 8.3 L (12.0-18.0) g/dL Hct 26.0 L (35.0-51.0) % MCV 91.6 (80.0-94.0) fL MCH 29.4 (27.0-31.0) pg MCHC 32.1 L (33.0-37.0) g/dL RDW 15.4 H (11.5-14.5) % Plt Count 390 (130-400) K/uL MPV 7.7 (7.2-11.7) fL Neut % (Auto) 76.8 H (50.0-75.0) % Lymph % (Auto) 12.2 L (20.0-40.0) % Faulkner % (Auto) 8.1 (0.0-10.0) % Eos % (Auto) 2.6 (0.0-4.0) % Baso % (Auto) 0.3 (0.0-2.0) % Neut # 7.1 H (1.8-7.0) K/uL Lymph # 1.1 (1.0-4.3) K/uL Faulkner # 0.7 (0.0-0.8) K/uL Eos # 0.2 (0.0-0.7) K/uL Baso # 0.0 (0.0-0.2) K/uL Puncture Site pO2 (30-55) mm/Hg Edin Test VBG pH (7.32-7.43) VBG pCO2 (40-60) mmHg VBG HCO3 mmol/L VBG O2 Sat (Calc) (40-65) % VBG Base Excess (0.0-2.0) mmol/L Crit Value Called To Crit Value Called By Crit Value Read Back Blood Gas Notified Time Sodium 139 (132-148) mmol/L Potassium 3.8 (3.6-5.2) mmol/L Chloride 102 (98-107) mmol/L Carbon Dioxide 25 (22-30) mmol/L Anion Gap 15 (10-20) BUN 41 H (9-20) mg/dL Creatinine 2.3 H (0.8-1.5) MG/DL Est GFR ( Amer) 34 Est GFR (Non-Af Amer) 28 POC Glucose (mg/dL) 164 H (65-110) mg/dL Random Glucose 219 H (75-110) mg/dL Calcium 8.6 (8.6-10.4) mg/dl Phosphorus 2.7 (2.5-4.5) mg/dL Magnesium 2.1 (1.6-2.3) mg/dL Total Bilirubin 0.4 (0.2-1.3) mg/dL AST 26 (17-59) U/L ALT 16 L D (21-72) U/L Alkaline Phosphatase 257 H (38-126) U/L Total Protein 5.5 L (6.3-8.3) g/dL Albumin 2.2 L (3.5-5.0) g/dL Globulin 3.3 (2.2-3.9) gm/dL Albumin/Globulin Ratio 0.7 L (1.0-2.1) 04/22/17 04/22/17 04/22/17 Range/Units 05:30 03:54 00:44 WBC (4.8-10.8) K/uL RBC (4.40-5.90) Mil/uL Hgb (12.0-18.0) g/dL Hct (35.0-51.0) % MCV (80.0-94.0) fL MCH (27.0-31.0) pg MCHC (33.0-37.0) g/dL RDW (11.5-14.5) % Plt Count (130-400) K/uL MPV (7.2-11.7) fL Neut % (Auto) (50.0-75.0) % Lymph % (Auto) (20.0-40.0) % Faulkner % (Auto) (0.0-10.0) % Eos % (Auto) (0.0-4.0) % Baso % (Auto) (0.0-2.0) % Neut # (1.8-7.0) K/uL Lymph # (1.0-4.3) K/uL Faulkner # (0.0-0.8) K/uL Eos # (0.0-0.7) K/uL Baso # (0.0-0.2) K/uL Puncture Site Drawn by rn pO2 40 (30-55) mm/Hg Edin Test Na VBG pH 7.43 (7.32-7.43) VBG pCO2 42 (40-60) mmHg VBG HCO3 26.9 mmol/L VBG O2 Sat (Calc) 81.4 H (40-65) % VBG Base Excess 3.2 H (0.0-2.0) mmol/L Crit Value Called To Shelby torres rn Crit Value Called By Miesha monk rt Crit Value Read Back Y Blood Gas Notified Time 534 Sodium (132-148) mmol/L Potassium (3.6-5.2) mmol/L Chloride (98-107) mmol/L Carbon Dioxide (22-30) mmol/L Anion Gap (10-20) BUN (9-20) mg/dL Creatinine (0.8-1.5) MG/DL Est GFR ( Amer) Est GFR (Non-Af Amer) POC Glucose (mg/dL) 272 H 207 H (65-110) mg/dL Random Glucose (75-110) mg/dL Calcium (8.6-10.4) mg/dl Phosphorus (2.5-4.5) mg/dL Magnesium (1.6-2.3) mg/dL Total Bilirubin (0.2-1.3) mg/dL AST (17-59) U/L ALT (21-72) U/L Alkaline Phosphatase (38-126) U/L Total Protein (6.3-8.3) g/dL Albumin (3.5-5.0) g/dL Globulin (2.2-3.9) gm/dL Albumin/Globulin Ratio (1.0-2.1) 04/21/17 Range/Units 17:53 WBC (4.8-10.8) K/uL RBC (4.40-5.90) Mil/uL Hgb (12.0-18.0) g/dL Hct (35.0-51.0) % MCV (80.0-94.0) fL MCH (27.0-31.0) pg MCHC (33.0-37.0) g/dL RDW (11.5-14.5) % Plt Count (130-400) K/uL MPV (7.2-11.7) fL Neut % (Auto) (50.0-75.0) % Lymph % (Auto) (20.0-40.0) % Faulkner % (Auto) (0.0-10.0) % Eos % (Auto) (0.0-4.0) % Baso % (Auto) (0.0-2.0) % Neut # (1.8-7.0) K/uL Lymph # (1.0-4.3) K/uL Faulkner # (0.0-0.8) K/uL Eos # (0.0-0.7) K/uL Baso # (0.0-0.2) K/uL Puncture Site pO2 (30-55) mm/Hg Edin Test VBG pH (7.32-7.43) VBG pCO2 (40-60) mmHg VBG HCO3 mmol/L VBG O2 Sat (Calc) (40-65) % VBG Base Excess (0.0-2.0) mmol/L Crit Value Called To Crit Value Called By Crit Value Read Back Blood Gas Notified Time Sodium (132-148) mmol/L Potassium (3.6-5.2) mmol/L Chloride (98-107) mmol/L Carbon Dioxide (22-30) mmol/L Anion Gap (10-20) BUN (9-20) mg/dL Creatinine (0.8-1.5) MG/DL Est GFR ( Amer) Est GFR (Non-Af Amer) POC Glucose (mg/dL) 210 H (65-110) mg/dL Random Glucose (75-110) mg/dL Calcium (8.6-10.4) mg/dl Phosphorus (2.5-4.5) mg/dL Magnesium (1.6-2.3) mg/dL Total Bilirubin (0.2-1.3) mg/dL AST (17-59) U/L ALT (21-72) U/L Alkaline Phosphatase (38-126) U/L Total Protein (6.3-8.3) g/dL Albumin (3.5-5.0) g/dL Globulin (2.2-3.9) gm/dL Albumin/Globulin Ratio (1.0-2.1) Laboratory Results - last 24 hr 04/21/17 04/22/17 04/22/17 17:53 00:44 03:54 WBC RBC Hgb Hct MCV MCH MCHC RDW Plt Count MPV Neut % (Auto) Lymph % (Auto) Faulkner % (Auto) Eos % (Auto) Baso % (Auto) Neut # Lymph # Faulkner # Eos # Baso # Puncture Site Drawn by rn pO2 40 Edin Test Na VBG pH 7.43 VBG pCO2 42 VBG HCO3 26.9 VBG O2 Sat (Calc) 81.4 H VBG Base Excess 3.2 H Crit Value Called To Shelby otrres rn Crit Value Called By Miesha monk rt Crit Value Read Back Y Blood Gas Notified Time 534 Sodium Potassium Chloride Carbon Dioxide Anion Gap BUN Creatinine Est GFR ( Amer) Est GFR (Non-Af Amer) POC Glucose (mg/dL) 210 H 207 H Random Glucose Calcium Phosphorus Magnesium Total Bilirubin AST ALT Alkaline Phosphatase Total Protein Albumin Globulin Albumin/Globulin Ratio 04/22/17 04/22/17 04/22/17 05:30 06:09 06:12 WBC 9.2 RBC 2.83 L Hgb 8.3 L Hct 26.0 L MCV 91.6 MCH 29.4 MCHC 32.1 L RDW 15.4 H Plt Count 390 MPV 7.7 Neut % (Auto) 76.8 H Lymph % (Auto) 12.2 L Faulkner % (Auto) 8.1 Eos % (Auto) 2.6 Baso % (Auto) 0.3 Neut # 7.1 H Lymph # 1.1 Faulkner # 0.7 Eos # 0.2 Baso # 0.0 Puncture Site pO2 Edin Test VBG pH VBG pCO2 VBG HCO3 VBG O2 Sat (Calc) VBG Base Excess Crit Value Called To Crit Value Called By Crit Value Read Back Blood Gas Notified Time Sodium 139 Potassium 3.8 Chloride 102 Carbon Dioxide 25 Anion Gap 15 BUN 41 H Creatinine 2.3 H Est GFR ( Amer) 34 Est GFR (Non-Af Amer) 28 POC Glucose (mg/dL) 272 H Random Glucose 219 H Calcium 8.6 Phosphorus 2.7 Magnesium 2.1 Total Bilirubin 0.4 AST 26 ALT 16 L D Alkaline Phosphatase 257 H Total Protein 5.5 L Albumin 2.2 L Globulin 3.3 Albumin/Globulin Ratio 0.7 L 04/22/17 11:26 WBC RBC Hgb Hct MCV MCH MCHC RDW Plt Count MPV Neut % (Auto) Lymph % (Auto) Faulkner % (Auto) Eos % (Auto) Baso % (Auto) Neut # Lymph # Faulkner # Eos # Baso # Puncture Site pO2 Edin Test VBG pH VBG pCO2 VBG HCO3 VBG O2 Sat (Calc) VBG Base Excess Crit Value Called To Crit Value Called By Crit Value Read Back Blood Gas Notified Time Sodium Potassium Chloride Carbon Dioxide Anion Gap BUN Creatinine Est GFR ( Amer) Est GFR (Non-Af Amer) POC Glucose (mg/dL) 164 H Random Glucose Calcium Phosphorus Magnesium Total Bilirubin AST ALT Alkaline Phosphatase Total Protein Albumin Globulin Albumin/Globulin Ratio Fingerstick Blood Sugar Results: 164 Review of Systems - Review of Systems Systems not reviewed;Unavailable: Intubated Critical Care Progress Note - Vent Settings MODE:: PRVC TIDAL VOLUME:: 500 RESP RATE:: 12 FIO2:: 50 PEEP:: 6 - Extremities/Vascular Does the Patient have a Central Venous Catheter?: Yes Insertion Site: Femoral Vein (left) Does the Patient need a Central Venous Catheter?: Yes Does the Patient have a Willis Catheter?: No Does the Patient need a Willis Catheter?: No - Prophylaxis GI Prophylaxis GI: PPI - Prophylaxis DVT Prophylaxis DVT: Heparin SQ Assessment/Plan (1) Anoxic brain injury Current Visit: Yes Status: Acute (2) Cardiac arrest Current Visit: Yes Status: Acute Comment: Patient status post cardiac arrest during hemodialysis, post code freeze ventilatory support status post tracheostomy Continue antibiotics for pneumonia Follow up culture and sensitivity Continue hemodialysis Continue Keppra for myoclonic twitching For repeat CAT scan of the head and neurology evaluation Follow-up CBC and transfuse using hemodialysis Stool guaic (3) ESRD (end stage renal disease) Current Visit: Yes Status: Acute - Assessment and Plan (Free Text) Plan: Patient status: -critical -[place]QU[place] II- 33 (78.6% predicted rate) -Plan for LTAC transfer once dialysis access placed tomorrow Neuro: -Quadraplegia -Global cerebral dysfunction -04/20/17 CT Head- No acute intracranial hemorrhage. 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 Small suspected brainstem lacunar type infarcts also felt present. Moderate central volume loss. Note the possibility of a acute infarct cannot be completely excluded based on this exam. -04/18/17 CT Head- Scattered focal lucencies in the subcortical and periventricular white matter suggestive for chronic microvascular ischemic change. Prominent cerebellar atrophy. Again identified is prominent encephalomalacia from probable prominent infarction in the inferior right cerebellum. This is similar appearance to the prior study. Bilateral basal ganglia calcifications. Generalized atrophy. Near complete opacification of the bilateral mastoid air cells. Mild mucosal thickening of the bilateral maxillary sinuses. Moderate mucosal thickening and opacification of the ethmoid air cells. If there is persistent concern for acute ischemic change, correlation with MRI may be helpful. -04/15/17 CT Head- Evidence of right cerebellar encephalomalacia. Nonspecific white matter changes. Please note that MRI with diffusion imaging is more sensitive in the detection of acute ischemic event. Opacification/fluid throughout bilateral visualized mastoid air cells. Correlate clinically for mastoiditis. Dense intracranial vascular calcifications. Additionally, vascular calcifications are noted involving bilateral orbits Cardiovascular: -HTN- managing with HD Dr. Gamez consulted for permacath placement (OR planned for tomorrow) Pulmonary: -Trach- (PRVC 500 / 12 / 50% / 6) -Stable VBG -Imaging -04/16/17 CXR- Suspect mild bibasilar atelectasis left greater than right. Ced There may also be small left-sided effusion. -04/15/17 CXR- Tracheostomy tube. Left-sided central venous catheter extends expected location of the cavoatrial junction. Interstitial prominence may reflect infection or edema, [id number]. Small left pleural effusion. Bibasilar atelectasis. Borderline cardiomegaly. -ABG -04/19/17- CO2 32 / O2 167 / HCO3 26.9 / pH 7.51 Gastrointestinal: -Tube feeds 40ml/hr Hematology: -Stable Endocrine: -No acute issues Renal: -ESRD -Permacath placement with Dr. Gamez planned for tomorrow Musculoskeletal: -No acute issues Genitourinary: -No acute issues Infectious disease: -Gram Negative Sepsis -Gentamycin 80mg IV MWF -Zosyn 2.25g Q6- day 6 -repeat blood cultures ordered -04/20/17 Blood Cx- gram negative gume -04/17/17 Blood Cx- P.aeruginosa -04/16/17 Tracheal Aspiration- P.aeruginosa -04/15/17 Blood Cultures- coag neg staph -04/15/17 Nares- MRSA neg GI prophylaxis: Protonix 40mg IV daily DVT prophylaxis: Heparin 5000u SC q12 Palliative Care: -palliative care consult placed -again unable to reach Clara villalta Case discussed with Dr. Alivia Cedeno PGY1 - Date & Time Date: 04/22/17 Time: 13:50 <Benjamin Bunch - Last Filed: 04/22/17 14:20> CCU Objective - Vital Signs / Intake & Output Vital Signs (Last 4 hours): Vital Signs Temp Pulse Resp BP Pulse Ox 04/22/17 14:01 64 18 127/67 04/22/17 14:00 59 L 12 100 04/22/17 13:02 67 11 L 128/62 100 04/22/17 13:00 62 15 100 04/22/17 12:02 60 13 103/58 L 100 04/22/17 12:00 96.5 F L 63 14 100 04/22/17 11:02 62 15 152/74 H 100 04/22/17 11:00 68 16 100 Intake and Output (Last 8hrs): Intake & Output 04/21/17 04/22/17 04/22/17 22:59 06:59 14:59 Intake Total 522 320 580 Output Total 80 220 Balance 442 320 360 Weight 125 lb 10.616 oz Intake: Intake, IV Amount 92 200 Left Proximal Port 50 200 Femoral Right Forearm 42 Oral 60 60 Tube Feeding 320 320 320 Other 50 Output: Stool 80 220 - Medications Active Medications: Active Medications Generic Name Dose Route Start Last Admin Trade Name Freq PRN Reason Stop Dose Admin Ferrous Sulfate 300 mg 04/19/17 11:45 04/22/17 10:15 Feosol Liq PEG 300 mg BID JUVE Administration Heparin Sodium (Porcine) 5,000 units 04/16/17 10:00 04/22/17 10:16 Heparin SC 5,000 units Q12 JUVE Administration Piperacillin Sod/Tazobactam Sod 2.25 gm in 50 mls @ 100 mls/hr 04/17/17 06:00 04/22/17 13:28 Zosyn 2.25 Gm Iv Premix IVPB 100 mls/hr Q8H JUVE Administration Gentamicin Sulfate 80 mg/ 102 mls @ 100 mls/hr 04/20/17 19:13 04/22/17 10:16 Sodium Chloride IVPB 100 mls/hr TTS JUVE Administration Insulin Human Regular 0 unit 04/16/17 12:00 04/22/17 11:42 Novolin R SC 1 unit Q6H JUVE Administration Protocol Levetiracetam 500 mg 04/19/17 10:00 04/22/17 10:16 Keppra PO 500 mg BID JUVE Administration Nystatin 1 applic 04/17/17 10:00 04/22/17 10:17 Nystop Topical Powder TOP 1 applic BID JUVE Administration Pantoprazole Sodium 40 mg 04/19/17 11:00 04/22/17 10:15 Protonix Susp PEG 40 mg DAILY JUVE Administration - Patient Studies Lab Studies: Microbiology Studies 04/20/17 10:32 Blood Culture - Preliminary Blood-During Dialysis Gram Negative Gume Gram Stain - Final 04/20/17 10:00 Blood Culture - Preliminary Blood-During Dialysis Gram Negative Gume Gram Stain - Final Lab Studies 04/22/17 04/22/17 04/22/17 Range/Units 11:26 06:12 06:09 WBC 9.2 (4.8-10.8) K/uL RBC 2.83 L (4.40-5.90) Mil/uL Hgb 8.3 L (12.0-18.0) g/dL Hct 26.0 L (35.0-51.0) % MCV 91.6 (80.0-94.0) fL MCH 29.4 (27.0-31.0) pg MCHC 32.1 L (33.0-37.0) g/dL RDW 15.4 H (11.5-14.5) % Plt Count 390 (130-400) K/uL MPV 7.7 (7.2-11.7) fL Neut % (Auto) 76.8 H (50.0-75.0) % Lymph % (Auto) 12.2 L (20.0-40.0) % Faulkner % (Auto) 8.1 (0.0-10.0) % Eos % (Auto) 2.6 (0.0-4.0) % Baso % (Auto) 0.3 (0.0-2.0) % Neut # 7.1 H (1.8-7.0) K/uL Lymph # 1.1 (1.0-4.3) K/uL Faulkner # 0.7 (0.0-0.8) K/uL Eos # 0.2 (0.0-0.7) K/uL Baso # 0.0 (0.0-0.2) K/uL Puncture Site pO2 (30-55) mm/Hg Edin Test VBG pH (7.32-7.43) VBG pCO2 (40-60) mmHg VBG HCO3 mmol/L VBG O2 Sat (Calc) (40-65) % VBG Base Excess (0.0-2.0) mmol/L Crit Value Called To Crit Value Called By Crit Value Read Back Blood Gas Notified Time Sodium 139 (132-148) mmol/L Potassium 3.8 (3.6-5.2) mmol/L Chloride 102 (98-107) mmol/L Carbon Dioxide 25 (22-30) mmol/L Anion Gap 15 (10-20) BUN 41 H (9-20) mg/dL Creatinine 2.3 H (0.8-1.5) MG/DL Est GFR ( Amer) 34 Est GFR (Non-Af Amer) 28 POC Glucose (mg/dL) 164 H (65-110) mg/dL Random Glucose 219 H (75-110) mg/dL Calcium 8.6 (8.6-10.4) mg/dl Phosphorus 2.7 (2.5-4.5) mg/dL Magnesium 2.1 (1.6-2.3) mg/dL Total Bilirubin 0.4 (0.2-1.3) mg/dL AST 26 (17-59) U/L ALT 16 L D (21-72) U/L Alkaline Phosphatase 257 H (38-126) U/L Total Protein 5.5 L (6.3-8.3) g/dL Albumin 2.2 L (3.5-5.0) g/dL Globulin 3.3 (2.2-3.9) gm/dL Albumin/Globulin Ratio 0.7 L (1.0-2.1) 04/22/17 04/22/17 04/22/17 Range/Units 05:30 03:54 00:44 WBC (4.8-10.8) K/uL RBC (4.40-5.90) Mil/uL Hgb (12.0-18.0) g/dL Hct (35.0-51.0) % MCV (80.0-94.0) fL MCH (27.0-31.0) pg MCHC (33.0-37.0) g/dL RDW (11.5-14.5) % Plt Count (130-400) K/uL MPV (7.2-11.7) fL Neut % (Auto) (50.0-75.0) % Lymph % (Auto) (20.0-40.0) % Faulkner % (Auto) (0.0-10.0) % Eos % (Auto) (0.0-4.0) % Baso % (Auto) (0.0-2.0) % Neut # (1.8-7.0) K/uL Lymph # (1.0-4.3) K/uL Faulkner # (0.0-0.8) K/uL Eos # (0.0-0.7) K/uL Baso # (0.0-0.2) K/uL Puncture Site Drawn by rn pO2 40 (30-55) mm/Hg Edin Test Na VBG pH 7.43 (7.32-7.43) VBG pCO2 42 (40-60) mmHg VBG HCO3 26.9 mmol/L VBG O2 Sat (Calc) 81.4 H (40-65) % VBG Base Excess 3.2 H (0.0-2.0) mmol/L Crit Value Called To Shelby torres rn Crit Value Called By Miesha monk rt Crit Value Read Back Y Blood Gas Notified Time 534 Sodium (132-148) mmol/L Potassium (3.6-5.2) mmol/L Chloride (98-107) mmol/L Carbon Dioxide (22-30) mmol/L Anion Gap (10-20) BUN (9-20) mg/dL Creatinine (0.8-1.5) MG/DL Est GFR ( Amer) Est GFR (Non-Af Amer) POC Glucose (mg/dL) 272 H 207 H (65-110) mg/dL Random Glucose (75-110) mg/dL Calcium (8.6-10.4) mg/dl Phosphorus (2.5-4.5) mg/dL Magnesium (1.6-2.3) mg/dL Total Bilirubin (0.2-1.3) mg/dL AST (17-59) U/L ALT (21-72) U/L Alkaline Phosphatase (38-126) U/L Total Protein (6.3-8.3) g/dL Albumin (3.5-5.0) g/dL Globulin (2.2-3.9) gm/dL Albumin/Globulin Ratio (1.0-2.1) 04/21/17 Range/Units 17:53 WBC (4.8-10.8) K/uL RBC (4.40-5.90) Mil/uL Hgb (12.0-18.0) g/dL Hct (35.0-51.0) % MCV (80.0-94.0) fL MCH (27.0-31.0) pg MCHC (33.0-37.0) g/dL RDW (11.5-14.5) % Plt Count (130-400) K/uL MPV (7.2-11.7) fL Neut % (Auto) (50.0-75.0) % Lymph % (Auto) (20.0-40.0) % Faulkner % (Auto) (0.0-10.0) % Eos % (Auto) (0.0-4.0) % Baso % (Auto) (0.0-2.0) % Neut # (1.8-7.0) K/uL Lymph # (1.0-4.3) K/uL Faulkner # (0.0-0.8) K/uL Eos # (0.0-0.7) K/uL Baso # (0.0-0.2) K/uL Puncture Site pO2 (30-55) mm/Hg Edin Test VBG pH (7.32-7.43) VBG pCO2 (40-60) mmHg VBG HCO3 mmol/L VBG O2 Sat (Calc) (40-65) % VBG Base Excess (0.0-2.0) mmol/L Crit Value Called To Crit Value Called By Crit Value Read Back Blood Gas Notified Time Sodium (132-148) mmol/L Potassium (3.6-5.2) mmol/L Chloride (98-107) mmol/L Carbon Dioxide (22-30) mmol/L Anion Gap (10-20) BUN (9-20) mg/dL Creatinine (0.8-1.5) MG/DL Est GFR ( Amer) Est GFR (Non-Af Amer) POC Glucose (mg/dL) 210 H (65-110) mg/dL Random Glucose (75-110) mg/dL Calcium (8.6-10.4) mg/dl Phosphorus (2.5-4.5) mg/dL Magnesium (1.6-2.3) mg/dL Total Bilirubin (0.2-1.3) mg/dL AST (17-59) U/L ALT (21-72) U/L Alkaline Phosphatase (38-126) U/L Total Protein (6.3-8.3) g/dL Albumin (3.5-5.0) g/dL Globulin (2.2-3.9) gm/dL Albumin/Globulin Ratio (1.0-2.1) Laboratory Results - last 24 hr 04/21/17 04/22/17 04/22/17 17:53 00:44 03:54 WBC RBC Hgb Hct MCV MCH MCHC RDW Plt Count MPV Neut % (Auto) Lymph % (Auto) Faulkner % (Auto) Eos % (Auto) Baso % (Auto) Neut # Lymph # Faulkner # Eos # Baso # Puncture Site Drawn by rn pO2 40 Edin Test Na VBG pH 7.43 VBG pCO2 42 VBG HCO3 26.9 VBG O2 Sat (Calc) 81.4 H VBG Base Excess 3.2 H Crit Value Called To Shelby torres rn Crit Value Called By Miesha monk rt Crit Value Read Back Y Blood Gas Notified Time 534 Sodium Potassium Chloride Carbon Dioxide Anion Gap BUN Creatinine Est GFR ( Amer) Est GFR (Non-Af Amer) POC Glucose (mg/dL) 210 H 207 H Random Glucose Calcium Phosphorus Magnesium Total Bilirubin AST ALT Alkaline Phosphatase Total Protein Albumin Globulin Albumin/Globulin Ratio 04/22/17 04/22/17 04/22/17 05:30 06:09 06:12 WBC 9.2 RBC 2.83 L Hgb 8.3 L Hct 26.0 L MCV 91.6 MCH 29.4 MCHC 32.1 L RDW 15.4 H Plt Count 390 MPV 7.7 Neut % (Auto) 76.8 H Lymph % (Auto) 12.2 L Faulkner % (Auto) 8.1 Eos % (Auto) 2.6 Baso % (Auto) 0.3 Neut # 7.1 H Lymph # 1.1 Faulkner # 0.7 Eos # 0.2 Baso # 0.0 Puncture Site pO2 Edin Test VBG pH VBG pCO2 VBG HCO3 VBG O2 Sat (Calc) VBG Base Excess Crit Value Called To Crit Value Called By Crit Value Read Back Blood Gas Notified Time Sodium 139 Potassium 3.8 Chloride 102 Carbon Dioxide 25 Anion Gap 15 BUN 41 H Creatinine 2.3 H Est GFR ( Amer) 34 Est GFR (Non-Af Amer) 28 POC Glucose (mg/dL) 272 H Random Glucose 219 H Calcium 8.6 Phosphorus 2.7 Magnesium 2.1 Total Bilirubin 0.4 AST 26 ALT 16 L D Alkaline Phosphatase 257 H Total Protein 5.5 L Albumin 2.2 L Globulin 3.3 Albumin/Globulin Ratio 0.7 L 04/22/17 11:26 WBC RBC Hgb Hct MCV MCH MCHC RDW Plt Count MPV Neut % (Auto) Lymph % (Auto) [place] % (Auto) Eos % (Auto) Baso % (Auto) Neut # Lymph # [place] # Eos # Baso # Puncture Site pO2 Edin Test VBG pH VBG pCO2 VBG HCO3 VBG O2 Sat (Calc) VBG Base Excess Crit Value Called To Crit Value Called By Crit Value Read Back Blood Gas Notified Time Sodium Potassium Chloride Carbon Dioxide Anion Gap BUN Creatinine Est GFR ( Amer) Est GFR (Non-Af Amer) POC Glucose (mg/dL) 164 H Random Glucose Calcium Phosphorus Magnesium Total Bilirubin AST ALT Alkaline Phosphatase Total Protein Albumin Globulin Albumin/Globulin Ratio Attending/Attestation - Attestation I have personally seen and examined this patient.: Yes I have fully participated in the care of the patient.: Yes I have reviewed all pertinent clinical information: Yes Notes (Text): 04/22/17 14:18 I have seen and examined the patient. Medical records, lab studies, and imaging were reviewed by me and a management plan was formulated on multidisciplinary rounds with resident Dr. Cedeno. I agree with their above documented assessment and plan. Patient is trach/PEG. Drawing blood cultures. Should wait on placement of permacath until negative blood cultures. Patient will need LTACH once permacath placed. Patient has an extremely poor prognosis, continuing hemodialysis may be futile care as well. High probability of No meaningful recovery in his condition. Critical Care Time 35 minutes. Multi-disciplinary rounds were performed with house staff, nursing, speech therapy, respiratory therapy, pharmacy and nutrition with integrated input from the primary team/attending and other consulting services. The documented time is cumulative and includes review of patient data/exams/labs/chart review and examination of the patient on rounds and throughout the day; time is exclusive of any procedures or teaching time.
--- NOTE | 2017-04-22 18:03 | CP.PCM.PN ---
Subjective - Date & Time of Evaluation Date of Evaluation: 04/22/17 Time of Evaluation: 08:00 - Subjective Subjective: The patient remains intubated. No sedation currently. The patient remains minimally responsive to noxious stimuli only. Objective - Vital Signs/Intake and Output Vital Signs (last 24 hours): Temp Pulse Resp BP Pulse Ox 96.6 F L 67 14 134/75 100 04/22/17 16:00 04/22/17 17:01 04/22/17 17:01 04/22/17 17:01 04/22/17 17:01 Intake and Output: 04/22/17 04/22/17 06:59 18:59 Intake Total 590 700 Output Total 220 Balance 590 480 - Medications Medications: Current Medications Ferrous Sulfate (Feosol Liq) 300 mg PEG BID [facility] Last Admin: 04/22/17 17:34 Dose: 300 mg Heparin Sodium (Porcine) (Heparin) 5,000 units SC Q12 [facility] Last Admin: 04/22/17 10:16 Dose: 5,000 units Piperacillin Sod/Tazobactam Sod (Zosyn 2.25 Gm Iv Premix) 2.25 gm in 50 mls @ 100 mls/hr IVPB Q8H [facility] Last Admin: 04/22/17 13:28 Dose: 100 mls/hr Gentamicin Sulfate 80 mg/ (Sodium Chloride) 102 mls @ 100 mls/hr IVPB TTS [facility] Last Admin: 04/22/17 10:16 Dose: 100 mls/hr Insulin Human Regular (Novolin R) 0 unit SC Q6H [facility] PRN Reason: Protocol Last Admin: 04/22/17 18:01 Dose: 2 unit Levetiracetam (Keppra) 500 mg PO BID [facility] Last Admin: 04/22/17 17:34 Dose: 500 mg Nystatin (Nystop Topical Powder) 1 applic TOP BID [facility] Last Admin: 04/22/17 17:34 Dose: 1 applic Pantoprazole Sodium (Protonix Susp) 40 mg PEG DAILY [facility] Last Admin: 04/22/17 10:15 Dose: 40 mg - Labs Labs: 04/22/17 06:12 04/22/17 06:09 PT 11.2 SECONDS (9.7-12.2) 04/20/17 06:29 INR 1.0 04/20/17 06:29 APTT 36 SECONDS (21-34) H 04/20/17 06:29 - Constitutional Appears: Confused, Cachectic - Eye Exam Eye Exam: PERRL - ENT Exam ENT Exam: Mucous Membranes Dry - Neck Exam Neck Exam: absent: Lymphadenopathy - Respiratory Exam Respiratory Exam: Decreased Breath Sounds - Cardiovascular Exam Cardiovascular Exam: REGULAR RHYTHM - GI/Abdominal Exam GI & Abdominal Exam: Distended - Rectal Exam Rectal Exam: Deferred - Exam Exam: NORMAL INSPECTION - Back Exam Back Exam: absent: CVA tenderness (L), CVA tenderness (R) - Neurological Exam Neurological Exam: Altered Assessment and Plan (1) Sepsis Status: Acute (2) Sepsis Status: Acute (3) Anoxic brain injury Status: Acute (4) Cardiac arrest Status: Acute (5) ESRD (end stage renal disease) Status: Acute (6) Pneumonia Status: Acute (7) Respiratory arrest Status: Acute
[2017-04-23] MEDS: (Novolin R) Insulin Human Regular 100 units/ml vial SC SCH ×4 (00:53→18:06)
[2017-04-23] MEDS: Piperacill/Tazo 2.25gm in Dex 2.25 GM/50 ML BAG IVPB SCH ×3 (06:00→21:19)
[2017-04-23 06:07] LABS: VENOUS BLOOD GAS BASE EXCESS 2.2 mmol/L (0.0-2.0); VENOUS BLOOD GAS PCO2 46 mmHg (40-60); VENOUS BLOOD PH 7.39 (7.32-7.43)
[2017-04-23 06:52] LABS: BASO % 0.3 % (0.0-2.0); EOS # 0.3 K/uL (0.0-0.7); EOS % 2.9 % (0.0-4.0); HEMATOCRIT 24.4 % (35.0-51.0); LYMPH % 10.5 % (20.0-40.0); MEAN CELL VOLUME 92.8 fL (80.0-94.0); MEAN CORPUSCULAR HEMOGLOBIN 30.7 pg (27.0-31.0); MEAN PLATELET VOLUME 7.5 fL (7.2-11.7); MONO # 0.7 K/uL (0.0-0.8); MONO % 7.7 % (0.0-10.0); RED CELL DISTRIBUTION WIDTH 15.7 % (11.5-14.5); WHITE BLOOD COUNT 9.7 K/uL (4.8-10.8)
[2017-04-23 06:53] LABS: ALB/GLOB RATIO 0.7 (1.0-2.1); BILIRUBIN,TOTAL 0.5 mg/dL (0.2-1.3); CALCIUM 8.8 mg/dl (8.6-10.4); PHOSPHOROUS 2.5 mg/dL (2.5-4.5); TOTAL PROTEIN 5.4 g/dL (6.3-8.3)
[2017-04-23 06:57] LABS: POTASSIUM 3.5 mmol/L (3.6-5.2)
[2017-04-23] MEDS: Ferrous Sulfate 300 mg/5 mL Liq UD PEG SCH ×2 (09:30→17:52)
[2017-04-23] MEDS: Pantoprazole 40 mg Susp UD PEG SCH (09:30)
--- NOTE | 2017-04-23 10:37 | CP.PCM.PN ---
Subjective - Date & Time of Evaluation Date of Evaluation: 04/23/17 Time of Evaluation: 22:00 - Subjective Subjective: Unresponsive on ventilator support Objective - Vital Signs/Intake and Output Vital Signs (last 24 hours): Temp Pulse Resp BP Pulse Ox 93.4 F L 51 L 13 151/74 H 100 04/23/17 08:00 04/23/17 08:01 04/23/17 08:01 04/23/17 08:01 04/23/17 08:00 Intake and Output: 04/23/17 04/23/17 06:59 18:59 Intake Total 580 80 Output Total 200 Balance 580 -120 - Medications Medications: Current Medications Ferrous Sulfate (Feosol Liq) 300 mg PEG BID [facility] Last Admin: 04/23/17 09:30 Dose: 300 mg Heparin Sodium (Porcine) (Heparin) 5,000 units SC Q12 [facility] Last Admin: 04/23/17 09:30 Dose: 5,000 units Piperacillin Sod/Tazobactam Sod (Zosyn 2.25 Gm Iv Premix) 2.25 gm in 50 mls @ 100 mls/hr IVPB Q8H [facility] Last Admin: 04/23/17 06:00 Dose: 100 mls/hr Gentamicin Sulfate 80 mg/ (Sodium Chloride) 102 mls @ 100 mls/hr IVPB TTS [facility] Last Admin: 04/22/17 10:16 Dose: 100 mls/hr Insulin Human Regular (Novolin R) 0 unit SC Q6H [facility] PRN Reason: Protocol Last Admin: 04/23/17 06:00 Dose: 6 unit Levetiracetam (Keppra) 500 mg PO BID [facility] Last Admin: 04/23/17 09:30 Dose: 500 mg Nystatin (Nystop Topical Powder) 1 applic TOP BID [facility] Last Admin: 04/23/17 09:31 Dose: 1 applic Pantoprazole Sodium (Protonix Susp) 40 mg PEG DAILY [facility] Last Admin: 04/23/17 09:30 Dose: 40 mg - Labs Labs: 04/23/17 06:36 04/23/17 06:33 PT 11.2 SECONDS (9.7-12.2) 04/20/17 06:29 INR 1.0 04/20/17 06:29 APTT 36 SECONDS (21-34) H 04/20/17 06:29 - Respiratory Exam Additional comments: Lungs clear - Cardiovascular Exam Cardiovascular Exam: REGULAR RHYTHM - Extremities Exam Additional comments: trace pedal edema Assessment and Plan - Assessment and Plan (Free Text) Assessment: ESRD on HD Anemia S?P cardiac arrest Anoxic encephalopathy Plan: For dialysis today after dialysis catheter is placed
[2017-04-23] MEDS ORDERED: Epoetin Alfa Dialysis 3000 UNIT/ML Inj IV SCH (10:45)
--- NOTE | 2017-04-23 15:34 | CP.CCUPN ---
CCU Subjective - Physician Review Events Since Last Encounter (Free Text): 04/23/17 15:33 the patient is comatose and barely responsive. CCU Objective - Vital Signs / Intake & Output Vital Signs (Last 4 hours): Vital Signs Pulse Resp BP Pulse Ox 04/23/17 13:01 62 13 139/83 100 04/23/17 13:00 64 12 100 04/23/17 12:01 69 15 146/75 100 04/23/17 12:00 69 15 100 Intake and Output (Last 8hrs): Intake & Output 04/23/17 04/23/17 04/23/17 06:59 14:59 22:59 Intake Total 370 200 Output Total 250 Balance 370 -50 Weight 134 lb 14.766 oz Intake: Intake, IV Amount 50 Left Proximal Port 50 Femoral Tube Feeding 320 200 Output: Stool 250 - Physical Exam Head: Positive for: Normocephalic. Negative for: Contusion Extroacular Muscles: Positive for: Gaze Palsy (up-gaze), Other (Horizontal Nystagmus) Mouth: Positive for: Moist Mucous Membranes Nose (External): Positive for: Atraumatic Neck: Positive for: Other (trach). Negative for: JVD, Lymphadenopathy Respiratory/Chest: Positive for: Good Air Exchange, Decreased Breath Sounds (B/L ), Rhonchi. Negative for: Clear to Auscultation, Respiratory Distress, Accessory Muscle Use, Rales Cardiovascular: Positive for: Regular Rate and Rhythm, Normal S1, S2, Peripheal Pulses Present. Negative for: Murmurs Abdomen: Positive for: Normal Bowel Sounds. Negative for: Distention Upper Extremity: Positive for: Normal Inspection, NORMAL PULSES, Other (L PICC) . Negative for: Cyanosis, Edema Lower Extremity: Positive for: Normal Inspection, NORMAL PULSES. Negative for: Edema Neurological: Positive for: Other (weak brainstem reflexes). Negative for: GCS= 15 Skin: Positive for: Warm, Dry, Pale. Negative for: Rashes, Normal Color - Medications Active Medications: Active Medications Generic Name Dose Route Start Last Admin Trade Name Freq PRN Reason Stop Dose Admin Epoetin Jaleel 3,000 unit 04/23/17 10:45 Procrit IV ONCE [facility] Ferrous Sulfate 300 mg 04/19/17 11:45 04/23/17 09:30 Feosol Liq PEG 300 mg BID [facility] Administration Heparin Sodium (Porcine) 5,000 units 04/16/17 10:00 04/23/17 09:30 Heparin SC 5,000 units Q12 [facility] Administration Piperacillin Sod/Tazobactam Sod 2.25 gm in 50 mls @ 100 mls/hr 04/17/17 06:00 04/23/17 13:06 Zosyn 2.25 Gm Iv Premix IVPB 100 mls/hr Q8H [facility] Administration Gentamicin Sulfate 80 mg/ 102 mls @ 100 mls/hr 04/20/17 19:13 04/22/17 10:16 Sodium Chloride IVPB 100 mls/hr TTS [facility] Administration Insulin Human Regular 0 unit 04/23/17 11:07 04/23/17 11:23 Novolin R SC 3 unit Q6 [facility] Administration Protocol Levetiracetam 500 mg 04/19/17 10:00 04/23/17 09:30 Keppra PO 500 mg BID [facility] Administration Nystatin 1 applic 04/17/17 10:00 04/23/17 09:31 Nystop Topical Powder TOP 1 applic BID [facility] Administration Pantoprazole Sodium 40 mg 04/19/17 11:00 04/23/17 09:30 Protonix Susp PEG 40 mg DAILY [facility] Administration - Patient Studies Lab Studies: Microbiology Studies 04/22/17 13:00 Blood Culture - Preliminary Blood-Thru Central Line NO GROWTH AFTER 24 HOURS 04/22/17 13:30 Blood Culture - Preliminary Blood-Thru Central Line NO GROWTH AFTER 24 HOURS 04/20/17 10:32 Blood Culture - Final Blood-During Dialysis Pseudomonas Aeruginosa Gram Stain - Final 04/20/17 10:00 Blood Culture - Final Blood-During Dialysis Pseudomonas Aeruginosa Gram Stain - Final Lab Studies 04/23/17 04/23/17 04/23/17 Range/Units 11:10 06:36 06:33 WBC 9.7 (4.8-10.8) K/uL RBC 2.63 L (4.40-5.90) Mil/uL Hgb 8.1 L (12.0-18.0) g/dL Hct 24.4 L (35.0-51.0) % MCV 92.8 (80.0-94.0) fL MCH 30.7 (27.0-31.0) pg MCHC 33.0 (33.0-37.0) g/dL RDW 15.7 H (11.5-14.5) % Plt Count 396 (130-400) K/uL MPV 7.5 (7.2-11.7) fL Neut % (Auto) 78.6 H (50.0-75.0) % Lymph % (Auto) 10.5 L (20.0-40.0) % [place] % (Auto) 7.7 (0.0-10.0) % Eos % (Auto) 2.9 (0.0-4.0) % Baso % (Auto) 0.3 (0.0-2.0) % Neut # 7.6 H (1.8-7.0) K/uL Lymph # 1.0 (1.0-4.3) K/uL [place] # 0.7 (0.0-0.8) K/uL Eos # 0.3 (0.0-0.7) K/uL Baso # 0.0 (0.0-0.2) K/uL Puncture Site pO2 (30-55) mm/Hg Edin Test VBG pH (7.32-7.43) VBG pCO2 (40-60) mmHg VBG HCO3 mmol/L VBG O2 Sat (Calc) (40-65) % VBG Base Excess (0.0-2.0) mmol/L Crit Value Called To Crit Value Called By Crit Value Read Back Blood Gas Notified Time Sodium 141 (132-148) mmol/L Potassium 3.5 L (3.6-5.2) mmol/L Chloride 104 (98-107) mmol/L Carbon Dioxide 24 (22-30) mmol/L Anion Gap 17 (10-20) BUN 52 H (9-20) mg/dL Creatinine 2.8 H (0.8-1.5) MG/DL Est GFR ( Amer) 27 Est GFR (Non-Af Amer) 23 POC Glucose (mg/dL) 230 H (65-110) mg/dL Random Glucose 298 H (75-110) mg/dL Calcium 8.8 (8.6-10.4) mg/dl Phosphorus 2.5 (2.5-4.5) mg/dL Total Bilirubin 0.5 (0.2-1.3) mg/dL AST 22 (17-59) U/L ALT 18 L (21-72) U/L Alkaline Phosphatase 254 H (38-126) U/L Total Protein 5.4 L (6.3-8.3) g/dL Albumin 2.2 L (3.5-5.0) g/dL Globulin 3.2 (2.2-3.9) gm/dL Albumin/Globulin Ratio 0.7 L (1.0-2.1) 04/23/17 04/23/17 04/23/17 Range/Units 06:08 05:57 02:50 WBC (4.8-10.8) K/uL RBC (4.40-5.90) Mil/uL Hgb (12.0-18.0) g/dL Hct (35.0-51.0) % MCV (80.0-94.0) fL MCH (27.0-31.0) pg MCHC (33.0-37.0) g/dL RDW (11.5-14.5) % Plt Count (130-400) K/uL MPV (7.2-11.7) fL Neut % (Auto) (50.0-75.0) % Lymph % (Auto) (20.0-40.0) % [place] % (Auto) (0.0-10.0) % Eos % (Auto) (0.0-4.0) % Baso % (Auto) (0.0-2.0) % Neut # (1.8-7.0) K/uL Lymph # (1.0-4.3) K/uL [place] # (0.0-0.8) K/uL Eos # (0.0-0.7) K/uL Baso # (0.0-0.2) K/uL Puncture Site Na pO2 42 (30-55) mm/Hg Edin Test Na VBG pH 7.39 (7.32-7.43) VBG pCO2 46 (40-60) mmHg VBG HCO3 26.1 mmol/L VBG O2 Sat (Calc) 82.9 H (40-65) % VBG Base Excess 2.2 H (0.0-2.0) mmol/L Crit Value Called To Jemma escalante rn Crit Value Called By Ester monk rt Crit Value Read Back Y Blood Gas Notified Time 610 Sodium (132-148) mmol/L Potassium (3.6-5.2) mmol/L Chloride (98-107) mmol/L Carbon Dioxide (22-30) mmol/L Anion Gap (10-20) BUN (9-20) mg/dL Creatinine (0.8-1.5) MG/DL Est GFR ( Amer) Est GFR (Non-Af Amer) POC Glucose (mg/dL) 418 H* 300 H (65-110) mg/dL Random Glucose (75-110) mg/dL Calcium (8.6-10.4) mg/dl Phosphorus (2.5-4.5) mg/dL Total Bilirubin (0.2-1.3) mg/dL AST (17-59) U/L ALT (21-72) U/L Alkaline Phosphatase (38-126) U/L Total Protein (6.3-8.3) g/dL Albumin (3.5-5.0) g/dL Globulin (2.2-3.9) gm/dL Albumin/Globulin Ratio (1.0-2.1) 04/22/17 04/22/17 Range/Units 23:49 17:52 WBC (4.8-10.8) K/uL RBC (4.40-5.90) Mil/uL Hgb (12.0-18.0) g/dL Hct (35.0-51.0) % MCV (80.0-94.0) fL MCH (27.0-31.0) pg MCHC (33.0-37.0) g/dL RDW (11.5-14.5) % Plt Count (130-400) K/uL MPV (7.2-11.7) fL Neut % (Auto) (50.0-75.0) % Lymph % (Auto) (20.0-40.0) % [place] % (Auto) (0.0-10.0) % Eos % (Auto) (0.0-4.0) % Baso % (Auto) (0.0-2.0) % Neut # (1.8-7.0) K/uL Lymph # (1.0-4.3) K/uL [place] # (0.0-0.8) K/uL Eos # (0.0-0.7) K/uL Baso # (0.0-0.2) K/uL Puncture Site pO2 (30-55) mm/Hg Edin Test VBG pH (7.32-7.43) VBG pCO2 (40-60) mmHg VBG HCO3 mmol/L VBG O2 Sat (Calc) (40-65) % VBG Base Excess (0.0-2.0) mmol/L Crit Value Called To Crit Value Called By Crit Value Read Back Blood Gas Notified Time Sodium (132-148) mmol/L Potassium (3.6-5.2) mmol/L Chloride (98-107) mmol/L Carbon Dioxide (22-30) mmol/L Anion Gap (10-20) BUN (9-20) mg/dL Creatinine (0.8-1.5) MG/DL Est GFR ( Amer) Est GFR (Non-Af Amer) POC Glucose (mg/dL) 274 H 212 H (65-110) mg/dL Random Glucose (75-110) mg/dL Calcium (8.6-10.4) mg/dl Phosphorus (2.5-4.5) mg/dL Total Bilirubin (0.2-1.3) mg/dL AST (17-59) U/L ALT (21-72) U/L Alkaline Phosphatase (38-126) U/L Total Protein (6.3-8.3) g/dL Albumin (3.5-5.0) g/dL Globulin (2.2-3.9) gm/dL Albumin/Globulin Ratio (1.0-2.1) Laboratory Results - last 24 hr 04/22/17 04/22/17 04/23/17 17:52 23:49 02:50 WBC RBC Hgb Hct MCV MCH MCHC RDW Plt Count MPV Neut % (Auto) Lymph % (Auto) [place] % (Auto) Eos % (Auto) Baso % (Auto) Neut # Lymph # [place] # Eos # Baso # Puncture Site pO2 Edin Test VBG pH VBG pCO2 VBG HCO3 VBG O2 Sat (Calc) VBG Base Excess Crit Value Called To Crit Value Called By Crit Value Read Back Blood Gas Notified Time Sodium Potassium Chloride Carbon Dioxide Anion Gap BUN Creatinine Est GFR ( Amer) Est GFR (Non-Af Amer) POC Glucose (mg/dL) 212 H 274 H 300 H Random Glucose Calcium Phosphorus Total Bilirubin AST ALT Alkaline Phosphatase Total Protein Albumin Globulin Albumin/Globulin Ratio 04/23/17 04/23/17 04/23/17 05:57 06:08 06:33 WBC RBC Hgb Hct MCV MCH MCHC RDW Plt Count MPV Neut % (Auto) Lymph % (Auto) [place] % (Auto) Eos % (Auto) Baso % (Auto) Neut # Lymph # [place] # Eos # Baso # Puncture Site Na pO2 42 Edin Test Na VBG pH 7.39 VBG pCO2 46 VBG HCO3 26.1 VBG O2 Sat (Calc) 82.9 H VBG Base Excess 2.2 H Crit Value Called To Jemma escalante rn Crit Value Called By Ester monk rt Crit Value Read Back Y Blood Gas Notified Time 610 Sodium 141 Potassium 3.5 L Chloride 104 Carbon Dioxide 24 Anion Gap 17 BUN 52 H Creatinine 2.8 H Est GFR ( Amer) 27 Est GFR (Non-Af Amer) 23 POC Glucose (mg/dL) 418 H* Random Glucose 298 H Calcium 8.8 Phosphorus 2.5 Total Bilirubin 0.5 AST 22 ALT 18 L Alkaline Phosphatase 254 H Total Protein 5.4 L Albumin 2.2 L Globulin 3.2 Albumin/Globulin Ratio 0.7 L 04/23/17 04/23/17 06:36 11:10 WBC 9.7 RBC 2.63 L Hgb 8.1 L Hct 24.4 L MCV 92.8 MCH 30.7 MCHC 33.0 RDW 15.7 H Plt Count 396 MPV 7.5 Neut % (Auto) 78.6 H Lymph % (Auto) 10.5 L [place] % (Auto) 7.7 Eos % (Auto) 2.9 Baso % (Auto) 0.3 Neut # 7.6 H Lymph # 1.0 [place] # 0.7 Eos # 0.3 Baso # 0.0 Puncture Site pO2 Edin Test VBG pH VBG pCO2 VBG HCO3 VBG O2 Sat (Calc) VBG Base Excess Crit Value Called To Crit Value Called By Crit Value Read Back Blood Gas Notified Time Sodium Potassium Chloride Carbon Dioxide Anion Gap BUN Creatinine Est GFR ( Amer) Est GFR (Non-Af Amer) POC Glucose (mg/dL) 230 H Random Glucose Calcium Phosphorus Total Bilirubin AST ALT Alkaline Phosphatase Total Protein Albumin Globulin Albumin/Globulin Ratio Fingerstick Blood Sugar Results: 230 Review of Systems - Review of Systems Systems not reviewed;Unavailable: Altered Mental Status Critical Care Progress Note - Ventilator Checklist Head of Bed 30 Degrees: Yes Daily Sedation Vacation: Yes Daily Assessment of Readiness to Wean: Yes Daily Spontaneous Breathing Trial: Yes PUD Prophalyxis: Yes DVT Prophylaxis: Yes Assessment/Plan (1) Anoxic brain injury Current Visit: Yes Status: Acute
[2017-04-23] MEDS ORDERED: Epoetin Alfa Dialysis 3000 UNIT/ML Inj SC ONE ×2 (15:41→17:45)
--- NOTE | 2017-04-23 15:46 | CP.PCM.PN ---
Subjective - Date & Time of Evaluation Date of Evaluation: 04/23/17 Time of Evaluation: 08:00 - Subjective Subjective: COMATOSE ON VENT REPEAT CULTURES ARE NEGATIVE THUS FAR ALL LKINES WERE CHANGED Objective - Vital Signs/Intake and Output Vital Signs (last 24 hours): Temp Pulse Resp BP Pulse Ox 95.1 F L 62 13 139/83 100 04/23/17 10:00 04/23/17 13:01 04/23/17 13:01 04/23/17 13:01 04/23/17 13:01 Intake and Output: 04/23/17 04/23/17 06:59 18:59 Intake Total 580 200 Output Total 250 Balance 580 -50 - Medications Medications: Current Medications Epoetin Jaleel (Procrit) 3,000 unit SC ONCE ONE Stop: 04/23/17 15:42 Ferrous Sulfate (Feosol Liq) 300 mg PEG BID [facility] Last Admin: 04/23/17 09:30 Dose: 300 mg Heparin Sodium (Porcine) (Heparin) 5,000 units SC Q12 [facility] Last Admin: 04/23/17 09:30 Dose: 5,000 units Piperacillin Sod/Tazobactam Sod (Zosyn 2.25 Gm Iv Premix) 2.25 gm in 50 mls @ 100 mls/hr IVPB Q8H [facility] Last Admin: 04/23/17 13:06 Dose: 100 mls/hr Gentamicin Sulfate 80 mg/ (Sodium Chloride) 102 mls @ 100 mls/hr IVPB TTS [facility] Last Admin: 04/22/17 10:16 Dose: 100 mls/hr Insulin Human Regular (Novolin R) 0 unit SC Q6 [facility] PRN Reason: Protocol Last Admin: 04/23/17 11:23 Dose: 3 unit Levetiracetam (Keppra) 500 mg PO BID [facility] Last Admin: 04/23/17 09:30 Dose: 500 mg Nystatin (Nystop Topical Powder) 1 applic TOP BID [facility] Last Admin: 04/23/17 09:31 Dose: 1 applic Pantoprazole Sodium (Protonix Susp) 40 mg PEG DAILY [facility] Last Admin: 04/23/17 09:30 Dose: 40 mg - Labs Labs: 04/23/17 06:36 04/23/17 06:33 PT 11.2 SECONDS (9.7-12.2) 04/20/17 06:29 INR 1.0 04/20/17 06:29 APTT 36 SECONDS (21-34) H 04/20/17 06:29 - Constitutional Appears: Cachectic, Chronically Ill - Head Exam Head Exam: NORMOCEPHALIC - Eye Exam Eye Exam: absent: Scleral icterus - ENT Exam ENT Exam: Mucous Membranes Dry - Neck Exam Neck Exam: absent: Lymphadenopathy - Respiratory Exam Respiratory Exam: Decreased Breath Sounds, Rhonchi - Cardiovascular Exam Cardiovascular Exam: REGULAR RHYTHM, +S1, +S2 - GI/Abdominal Exam GI & Abdominal Exam: Distended, Soft - Rectal Exam Rectal Exam: Deferred - Exam Exam: NORMAL INSPECTION - Extremities Exam Extremities Exam: absent: Calf Tenderness, Pedal Edema - Back Exam Back Exam: absent: CVA tenderness (L), CVA tenderness (R) - Neurological Exam Neurological Exam: Altered - Skin Skin Exam: Dry Assessment and Plan (1) Sepsis Status: Acute (2) Sepsis Status: Acute (3) Anoxic brain injury Status: Acute (4) Cardiac arrest Status: Acute (5) ESRD (end stage renal disease) Status: Acute (6) Pneumonia Status: Acute (7) Respiratory arrest Status: Acute - Assessment and Plan (Free Text) Plan: CONT IV RX FOR 14-21 DAYS
--- NOTE | 2017-04-23 15:46 | CP.CCUPN ---
CCU Subjective - Physician Review Events Since Last Encounter (Free Text): 04/23/17 15:45 patient is in a comatose state and showing no signs of improvement CCU Objective - Vital Signs / Intake & Output Vital Signs (Last 4 hours): Vital Signs Pulse Resp BP Pulse Ox 04/23/17 13:01 62 13 139/83 100 04/23/17 13:00 64 12 100 04/23/17 12:01 69 15 146/75 100 04/23/17 12:00 69 15 100 Intake and Output (Last 8hrs): Intake & Output 04/23/17 04/23/17 04/23/17 06:59 14:59 22:59 Intake Total 370 200 Output Total 250 Balance 370 -50 Weight 134 lb 14.766 oz Intake: Intake, IV Amount 50 Left Proximal Port 50 Femoral Tube Feeding 320 200 Output: Stool 250 - Physical Exam Head: Positive for: Normocephalic. Negative for: Contusion Extroacular Muscles: Positive for: Gaze Palsy (up-gaze), Other (Horizontal Nystagmus) Mouth: Positive for: Moist Mucous Membranes Nose (External): Positive for: Atraumatic Neck: Positive for: Other (trach). Negative for: JVD, Lymphadenopathy Respiratory/Chest: Positive for: Good Air Exchange, Decreased Breath Sounds (B/L ), Rhonchi. Negative for: Clear to Auscultation, Respiratory Distress, Accessory Muscle Use, Rales Cardiovascular: Positive for: Regular Rate and Rhythm, Normal S1, S2, Peripheal Pulses Present. Negative for: Murmurs Abdomen: Positive for: Normal Bowel Sounds. Negative for: Distention Upper Extremity: Positive for: Normal Inspection, NORMAL PULSES, Other (L PICC) . Negative for: Cyanosis, Edema Lower Extremity: Positive for: Normal Inspection, NORMAL PULSES. Negative for: Edema Neurological: Positive for: Other (weak brainstem reflexes). Negative for: GCS= 15 Skin: Positive for: Warm, Dry, Pale. Negative for: Rashes, Normal Color Other physical findings (Free Text): comatose - Medications Active Medications: Active Medications Generic Name Dose Route Start Last Admin Trade Name Freq PRN Reason Stop Dose Admin Epoetin Jaleel 3,000 unit 04/23/17 15:41 Procrit SC 04/23/17 15:42 ONCE ONE Ferrous Sulfate 300 mg 04/19/17 11:45 04/23/17 09:30 Feosol Liq PEG 300 mg BID JUVE Administration Heparin Sodium (Porcine) 5,000 units 04/16/17 10:00 04/23/17 09:30 Heparin SC 5,000 units Q12 JUVE Administration Piperacillin Sod/Tazobactam Sod 2.25 gm in 50 mls @ 100 mls/hr 04/17/17 06:00 04/23/17 13:06 Zosyn 2.25 Gm Iv Premix IVPB 100 mls/hr Q8H JUVE Administration Gentamicin Sulfate 80 mg/ 102 mls @ 100 mls/hr 04/20/17 19:13 04/22/17 10:16 Sodium Chloride IVPB 100 mls/hr TTS JUVE Administration Insulin Human Regular 0 unit 04/23/17 11:07 04/23/17 11:23 Novolin R SC 3 unit Q6 JUVE Administration Protocol Levetiracetam 500 mg 04/19/17 10:00 04/23/17 09:30 Keppra PO 500 mg BID JUVE Administration Nystatin 1 applic 04/17/17 10:00 04/23/17 09:31 Nystop Topical Powder TOP 1 applic BID JUVE Administration Pantoprazole Sodium 40 mg 04/19/17 11:00 04/23/17 09:30 Protonix Susp PEG 40 mg DAILY JUVE Administration - Patient Studies Lab Studies: Microbiology Studies 04/22/17 13:00 Blood Culture - Preliminary Blood-Thru Central Line NO GROWTH AFTER 24 HOURS 04/22/17 13:30 Blood Culture - Preliminary Blood-Thru Central Line NO GROWTH AFTER 24 HOURS 04/20/17 10:32 Blood Culture - Final Blood-During Dialysis Pseudomonas Aeruginosa Gram Stain - Final 04/20/17 10:00 Blood Culture - Final Blood-During Dialysis Pseudomonas Aeruginosa Gram Stain - Final Lab Studies 04/23/17 04/23/17 04/23/17 Range/Units 11:10 06:36 06:33 WBC 9.7 (4.8-10.8) K/uL RBC 2.63 L (4.40-5.90) Mil/uL Hgb 8.1 L (12.0-18.0) g/dL Hct 24.4 L (35.0-51.0) % MCV 92.8 (80.0-94.0) fL MCH 30.7 (27.0-31.0) pg MCHC 33.0 (33.0-37.0) g/dL RDW 15.7 H (11.5-14.5) % Plt Count 396 (130-400) K/uL MPV 7.5 (7.2-11.7) fL Neut % (Auto) 78.6 H (50.0-75.0) % Lymph % (Auto) 10.5 L (20.0-40.0) % [place] % (Auto) 7.7 (0.0-10.0) % Eos % (Auto) 2.9 (0.0-4.0) % Baso % (Auto) 0.3 (0.0-2.0) % Neut # 7.6 H (1.8-7.0) K/uL Lymph # 1.0 (1.0-4.3) K/uL [place] # 0.7 (0.0-0.8) K/uL Eos # 0.3 (0.0-0.7) K/uL Baso # 0.0 (0.0-0.2) K/uL Puncture Site pO2 (30-55) mm/Hg Edin Test VBG pH (7.32-7.43) VBG pCO2 (40-60) mmHg VBG HCO3 mmol/L VBG O2 Sat (Calc) (40-65) % VBG Base Excess (0.0-2.0) mmol/L Crit Value Called To Crit Value Called By Crit Value Read Back Blood Gas Notified Time Sodium 141 (132-148) mmol/L Potassium 3.5 L (3.6-5.2) mmol/L Chloride 104 (98-107) mmol/L Carbon Dioxide 24 (22-30) mmol/L Anion Gap 17 (10-20) BUN 52 H (9-20) mg/dL Creatinine 2.8 H (0.8-1.5) MG/DL Est GFR ( Amer) 27 Est GFR (Non-Af Amer) 23 POC Glucose (mg/dL) 230 H (65-110) mg/dL Random Glucose 298 H (75-110) mg/dL Calcium 8.8 (8.6-10.4) mg/dl Phosphorus 2.5 (2.5-4.5) mg/dL Total Bilirubin 0.5 (0.2-1.3) mg/dL AST 22 (17-59) U/L ALT 18 L (21-72) U/L Alkaline Phosphatase 254 H (38-126) U/L Total Protein 5.4 L (6.3-8.3) g/dL Albumin 2.2 L (3.5-5.0) g/dL Globulin 3.2 (2.2-3.9) gm/dL Albumin/Globulin Ratio 0.7 L (1.0-2.1) 04/23/17 04/23/17 04/23/17 Range/Units 06:08 05:57 02:50 WBC (4.8-10.8) K/uL RBC (4.40-5.90) Mil/uL Hgb (12.0-18.0) g/dL Hct (35.0-51.0) % MCV (80.0-94.0) fL MCH (27.0-31.0) pg MCHC (33.0-37.0) g/dL RDW (11.5-14.5) % Plt Count (130-400) K/uL MPV (7.2-11.7) fL Neut % (Auto) (50.0-75.0) % Lymph % (Auto) (20.0-40.0) % [place] % (Auto) (0.0-10.0) % Eos % (Auto) (0.0-4.0) % Baso % (Auto) (0.0-2.0) % Neut # (1.8-7.0) K/uL Lymph # (1.0-4.3) K/uL Whiteside # (0.0-0.8) K/uL Eos # (0.0-0.7) K/uL Baso # (0.0-0.2) K/uL Puncture Site Na pO2 42 (30-55) mm/Hg Edin Test Na VBG pH 7.39 (7.32-7.43) VBG pCO2 46 (40-60) mmHg VBG HCO3 26.1 mmol/L VBG O2 Sat (Calc) 82.9 H (40-65) % VBG Base Excess 2.2 H (0.0-2.0) mmol/L Crit Value Called To Jemma escalante rn Crit Value Called By Ester monk rt Crit Value Read Back Y Blood Gas Notified Time 610 Sodium (132-148) mmol/L Potassium (3.6-5.2) mmol/L Chloride (98-107) mmol/L Carbon Dioxide (22-30) mmol/L Anion Gap (10-20) BUN (9-20) mg/dL Creatinine (0.8-1.5) MG/DL Est GFR ( Amer) Est GFR (Non-Af Amer) POC Glucose (mg/dL) 418 H* 300 H (65-110) mg/dL Random Glucose (75-110) mg/dL Calcium (8.6-10.4) mg/dl Phosphorus (2.5-4.5) mg/dL Total Bilirubin (0.2-1.3) mg/dL AST (17-59) U/L ALT (21-72) U/L Alkaline Phosphatase (38-126) U/L Total Protein (6.3-8.3) g/dL Albumin (3.5-5.0) g/dL Globulin (2.2-3.9) gm/dL Albumin/Globulin Ratio (1.0-2.1) 04/22/17 04/22/17 Range/Units 23:49 17:52 WBC (4.8-10.8) K/uL RBC (4.40-5.90) Mil/uL Hgb (12.0-18.0) g/dL Hct (35.0-51.0) % MCV (80.0-94.0) fL MCH (27.0-31.0) pg MCHC (33.0-37.0) g/dL RDW (11.5-14.5) % Plt Count (130-400) K/uL MPV (7.2-11.7) fL Neut % (Auto) (50.0-75.0) % Lymph % (Auto) (20.0-40.0) % [place] % (Auto) (0.0-10.0) % Eos % (Auto) (0.0-4.0) % Baso % (Auto) (0.0-2.0) % Neut # (1.8-7.0) K/uL Lymph # (1.0-4.3) K/uL Whiteside # (0.0-0.8) K/uL Eos # (0.0-0.7) K/uL Baso # (0.0-0.2) K/uL Puncture Site pO2 (30-55) mm/Hg Edin Test VBG pH (7.32-7.43) VBG pCO2 (40-60) mmHg VBG HCO3 mmol/L VBG O2 Sat (Calc) (40-65) % VBG Base Excess (0.0-2.0) mmol/L Crit Value Called To Crit Value Called By Crit Value Read Back Blood Gas Notified Time Sodium (132-148) mmol/L Potassium (3.6-5.2) mmol/L Chloride (98-107) mmol/L Carbon Dioxide (22-30) mmol/L Anion Gap (10-20) BUN (9-20) mg/dL Creatinine (0.8-1.5) MG/DL Est GFR ( Amer) Est GFR (Non-Af Amer) POC Glucose (mg/dL) 274 H 212 H (65-110) mg/dL Random Glucose (75-110) mg/dL Calcium (8.6-10.4) mg/dl Phosphorus (2.5-4.5) mg/dL Total Bilirubin (0.2-1.3) mg/dL AST (17-59) U/L ALT (21-72) U/L Alkaline Phosphatase (38-126) U/L Total Protein (6.3-8.3) g/dL Albumin (3.5-5.0) g/dL Globulin (2.2-3.9) gm/dL Albumin/Globulin Ratio (1.0-2.1) Laboratory Results - last 24 hr 04/22/17 04/22/17 04/23/17 17:52 23:49 02:50 WBC RBC Hgb Hct MCV MCH MCHC RDW Plt Count MPV Neut % (Auto) Lymph % (Auto) [place] % (Auto) Eos % (Auto) Baso % (Auto) Neut # Lymph # Whiteside # Eos # Baso # Puncture Site pO2 Edin Test VBG pH VBG pCO2 VBG HCO3 VBG O2 Sat (Calc) VBG Base Excess Crit Value Called To Crit Value Called By Crit Value Read Back Blood Gas Notified Time Sodium Potassium Chloride Carbon Dioxide Anion Gap BUN Creatinine Est GFR ( Amer) Est GFR (Non-Af Amer) POC Glucose (mg/dL) 212 H 274 H 300 H Random Glucose Calcium Phosphorus Total Bilirubin AST ALT Alkaline Phosphatase Total Protein Albumin Globulin Albumin/Globulin Ratio 04/23/17 04/23/17 04/23/17 05:57 06:08 06:33 WBC RBC Hgb Hct MCV MCH MCHC RDW Plt Count MPV Neut % (Auto) Lymph % (Auto) [place] % (Auto) Eos % (Auto) Baso % (Auto) Neut # Lymph # [place] # Eos # Baso # Puncture Site Na pO2 42 Edin Test Na VBG pH 7.39 VBG pCO2 46 VBG HCO3 26.1 VBG O2 Sat (Calc) 82.9 H VBG Base Excess 2.2 H Crit Value Called To Jemma escalante rn Crit Value Called By Ester monk rt Crit Value Read Back Y Blood Gas Notified Time 610 Sodium 141 Potassium 3.5 L Chloride 104 Carbon Dioxide 24 Anion Gap 17 BUN 52 H Creatinine 2.8 H Est GFR ( Amer) 27 Est GFR (Non-Af Amer) 23 POC Glucose (mg/dL) 418 H* Random Glucose 298 H Calcium 8.8 Phosphorus 2.5 Total Bilirubin 0.5 AST 22 ALT 18 L Alkaline Phosphatase 254 H Total Protein 5.4 L Albumin 2.2 L Globulin 3.2 Albumin/Globulin Ratio 0.7 L 04/23/17 04/23/17 06:36 11:10 WBC 9.7 RBC 2.63 L Hgb 8.1 L Hct 24.4 L MCV 92.8 MCH 30.7 MCHC 33.0 RDW 15.7 H Plt Count 396 MPV 7.5 Neut % (Auto) 78.6 H Lymph % (Auto) 10.5 L [place] % (Auto) 7.7 Eos % (Auto) 2.9 Baso % (Auto) 0.3 Neut # 7.6 H Lymph # 1.0 Whiteside # 0.7 Eos # 0.3 Baso # 0.0 Puncture Site pO2 Edin Test VBG pH VBG pCO2 VBG HCO3 VBG O2 Sat (Calc) VBG Base Excess Crit Value Called To Crit Value Called By Crit Value Read Back Blood Gas Notified Time Sodium Potassium Chloride Carbon Dioxide Anion Gap BUN Creatinine Est GFR ( Amer) Est GFR (Non-Af Amer) POC Glucose (mg/dL) 230 H Random Glucose Calcium Phosphorus Total Bilirubin AST ALT Alkaline Phosphatase Total Protein Albumin Globulin Albumin/Globulin Ratio Fingerstick Blood Sugar Results: 230 Review of Systems - Review of Systems Systems not reviewed;Unavailable: Altered Mental Status Critical Care Progress Note - Ventilator Checklist Head of Bed 30 Degrees: Yes Daily Sedation Vacation: Yes Daily Assessment of Readiness to Wean: Yes Daily Spontaneous Breathing Trial: Yes PUD Prophalyxis: Yes DVT Prophylaxis: Yes Assessment/Plan (1) Anoxic brain injury Assessment and plan: 71-year-old male past medical history of end-stage renal disease on hemodialysis , bed bound for over 2 years, intermediate resident, hypertension. Presented status post cardiac arrest with successful ROSC. Patient has suffered anoxic injury. Neuro: Anoxic injury, and comatose state. Pulm: Acute respiratory failure, now with trach on vent. CV: Hemodynamically stable Hem: Anemia of chronic disease Renal: End stage renal disease on hemodialysis. Patient needs new permacath placed, awaiting blood cultures to be negative. Endo: No acute issues GI: Nothing by mouth, PEG in place, Novasource Renal tube feeds at goal. ID: Severe sepsis from Pseudomonas, from multiple sources. Continue gentamicin and Zosyn. ID consulted. DVT proph - heparin subcutaneous GI proph - Protonix titus for strict I/O's during acute illness Code status - full code Crtical Care Time spent 35 minutes Multi-disciplinary rounds were performed with house staff, nursing, speech therapy, respiratory therapy, pharmacy and nutrition with integrated input from the primary team/attending and other consulting services. The documented time is cumulative and includes review of patient data/exams/labs/chart review and examination of the patient on rounds and throughout the day; time is exclusive of any procedures or teaching time. Current Visit: Yes Status: Acute
[2017-04-24] MEDS: Piperacill/Tazo 2.25gm in Dex 2.25 GM/50 ML BAG IVPB SCH ×3 (05:11→21:00)
[2017-04-24 06:58] LABS: BASO # 0.1 K/uL (0.0-0.2); BASO % 0.6 % (0.0-2.0); EOS # 0.3 K/uL (0.0-0.7); EOS % 2.7 % (0.0-4.0); HEMATOCRIT 26.1 % (35.0-51.0); LYMPH # 1.4 K/uL (1.0-4.3); LYMPH % 11.2 % (20.0-40.0); MEAN CELL VOLUME 92.2 fL (80.0-94.0); MEAN CORPUSCULAR HEMOGLOBIN 30.2 pg (27.0-31.0); MEAN CORPUSCULAR HGB CONC 32.8 g/dL (33.0-37.0); MEAN PLATELET VOLUME 7.8 fL (7.2-11.7); MONO # 0.8 K/uL (0.0-0.8); MONO % 6.2 % (0.0-10.0); RED CELL DISTRIBUTION WIDTH 15.8 % (11.5-14.5); WHITE BLOOD COUNT 12.7 K/uL (4.8-10.8)
[2017-04-24] MEDS: (Novolin R) Insulin Human Regular 100 units/ml vial SC SCH ×4 (07:00→18:47)
[2017-04-24 07:14] LABS: ALB/GLOB RATIO 0.7 (1.0-2.1); BILIRUBIN,TOTAL 0.5 mg/dL (0.2-1.3); PHOSPHOROUS 2.3 mg/dL (2.5-4.5); TOTAL PROTEIN 5.9 g/dL (6.3-8.3)
[2017-04-24 07:15] LABS: CALCIUM 9.2 mg/dl (8.6-10.4); MAGNESIUM 2.4 mg/dL (1.6-2.3)
[2017-04-24] MEDS: Pantoprazole 40 mg Susp UD PEG SCH (10:58)
[2017-04-24] MEDS: Ferrous Sulfate 300 mg/5 mL Liq UD PEG SCH ×2 (10:58→17:59)
[2017-04-24] MEDS ORDERED: Potassium Chloride 20 mEq/15 ml LIQ UD PO ONE (13:00)
--- NOTE | 2017-04-24 13:41 | CP.PCM.CON ---
History of Present Illness - History of Present Illness History of Present Illness: CONSULT NOTE FOR DR. WHATLEY 71M with history of CKD. Consulted for Placement of Dialysis catheter. PMH: ESRD Surgical: Unknown Family: Unknown Allergy: Nuts, sulfonamides, tetanus toxoid Past Patient History - Past Medical History & Family History Past Medical History?: Yes - Past Social History Smoking Status: Never Smoked - CARDIAC Hx Congestive Heart Failure: Yes Hx Hypertension: Yes Hx Peripheral Edema: Yes - PULMONARY Hx Respiratory Disorders: Yes Hx Asthma: Yes Hx Bronchitis: Yes Hx Pneumonia: Yes Hx Pulmonary Edema: Yes Hx Respiratory Tract Infection: Yes - NEUROLOGICAL Hx Transient Ischemic Attacks (TIA): Yes Other/Comment: 2 instances of tumors on his - 2 years old, 70 years old - HEENT Hx Blind: Yes Hx Cataracts: Yes (Removed) Hx Glaucoma: Yes Hx Macular Degeneration: No - RENAL Date of Last Dialysis Treatment: 04/15/17 - ENDOCRINE/METABOLIC Hx Diabetes Mellitus Type 2: Yes Other/Comment: Half thyroid removed, 1975, no medication for it - HEMATOLOGICAL/ONCOLOGICAL Hx Anemia: Yes Hx Blood Transfusions: Yes Hx Cancer: Yes Hx Shingles: Yes - INTEGUMENTARY Hx Melanoma: Yes Other/Comment: Skin breakdown on saccral area, and heels - MUSCULOSKELETAL/RHEUMATOLOGICAL Hx Arthritis: Yes (Hands) Hx Falls: Yes Hx Osteoarthritis: Yes - GASTROINTESTINAL Hx Constipation: Yes Hx Gastritis: Yes Hx Pancreatitis: Yes HX Swallowing Problems: Yes Hx Ulcer: Yes - GENITOURINARY/GYNECOLOGICAL Hx Incontinence: Yes - PSYCHIATRIC Hx Substance Use: No - SURGICAL HISTORY Hx Cataract Extraction: Yes (1999) Hx Herniorrhaphy: Yes (2009) Hx Pulmonary Surgery: Yes (2010 - pleuralcentesis) Hx Thyroidectomy: Yes (1975) Hx Tonsillectomy: Yes - ANESTHESIA Hx Anesthesia Reactions: Yes Meds Allergies/Adverse Reactions: Allergies Allergy/AdvReac Type Severity Reaction Status Date / Time nut - unspecified Allergy Verified 04/15/17 15:52 Sulfa (Sulfonamide Allergy Verified 04/15/17 15:52 Antibiotics) tetanus toxoid, adsorbed Allergy Verified 04/15/17 15:52 - Medications Medications: Current Medications Ferrous Sulfate (Feosol Liq) 300 mg PEG BID [facility] Last Admin: 04/24/17 10:58 Dose: 300 mg Heparin Sodium (Porcine) (Heparin) 5,000 units SC Q12 JUVE Last Admin: 04/24/17 10:58 Dose: 5,000 units Piperacillin Sod/Tazobactam Sod (Zosyn 2.25 Gm Iv Premix) 2.25 gm in 50 mls @ 100 mls/hr IVPB Q8H [facility] Last Admin: 04/24/17 13:39 Dose: 100 mls/hr Gentamicin Sulfate 80 mg/ (Sodium Chloride) 102 mls @ 100 mls/hr IVPB TTS [facility] Last Admin: 04/24/17 10:59 Dose: 100 mls/hr Insulin Human Regular (Novolin R) 0 unit SC Q6 [facility] PRN Reason: Protocol Last Admin: 04/24/17 12:57 Dose: 4 unit Levetiracetam (Keppra) 500 mg PO BID [facility] Last Admin: 04/24/17 10:58 Dose: 500 mg Nystatin (Nystop Topical Powder) 1 applic TOP BID [facility] Last Admin: 04/24/17 11:14 Dose: 1 applic Pantoprazole Sodium (Protonix Susp) 40 mg PEG DAILY [facility] Last Admin: 04/24/17 10:58 Dose: 40 mg Physical Exam - Respiratory Exam Respiratory Exam: Clear to Auscultation Bilateral, NORMAL BREATHING PATTERN - Cardiovascular Exam Cardiovascular Exam: REGULAR RHYTHM, +S1, +S2 - Skin Skin Exam: Dry, Intact, Normal Color, Warm Results - Vital Signs Recent Vital Signs: Last Vital Signs Temp 96.8 F L 04/24/17 08:00 Pulse 62 04/24/17 10:01 Resp 14 04/24/17 10:01 BP 104/56 L 04/24/17 10:01 Pulse Ox 100 04/24/17 10:01 - Labs Result Diagrams: 04/24/17 06:52 04/24/17 06:52 Labs: Laboratory Results - last 24 hr 04/23/17 04/23/17 04/24/17 17:43 23:55 06:27 WBC RBC Hgb Hct MCV MCH MCHC RDW Plt Count MPV Neut % (Auto) Lymph % (Auto) [place] % (Auto) Eos % (Auto) Baso % (Auto) Neut # Lymph # [place] # Eos # Baso # Sodium Potassium Chloride Carbon Dioxide Anion Gap BUN Creatinine Est GFR ( Amer) Est GFR (Non-Af Amer) POC Glucose (mg/dL) 180 H 237 H 299 H Random Glucose Calcium Phosphorus Magnesium Total Bilirubin AST ALT Alkaline Phosphatase Total Protein Albumin Globulin Albumin/Globulin Ratio 04/24/17 04/24/17 04/24/17 06:52 06:52 12:39 WBC 12.7 H RBC 2.83 L Hgb 8.6 L Hct 26.1 L MCV 92.2 MCH 30.2 MCHC 32.8 L RDW 15.8 H Plt Count 439 H MPV 7.8 Neut % (Auto) 79.3 H Lymph % (Auto) 11.2 L [place] % (Auto) 6.2 Eos % (Auto) 2.7 Baso % (Auto) 0.6 Neut # 10.0 H Lymph # 1.4 [place]field # 0.8 Eos # 0.3 Baso # 0.1 Sodium 144 Potassium 3.0 L Chloride 106 Carbon Dioxide 25 Anion Gap 16 BUN 60 H Creatinine 3.3 H Est GFR ( Amer) 23 Est GFR (Non-Af Amer) 19 POC Glucose (mg/dL) 250 H Random Glucose 267 H Calcium 9.2 Phosphorus 2.3 L Magnesium 2.4 H Total Bilirubin 0.5 AST 28 ALT 18 L Alkaline Phosphatase 271 H Total Protein 5.9 L Albumin 2.4 L Globulin 3.5 Albumin/Globulin Ratio 0.7 L Assessment & Plan - Assessment and Plan (Free Text) Assessment: 71M with ESRD - Plan for permacath Wednesday Discussed with Dr Franco Marshall, PGY1
--- NOTE | 2017-04-24 16:20 | CP.CCUPN ---
CCU Subjective - Physician Review Events Since Last Encounter (Free Text): 04/24/17 16:16 patient still comatose, no clinical improvement. CCU Objective - Vital Signs / Intake & Output Vital Signs (Last 4 hours): Vital Signs Pulse Resp BP 04/24/17 13:01 64 13 166/67 H Intake and Output (Last 8hrs): Intake & Output 04/24/17 04/24/17 04/24/17 06:59 14:59 22:59 Intake Total 370 590 Output Total 1000 Balance 370 -410 Weight 140 lb Intake: Intake, IV Amount 50 150 Left Proximal Port 50 150 Femoral Tube Feeding 320 280 Other 160 Output: Stool 1000 - Physical Exam Head: Positive for: Normocephalic. Negative for: Contusion Extroacular Muscles: Positive for: Gaze Palsy (up-gaze), Other (Horizontal Nystagmus) Mouth: Positive for: Moist Mucous Membranes Nose (External): Positive for: Atraumatic Neck: Positive for: Other (trach). Negative for: JVD, Lymphadenopathy Respiratory/Chest: Positive for: Good Air Exchange, Decreased Breath Sounds (B/L ), Rhonchi. Negative for: Clear to Auscultation, Respiratory Distress, Accessory Muscle Use, Rales Cardiovascular: Positive for: Regular Rate and Rhythm, Normal S1, S2, Peripheal Pulses Present. Negative for: Murmurs Abdomen: Positive for: Normal Bowel Sounds. Negative for: Distention Upper Extremity: Positive for: Normal Inspection, NORMAL PULSES, Other (L PICC) . Negative for: Cyanosis, Edema Lower Extremity: Positive for: Normal Inspection, NORMAL PULSES. Negative for: Edema Neurological: Positive for: Other (weak brainstem reflexes). Negative for: GCS= 15 Skin: Positive for: Warm, Dry, Pale. Negative for: Rashes, Normal Color - Medications Active Medications: Active Medications Generic Name Dose Route Start Last Admin Trade Name Freq PRN Reason Stop Dose Admin Ferrous Sulfate 300 mg 04/19/17 11:45 04/24/17 10:58 Feosol Liq PEG 300 mg BID JUVE Administration Heparin Sodium (Porcine) 5,000 units 04/16/17 10:00 04/24/17 10:58 Heparin SC 5,000 units Q12 JUVE Administration Piperacillin Sod/Tazobactam Sod 2.25 gm in 50 mls @ 100 mls/hr 04/17/17 06:00 04/24/17 13:39 Zosyn 2.25 Gm Iv Premix IVPB 100 mls/hr Q8H JUVE Administration Gentamicin Sulfate 80 mg/ 102 mls @ 100 mls/hr 04/20/17 19:13 04/24/17 10:59 Sodium Chloride IVPB 100 mls/hr TTS JUVE Administration Insulin Human Regular 0 unit 04/23/17 11:07 04/24/17 12:57 Novolin R SC 4 unit Q6 JUVE Administration Protocol Levetiracetam 500 mg 04/19/17 10:00 04/24/17 10:58 Keppra PO 500 mg BID JUVE Administration Nystatin 1 applic 04/17/17 10:00 04/24/17 11:14 Nystop Topical Powder TOP 1 applic BID JUVE Administration Pantoprazole Sodium 40 mg 04/19/17 11:00 04/24/17 10:58 Protonix Susp PEG 40 mg DAILY JUVE Administration - Patient Studies Lab Studies: Microbiology Studies 04/22/17 13:00 Blood Culture - Preliminary Blood-Thru Central Line NO GROWTH AFTER 48 HOURS 04/22/17 13:30 Blood Culture - Preliminary Blood-Thru Central Line NO GROWTH AFTER 48 HOURS Lab Studies 04/24/17 04/24/17 04/24/17 Range/Units 12:39 06:52 06:52 WBC 12.7 H (4.8-10.8) K/uL RBC 2.83 L (4.40-5.90) Mil/uL Hgb 8.6 L (12.0-18.0) g/dL Hct 26.1 L (35.0-51.0) % MCV 92.2 (80.0-94.0) fL MCH 30.2 (27.0-31.0) pg MCHC 32.8 L (33.0-37.0) g/dL RDW 15.8 H (11.5-14.5) % Plt Count 439 H (130-400) K/uL MPV 7.8 (7.2-11.7) fL Neut % (Auto) 79.3 H (50.0-75.0) % Lymph % (Auto) 11.2 L (20.0-40.0) % Dillon % (Auto) 6.2 (0.0-10.0) % Eos % (Auto) 2.7 (0.0-4.0) % Baso % (Auto) 0.6 (0.0-2.0) % Neut # 10.0 H (1.8-7.0) K/uL Lymph # 1.4 (1.0-4.3) K/uL Dillon # 0.8 (0.0-0.8) K/uL Eos # 0.3 (0.0-0.7) K/uL Baso # 0.1 (0.0-0.2) K/uL Sodium 144 (132-148) mmol/L Potassium 3.0 L (3.6-5.2) mmol/L Chloride 106 (98-107) mmol/L Carbon Dioxide 25 (22-30) mmol/L Anion Gap 16 (10-20) BUN 60 H (9-20) mg/dL Creatinine 3.3 H (0.8-1.5) MG/DL Est GFR ( Amer) 23 Est GFR (Non-Af Amer) 19 POC Glucose (mg/dL) 250 H (65-110) mg/dL Random Glucose 267 H (75-110) mg/dL Calcium 9.2 (8.6-10.4) mg/dl Phosphorus 2.3 L (2.5-4.5) mg/dL Magnesium 2.4 H (1.6-2.3) mg/dL Total Bilirubin 0.5 (0.2-1.3) mg/dL AST 28 (17-59) U/L ALT 18 L (21-72) U/L Alkaline Phosphatase 271 H (38-126) U/L Total Protein 5.9 L (6.3-8.3) g/dL Albumin 2.4 L (3.5-5.0) g/dL Globulin 3.5 (2.2-3.9) gm/dL Albumin/Globulin Ratio 0.7 L (1.0-2.1) 04/24/17 04/23/17 04/23/17 Range/Units 06:27 23:55 17:43 WBC (4.8-10.8) K/uL RBC (4.40-5.90) Mil/uL Hgb (12.0-18.0) g/dL Hct (35.0-51.0) % MCV (80.0-94.0) fL MCH (27.0-31.0) pg MCHC (33.0-37.0) g/dL RDW (11.5-14.5) % Plt Count (130-400) K/uL MPV (7.2-11.7) fL Neut % (Auto) (50.0-75.0) % Lymph % (Auto) (20.0-40.0) % Dillon % (Auto) (0.0-10.0) % Eos % (Auto) (0.0-4.0) % Baso % (Auto) (0.0-2.0) % Neut # (1.8-7.0) K/uL Lymph # (1.0-4.3) K/uL Dillon # (0.0-0.8) K/uL Eos # (0.0-0.7) K/uL Baso # (0.0-0.2) K/uL Sodium (132-148) mmol/L Potassium (3.6-5.2) mmol/L Chloride (98-107) mmol/L Carbon Dioxide (22-30) mmol/L Anion Gap (10-20) BUN (9-20) mg/dL Creatinine (0.8-1.5) MG/DL Est GFR ( Amer) Est GFR (Non-Af Amer) POC Glucose (mg/dL) 299 H 237 H 180 H (65-110) mg/dL Random Glucose (75-110) mg/dL Calcium (8.6-10.4) mg/dl Phosphorus (2.5-4.5) mg/dL Magnesium (1.6-2.3) mg/dL Total Bilirubin (0.2-1.3) mg/dL AST (17-59) U/L ALT (21-72) U/L Alkaline Phosphatase (38-126) U/L Total Protein (6.3-8.3) g/dL Albumin (3.5-5.0) g/dL Globulin (2.2-3.9) gm/dL Albumin/Globulin Ratio (1.0-2.1) Laboratory Results - last 24 hr 04/23/17 04/23/17 04/24/17 17:43 23:55 06:27 WBC RBC Hgb Hct MCV MCH MCHC RDW Plt Count MPV Neut % (Auto) Lymph % (Auto) Dillon % (Auto) Eos % (Auto) Baso % (Auto) Neut # Lymph # Dillon # Eos # Baso # Sodium Potassium Chloride Carbon Dioxide Anion Gap BUN Creatinine Est GFR ( Amer) Est GFR (Non-Af Amer) POC Glucose (mg/dL) 180 H 237 H 299 H Random Glucose Calcium Phosphorus Magnesium Total Bilirubin AST ALT Alkaline Phosphatase Total Protein Albumin Globulin Albumin/Globulin Ratio 04/24/17 04/24/17 04/24/17 06:52 06:52 12:39 WBC 12.7 H RBC 2.83 L Hgb 8.6 L Hct 26.1 L MCV 92.2 MCH 30.2 MCHC 32.8 L RDW 15.8 H Plt Count 439 H MPV 7.8 Neut % (Auto) 79.3 H Lymph % (Auto) 11.2 L Dillon % (Auto) 6.2 Eos % (Auto) 2.7 Baso % (Auto) 0.6 Neut # 10.0 H Lymph # 1.4 Dillon # 0.8 Eos # 0.3 Baso # 0.1 Sodium 144 Potassium 3.0 L Chloride 106 Carbon Dioxide 25 Anion Gap 16 BUN 60 H Creatinine 3.3 H Est GFR ( Amer) 23 Est GFR (Non-Af Amer) 19 POC Glucose (mg/dL) 250 H Random Glucose 267 H Calcium 9.2 Phosphorus 2.3 L Magnesium 2.4 H Total Bilirubin 0.5 AST 28 ALT 18 L Alkaline Phosphatase 271 H Total Protein 5.9 L Albumin 2.4 L Globulin 3.5 Albumin/Globulin Ratio 0.7 L Fingerstick Blood Sugar Results: 250 Review of Systems - Review of Systems Systems not reviewed;Unavailable: Altered Mental Status Critical Care Progress Note - Ventilator Checklist Head of Bed 30 Degrees: Yes Daily Sedation Vacation: No (no sedation) Daily Assessment of Readiness to Wean: Yes Daily Spontaneous Breathing Trial: No PUD Prophalyxis: Yes DVT Prophylaxis: Yes Assessment/Plan (1) Anoxic brain injury Assessment and plan: 71-year-old male past medical history of end-stage renal disease on hemodialysis , bed bound for over 2 years, group home resident, hypertension. Presented status post cardiac arrest with successful ROSC. Patient has suffered anoxic injury. Neuro: Anoxic injury, and comatose state. Pulm: Acute respiratory failure, now with trach on vent. CV: Hemodynamically stable Hem: Anemia of chronic disease Renal: End stage renal disease on hemodialysis. blood cultures negative, awaiting permacath placement by surgery on Wednesday. Endo: No acute issues GI: Nothing by mouth, PEG in place, Novasource Renal tube feeds at goal. ID: Severe sepsis from Pseudomonas, from multiple sources. Continue gentamicin and Zosyn. ID consulted. DVT proph - heparin subcutaneous GI proph - Protonix titus for strict I/O's during acute illness Code status - full code Poor prognosis, with no meaningful recovery, family member, sister is not reasonable and possibly malingering. Crtical Care Time spent 35 minutes Multi-disciplinary rounds were performed with house staff, nursing, speech therapy, respiratory therapy, pharmacy and nutrition with integrated input from the primary team/attending and other consulting services. The documented time is cumulative and includes review of patient data/exams/labs/chart review and examination of the patient on rounds and throughout the day; time is exclusive of any procedures or teaching time. Current Visit: Yes Status: Acute
--- NOTE | 2017-04-24 16:35 | CP.PCM.PN ---
Subjective - Date & Time of Evaluation Date of Evaluation: 04/24/17 Time of Evaluation: 05:00 - Subjective Subjective: Remains unresponsiveOn ventilator support Objective - Vital Signs/Intake and Output Vital Signs (last 24 hours): Temp Pulse Resp BP Pulse Ox 96.2 F L 59 L 12 122/62 100 04/24/17 16:00 04/24/17 16:01 04/24/17 16:01 04/24/17 16:01 04/24/17 16:01 Intake and Output: 04/24/17 04/24/17 06:59 18:59 Intake Total 580 710 Output Total 1000 Balance 580 -290 - Medications Medications: Current Medications Ferrous Sulfate (Feosol Liq) 300 mg PEG BID [facility] Last Admin: 04/24/17 10:58 Dose: 300 mg Heparin Sodium (Porcine) (Heparin) 5,000 units SC Q12 [facility] Last Admin: 04/24/17 10:58 Dose: 5,000 units Piperacillin Sod/Tazobactam Sod (Zosyn 2.25 Gm Iv Premix) 2.25 gm in 50 mls @ 100 mls/hr IVPB Q8H [facility] Last Admin: 04/24/17 13:39 Dose: 100 mls/hr Gentamicin Sulfate 80 mg/ (Sodium Chloride) 102 mls @ 100 mls/hr IVPB TTS [facility] Last Admin: 04/24/17 10:59 Dose: 100 mls/hr Insulin Human Regular (Novolin R) 0 unit SC Q6 [facility] PRN Reason: Protocol Last Admin: 04/24/17 12:57 Dose: 4 unit Levetiracetam (Keppra) 500 mg PO BID [facility] Last Admin: 04/24/17 10:58 Dose: 500 mg Nystatin (Nystop Topical Powder) 1 applic TOP BID [facility] Last Admin: 04/24/17 11:14 Dose: 1 applic Pantoprazole Sodium (Protonix Susp) 40 mg PEG DAILY [facility] Last Admin: 04/24/17 10:58 Dose: 40 mg - Labs Labs: 04/24/17 06:52 04/24/17 06:52 PT 11.2 SECONDS (9.7-12.2) 04/20/17 06:29 INR 1.0 04/20/17 06:29 APTT 36 SECONDS (21-34) H 04/20/17 06:29 - Respiratory Exam Additional comments: Lungs clear - Cardiovascular Exam Cardiovascular Exam: REGULAR RHYTHM - Extremities Exam Extremities Exam: Pedal Edema Assessment and Plan - Assessment and Plan (Free Text) Assessment: ESRD on maintenance HD S/p cardiac arrest Anoxic encephalopathy Plan: Could not receive dialysis today because dialysis access is not available Pt is anuric Labs stable
--- NOTE | 2017-04-25 02:51 | CP.PCM.PN ---
Subjective - Date & Time of Evaluation Date of Evaluation: 04/25/17 Time of Evaluation: 02:48 - Subjective Subjective: SURGERY NOTE FOR DR. HWATLEY 71M seen and examined at bedside. Patient has tracheostomy, ventilated. Comatose. Objective - Vital Signs/Intake and Output Vital Signs (last 24 hours): Temp Pulse Resp BP Pulse Ox 97 F L 59 L 22 154/66 H 100 04/24/17 18:00 04/25/17 01:02 04/25/17 01:02 04/25/17 01:02 04/25/17 01:02 Intake and Output: 04/24/17 04/25/17 18:59 06:59 Intake Total 860 Output Total 1150 Balance -290 - Medications Medications: Current Medications Ferrous Sulfate (Feosol Liq) 300 mg PEG BID [facility] Last Admin: 04/24/17 17:59 Dose: 300 mg Piperacillin Sod/Tazobactam Sod (Zosyn 2.25 Gm Iv Premix) 2.25 gm in 50 mls @ 100 mls/hr IVPB Q8H [facility] Last Admin: 04/24/17 13:39 Dose: 100 mls/hr Gentamicin Sulfate 80 mg/ (Sodium Chloride) 102 mls @ 100 mls/hr IVPB TTS [facility] Last Admin: 04/24/17 10:59 Dose: 100 mls/hr Insulin Human Regular (Novolin R) 0 unit SC Q6 JUVE PRN Reason: Protocol Last Admin: 04/24/17 18:47 Dose: 3 unit Levetiracetam (Keppra) 500 mg PO BID [facility] Last Admin: 04/24/17 17:59 Dose: 500 mg Nystatin (Nystop Topical Powder) 1 applic TOP BID [facility] Last Admin: 04/24/17 17:59 Dose: 1 applic Pantoprazole Sodium (Protonix Susp) 40 mg PEG DAILY [facility] Last Admin: 04/24/17 10:58 Dose: 40 mg - Labs Labs: 04/24/17 06:52 04/24/17 06:52 PT 11.2 SECONDS (9.7-12.2) 04/20/17 06:29 INR 1.0 04/20/17 06:29 APTT 36 SECONDS (21-34) H 04/20/17 06:29 - Respiratory Exam Respiratory Exam: Clear to Ausculation Bilateral, NORMAL BREATHING PATTERN Additional comments: tracheostomy in place - Cardiovascular Exam Cardiovascular Exam: REGULAR RHYTHM, +S1, +S2 Assessment and Plan - Assessment and Plan (Free Text) Assessment: 71m with ESRD - Plan permacath wednesday Discussed with Dr. Franco Marshall, PGY1
[2017-04-25] MEDS: Piperacill/Tazo 2.25gm in Dex 2.25 GM/50 ML BAG IVPB SCH ×3 (05:00→22:00)
[2017-04-25] MEDS: (Novolin R) Insulin Human Regular 100 units/ml vial SC SCH ×4 (06:01→17:53)
[2017-04-25 06:25] LABS: BASO # 0.1 K/uL (0.0-0.2); BASO % 0.5 % (0.0-2.0); EOS # 0.3 K/uL (0.0-0.7); EOS % 2.6 % (0.0-4.0); HEMATOCRIT 25.3 % (35.0-51.0); LYMPH # 1.1 K/uL (1.0-4.3); LYMPH % 8.6 % (20.0-40.0); MEAN CELL VOLUME 93.6 fL (80.0-94.0); MEAN CORPUSCULAR HEMOGLOBIN 29.7 pg (27.0-31.0); MEAN CORPUSCULAR HGB CONC 31.7 g/dL (33.0-37.0); MEAN PLATELET VOLUME 7.5 fL (7.2-11.7); MONO # 0.8 K/uL (0.0-0.8); MONO % 5.8 % (0.0-10.0); NRBC % 0.1 % (0.0-2.0); PLATELET COUNT 441 K/uL (130-400); RED CELL DISTRIBUTION WIDTH 16.1 % (11.5-14.5); WHITE BLOOD COUNT 13.2 K/uL (4.8-10.8)
[2017-04-25 06:39] LABS: POTASSIUM 3.8 mmol/L (3.6-5.2)
[2017-04-25 06:41] LABS: ALB/GLOB RATIO 0.7 (1.0-2.1); BILIRUBIN,TOTAL 0.5 mg/dL (0.2-1.3); PHOSPHOROUS 2.3 mg/dL (2.5-4.5); TOTAL PROTEIN 5.5 g/dL (6.3-8.3)
[2017-04-25 06:42] LABS: CALCIUM 8.8 mg/dl (8.6-10.4); MAGNESIUM 2.4 mg/dL (1.6-2.3)
[2017-04-25 09:03] LABS: EOSINOPHIL 1 % (0-4); NEUTROPHIL 89 % (50-75); TOTAL CELLS COUNTED 100
[2017-04-25 09:08] LABS: LARGE PLATELETS PRESENT
[2017-04-25] MEDS: Ferrous Sulfate 300 mg/5 mL Liq UD PEG SCH ×2 (09:48→17:59)
[2017-04-25] MEDS: Pantoprazole 40 mg Susp UD PEG SCH (09:49)
--- NOTE | 2017-04-25 12:08 | CP.PCM.PN ---
Subjective - Date & Time of Evaluation Date of Evaluation: 04/25/17 Time of Evaluation: 11:00 - Subjective Subjective: Comatose on ventilator support Objective - Vital Signs/Intake and Output Vital Signs (last 24 hours): Temp Pulse Resp BP Pulse Ox 97.3 F L 53 L 14 138/64 99 04/25/17 08:00 04/25/17 11:00 04/25/17 11:00 04/25/17 11:00 04/25/17 11:00 Intake and Output: 04/25/17 04/25/17 06:59 18:59 Intake Total 350 Balance 350 - Medications Medications: Current Medications Ferrous Sulfate (Feosol Liq) 300 mg PEG BID [facility] Last Admin: 04/25/17 09:48 Dose: 300 mg Piperacillin Sod/Tazobactam Sod (Zosyn 2.25 Gm Iv Premix) 2.25 gm in 50 mls @ 100 mls/hr IVPB Q8H [facility] Last Admin: 04/25/17 05:00 Dose: 100 mls/hr Gentamicin Sulfate 80 mg/ (Sodium Chloride) 102 mls @ 100 mls/hr IVPB TTS [facility] Last Admin: 04/24/17 10:59 Dose: 100 mls/hr Insulin Human Regular (Novolin R) 0 unit SC Q6 [facility] PRN Reason: Protocol Last Admin: 04/25/17 06:01 Dose: 8 unit Levetiracetam (Keppra) 500 mg PO BID [facility] Last Admin: 04/25/17 09:49 Dose: 500 mg Nystatin (Nystop Topical Powder) 1 applic TOP BID [facility] Last Admin: 04/25/17 09:49 Dose: 1 applic Pantoprazole Sodium (Protonix Susp) 40 mg PEG DAILY [facility] Last Admin: 04/25/17 09:49 Dose: 40 mg - Labs Labs: 04/25/17 06:16 04/25/17 06:16 PT 11.2 SECONDS (9.7-12.2) 04/20/17 06:29 INR 1.0 04/20/17 06:29 APTT 36 SECONDS (21-34) H 04/20/17 06:29 - Respiratory Exam Additional comments: Rhonchi over Rt lung Lt clear - Cardiovascular Exam Cardiovascular Exam: REGULAR RHYTHM - Extremities Exam Additional comments: Edema of both upper extrem. Assessment and Plan - Assessment and Plan (Free Text) Assessment: ESRD on HD Pneumonia Respiratory failure/tracheostomy Anoxic encephalopathy Plan: For dialysis tomorrow Dialysis catheter will be placed tomorrow Restrict fluids Labs stable
--- NOTE | 2017-04-25 14:44 | CP.PCM.PN ---
Subjective - Date & Time of Evaluation Date of Evaluation: 04/25/17 Time of Evaluation: 08:00 - Subjective Subjective: REMAINS OBTUNDED ON VENT Objective - Vital Signs/Intake and Output Vital Signs (last 24 hours): Temp Pulse Resp BP Pulse Ox 97.3 F L 57 L 21 163/56 H 98 04/25/17 12:00 04/25/17 13:00 04/25/17 13:00 04/25/17 13:00 04/25/17 13:00 Intake and Output: 04/25/17 04/25/17 06:59 18:59 Intake Total 430 Balance 430 - Medications Medications: Current Medications Ferrous Sulfate (Feosol Liq) 300 mg PEG BID [facility] Last Admin: 04/25/17 09:48 Dose: 300 mg Piperacillin Sod/Tazobactam Sod (Zosyn 2.25 Gm Iv Premix) 2.25 gm in 50 mls @ 100 mls/hr IVPB Q8H [facility] Last Admin: 04/25/17 13:43 Dose: 100 mls/hr Gentamicin Sulfate 80 mg/ (Sodium Chloride) 102 mls @ 100 mls/hr IVPB TTS [facility] Last Admin: 04/24/17 10:59 Dose: 100 mls/hr Insulin Human Regular (Novolin R) 0 unit SC Q6 [facility] PRN Reason: Protocol Last Admin: 04/25/17 12:38 Dose: 4 unit Levetiracetam (Keppra) 500 mg PO BID [facility] Last Admin: 04/25/17 09:49 Dose: 500 mg Nystatin (Nystop Topical Powder) 1 applic TOP BID [facility] Last Admin: 04/25/17 09:49 Dose: 1 applic Pantoprazole Sodium (Protonix Susp) 40 mg PEG DAILY [facility] Last Admin: 04/25/17 09:49 Dose: 40 mg - Labs Labs: 04/25/17 06:16 04/25/17 06:16 PT 11.2 SECONDS (9.7-12.2) 04/20/17 06:29 INR 1.0 04/20/17 06:29 APTT 36 SECONDS (21-34) H 04/20/17 06:29 - Constitutional Appears: Non-toxic, Confused, Cachectic, Chronically Ill - Head Exam Head Exam: NORMOCEPHALIC - Eye Exam Eye Exam: PERRL. absent: Scleral icterus - ENT Exam ENT Exam: Mucous Membranes Dry, Normal External Ear Exam - Neck Exam Neck Exam: absent: Lymphadenopathy - Respiratory Exam Respiratory Exam: Decreased Breath Sounds, Rhonchi - Cardiovascular Exam Cardiovascular Exam: Tachycardia, REGULAR RHYTHM, +S1, +S2 - GI/Abdominal Exam GI & Abdominal Exam: Distended, Soft. absent: Tenderness - Rectal Exam Rectal Exam: Deferred - Exam Exam: NORMAL INSPECTION - Extremities Exam Extremities Exam: absent: Calf Tenderness, Pedal Edema - Back Exam Back Exam: absent: CVA tenderness (L), CVA tenderness (R) - Neurological Exam Neurological Exam: Altered - Psychiatric Exam Psychiatric exam: Depressed - Skin Skin Exam: Dry Assessment and Plan (1) Sepsis Status: Acute (2) Sepsis Status: Acute (3) Anoxic brain injury Status: Acute (4) Cardiac arrest Status: Acute (5) ESRD (end stage renal disease) Status: Acute (6) Pneumonia Status: Acute (7) Respiratory arrest Status: Acute
--- NOTE | 2017-04-25 18:00 | CP.CCUPN ---
CCU Subjective - Physician Review Events Since Last Encounter (Free Text): 04/25/17 17:59 Patient condition remains unchanged. Awaiting for dialysis catheter. Patient is stable. Unresponsive. Patient will get hemodialysis catheter. After that can be transferred. We'll transfer the patient to floor if the bed is available CCU Objective - Vital Signs / Intake & Output Vital Signs (Last 4 hours): Vital Signs Temp Pulse Resp BP Pulse Ox 04/25/17 17:00 56 L 21 141/83 98 04/25/17 16:00 97.3 F L 59 L 22 166/86 H 99 04/25/17 15:00 62 19 180/78 H 98 04/25/17 14:00 61 18 174/78 H 99 Intake and Output (Last 8hrs): Intake & Output 04/25/17 04/25/17 04/25/17 06:59 14:59 22:59 Intake Total 470 120 Balance 470 120 Intake: Tube Feeding 320 120 Other 150 - Physical Exam Head: Positive for: Normocephalic. Negative for: Contusion Extroacular Muscles: Positive for: Gaze Palsy (up-gaze), Other (Horizontal Nystagmus) Mouth: Positive for: Moist Mucous Membranes Nose (External): Positive for: Atraumatic Neck: Positive for: Other (trach). Negative for: JVD, Lymphadenopathy Respiratory/Chest: Positive for: Good Air Exchange, Decreased Breath Sounds (B/L ), Rhonchi. Negative for: Clear to Auscultation, Respiratory Distress, Accessory Muscle Use, Rales Cardiovascular: Positive for: Regular Rate and Rhythm, Normal S1, S2, Peripheal Pulses Present. Negative for: Murmurs Abdomen: Positive for: Normal Bowel Sounds. Negative for: Distention Upper Extremity: Positive for: Normal Inspection, NORMAL PULSES, Other (L PICC) . Negative for: Cyanosis, Edema Lower Extremity: Positive for: Normal Inspection, NORMAL PULSES. Negative for: Edema Neurological: Positive for: Other (weak brainstem reflexes). Negative for: GCS= 15 Skin: Positive for: Warm, Dry, Pale. Negative for: Rashes, Normal Color - Medications Active Medications: Active Medications Generic Name Dose Route Start Last Admin Trade Name Freq PRN Reason Stop Dose Admin Ferrous Sulfate 300 mg 04/19/17 11:45 04/25/17 09:48 Feosol Liq PEG 300 mg BID JUVE Administration Piperacillin Sod/Tazobactam Sod 2.25 gm in 50 mls @ 100 mls/hr 04/17/17 06:00 04/25/17 13:43 Zosyn 2.25 Gm Iv Premix IVPB 100 mls/hr Q8H JUVE Administration Gentamicin Sulfate 80 mg/ 102 mls @ 100 mls/hr 04/20/17 19:13 04/24/17 10:59 Sodium Chloride IVPB 100 mls/hr TTS JUVE Administration Insulin Human Regular 0 unit 04/23/17 11:07 04/25/17 17:53 Novolin R SC 3 unit Q6 JUVE Administration Protocol Levetiracetam 500 mg 04/19/17 10:00 04/25/17 09:49 Keppra PO 500 mg BID JUVE Administration Nystatin 1 applic 04/17/17 10:00 04/25/17 17:55 Nystop Topical Powder TOP 1 applic BID JUVE Administration Pantoprazole Sodium 40 mg 04/19/17 11:00 04/25/17 09:49 Protonix Susp PEG 40 mg DAILY JUVE Administration - Patient Studies Lab Studies: Microbiology Studies 04/22/17 13:00 Blood Culture - Preliminary Blood-Thru Central Line NO GROWTH AFTER 3 DAYS 04/22/17 13:30 Blood Culture - Preliminary Blood-Thru Central Line NO GROWTH AFTER 3 DAYS Lab Studies 04/25/17 04/25/17 04/25/17 Range/Units 17:52 17:44 11:58 WBC (4.8-10.8) K/uL RBC (4.40-5.90) Mil/uL Hgb (12.0-18.0) g/dL Hct (35.0-51.0) % MCV (80.0-94.0) fL MCH (27.0-31.0) pg MCHC (33.0-37.0) g/dL RDW (11.5-14.5) % Plt Count (130-400) K/uL MPV (7.2-11.7) fL Neut % (Auto) (50.0-75.0) % Lymph % (Auto) (20.0-40.0) % [place] % (Auto) (0.0-10.0) % Eos % (Auto) (0.0-4.0) % Baso % (Auto) (0.0-2.0) % Neut # (1.8-7.0) K/uL Lymph # (1.0-4.3) K/uL [place] # (0.0-0.8) K/uL Eos # (0.0-0.7) K/uL Baso # (0.0-0.2) K/uL Neutrophils % (Manual) (50-75) % Band Neutrophils % (0-2) % Lymphocytes % (Manual) (20-40) % Monocytes % (Manual) (0-10) % Eosinophils % (Manual) (0-4) % Platelet Estimate (NORMAL) Large Platelets Polychromasia Hypochromasia (manual) Anisocytosis (manual) Sodium (132-148) mmol/L Potassium (3.6-5.2) mmol/L Chloride (98-107) mmol/L Carbon Dioxide (22-30) mmol/L Anion Gap (10-20) BUN (9-20) mg/dL Creatinine (0.8-1.5) MG/DL Est GFR ( Amer) Est GFR (Non-Af Amer) POC Glucose (mg/dL) 233 H 232 H 286 H (65-110) mg/dL Random Glucose (75-110) mg/dL Calcium (8.6-10.4) mg/dl Phosphorus (2.5-4.5) mg/dL Magnesium (1.6-2.3) mg/dL Total Bilirubin (0.2-1.3) mg/dL AST (17-59) U/L ALT (21-72) U/L Alkaline Phosphatase (38-126) U/L Total Protein (6.3-8.3) g/dL Albumin (3.5-5.0) g/dL Globulin (2.2-3.9) gm/dL Albumin/Globulin Ratio (1.0-2.1) 04/25/17 04/25/17 04/25/17 Range/Units 06:16 06:16 05:57 WBC 13.2 H (4.8-10.8) K/uL RBC 2.70 L (4.40-5.90) Mil/uL Hgb 8.0 L (12.0-18.0) g/dL Hct 25.3 L (35.0-51.0) % MCV 93.6 (80.0-94.0) fL MCH 29.7 (27.0-31.0) pg MCHC 31.7 L (33.0-37.0) g/dL RDW 16.1 H (11.5-14.5) % Plt Count 441 H (130-400) K/uL MPV 7.5 (7.2-11.7) fL Neut % (Auto) 82.5 H (50.0-75.0) % Lymph % (Auto) 8.6 L (20.0-40.0) % [place] % (Auto) 5.8 (0.0-10.0) % Eos % (Auto) 2.6 (0.0-4.0) % Baso % (Auto) 0.5 (0.0-2.0) % Neut # 10.9 H (1.8-7.0) K/uL Lymph # 1.1 (1.0-4.3) K/uL [place] # 0.8 (0.0-0.8) K/uL Eos # 0.3 (0.0-0.7) K/uL Baso # 0.1 (0.0-0.2) K/uL Neutrophils % (Manual) 89 H (50-75) % Band Neutrophils % 1 (0-2) % Lymphocytes % (Manual) 7 L (20-40) % Monocytes % (Manual) 2 (0-10) % Eosinophils % (Manual) 1 (0-4) % Platelet Estimate Slightly increased H (NORMAL) Large Platelets Present Polychromasia Slight Hypochromasia (manual) Slight Anisocytosis (manual) Slight Sodium 145 (132-148) mmol/L Potassium 3.8 (3.6-5.2) mmol/L Chloride 108 H (98-107) mmol/L Carbon Dioxide 22 (22-30) mmol/L Anion Gap 19 (10-20) BUN 64 H (9-20) mg/dL Creatinine 3.5 H (0.8-1.5) MG/DL Est GFR ( Amer) 21 Est GFR (Non-Af Amer) 17 POC Glucose (mg/dL) 369 H (65-110) mg/dL Random Glucose 318 H (75-110) mg/dL Calcium 8.8 (8.6-10.4) mg/dl Phosphorus 2.3 L (2.5-4.5) mg/dL Magnesium 2.4 H (1.6-2.3) mg/dL Total Bilirubin 0.5 (0.2-1.3) mg/dL AST 22 (17-59) U/L ALT 22 (21-72) U/L Alkaline Phosphatase 294 H (38-126) U/L Total Protein 5.5 L (6.3-8.3) g/dL Albumin 2.3 L (3.5-5.0) g/dL Globulin 3.2 (2.2-3.9) gm/dL Albumin/Globulin Ratio 0.7 L (1.0-2.1) 04/24/17 04/24/17 Range/Units 23:52 18:40 WBC (4.8-10.8) K/uL RBC (4.40-5.90) Mil/uL Hgb (12.0-18.0) g/dL Hct (35.0-51.0) % MCV (80.0-94.0) fL MCH (27.0-31.0) pg MCHC (33.0-37.0) g/dL RDW (11.5-14.5) % Plt Count (130-400) K/uL MPV (7.2-11.7) fL Neut % (Auto) (50.0-75.0) % Lymph % (Auto) (20.0-40.0) % [place] % (Auto) (0.0-10.0) % Eos % (Auto) (0.0-4.0) % Baso % (Auto) (0.0-2.0) % Neut # (1.8-7.0) K/uL Lymph # (1.0-4.3) K/uL [place] # (0.0-0.8) K/uL Eos # (0.0-0.7) K/uL Baso # (0.0-0.2) K/uL Neutrophils % (Manual) (50-75) % Band Neutrophils % (0-2) % Lymphocytes % (Manual) (20-40) % Monocytes % (Manual) (0-10) % Eosinophils % (Manual) (0-4) % Platelet Estimate (NORMAL) Large Platelets Polychromasia Hypochromasia (manual) Anisocytosis (manual) Sodium (132-148) mmol/L Potassium (3.6-5.2) mmol/L Chloride (98-107) mmol/L Carbon Dioxide (22-30) mmol/L Anion Gap (10-20) BUN (9-20) mg/dL Creatinine (0.8-1.5) MG/DL Est GFR ( Amer) Est GFR (Non-Af Amer) POC Glucose (mg/dL) 254 H 233 H (65-110) mg/dL Random Glucose (75-110) mg/dL Calcium (8.6-10.4) mg/dl Phosphorus (2.5-4.5) mg/dL Magnesium (1.6-2.3) mg/dL Total Bilirubin (0.2-1.3) mg/dL AST (17-59) U/L ALT (21-72) U/L Alkaline Phosphatase (38-126) U/L Total Protein (6.3-8.3) g/dL Albumin (3.5-5.0) g/dL Globulin (2.2-3.9) gm/dL Albumin/Globulin Ratio (1.0-2.1) Laboratory Results - last 24 hr 04/24/17 04/24/17 04/25/17 18:40 23:52 05:57 WBC RBC Hgb Hct MCV MCH MCHC RDW Plt Count MPV Neut % (Auto) Lymph % (Auto) [place] % (Auto) Eos % (Auto) Baso % (Auto) Neut # Lymph # [place] # Eos # Baso # Neutrophils % (Manual) Band Neutrophils % Lymphocytes % (Manual) Monocytes % (Manual) Eosinophils % (Manual) Platelet Estimate Large Platelets Polychromasia Hypochromasia (manual) Anisocytosis (manual) Sodium Potassium Chloride Carbon Dioxide Anion Gap BUN Creatinine Est GFR ( Amer) Est GFR (Non-Af Amer) POC Glucose (mg/dL) 233 H 254 H 369 H Random Glucose Calcium Phosphorus Magnesium Total Bilirubin AST ALT Alkaline Phosphatase Total Protein Albumin Globulin Albumin/Globulin Ratio 04/25/17 04/25/17 04/25/17 06:16 06:16 11:58 WBC 13.2 H RBC 2.70 L Hgb 8.0 L Hct 25.3 L MCV 93.6 MCH 29.7 MCHC 31.7 L RDW 16.1 H Plt Count 441 H MPV 7.5 Neut % (Auto) 82.5 H Lymph % (Auto) 8.6 L [place] % (Auto) 5.8 Eos % (Auto) 2.6 Baso % (Auto) 0.5 Neut # 10.9 H Lymph # 1.1 [place] # 0.8 Eos # 0.3 Baso # 0.1 Neutrophils % (Manual) 89 H Band Neutrophils % 1 Lymphocytes % (Manual) 7 L Monocytes % (Manual) 2 Eosinophils % (Manual) 1 Platelet Estimate Slightly increased H Large Platelets Present Polychromasia Slight Hypochromasia (manual) Slight Anisocytosis (manual) Slight Sodium 145 Potassium 3.8 Chloride 108 H Carbon Dioxide 22 Anion Gap 19 BUN 64 H Creatinine 3.5 H Est GFR ( Amer) 21 Est GFR (Non-Af Amer) 17 POC Glucose (mg/dL) 286 H Random Glucose 318 H Calcium 8.8 Phosphorus 2.3 L Magnesium 2.4 H Total Bilirubin 0.5 AST 22 ALT 22 Alkaline Phosphatase 294 H Total Protein 5.5 L Albumin 2.3 L Globulin 3.2 Albumin/Globulin Ratio 0.7 L 04/25/17 04/25/17 17:44 17:52 WBC RBC Hgb Hct MCV MCH MCHC RDW Plt Count MPV Neut % (Auto) Lymph % (Auto) [place] % (Auto) Eos % (Auto) Baso % (Auto) Neut # Lymph # [place] # Eos # Baso # Neutrophils % (Manual) Band Neutrophils % Lymphocytes % (Manual) Monocytes % (Manual) Eosinophils % (Manual) Platelet Estimate Large Platelets Polychromasia Hypochromasia (manual) Anisocytosis (manual) Sodium Potassium Chloride Carbon Dioxide Anion Gap BUN Creatinine Est GFR ( Amer) Est GFR (Non-Af Amer) POC Glucose (mg/dL) 232 H 233 H Random Glucose Calcium Phosphorus Magnesium Total Bilirubin AST ALT Alkaline Phosphatase Total Protein Albumin Globulin Albumin/Globulin Ratio Fingerstick Blood Sugar Results: 354 Critical Care Progress Note - Nutrition Nutrition: Nutrition Category Date Time Status NPO Diet [DIET] Diets 04/26/17 Breakfast Active
[2017-04-26] MEDS: Piperacill/Tazo 2.25gm in Dex 2.25 GM/50 ML BAG IVPB SCH ×3 (05:15→22:10)
[2017-04-26] MEDS: (Novolin R) Insulin Human Regular 100 units/ml vial SC SCH ×4 (05:25→18:01)
[2017-04-26 06:37] LABS: BASO # 0.1 K/uL (0.0-0.2); BASO % 0.5 % (0.0-2.0); EOS # 0.5 K/uL (0.0-0.7); HEMATOCRIT 25.3 % (35.0-51.0); LYMPH # 1.2 K/uL (1.0-4.3); MEAN CELL VOLUME 93.4 fL (80.0-94.0); MEAN CORPUSCULAR HEMOGLOBIN 29.5 pg (27.0-31.0); MEAN CORPUSCULAR HGB CONC 31.6 g/dL (33.0-37.0); MEAN PLATELET VOLUME 7.4 fL (7.2-11.7); MONO # 0.8 K/uL (0.0-0.8); MONO % 5.2 % (0.0-10.0); NRBC % 0.2 % (0.0-2.0); PLATELET COUNT 411 K/uL (130-400); RED CELL DISTRIBUTION WIDTH 16.5 % (11.5-14.5); WHITE BLOOD COUNT 15.6 K/uL (4.8-10.8)
[2017-04-26 06:47] LABS: POTASSIUM 3.5 mmol/L (3.6-5.2)
[2017-04-26 06:49] LABS: ALB/GLOB RATIO 0.7 (1.0-2.1); BILIRUBIN,TOTAL 0.7 mg/dL (0.2-1.3); TOTAL PROTEIN 5.9 g/dL (6.3-8.3)
[2017-04-26 06:50] LABS: CALCIUM 9.6 mg/dl (8.6-10.4); MAGNESIUM 2.6 mg/dL (1.6-2.3); PHOSPHOROUS 2.5 mg/dL (2.5-4.5)
[2017-04-26 08:47] LABS: EOSINOPHIL 3 % (0-4); NEUTROPHIL 86 % (50-75); TOTAL CELLS COUNTED 100
[2017-04-26 08:48] LABS: LARGE PLATELETS PRESENT
--- NOTE | 2017-04-26 09:09 | RAD ---
PROCEDURE: CHEST RADIOGRAPH, 1 VIEW HISTORY: Vented COMPARISON: 04/16/2017 FINDINGS: LUNGS: Tracheostomy tube in place. Diffuse increased interstitial lung markings throughout both lungs. Scattered nodular densities throughout both lungs. Linear atelectatic changes in the right mid lung. Trace bilateral pleural effusions with left basilar consolidation and or opacity. Prominent right hilar prominence. Linear lucency along the lateral aspect of the right lung base likely represents Mach artifact as there are markings past this level. PLEURA: As above. CARDIOVASCULAR: Cardiomegaly. Calcification at the aortic knob. OSSEOUS STRUCTURES: Degenerative changes in the spine and shoulders. VISUALIZED UPPER ABDOMEN: Normal. OTHER FINDINGS: None. IMPRESSION: Tracheostomy tube in place. Diffuse increased interstitial lung markings throughout both lungs. Scattered nodular densities throughout both lungs. Linear atelectatic changes in the right mid lung. Trace bilateral pleural effusions with left basilar consolidation and or opacity. Prominent right hilar prominence. Linear lucency along the lateral aspect of the right lung base likely represents Mach artifact as there are markings past this level.
[2017-04-26] MEDS: Ferrous Sulfate 300 mg/5 mL Liq UD PEG SCH ×2 (09:29→19:02)
[2017-04-26] MEDS: Pantoprazole 40 mg Susp UD PEG SCH (09:37)
--- NOTE | 2017-04-26 10:17 | CP.PCM.PN ---
Subjective - Date & Time of Evaluation Date of Evaluation: 04/26/17 Time of Evaluation: 10:10 - Subjective Subjective: No new events noted Remains unresponsive & vent support No respiratory distress noted Objective - Vital Signs/Intake and Output Vital Signs (last 24 hours): Temp Pulse Resp BP Pulse Ox 97.3 F L 70 9 L 161/83 H 100 04/26/17 08:00 04/26/17 08:01 04/26/17 08:01 04/26/17 08:01 04/26/17 04:01 Intake and Output: 04/26/17 04/26/17 06:59 18:59 Intake Total 460 0 Output Total 300 200 Balance 160 -200 - Medications Medications: Current Medications Ferrous Sulfate (Feosol Liq) 300 mg PEG BID [facility] Last Admin: 04/26/17 09:29 Dose: 300 mg Heparin Sodium (Porcine) (Heparin) 5,000 units SC Q12 [facility] Last Admin: 04/26/17 09:32 Dose: 5,000 units Piperacillin Sod/Tazobactam Sod (Zosyn 2.25 Gm Iv Premix) 2.25 gm in 50 mls @ 100 mls/hr IVPB Q8H [facility] Last Admin: 04/26/17 05:15 Dose: 100 mls/hr Gentamicin Sulfate 80 mg/ (Sodium Chloride) 102 mls @ 100 mls/hr IVPB TTS [facility] Last Admin: 04/24/17 10:59 Dose: 100 mls/hr Insulin Human Regular (Novolin R) 0 unit SC Q6 [facility] PRN Reason: Protocol Last Admin: 04/26/17 05:25 Dose: 8 unit Levetiracetam (Keppra) 500 mg PO BID [facility] Last Admin: 04/26/17 09:29 Dose: 500 mg Nystatin (Nystop Topical Powder) 1 applic TOP BID [facility] Last Admin: 04/26/17 09:37 Dose: 1 applic Pantoprazole Sodium (Protonix Susp) 40 mg PEG DAILY [facility] Last Admin: 04/26/17 09:37 Dose: 40 mg - Labs Labs: 04/26/17 06:24 04/26/17 06:24 PT 11.2 SECONDS (9.7-12.2) 04/20/17 06:29 INR 1.0 04/20/17 06:29 APTT 36 SECONDS (21-34) H 04/20/17 06:29 - Respiratory Exam Additional comments: Lungs clear - Cardiovascular Exam Cardiovascular Exam: REGULAR RHYTHM Additional comments: 56/min - Extremities Exam Additional comments: Extrem are edematous Assessment and Plan - Assessment and Plan (Free Text) Assessment: ESRD on HD sepsis/ Gneg bacteremia Anoxic encephalopsthy Respiratory failure Plan: Awaiting dialysis cathetheter placement Needs dialysis today
--- NOTE | 2017-04-26 10:48 | PN ---
DATE: 04/24/2017 The patient admitted to hospital with complaint of weakness, fatigue, tiredness. The patient on the ventilator, still comatose. Gradual weaning. Supportive care. Prognosis guarded. Dale Collins MD cc: [phone] TT: 04/24/2017 16:35:09 Confirmation # [id number] Dictation # [id number] jn
--- NOTE | 2017-04-26 11:28 | CP.PCM.PN ---
Subjective - Date & Time of Evaluation Date of Evaluation: 04/26/17 Time of Evaluation: 09:00 - Subjective Subjective: COMATOSE REPEAT CULTURES NEGATIVE RX IN PROGRESS Objective - Vital Signs/Intake and Output Vital Signs (last 24 hours): Temp Pulse Resp BP Pulse Ox 97.3 F L 70 9 L 161/83 H 100 04/26/17 08:00 04/26/17 08:01 04/26/17 08:01 04/26/17 08:01 04/26/17 04:01 Intake and Output: 04/26/17 04/26/17 06:59 18:59 Intake Total 460 100 Output Total 300 200 Balance 160 -100 - Medications Medications: Current Medications Ferrous Sulfate (Feosol Liq) 300 mg PEG BID [facility] Last Admin: 04/26/17 09:29 Dose: 300 mg Heparin Sodium (Porcine) (Heparin) 5,000 units SC Q12 [facility] Last Admin: 04/26/17 09:32 Dose: 5,000 units Piperacillin Sod/Tazobactam Sod (Zosyn 2.25 Gm Iv Premix) 2.25 gm in 50 mls @ 100 mls/hr IVPB Q8H [facility] Last Admin: 04/26/17 05:15 Dose: 100 mls/hr Gentamicin Sulfate 80 mg/ (Sodium Chloride) 102 mls @ 100 mls/hr IVPB TTS [facility] Last Admin: 04/24/17 10:59 Dose: 100 mls/hr Insulin Human Regular (Novolin R) 0 unit SC Q6 [facility] PRN Reason: Protocol Last Admin: 04/26/17 05:25 Dose: 8 unit Levetiracetam (Keppra) 500 mg PO BID [facility] Last Admin: 04/26/17 09:29 Dose: 500 mg Nystatin (Nystop Topical Powder) 1 applic TOP BID [facility] Last Admin: 04/26/17 09:37 Dose: 1 applic Pantoprazole Sodium (Protonix Susp) 40 mg PEG DAILY [facility] Last Admin: 04/26/17 09:37 Dose: 40 mg - Labs Labs: 04/26/17 06:24 04/26/17 06:24 PT 11.2 SECONDS (9.7-12.2) 04/20/17 06:29 INR 1.0 04/20/17 06:29 APTT 36 SECONDS (21-34) H 04/20/17 06:29 - Constitutional Appears: Confused, Cachectic - Head Exam Head Exam: NORMOCEPHALIC - Eye Exam Eye Exam: absent: Scleral icterus - ENT Exam ENT Exam: Mucous Membranes Dry - Neck Exam Neck Exam: absent: Lymphadenopathy - Respiratory Exam Respiratory Exam: Decreased Breath Sounds, Rhonchi - Cardiovascular Exam Cardiovascular Exam: REGULAR RHYTHM, +S1, +S2 - GI/Abdominal Exam GI & Abdominal Exam: Distended, Soft Assessment and Plan (1) Sepsis Status: Acute (2) Sepsis Status: Acute (3) Anoxic brain injury Status: Acute (4) Cardiac arrest Status: Acute (5) ESRD (end stage renal disease) Status: Acute (6) Pneumonia Status: Acute (7) Respiratory arrest Status: Acute
[2017-04-26] MEDS ORDERED: Lidocaine 1% Inj (20ml) ONE (12:08)
[2017-04-26] MEDS ORDERED: HEPARIN-NS 5,000 UNITS/500 ML 5,000 UNIT/500 ML BAG IV ONE (12:08)
[2017-04-26] MEDS ORDERED: Midazolam 2 MG/2 ML VIAL ONE (12:22)
[2017-04-26] MEDS ORDERED: Iohexol 240 (50 ml) ONE (12:39)
--- NOTE | 2017-04-26 13:16 | PCM.SURG1 ---
Surgeon's Initial Post Op Note - Surgeon's Notes Surgeon: Franco Community Liaison Officer: Joanna Pre-Operative Diagnosis: ESRD Operative Findings: subclavian vein Post-Operative Diagnosis: ESRD Operation Performed: Left subclavian permacath Specimen/Specimens Removed: n/a Estimated Blood Loss: EBL {In ML}: 100 Date of Surgery/Procedure: 04/26/17 Time of Surgery/Procedure: 12:00
--- NOTE | 2017-04-26 15:05 | RAD ---
PROCEDURE: CHEST RADIOGRAPH, 1 VIEW HISTORY: Post left sided permacath COMPARISON: 04/26/2017 FINDINGS: LUNGS: Interval insertion of a left central venous catheter tip extending into the right atrium. No evidence of postprocedure pneumothorax. Small loculated left pleural effusion with left basilar consolidative changes. Nodular density at the left lung base. Tenting at the lateral aspect of the right hemidiaphragm. Right hilar prominence. Consolidative changes in the medial left lower lung zone with a suggestion of some air bronchograms. Biapical pleural thickening with prominent upper lobe granulomatous changes with more focal consolidative change at the left lung apex. Diffuse chronic interstitial lung markings. Tracheostomy tube in place. Tubing projects over the upper abdomen. Vascular calcifications project over upper abdomen. Small right pleural effusion. Bilateral paratracheal prominence suggestive for prominent vasculature. PLEURA: As above. CARDIOVASCULAR: Calcification at the aortic knob. OSSEOUS STRUCTURES: Degenerative changes in the spine. VISUALIZED UPPER ABDOMEN: Normal. OTHER FINDINGS: None. IMPRESSION: Interval insertion of a left central venous catheter tip extending into the right atrium. No evidence of postprocedure pneumothorax. Small loculated left pleural effusion with left basilar consolidative changes. Nodular density at the left lung base. Tenting at the lateral aspect of the right hemidiaphragm. Right hilar prominence. Consolidative changes in the medial left lower lung zone with a suggestion of some air bronchograms. Biapical pleural thickening with prominent upper lobe granulomatous changes with more focal consolidative change at the left lung apex. Diffuse chronic interstitial lung markings. Tracheostomy tube in place. Tubing projects over the upper abdomen. Vascular calcifications project over upper abdomen. Small right pleural effusion. Bilateral paratracheal prominence suggestive for prominent vasculature.
--- NOTE | 2017-04-26 15:16 | RAD ---
PROCEDURE: Intraoperative Fluoroscopy. HISTORY: PERMACATH INSERT FINDINGS: Fluoroscopic assistance was provided for left PermCath placement.
--- NOTE | 2017-04-26 17:11 | OP ---
PROCEDURE DATE: 04/26/2017 PREOPERATIVE DIAGNOSIS: Renal failure. POSTOPERATIVE DIAGNOSIS: Renal failure. PROCEDURE CARRIED OUT: Placement of Perm-A-Cath, left subclavian vein, with C-arm fluoroscopy and ul trasound-guided puncture and venacavogram. SURGEON: Brian Gamez Jr., MD FLOWER GRADER: ANESTHESIA: Evette Aleman CRNA The patient is an older man with multiple medical problems, on a ventilator. Previous catheter was r emoved due to sepsis. OPERATIVE FINDINGS: 1. On the right side, all the veins were occluded on ultrasound exam. 2. On the left side, we were able, with the use of micropuncture technique, to get through and event ually place a wire to the superior vena cava. Initially, we attempted to place a pre-cuffed catheter from that side and it was difficult. We then switched to an Arrow catheter, which positioned uneven tfully in the appropriate location. DESCRIPTION OF PROCEDURE: The patient was given local anesthesia as well as intravenous sedation, pr eviously on antibiotics. Initially, we had difficulty accessing the wire through the subclavian vein . Eventually, this went quite well. We eventually placed the catheter, etc. We then took a venacav ogram to see our positioning because there was somewhat poor blood return. This showed excellent laura w, excellent location. The catheter was positioned appropriately. This was an Arrow catheter placed through the subclavian vein on the left side in a tunneled fashion. Brian Gamez Jr., MD cc: [phone] TT: 04/26/2017 17:10:53 en
[2017-04-26 22:36] VITALS: O2SAT 100
[2017-04-27] MEDS: (Novolin R) Insulin Human Regular 100 units/ml vial SC SCH ×4 (00:50→17:06)
[2017-04-27] MEDS: Piperacill/Tazo 2.25gm in Dex 2.25 GM/50 ML BAG IVPB SCH ×2 (05:45→12:59)
[2017-04-27 06:17] LABS: BASO # 0.1 K/uL (0.0-0.2); BASO % 0.4 % (0.0-2.0); EOS # 0.2 K/uL (0.0-0.7); EOS % 1.3 % (0.0-4.0); HEMATOCRIT 24.5 % (35.0-51.0); LYMPH # 1.1 K/uL (1.0-4.3); LYMPH % 6.4 % (20.0-40.0); MEAN CELL VOLUME 93.2 fL (80.0-94.0); MEAN CORPUSCULAR HEMOGLOBIN 29.9 pg (27.0-31.0); MEAN CORPUSCULAR HGB CONC 32.1 g/dL (33.0-37.0); MEAN PLATELET VOLUME 7.5 fL (7.2-11.7); MONO # 0.7 K/uL (0.0-0.8); MONO % 4.3 % (0.0-10.0); NRBC % 0.2 % (0.0-2.0); PLATELET COUNT 351 K/uL (130-400); RED CELL DISTRIBUTION WIDTH 16.5 % (11.5-14.5); WHITE BLOOD COUNT 16.6 K/uL (4.8-10.8)
[2017-04-27 06:50] LABS: POTASSIUM 3.4 mmol/L (3.6-5.2)
[2017-04-27 06:52] LABS: BILIRUBIN,TOTAL 0.4 mg/dL (0.2-1.3)
[2017-04-27 06:53] LABS: ALB/GLOB RATIO 0.6 (1.0-2.1); CALCIUM 8.5 mg/dl (8.6-10.4); PHOSPHOROUS 2.3 mg/dL (2.5-4.5)
[2017-04-27 06:54] LABS: MAGNESIUM 2.1 mg/dL (1.6-2.3)
--- NOTE | 2017-04-27 06:57 | PN ---
DATE: 04/26/2017 The patient is on the ventilator. Supportive care. PRVC mode. Perm-A-Cath today. Dale Collins MD cc: [phone] TT: 04/26/2017 11:14:51 Confirmation # [id number] Dictation # [id number] mn
--- NOTE | 2017-04-27 07:21 | PN ---
DATE: 04/27/2017 TIME OF EVALUATION: 6:40 a.m. NEUROLOGICAL PROBLEM: Status post anoxia, global cerebral dysfunction. Status post myoclonic status been resolved. PHYSICAL EXAMINATION: VITAL SIGNS: Blood pressure 108/51, mean arterial pressure of 70, respiratory rate 18, temperature a febrile, pulse rate 56. NEUROLOGIC: The patient is comatose. Eyes closed. On opening eyelids, right lateral gaze. Pupils nonreactive to light. No gag reflex. Mouth is dry. All 4 extremities are flaccid. No reflexes. P lantars are mute. His neuro status is unchanged to my previous examination. Overall, he carries a grim prognosis. Con tinue the supportive care at present. Joe Duncan MD cc: [phone] TT: 04/27/2017 07:21:04 Confirmation # [id number] Dictation # [id number] drea
--- NOTE | 2017-04-27 07:28 | CP.PCM.PN ---
Subjective - Date & Time of Evaluation Date of Evaluation: 04/27/17 Time of Evaluation: 07:25 - Subjective Subjective: SURGERY NOTE 71M seen and examined at bedside. Patient is s/p left subclavian permacath insertion. Patient is trached and comatose. Objective - Vital Signs/Intake and Output Vital Signs (last 24 hours): Temp Pulse Resp BP Pulse Ox 96.1 F L 56 L 18 108/51 L 100 04/27/17 00:00 04/27/17 04:04 04/27/17 04:04 04/27/17 04:04 04/27/17 04:04 Intake and Output: 04/27/17 04/27/17 06:59 18:59 Intake Total 740 40 Output Total 250 Balance 490 40 - Medications Medications: Current Medications Ferrous Sulfate (Feosol Liq) 300 mg PEG BID [facility] Last Admin: 04/26/17 19:02 Dose: 300 mg Heparin Sodium (Porcine) (Heparin) 5,000 units SC Q12 [facility] Last Admin: 04/26/17 22:10 Dose: 5,000 units Piperacillin Sod/Tazobactam Sod (Zosyn 2.25 Gm Iv Premix) 2.25 gm in 50 mls @ 100 mls/hr IVPB Q8H [facility] Last Admin: 04/27/17 05:45 Dose: 100 mls/hr Gentamicin Sulfate 80 mg/ (Sodium Chloride) 102 mls @ 100 mls/hr IVPB TTS [facility] Last Admin: 04/24/17 10:59 Dose: 100 mls/hr Insulin Human Regular (Novolin R) 0 unit SC Q6 [facility] PRN Reason: Protocol Last Admin: 04/27/17 05:50 Dose: 4 unit Levetiracetam (Keppra) 500 mg PO BID [facility] Last Admin: 04/26/17 19:02 Dose: 500 mg Nystatin (Nystop Topical Powder) 1 applic TOP BID [facility] Last Admin: 04/26/17 19:02 Dose: 1 applic Pantoprazole Sodium (Protonix Susp) 40 mg PEG DAILY [facility] Last Admin: 04/26/17 09:37 Dose: 40 mg - Labs Labs: 04/27/17 06:09 04/27/17 06:08 PT 11.2 SECONDS (9.7-12.2) 04/20/17 06:29 INR 1.0 04/20/17 06:29 APTT 36 SECONDS (21-34) H 04/20/17 06:29 - Constitutional Appears: Other (comatose) - Neck Exam Additional comments: left subclavian Permacath site clean dry intact - Cardiovascular Exam Cardiovascular Exam: REGULAR RHYTHM, +S1, +S2 Assessment and Plan - Assessment and Plan (Free Text) Assessment: 71M s/p left subclavian permacath. POD1 Incision is clean dry intact No evidence of Pneumothorax on CXR Plan: - no further surgical interventions at this time Further recs discuss with Dr. Franco Marshall, PGY1
--- NOTE | 2017-04-27 07:43 | CP.CCUPN ---
CCU Objective - Vital Signs / Intake & Output Vital Signs (Last 4 hours): Vital Signs Pulse Resp BP Pulse Ox 04/27/17 04:04 56 L 18 108/51 L 100 Intake and Output (Last 8hrs): Intake & Output 04/26/17 04/27/17 04/27/17 22:59 06:59 14:59 Intake Total 270 470 40 Output Total 300 250 Balance -30 220 40 Weight 171 lb 15.369 oz Intake: Intake, IV Amount 50 50 Left Proximal Port 50 50 Femoral Oral 100 100 Tube Feeding 120 320 40 Output: Stool 300 250 - Physical Exam Head: Positive for: Normocephalic. Negative for: Contusion Extroacular Muscles: Positive for: Gaze Palsy (up-gaze), Other (Horizontal Nystagmus) Mouth: Positive for: Moist Mucous Membranes Nose (External): Positive for: Atraumatic Neck: Positive for: Other (trach). Negative for: JVD, Lymphadenopathy Respiratory/Chest: Positive for: Good Air Exchange, Decreased Breath Sounds (B/L ), Rhonchi. Negative for: Clear to Auscultation, Respiratory Distress, Accessory Muscle Use, Rales Cardiovascular: Positive for: Regular Rate and Rhythm, Normal S1, S2, Peripheal Pulses Present. Negative for: Murmurs Abdomen: Positive for: Normal Bowel Sounds. Negative for: Distention Upper Extremity: Positive for: Normal Inspection, NORMAL PULSES, Other (L PICC) . Negative for: Cyanosis, Edema Lower Extremity: Positive for: Normal Inspection, NORMAL PULSES. Negative for: Edema Neurological: Positive for: Other (weak brainstem reflexes). Negative for: GCS= 15 Skin: Positive for: Warm, Dry, Pale. Negative for: Rashes, Normal Color - Medications Active Medications: Active Medications Generic Name Dose Route Start Last Admin Trade Name Freq PRN Reason Stop Dose Admin Ferrous Sulfate 300 mg 04/19/17 11:45 04/26/17 19:02 Feosol Liq PEG 300 mg BID JUVE Administration Heparin Sodium (Porcine) 5,000 units 04/25/17 22:00 04/26/17 22:10 Heparin SC 5,000 units Q12 JUVE Administration Piperacillin Sod/Tazobactam Sod 2.25 gm in 50 mls @ 100 mls/hr 04/17/17 06:00 04/27/17 05:45 Zosyn 2.25 Gm Iv Premix IVPB 100 mls/hr Q8H JUVE Administration Gentamicin Sulfate 80 mg/ 102 mls @ 100 mls/hr 04/20/17 19:13 04/24/17 10:59 Sodium Chloride IVPB 100 mls/hr TTS JUVE Administration Insulin Human Regular 0 unit 04/23/17 11:07 04/27/17 05:50 Novolin R SC 4 unit Q6 JUVE Administration Protocol Levetiracetam 500 mg 04/19/17 10:00 04/26/17 19:02 Keppra PO 500 mg BID JUVE Administration Nystatin 1 applic 04/17/17 10:00 04/26/17 19:02 Nystop Topical Powder TOP 1 applic BID JUVE Administration Pantoprazole Sodium 40 mg 04/19/17 11:00 04/26/17 09:37 Protonix Susp PEG 40 mg DAILY JUVE Administration - Patient Studies Lab Studies: Microbiology Studies 04/22/17 13:00 Blood Culture - Preliminary Blood-Thru Central Line NO GROWTH AFTER 4 DAYS 04/22/17 13:30 Blood Culture - Preliminary Blood-Thru Central Line NO GROWTH AFTER 4 DAYS Lab Studies 04/27/17 04/27/17 04/27/17 Range/Units 06:09 06:08 05:47 WBC 16.6 H (4.8-10.8) K/uL RBC 2.63 L (4.40-5.90) Mil/uL Hgb 7.9 L (12.0-18.0) g/dL Hct 24.5 L (35.0-51.0) % MCV 93.2 (80.0-94.0) fL MCH 29.9 (27.0-31.0) pg MCHC 32.1 L (33.0-37.0) g/dL RDW 16.5 H (11.5-14.5) % Plt Count 351 (130-400) K/uL MPV 7.5 (7.2-11.7) fL Neut % (Auto) 87.6 H (50.0-75.0) % Lymph % (Auto) 6.4 L (20.0-40.0) % Cooke % (Auto) 4.3 (0.0-10.0) % Eos % (Auto) 1.3 (0.0-4.0) % Baso % (Auto) 0.4 (0.0-2.0) % Neut # 14.5 H (1.8-7.0) K/uL Lymph # 1.1 (1.0-4.3) K/uL Cooke # 0.7 (0.0-0.8) K/uL Eos # 0.2 (0.0-0.7) K/uL Baso # 0.1 (0.0-0.2) K/uL Neutrophils % (Manual) (50-75) % Lymphocytes % (Manual) (20-40) % Monocytes % (Manual) (0-10) % Eosinophils % (Manual) (0-4) % Toxic Granulation Platelet Estimate (NORMAL) Large Platelets Hypochromasia (manual) Poikilocytosis (manual Anisocytosis (manual) Sodium 138 (132-148) mmol/L Potassium 3.4 L (3.6-5.2) mmol/L Chloride 101 (98-107) mmol/L Carbon Dioxide 26 (22-30) mmol/L Anion Gap 14 (10-20) BUN 35 H (9-20) mg/dL Creatinine 2.1 H (0.8-1.5) MG/DL Est GFR ( Amer) 38 Est GFR (Non-Af Amer) 31 POC Glucose (mg/dL) 292 H (65-110) mg/dL Random Glucose 226 H (75-110) mg/dL Calcium 8.5 L (8.6-10.4) mg/dl Phosphorus 2.3 L (2.5-4.5) mg/dL Magnesium 2.1 (1.6-2.3) mg/dL Total Bilirubin 0.4 (0.2-1.3) mg/dL AST 67 H D (17-59) U/L ALT 31 (21-72) U/L Alkaline Phosphatase 297 H (38-126) U/L Total Protein 6.0 L (6.3-8.3) g/dL Albumin 2.1 L (3.5-5.0) g/dL Globulin 3.8 (2.2-3.9) gm/dL Albumin/Globulin Ratio 0.6 L (1.0-2.1) 04/27/17 04/26/17 04/26/17 Range/Units 00:17 17:57 11:45 WBC (4.8-10.8) K/uL RBC (4.40-5.90) Mil/uL Hgb (12.0-18.0) g/dL Hct (35.0-51.0) % MCV (80.0-94.0) fL MCH (27.0-31.0) pg MCHC (33.0-37.0) g/dL RDW (11.5-14.5) % Plt Count (130-400) K/uL MPV (7.2-11.7) fL Neut % (Auto) (50.0-75.0) % Lymph % (Auto) (20.0-40.0) % Cooke % (Auto) (0.0-10.0) % Eos % (Auto) (0.0-4.0) % Baso % (Auto) (0.0-2.0) % Neut # (1.8-7.0) K/uL Lymph # (1.0-4.3) K/uL Cooke # (0.0-0.8) K/uL Eos # (0.0-0.7) K/uL Baso # (0.0-0.2) K/uL Neutrophils % (Manual) (50-75) % Lymphocytes % (Manual) (20-40) % Monocytes % (Manual) (0-10) % Eosinophils % (Manual) (0-4) % Toxic Granulation Platelet Estimate (NORMAL) Large Platelets Hypochromasia (manual) Poikilocytosis (manual Anisocytosis (manual) Sodium (132-148) mmol/L Potassium (3.6-5.2) mmol/L Chloride (98-107) mmol/L Carbon Dioxide (22-30) mmol/L Anion Gap (10-20) BUN (9-20) mg/dL Creatinine (0.8-1.5) MG/DL Est GFR ( Amer) Est GFR (Non-Af Amer) POC Glucose (mg/dL) 225 H 137 H 117 H (65-110) mg/dL Random Glucose (75-110) mg/dL Calcium (8.6-10.4) mg/dl Phosphorus (2.5-4.5) mg/dL Magnesium (1.6-2.3) mg/dL Total Bilirubin (0.2-1.3) mg/dL AST (17-59) U/L ALT (21-72) U/L Alkaline Phosphatase (38-126) U/L Total Protein (6.3-8.3) g/dL Albumin (3.5-5.0) g/dL Globulin (2.2-3.9) gm/dL Albumin/Globulin Ratio (1.0-2.1) 04/26/17 Range/Units 06:24 WBC (4.8-10.8) K/uL RBC (4.40-5.90) Mil/uL Hgb (12.0-18.0) g/dL Hct (35.0-51.0) % MCV (80.0-94.0) fL MCH (27.0-31.0) pg MCHC (33.0-37.0) g/dL RDW (11.5-14.5) % Plt Count (130-400) K/uL MPV (7.2-11.7) fL Neut % (Auto) (50.0-75.0) % Lymph % (Auto) (20.0-40.0) % [place]oke % (Auto) (0.0-10.0) % Eos % (Auto) (0.0-4.0) % Baso % (Auto) (0.0-2.0) % Neut # (1.8-7.0) K/uL Lymph # (1.0-4.3) K/uL Cooke # (0.0-0.8) K/uL Eos # (0.0-0.7) K/uL Baso # (0.0-0.2) K/uL Neutrophils % (Manual) 86 H (50-75) % Lymphocytes % (Manual) 9 L (20-40) % Monocytes % (Manual) 2 (0-10) % Eosinophils % (Manual) 3 (0-4) % Toxic Granulation Present Platelet Estimate Normal (NORMAL) Large Platelets Present Hypochromasia (manual) Slight Poikilocytosis (manual Slight Anisocytosis (manual) Slight Sodium (132-148) mmol/L Potassium (3.6-5.2) mmol/L Chloride (98-107) mmol/L Carbon Dioxide (22-30) mmol/L Anion Gap (10-20) BUN (9-20) mg/dL Creatinine (0.8-1.5) MG/DL Est GFR ( Amer) Est GFR (Non-Af Amer) POC Glucose (mg/dL) (65-110) mg/dL Random Glucose (75-110) mg/dL Calcium (8.6-10.4) mg/dl Phosphorus (2.5-4.5) mg/dL Magnesium (1.6-2.3) mg/dL Total Bilirubin (0.2-1.3) mg/dL AST (17-59) U/L ALT (21-72) U/L Alkaline Phosphatase (38-126) U/L Total Protein (6.3-8.3) g/dL Albumin (3.5-5.0) g/dL Globulin (2.2-3.9) gm/dL Albumin/Globulin Ratio (1.0-2.1) Laboratory Results - last 24 hr 04/26/17 04/26/17 04/26/17 06:24 11:45 17:57 WBC RBC Hgb Hct MCV MCH MCHC RDW Plt Count MPV Neut % (Auto) Lymph % (Auto) Cooke % (Auto) Eos % (Auto) Baso % (Auto) Neut # Lymph # [place]oke # Eos # Baso # Neutrophils % (Manual) 86 H Lymphocytes % (Manual) 9 L Monocytes % (Manual) 2 Eosinophils % (Manual) 3 Toxic Granulation Present Platelet Estimate Normal Large Platelets Present Hypochromasia (manual) Slight Poikilocytosis (manual Slight Anisocytosis (manual) Slight Sodium Potassium Chloride Carbon Dioxide Anion Gap BUN Creatinine Est GFR ( Amer) Est GFR (Non-Af Amer) POC Glucose (mg/dL) 117 H 137 H Random Glucose Calcium Phosphorus Magnesium Total Bilirubin AST ALT Alkaline Phosphatase Total Protein Albumin Globulin Albumin/Globulin Ratio 04/27/17 04/27/17 04/27/17 00:17 05:47 06:08 WBC RBC Hgb Hct MCV MCH MCHC RDW Plt Count MPV Neut % (Auto) Lymph % (Auto) Cooke % (Auto) Eos % (Auto) Baso % (Auto) Neut # Lymph # [place] # Eos # Baso # Neutrophils % (Manual) Lymphocytes % (Manual) Monocytes % (Manual) Eosinophils % (Manual) Toxic Granulation Platelet Estimate Large Platelets Hypochromasia (manual) Poikilocytosis (manual Anisocytosis (manual) Sodium 138 Potassium 3.4 L Chloride 101 Carbon Dioxide 26 Anion Gap 14 BUN 35 H Creatinine 2.1 H Est GFR ( Amer) 38 Est GFR (Non-Af Amer) 31 POC Glucose (mg/dL) 225 H 292 H Random Glucose 226 H Calcium 8.5 L Phosphorus 2.3 L Magnesium 2.1 Total Bilirubin 0.4 AST 67 H D ALT 31 Alkaline Phosphatase 297 H Total Protein 6.0 L Albumin 2.1 L Globulin 3.8 Albumin/Globulin Ratio 0.6 L 04/27/17 06:09 WBC 16.6 H RBC 2.63 L Hgb 7.9 L Hct 24.5 L MCV 93.2 MCH 29.9 MCHC 32.1 L RDW 16.5 H Plt Count 351 MPV 7.5 Neut % (Auto) 87.6 H Lymph % (Auto) 6.4 L Cooke % (Auto) 4.3 Eos % (Auto) 1.3 Baso % (Auto) 0.4 Neut # 14.5 H Lymph # 1.1 Cooke # 0.7 Eos # 0.2 Baso # 0.1 Neutrophils % (Manual) Lymphocytes % (Manual) Monocytes % (Manual) Eosinophils % (Manual) Toxic Granulation Platelet Estimate Large Platelets Hypochromasia (manual) Poikilocytosis (manual Anisocytosis (manual) Sodium Potassium Chloride Carbon Dioxide Anion Gap BUN Creatinine Est GFR ( Amer) Est GFR (Non-Af Amer) POC Glucose (mg/dL) Random Glucose Calcium Phosphorus Magnesium Total Bilirubin AST ALT Alkaline Phosphatase Total Protein Albumin Globulin Albumin/Globulin Ratio Fingerstick Blood Sugar Results: 292 Critical Care Progress Note - Nutrition Nutrition: Nutrition Category Date Time Status NPO Diet [DIET] Diets 04/26/17 Breakfast Active Assessment/Plan - Assessment and Plan (Free Text) Assessment: 71-year-old male past medical history of end-stage renal disease on hemodialysis , bed bound for over 2 years, correction resident, hypertension. Presented status post cardiac arrest with successful ROSC. Patient has suffered anoxic injury. Plan: Neuro: Anoxic injury, and comatose state. Pulm: Acute respiratory failure, now with trach on vent. CV: Hemodynamically stable Hem: Anemia of chronic disease Renal: End stage renal disease on hemodialysis. blood cultures negative, awaiting permacath placement by surgery on Parth. Endo: No acute issues GI: Nothing by mouth, PEG in place, Novasource Renal tube feeds at goal. ID: Severe sepsis from Pseudomonas, from multiple sources. Continue gentamicin and Zosyn. ID consulted. DVT proph - heparin subcutaneous GI proph - Protonix titus for strict I/O's during acute illness Code status - full code
[2017-04-27] MEDS ORDERED: Potassium Chloride 20 mEq/15 ml LIQ UD PEG ONE (07:45)
[2017-04-27 08:14] LABS: NEUTROPHIL 91 % (50-75); TOTAL CELLS COUNTED 100
[2017-04-27] MEDS: Pantoprazole 40 mg Susp UD PEG SCH (09:57)
[2017-04-27] MEDS: Ferrous Sulfate 300 mg/5 mL Liq UD PEG SCH ×2 (09:57→17:06)
--- NOTE | 2017-04-27 11:39 | CP.PCM.PN ---
Subjective - Date & Time of Evaluation Date of Evaluation: 04/27/17 Time of Evaluation: 08:00 - Subjective Subjective: s/p left subclavian permacath insertion. Patient is trached and comatose. admitted with line sepsis / gram neg bacteremia rx inprogress Objective - Vital Signs/Intake and Output Vital Signs (last 24 hours): Temp Pulse Resp BP Pulse Ox 96.2 F L 57 L 20 140/74 100 04/27/17 04:00 04/27/17 10:00 04/27/17 10:00 04/27/17 08:04 04/27/17 08:04 Intake and Output: 04/27/17 04/27/17 06:59 18:59 Intake Total 740 40 Output Total 250 Balance 490 40 - Medications Medications: Current Medications Ferrous Sulfate (Feosol Liq) 300 mg PEG BID [facility] Last Admin: 04/27/17 09:57 Dose: 300 mg Heparin Sodium (Porcine) (Heparin) 5,000 units SC Q12 [facility] Last Admin: 04/27/17 09:57 Dose: 5,000 units Piperacillin Sod/Tazobactam Sod (Zosyn 2.25 Gm Iv Premix) 2.25 gm in 50 mls @ 100 mls/hr IVPB Q8H [facility] Last Admin: 04/27/17 05:45 Dose: 100 mls/hr Gentamicin Sulfate 80 mg/ (Sodium Chloride) 102 mls @ 100 mls/hr IVPB TTS [facility] Last Admin: 04/27/17 09:56 Dose: 100 mls/hr Insulin Human Regular (Novolin R) 0 unit SC Q6 [facility] PRN Reason: Protocol Last Admin: 04/27/17 05:50 Dose: 4 unit Levetiracetam (Keppra) 500 mg PO BID [facility] Last Admin: 04/27/17 09:57 Dose: 500 mg Nystatin (Nystop Topical Powder) 1 applic TOP BID [facility] Last Admin: 04/27/17 10:16 Dose: 1 applic Pantoprazole Sodium (Protonix Susp) 40 mg PEG DAILY [facility] Last Admin: 04/27/17 09:57 Dose: 40 mg - Labs Labs: 04/27/17 06:09 04/27/17 06:08 PT 11.2 SECONDS (9.7-12.2) 04/20/17 06:29 INR 1.0 04/20/17 06:29 APTT 36 SECONDS (21-34) H 04/20/17 06:29 - Constitutional Appears: Cachectic, Chronically Ill - Head Exam Head Exam: NORMOCEPHALIC - Eye Exam Eye Exam: PERRL. absent: Scleral icterus - ENT Exam ENT Exam: Mucous Membranes Dry - Neck Exam Neck Exam: absent: Lymphadenopathy - Respiratory Exam Respiratory Exam: Decreased Breath Sounds, Rhonchi - Cardiovascular Exam Cardiovascular Exam: REGULAR RHYTHM, +S1, +S2 - GI/Abdominal Exam GI & Abdominal Exam: Distended, Soft - Back Exam Back Exam: absent: CVA tenderness (L), CVA tenderness (R) - Neurological Exam Neurological Exam: Altered Additional comments: coma Assessment and Plan (1) Sepsis Status: Acute (2) Sepsis Status: Acute (3) Anoxic brain injury Status: Acute (4) Cardiac arrest Status: Acute (5) ESRD (end stage renal disease) Status: Acute (6) Pneumonia Status: Acute (7) Respiratory arrest Status: Acute
[2017-04-27 13:26] VITALS: BP 118/62; TEMP 94
[2017-04-27 16:04] VITALS: PULSE 56; RESP 13
--- NOTE | 2017-04-28 09:03 | CARD ---
APPROVED REPORT EKG Measurement Heart [id number] <Conclusion> Sinus bradycardia Left axis deviation Right bundle branch block Minimal voltage criteria for LVH, may be normal variant Inferior infarct, age undetermined Abnormal ECG
--- NOTE | 2017-04-28 09:12 | CARD ---
APPROVED REPORT EKG Measurement Heart [id number] <Conclusion> Normal sinus rhythm Right bundle branch block Left anterior fascicular block Bifascicular block Moderate voltage criteria for LVH, may be normal variant T wave abnormality, consider lateral ischemia Abnormal ECG
--- NOTE | 2017-05-01 18:20 | DS ---
The patient was admitted to the hospital with complaint of respiratory failure. The patient was intu bated with mechanical ventilator, supportive care. The patient did not show significant recovery. T he patient was sent to [facility]. DIAGNOSIS: Respiratory failure. Dale Collins MD cc: [id number] TT: 04/30/2017 11:36:18 simone
== END 2017-04-27 18:17 | DRG 870 ==
LOC: C.ER 14:02 → C.9E 16:19 → C.9I 17:07
PROVIDERS: ADMIT Internal Medicine Pulmonary Disease; ATTEND Internal Medicine Pulmonary Disease
PROC: 5A1955Z Respiratory Ventilation, Greater than 96 Consecutive Hours (ICD-10-PCS; principal; 2017-04-15)
PROC: 02HV33Z Insertion of Infusion Device into Superior Vena Cava, Percutaneous Approach (ICD-10-PCS; 2017-04-15)
PROC: 5A1D60Z (ICD-10-PCS; 2017-04-17)
PROC: 02PYX3Z Removal of Infusion Device from Great Vessel, External Approach (ICD-10-PCS; 2017-04-19)
PROC: 02HV33Z Insertion of Infusion Device into Superior Vena Cava, Percutaneous Approach (ICD-10-PCS; 2017-04-21)
PROC: B548ZZA Ultrasonography of Superior Vena Cava, Guidance (ICD-10-PCS; 2017-04-21)
PROC: B2141ZZ Fluoroscopy of Right Heart using Low Osmolar Contrast (ICD-10-PCS; 2017-04-26)
PROC: 02H633Z Insertion of Infusion Device into Right Atrium, Percutaneous Approach (ICD-10-PCS; 2017-04-26)
DX: A41.52 Sepsis due to Pseudomonas (principal); I46.9 Cardiac arrest, cause unspecified; J96.00 Acute respiratory failure, unspecified whether with hypoxia or hypercapnia; J69.0 Pneumonitis due to inhalation of food and vomit; G82.50 Quadriplegia, unspecified; G93.1 Anoxic brain damage, not elsewhere classified; Z99.11 Dependence on respirator [ventilator] status; I13.2 Hypertensive heart and chronic kidney disease with heart failure and with stage 5 chronic kidney disease, or end stage renal disease; Z93.0 Tracheostomy status; N18.6 End stage renal disease; T82.838A Hemorrhage due to vascular prosthetic devices, implants and grafts, initial encounter; R65.20 Severe sepsis without septic shock; R56.9 Unspecified convulsions; E11.22 Type 2 diabetes mellitus with diabetic chronic kidney disease; Z99.2 Dependence on renal dialysis; I25.10 Atherosclerotic heart disease of native coronary artery without angina pectoris; Y84.1 Kidney dialysis as the cause of abnormal reaction of the patient, or of later complication, without mention of misadventure at the time of the procedure; Z93.1 Gastrostomy status; E87.6 Hypokalemia; D63.8 Anemia in other chronic diseases classified elsewhere; E88.09 Other disorders of plasma-protein metabolism, not elsewhere classified; G25.3 Myoclonus; I50.9 Heart failure, unspecified; J45.909 Unspecified asthma, uncomplicated; Z51.5 Encounter for palliative care; Z66 Do not resuscitate; Z86.73 Personal history of transient ischemic attack (TIA), and cerebral infarction without residual deficits; R40.2430 Glasgow coma scale score 3-8, unspecified time